=== PATIENT | female | born 1990 | race Two or more races ===

== ENCOUNTER 2019-08-26 11:07 | Inpatient (IN) | payer BC ==
[~2019-08-26] VITALS: Ht 162.6 cm; Wt 72.6 kg
[2019-08-26] VITALS (10 sets, daily range): BP systolic 107–153; BP diastolic 52–75
[2019-08-26] MEDS ORDERED: Lidocaine 1% 10mg/ml/Epi 0.005mg/ml 30ml vial INJ ONE (11:50)
[2019-08-26] MEDS ORDERED: EPINEPHrine 1mg/1ml Amp ONE (11:50)
[2019-08-26] MEDS ORDERED: Bacitracin 50000 Units Vial ONE ×2 (11:51→11:56)
[2019-08-26] MEDS ORDERED: NeoSporin Gu Irrig 1ml Amp IRRIG ONE ×2 (11:51→11:56)
[2019-08-26] MEDS ORDERED: fentaNYL 100 mcg/2 mL IV ONE (11:53)
[2019-08-26] MEDS ORDERED: Midazolam 2mg/2ml Inj ONE (11:54)
[2019-08-26] MEDS ORDERED: Ketorolac 30mg Inj ONE (11:54)
[2019-08-26] MEDS ORDERED: Lidocaine 1% MPF 10mg/ml 5ml ONE (11:54)
[2019-08-26] MEDS ORDERED: Propofol 200mg/20ml IV ONE (11:54)
[2019-08-26] MEDS ORDERED: NS Irrig 1000ml IRRIG ONE ×2 (11:58→13:06)
[2019-08-26] MEDS ORDERED: TransDerm Scop 1.5mg/72HR Patch TDERMAL ONE ×2 (12:06→13:30)
--- NOTE | 2019-08-26 12:12 | Anethesia Preoperative Eval ---
Anesthesia Pre-op PMH/ROS General Date of Evaluation: Aug 26, 2019 Time of Evaluation: 12:08 Anesthesiologist: Delroy ASA Score: ASA 2 Mallampati Score Class I : Soft palate, uvula, fauces, pillars visible Class II: Soft palate, uvula, fauces visible Class III: Soft palate, base of uvula visible Class IV: Only hard plate visible Mallampati Classification: Class II Surgeon: Roberto Diagnosis: Bilateral axillary HS Surgical Procedure: Excision of axillary hydradenitis Anesthesia History: none Family History: no anesthesia problems Allergies: Coded Allergies: No Known Allergies (Unverified , 08/25/19) Medications: see eMAR Patient NPO?: Yes Past Medical History Cardiovascular: Denies: HTN, CAD, [place], valve dz, arrhythmia, other Pulmonary: Denies: asthma, COPD, JESS, other Gastrointestinal/Genitourinary: Reports: GERD - mild; Denies: CRI, ESRD, other Neurologic/Psychiatric: Reports: depression/anxiety; Denies: dementia, CVA, TIA, other Endocrine: Denies: DM, hypothyroidism, steroids, other HEENT: Denies: cataract (L), cataract (R), glaucoma, [place] (L), [place] (R), other Hematology/Immune: Denies: anemia, DVT, bleeding disorder, other Musculoskeletal/Integumentary: Denies: OA, RA, DJD, DDD, edema, other PMH Narrative: as above PSxH Narrative: Anesthesia Pre-op Phys. Exam Physician Exam Last Vital Signs Date Time Temp Pulse Resp B/P (MAP) Pulse Ox O2 Delivery O2 Flow Rate FiO2 08/26/19 11:52 Room Air 08/26/19 11:44 98.5 64 18 107/63 100 Constitutional: NAD Neurologic: CN 2-12 intact Cardiovascular: RRR, no M/R/G Respiratory: CTA Gastrointestinal: S/NT/ND Airway Exam Mallampati Score: Class II MO: full Neck: flexible ROM: full Teeth: intact Dentures: no upper, no lower Anesthesia Pre-op A/P Labs see chart Urine Test Test 08/26/19 11:15 Urine HCG, Qualitative Negative (NEGATIVE) Studies Pre-op Studies: EKG - NSR Risk Assessment & Plan Assessment: ASA 2 Plan: GA with LMA PONV prevention Status Change Before Surgery: No Pre-Antibiotics Drug: Ancef 1gr Given Within 1 Hr of Incision: Yes Time Given: 13:10 Ernie Potts MD Aug 26, 2019 12:12
--- NOTE | 2019-08-26 12:26 | Pre-Procedure Note/Attestation ---
Pre-Procedure Note/Attestation Complete Prior to Procedure Planned Procedure: bilateral Procedure Narrative: Excision of bilateral axillary hidradenitis with flap elevation Indications for Procedure Pre-Operative Diagnosis: Hidradenitis Suppurativa Attestation I attest that I discussed the nature of the procedure; its benefits; risks and complications; and alternatives (and the risks and benefits of such alternatives ), prior to the procedure, with the patient (or the patient's legal insurance claim representative). I attest that, if there was a reasonable possibility of needing a blood transfusion, the patient (or the patient's legal insurance claim representative) was given the [facility] standardized written summary, pursuant to the Bill Shahab Blood Safety Act ([place] Health and Safety Code # 1645, as amended). I attest that I re-evaluated the patient just prior to the surgery and that there has been no change in the patient's H&P, except as documented below: Quynh Mejia MD Aug 26, 2019 12:26
[2019-08-26] MEDS ORDERED: PCA Education Pamphlet MISC ONE (12:30)
[2019-08-26] MEDS ORDERED: Zolpidem 5mg tab ORAL PRN (12:30)
[2019-08-26] MEDS ORDERED: Rate Change PCA 1 Each MISC PRN (12:30)
[2019-08-26] MEDS ORDERED: Metoclopramide 10mg/2ml Inj IVP PRN ×2 (12:30→13:30)
[2019-08-26] MEDS ORDERED: LR 1000ml ONE (13:00)
[2019-08-26] MEDS ORDERED: Sterile Water Irrig 1000ml IRRIG ONE (13:00)
[2019-08-26] MEDS ORDERED: Hydromorphone 0.5mg/0.5ml inj IVP PRN (13:30)
[2019-08-26] MEDS ORDERED: Meperidine 25mg/0.5ml Inj (FOR RIGORS ONLY) IV PRN (13:30)
[2019-08-26] MEDS ORDERED: Ketorolac 30mg Inj IV PRN (13:30)
[2019-08-26] MEDS ORDERED: LR 1000ml 1,000 ML IVLG SCH (13:30)
[2019-08-26] MEDS ORDERED: DiphenhydrAMINE 50mg/ml Inj IVP PRN (13:30)
[2019-08-26] MEDS ORDERED: Midazolam 2mg/2ml Inj IVP PRN (13:30)
[2019-08-26] MEDS ORDERED: Acetaminophen (Non formulary) 100 ML IV ONE (13:30)
[2019-08-26] MEDS ORDERED: Morphine Sulfate 10mg/ml Inj ONE (13:46)
[2019-08-26] MEDS ORDERED: Sodium Chloride 10ml vial INJ ONE (13:47)
[2019-08-26] MEDS ORDERED: Neosporin Oint Ud Pkt TOPIC ONE (14:58)
--- NOTE | 2019-08-26 15:15 | Operative Note - PDOC ---
Operative Note Operative Note Pre-op Diagnosis: Hidradenitis Suppurativa Procedure: Excision of bilateral axillary HS with flap elevation Surgeon: Roberto Concrete Plant Laborer: Natalie Anesthesia: general Specimen: yes Complications: none Condition: stable Estimated Blood Loss: minimal Drains: none Implant(s) used?: No Quynh Mejia MD Aug 26, 2019 15:15
--- NOTE | 2019-08-26 15:26 | Immediate Post-Op Evaluation ---
Immediate Post-Op Evalulation Immediate Post-Op Evalulation Procedure: Excision of bilateral axillary hydradenitis Date of Evaluation: Aug 26, 2019 Time of Evaluation: 15:25 IV Fluids: 1500 Blood Products: none Estimated Blood Loss: 100 Urinary Output: none Blood Pressure Systolic: 110 Blood Pressure Diastolic: 52 Pulse Rate: 64 Respiratory Rate: 20 O2 Sat by Pulse Oximetry: 99 Temperature (Fahrenheit): 97.6 Pain Score (1-10): 1 Nausea: No Vomiting: No Complications none Patient Status: reacts, patent, none Hydration Status: adequate Ernie Potts MD Aug 26, 2019 15:26
[2019-08-26] MEDS: PCA HYDROmorphone 1mg/ml 30 ML IV PRN (15:32)
--- NOTE | 2019-08-26 16:00 | NUR ---
NURSE NOTES: Received report by Phyllis GARCIA, pt a/a/o x4 laying in bed with no signs of distress or other issues at this time. IV on the right AC gauge X22 heplock, and right foot gauge running D5 1/2NS@75ml/hr. and RETAIL ASSOCIATE Dilaudid. call light within reach, bed in lowest position. side rales up x4. RN will review orders and will carryon. I will f/u as needed.
[2019-08-26] MEDS: Docusate 100mg cap ORAL SCH (17:55)
[2019-08-26] MEDS: D5 1/2NS 1,000 ML IV SCH (17:55)
[2019-08-26] MEDS: PCA shift volume MISC SCH (19:25)
--- NOTE | 2019-08-26 19:25 | NUR ---
NURSE NOTES: Received report from JOSE Morrison. Pt is sleeping, lying semi-slade's; comfortably resting. No signs of acute distress noted. Checked IV site on foot, line, and rate; patent and running. No erythema, bleeding, or infiltration noted. Bed at lowest position. Brakes on. Siderails up x2. Call light within reach. Will continue to monitor.
--- NOTE | 2019-08-26 19:47 | NUR ---
HAND-OFF: Report given to Melina GARCIA, pt in stable condition.
[2019-08-26] MEDS: ceFAZolin 1gm/50ml Premix 50 ML IV SCH (21:25)
[2019-08-27] VITALS (7 sets, daily range): BP systolic 93–112; BP diastolic 40–68
[2019-08-27] MEDS: ceFAZolin 1gm/50ml Premix 50 ML IV SCH ×3 (04:13→20:29)
[2019-08-27] MEDS: D5 1/2NS 1,000 ML IV SCH ×2 (04:20→18:10)
[2019-08-27] MEDS: PCA shift volume MISC SCH ×2 (07:00→19:00)
--- NOTE | 2019-08-27 07:29 | NUR ---
NURSE NOTES: Report received from Melina GARCIA, rounds made. Patient resting in semi-fowlers position in bed. Mom at bedside. No distress on RA. O2 2LNC at bedside. IV infusing to right foot, D5 1/2 at 75 ml with EDITOR INDEX Dilaudid. LAC heplock intact. Bilateral axillary dressings saturated, leaking on bed, will notify Dr. Mejia. Left SCD on. Denies pain/NV at this time. Call light in reach, bed in lowest position, will continue to monitor.
--- NOTE | 2019-08-27 07:45 | NUR ---
HAND-OFF: Report given to JOSE Huerta. Pt is awake and in stable condition. Plan of care endorsed.
--- NOTE | 2019-08-27 08:16 | NUR ---
NURSE NOTES: Dr. Mejia notified of bilateral axillary dressing status, saturated/leaking on bed. Orders received to change dressing with 4x4 and medipore tape (leave packing in place).
[2019-08-27] MEDS: Docusate 100mg cap ORAL SCH ×2 (08:55→18:10)
--- NOTE | 2019-08-27 09:24 | NUR ---
CASE MANAGEMENT: INITIAL REVIEW 29YR OLD FEMALE FROM HOME HERE FOR ELECTIVE SURGERY CC: BILATERAL AXILLARY HYDRADENITIS SI: HIDRADENITIS SUPPURATIVA 98.5 64 18 107/63 100% ON RA HCG- NEGATIVE IS:IN SURGERY NOW EXCISION OF BILATERAL AXILLARY HS WITH FLAP EVALUATION \: 3E MED SURG UNIT CASE MANAGEMENT: REVIEW 08/27/19 SI: POD#1 EXCISION OF BILATERAL AXILLARY HIDRADENITIS WITH FLAP EVALUATION HIDRADENITIS SUPPURATIVA 98.1 74 18 105/62 95% ON RA IS:LATIN TEACHER DILAUDID BID IVF D5@75ML/HR IV CEFAZOLIN Q8HR \: 3E MED SURG UNIT PLAN: DC PLANNING WOUND CARE POSSIBLE CLOSURE OF WOUND
--- NOTE | 2019-08-27 09:51 | 48 Hour Post Anesthesia Eval ---
Post Anesthesia Evaluation Procedure: Excision of bilateral axillary hydradenitis Date of Evaluation: Aug 27, 2019 Time of Evaluation: 09:50 Blood Pressure Systolic: 108 0: 62 Pulse Rate: 74 Respiratory Rate: 18 Temperature (Fahrenheit): 97.6 O2 Sat by Pulse Oximetry: 98 Airway: patent Nausea: No Vomiting: No Pain Intensity: 3 Hydration Status: adequate Cardiopulmonary Status: stable Mental Status/LOC: patient returned to baseline Follow-up Care/Observations: n/a Post-Anesthesia Complications: none Follow-up care needed: N/A Ernie Potts MD Aug 27, 2019 09:51
--- NOTE | 2019-08-27 10:20 | General Progress Note ---
Progress Note Progress Note Pt seen and examined. POD# 1 and doing well. Pain is minimal. Dressings were replaced due to soakage. Plan for OR tomorrow for definitive flap inset into the axillary wounds. Quynh Higgins MD, MD Aug 27, 2019 10:20
--- NOTE | 2019-08-27 10:32 | Anethesia Preoperative Eval ---
Anesthesia Pre-op PMH/ROS General Date of Evaluation: Aug 27, 2019 Anesthesiologist: Betty ASA Score: ASA 2 Mallampati Score Class I : Soft palate, uvula, fauces, pillars visible Class II: Soft palate, uvula, fauces visible Class III: Soft palate, base of uvula visible Class IV: Only hard plate visible Mallampati Classification: Class II Surgeon: Roberto Diagnosis: Bilateral Axillary Hidradenitis Suppurativa Surgical Procedure: Axillary Wound Closure Anesthesia History: none Family History: no anesthesia problems Allergies: Coded Allergies: No Known Allergies (Unverified , 08/25/19) Medications: see eMAR Patient NPO?: Yes Past Medical History Gastrointestinal/Genitourinary: Reports: GERD Neurologic/Psychiatric: Reports: depression/anxiety PSxH Narrative: C/S Anesthesia Pre-op Phys. Exam Physician Exam Last Vital Signs Date Time Temp Pulse Resp B/P (MAP) Pulse Ox O2 Delivery O2 Flow Rate FiO2 08/27/19 09:51 74 18 98 08/27/19 08:00 98.1 105/62 (76) 08/26/19 21:00 Nasal Cannula 2.0 Constitutional: NAD Neurologic: CN 2-12 intact Cardiovascular: RRR Respiratory: CTA Gastrointestinal: S/NT/ND Airway Exam Mallampati Score: Class II MO: full ROM: full Teeth: intact Anesthesia Pre-op A/P Labs Labs Test 08/26/19 11:15 08/27/19 11:35 Urine HCG, Qualitative Negative (NEGATIVE) White Blood Count 12.3 K/UL (4.8-10.8) Red Blood Count 3.98 M/UL (4.20-5.40) Hemoglobin 12.4 G/DL (12.0-16.0) Hematocrit 35.5 % (37.0-47.0) Mean Corpuscular Volume 89 FL (80-99) Mean Corpuscular Hemoglobin 31.2 PG (27.0-31.0) Mean Corpuscular Hemoglobin Concent 34.9 G/DL (32.0-36.0) Red Cell Distribution Width 10.9 % (11.6-14.8) Platelet Count 318 K/UL (150-450) Mean Platelet Volume 5.8 FL (6.5-10.1) Neutrophils (%) (Auto) 78.7 % (45.0-75.0) Lymphocytes (%) (Auto) 15.5 % (20.0-45.0) Monocytes (%) (Auto) 4.5 % (1.0-10.0) Eosinophils (%) (Auto) 0.7 % (0.0-3.0) Basophils (%) (Auto) 0.6 % (0.0-2.0) Sodium Level 140 MMOL/L (136-145) Potassium Level 4.0 MMOL/L (3.5-5.1) Chloride Level 104 MMOL/L (98-107) Carbon Dioxide Level 30 MMOL/L (21-32) Anion Gap 6 mmol/L (5-15) Blood Urea Nitrogen 6 mg/dL (7-18) Creatinine 0.6 MG/DL (0.55-1.30) Estimat Glomerular Filtration Rate > 60 mL/min (>60) Glucose Level 151 MG/DL (74-106) Calcium Level 8.7 MG/DL (8.5-10.1) Total Bilirubin 0.5 MG/DL (0.2-1.0) Aspartate Amino Transf (AST/SGOT) 77 U/L (15-37) Alanine Aminotransferase (ALT/SGPT) 91 U/L (12-78) Alkaline Phosphatase 61 U/L (46-116) Total Protein 7.5 G/DL (6.4-8.2) Albumin 3.2 G/DL (3.4-5.0) Globulin 4.3 g/dL Albumin/Globulin Ratio 0.7 (1.0-2.7) Urine Test Test 08/26/19 11:15 Urine HCG, Qualitative Negative (NEGATIVE) Risk Assessment & Plan Assessment: ASA 1 Plan: GA Status Change Before Surgery: No Pre-Antibiotics Drug: Fabrice Egan MD Aug 27, 2019 10:32
--- NOTE | 2019-08-27 10:59 | History and Physical ---
History of Present Illness General Date patient seen: Aug 27, 2019 Reason for Hospitalization: bilateral axillary HS cellulitis Present Illness HPI 29 year old female with history of hidradenitis suppurativa win bilateral axilla and groin presented with infected stage 3 HS. She recently changed her diet to vegan which helped her groin lesions. Has also lost weight, she thinks about 10 pounds. She had wbc count of 11.1 when checked outpatient. Denies taking any medications other than over the counter vitamins. she currently denies fever, chills. 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 Denies smoking cigarettes, etoh or illicit drug use Family history: cousin with hidradenitis Suppurative Allergies: Coded Allergies: No Known Allergies (Unverified , 08/25/19) Medication History No Active Prescriptions or Reported Meds Patient History Healthcare decision maker Resuscitation status Full Code Advanced Directive on File Review of Systems Eye: Denies: no symptoms, see HPI, eye pain, blurred vision, tearing, double vision, nose pain, nose congestion, acuity changes, discharge, other ENT: Denies: no symptoms, see HPI, ear pain, ear discharge, nose pain, nose congestion, throat pain, throat swelling, mouth pain, hearing loss, nasal discharge, other Respiratory: Denies: no symptoms, see HPI, cough, orthopnea, shortness of breath, stridor, wheezing, WAHL, sputum, other Cardiovascular: Denies: no symptoms, see HPI, chest pain, edema, palpitations, syncope, PND, other Gastrointestinal: Denies: no symptoms, see HPI, abdominal pain, constipation, diarrhea, nausea, vomiting, melena, hematemesis, other Genitourinary: Denies: no symptoms, see HPI, discharge, dysuria, frequency, hematuria, pain, retention, incontinence, urgency, vag bleed/dc, other Musculoskeletal: Denies: no symptoms, see HPI, back pain, gout, joint pain, joint swelling, muscle pain, muscle stiffness, other Skin: Reports: see HPI, lesions; Denies: no symptoms, rash, change in color, change in hair/nails, dryness, other Psychiatric: Denies: no symptoms, see HPI, prior hx, anxiety, depressed feelings, emotional problems, SI, HI, hallucinations, other Neurological: Denies: no symptoms, see HPI, headache, numbness, paresthesia, seizure, tingling, tremors, focal weakness, syncope, dizziness, other Endocrine: Denies: no symptoms, see HPI, excessive sweating, flushing, intolerance to temperature, increased thirst, increased urine, unexplained weight loss, other Hematologic/Lymphatic: Denies: no symptoms, see HPI, anemia, blood clots, easy bleeding, easy bruising, swollen glands, diathesis, other Physical Exam General Appearance: WD/WN, no apparent distress, overweight Lines, tubes and drains: peripheral HEENT: normocephalic, atraumatic, anicteric Neck: non-tender, normal alignment, supple Respiratory/Chest: chest wall non-tender, lungs clear, normal breath sounds, no respiratory distress, no accessory muscle use Cardiovascular/Chest: normal peripheral pulses, normal rate, regular rhythm, no gallop/murmur, no JVD Abdomen: normal bowel sounds, non tender, soft, no organomegaly, no mass Extremities: normal range of motion, non-tender, no calf tenderness, no edema Skin Exam: normal pigmentation, warm/dry, other - bilateral axilla dressing c/d /i Neurologic: bryologist II-XII grossly normal, no motor/sensory deficits, alert, oriented x 3, responsive Musculoskeletal: normal muscle bulk Last 24 Hour Vital Signs Date Time Temp Pulse Resp B/P (MAP) Pulse Ox O2 Delivery O2 Flow Rate FiO2 08/27/19 09:51 74 18 98 08/27/19 08:00 98.1 74 18 105/62 (76) 95 08/27/19 08:00 74 18 95 08/27/19 04:00 64 20 100 08/27/19 04:00 98.0 64 20 103/63 (76) 100 08/27/19 00:08 72 16 99 08/27/19 00:00 98.0 72 20 112/68 (83) 99 08/26/19 21:00 89 17 98 08/26/19 21:00 Nasal Cannula 2.0 08/26/19 20:00 98.1 70 20 122/74 (90) 100 08/26/19 19:01 Nasal Cannula 3.0 08/26/19 16:15 17 2/5/20 16:05 97.8 68 13 153/75 100 Nasal Cannula 3 08/26/19 16:02 97.8 08/26/19 16:00 17 08/26/19 15:50 58 23 145/69 100 Nasal Cannula 3 08/26/19 15:45 20 08/26/19 15:36 52 14 142/72 100 Simple Mask 6 08/26/19 15:32 18 08/26/19 15:26 49 19 118/58 100 Simple Mask 6 08/26/19 15:26 64 20 99 08/26/19 15:16 59 15 110/52 100 Simple Mask 6 08/26/19 15:11 69 22 115/55 100 Simple Mask 6 08/26/19 15:06 97.1 58 20 121/69 99 Simple Mask 6 08/26/19 11:52 Room Air 08/26/19 11:44 98.5 64 18 107/63 100 Room Air Intake and Output 08/26/19 08/27/19 19:00 07:00 Intake Total 1675 ml 950 ml Output Total 100 ml Balance 1575 ml 950 ml Intake Oral 0 ml IV Total 1675 ml 950 ml Output Estimated Blood Loss 100 ml # Voids 1 Laboratory Tests Test 08/26/19 11:15 Urine HCG, Qualitative Negative (NEGATIVE) Height (Feet): 5 Height (Inches): 4.00 Weight (Pounds): 160 Medications Current Medications Medications (Trade) Dose Ordered Sig/Rl Route PRN Reason Start Time Stop Time Status Last Admin Dose Admin Acetaminophen (Tylenol) 650 mg Q4H PRN ORAL FEVER 08/26/19 12:30 09/25/19 12:29 Cefazolin Sodium 50 ml @ 100 mls/hr Q8H IV 08/26/19 21:00 09/02/19 20:59 08/27/19 04:13 Dextrose/Sodium Chloride 1,000 ml @ 75 mls/hr [id number] IV 08/26/19 15:00 09/25/19 14:59 08/27/19 04:20 Docusate Sodium (Colace) 100 mg TWICE A DAY ORAL 08/26/19 18:00 09/25/19 17:59 08/27/19 08:55 Heparin Sodium (Porcine) (Heparin 5000 units/ml) 5,000 units EVERY 12 HOURS SUBQ 08/26/19 21:00 09/25/19 20:59 UNV Hydromorphone HCl 30 ml @ 0 mls/hr Q24H PRN IV For Pain 08/26/19 12:30 08/28/19 12:29 08/26/19 15:32 Metoclopramide HCl (Reglan) 10 mg Q6H PRN IVP Nausea & Vomiting 08/26/19 12:30 09/25/19 12:29 Miscellaneous Medication (MANAGER COMMUNITY OUTREACH Rate Change) 1 ea DAILY PRN MISC rate change 08/26/19 12:30 08/28/19 12:29 Miscellaneous Medication (MANAGER COMMUNITY OUTREACH shift volume) 1 ea Q12HR@0700,1900 MISC 08/26/19 19:00 08/28/19 18:59 08/27/19 07:00 Ondansetron HCl (Zofran) 4 mg Q6H PRN IVP Nausea & Vomiting 08/26/19 12:30 09/25/19 12:29 08/27/19 08:55 Temazepam (RestoriL) 7.5 mg DAILYPRN PRN ORAL Insomnia 08/26/19 12:30 09/02/19 12:29 Assessment/Plan Problem List: (1) Hidradenitis axillaris ICD Codes: L73.2 - Hidradenitis suppurativa SNOMED: [id number] Status: stable Assessment/Plan: 29 year old female with infected stage 3 Hidradenitis suppurativa now pod 1 s/p excision of bilateral axillary HS with flap elevation. #HS POD#1 s/p excision of bilateral axillary HS with flap elevation #Opioid induced pruritus IV antibiotics, currently cefazolin, ID consult with Dr. Marques monitor vitals follow up OR wound cultures check cbc, bmp MANAGER COMMUNITY OUTREACH pump IV Benadryl 25 mg Q6hr prn for pruritus NPO past midnight for 2nd phase of surgery on 08/28 bowel regimen plan of care d/w Dr. Mejia VTE ppx: Heparin subq, SCD boots GI ppx: not indicated Code status full code I spent 70 minutes on this encounter. Greater than 50% spent on counselling and care coordination. Yimi Rowland M.D. Aug 27, 2019 10:59
[2019-08-27 11:47] LABS: BASOPHILS % (AUTO) 0.6 % (0.0-2.0); EOSINOPHILS % (AUTO) 0.7 % (0.0-3.0); HEMATOCRIT 35.5 % (37.0-47.0); HEMOGLOBIN 12.4 G/DL (12.0-16.0); LYMPHOCYTES % (AUTO) 15.5 % (20.0-45.0); MEAN CORPUSCULAR VOLUME 89 FL (80-99); MONOCYTES % (AUTO) 4.5 % (1.0-10.0); NEUTROPHILS % (AUTO) 78.7 % (45.0-75.0); PLATELET COUNT 318 K/UL (150-450); RED BLOOD COUNT 3.98 M/UL (4.20-5.40); RED CELL DISTRIBUTION WIDTH 10.9 % (11.6-14.8); WHITE BLOOD COUNT 12.3 K/UL (4.8-10.8)
[2019-08-27 12:08] LABS: ALANINE AMINOTRANSFERASE 91 U/L (12-78); ALBUMIN 3.2 G/DL (3.4-5.0); ALBUMIN/GLOBULIN RATIO 0.7 (1.0-2.7); ALKALINE PHOSPHATASE 61 U/L (46-116); ANION GAP 6 mmol/L (5-15); ASPARTATE AMINO TRANSFERASE 77 U/L (15-37); BILIRUBIN,TOTAL 0.5 MG/DL (0.2-1.0); BLOOD UREA NITROGEN 6 mg/dL (7-18); CALCIUM 8.7 MG/DL (8.5-10.1); CARBON DIOXIDE 30 MMOL/L (21-32); CHLORIDE 104 MMOL/L (98-107); CREATININE 0.6 MG/DL (0.55-1.30); SODIUM 140 MMOL/L (136-145)
[2019-08-27] MEDS: DiphenhydrAMINE 50mg/ml Inj IVP PRN ×2 (13:12→20:29)
--- NOTE | 2019-08-27 15:30 | NUR ---
NURSE NOTES: Bilateral axillary dressings changed x2 this shift (0915 and 1530), applied 4x4 gauze with medipore tape. [place] noted, CDI. Packing to bilateral axillary remains in place. Will continue to monitor.
--- NOTE | 2019-08-27 15:47 | NUR ---
NURSE NOTES: Consent reviewed with patient, informed that NPO at midnight tonight, verbalized understanding. Consent signed.
[2019-08-27] MEDS ORDERED: DiphenhydrAMINE & Zinc 28g Cream TOPIC PRN ×2 (16:35→16:45)
--- NOTE | 2019-08-27 17:00 | NUR ---
NURSE NOTES: Notified Dr. Rowland, patient medicated with Benadryl, but is still experiencing itching to face, neck, chest, upper arms. Order for topical Benadryl, updated patient and offered to medicate with topical, patient states she is okay at this time. Will continue to monitor.
[2019-08-27] MEDS: PCA HYDROmorphone 1mg/ml 30 ML IV PRN (18:14)
--- NOTE | 2019-08-27 19:25 | NUR ---
HAND-OFF: Report given to Wei GARCIA, rounds made. Bilateral axillary dressings CDI. Endorsed POC (OR tomorrow, NPO at midnight tonight).
--- NOTE | 2019-08-27 19:30 | NUR ---
NURSE NOTES: Pt. received from JOSE Huerta. Pt. AAOx4 on room air, pain managed with MOBILE DEVICE ENGINEER, no indications of respiratory distress at this time. Bilateral axillary dressings clean, dry and intact. IV site left arm 22g asymptomatic, intact, and patent; saline locked. IV right foot 22g asymptomatic, intact, and patent; running D5 1/2 NS at 75cc/hr. Discussed NPO at midnight, pt. verbalized understanding. Mom at bedside. Bed is low and locked, side rails x2 up, and call light is in reach. Will continue to monitor.
--- NOTE | 2019-08-27 20:18 | Infectious Diseases Prog Note ---
Assessment/Plan Assessment/Plan Full consult dictated: A) 1. bilateral axilla wound infection, hidradenitis suppurativa 2. pmh noted 3. allergies - nkda P) 1. cefazolin 2. follow clinically, monitor labs 3. surgery f/u 4. continue tx per Dr. Rowland 5. thank you Subjective Allergies: Coded Allergies: No Known Allergies (Unverified , 08/25/19) Objective Vital Signs Last 24 Hour Vital Signs Date Time Temp Pulse Resp B/P (MAP) Pulse Ox O2 Delivery O2 Flow Rate FiO2 08/27/19 16:00 62 20 98 08/27/19 16:00 97.9 62 20 99/57 (71) 98 08/27/19 13:29 99 Nasal Cannula 21 08/27/19 12:00 56 18 100 08/27/19 12:00 98.2 56 18 93/40 (57) 95 08/27/19 09:51 74 18 98 08/27/19 09:00 Nasal Cannula 2.0 08/27/19 08:00 98.1 74 18 105/62 (76) 95 08/27/19 08:00 74 18 95 08/27/19 04:00 64 20 100 08/27/19 04:00 98.0 64 20 103/63 (76) 100 08/27/19 00:08 72 16 99 08/27/19 00:00 98.0 72 20 112/68 (83) 99 08/26/19 21:00 89 17 98 08/26/19 21:00 Nasal Cannula 2.0 Height (Feet): 5 Height (Inches): 4.00 Weight (Pounds): 160 Laboratory Tests Test 08/27/19 11:35 White Blood Count 12.3 K/UL (4.8-10.8) H Red Blood Count 3.98 M/UL (4.20-5.40) L Hemoglobin 12.4 G/DL (12.0-16.0) Hematocrit 35.5 % (37.0-47.0) L Mean Corpuscular Volume 89 FL (80-99) Mean Corpuscular Hemoglobin 31.2 PG (27.0-31.0) H Mean Corpuscular Hemoglobin Concent 34.9 G/DL (32.0-36.0) Red Cell Distribution Width 10.9 % (11.6-14.8) L Platelet Count 318 K/UL (150-450) Mean Platelet Volume 5.8 FL (6.5-10.1) L Neutrophils (%) (Auto) 78.7 % (45.0-75.0) H Lymphocytes (%) (Auto) 15.5 % (20.0-45.0) L Monocytes (%) (Auto) 4.5 % (1.0-10.0) Eosinophils (%) (Auto) 0.7 % (0.0-3.0) Basophils (%) (Auto) 0.6 % (0.0-2.0) Sodium Level 140 MMOL/L (136-145) Potassium Level 4.0 MMOL/L (3.5-5.1) Chloride Level 104 MMOL/L (98-107) Carbon Dioxide Level 30 MMOL/L (21-32) Anion Gap 6 mmol/L (5-15) Blood Urea Nitrogen 6 mg/dL (7-18) L Creatinine 0.6 MG/DL (0.55-1.30) Estimat Glomerular Filtration Rate > 60 mL/min (>60) Glucose Level 151 MG/DL (74-106) H Calcium Level 8.7 MG/DL (8.5-10.1) Total Bilirubin 0.5 MG/DL (0.2-1.0) Aspartate Amino Transf (AST/SGOT) 77 U/L (15-37) H Alanine Aminotransferase (ALT/SGPT) 91 U/L (12-78) H Alkaline Phosphatase 61 U/L (46-116) Total Protein 7.5 G/DL (6.4-8.2) Albumin 3.2 G/DL (3.4-5.0) L Globulin 4.3 g/dL Albumin/Globulin Ratio 0.7 (1.0-2.7) L Current Medications Medications (Trade) Dose Ordered Sig/Rl Route PRN Reason Start Time Stop Time Status Last Admin Dose Admin Acetaminophen (Tylenol) 650 mg Q4H PRN ORAL FEVER 08/26/19 12:30 09/25/19 12:29 Cefazolin Sodium 50 ml @ 100 mls/hr Q8H IV 08/26/19 21:00 09/02/19 20:59 08/27/19 13:10 Dextrose/Sodium Chloride 1,000 ml @ 75 mls/hr [id number] IV 08/26/19 15:00 09/25/19 14:59 08/27/19 18:10 Diphenhydramine HCl (Benadryl Cream) 1 applic TIDPRN PRN TOPIC Itching 08/27/19 16:45 09/26/19 16:34 Diphenhydramine HCl (Benadryl) 25 mg Q6H PRN IVP Itching 08/27/19 12:45 09/26/19 12:44 08/27/19 13:12 Docusate Sodium (Colace) 100 mg TWICE A DAY ORAL 08/26/19 18:00 09/25/19 17:59 08/27/19 18:10 Heparin Sodium (Porcine) (Heparin 5000 units/ml) 5,000 units EVERY 12 HOURS SUBQ 08/27/19 21:00 09/26/19 20:59 Hydromorphone HCl 30 ml @ 0 mls/hr Q24H PRN IV For Pain 08/26/19 12:30 08/28/19 12:29 08/27/19 18:14 Metoclopramide HCl (Reglan) 10 mg Q6H PRN IVP Nausea & Vomiting 08/26/19 12:30 09/25/19 12:29 08/27/19 13:11 Miscellaneous Medication (PRESS AND BLOW MACHINE TENDER Rate Change) 1 ea DAILY PRN MISC rate change 08/26/19 12:30 08/28/19 12:29 Miscellaneous Medication (PRESS AND BLOW MACHINE TENDER shift volume) 1 ea Q12HR@0700,1900 MISC 08/26/19 19:00 08/28/19 18:59 08/27/19 19:00 Ondansetron HCl (Zofran) 4 mg Q6H PRN IVP Nausea & Vomiting 08/26/19 12:30 09/25/19 12:29 08/27/19 08:55 Temazepam (RestoriL) 7.5 mg DAILYPRN PRN ORAL Insomnia 08/26/19 12:30 09/02/19 12:29 Brandy Tobias MD Aug 27, 2019 20:18
[2019-08-27] MEDS ORDERED: Heparin 5000 units/ml inj SUBQ SCH (21:00)
--- NOTE | 2019-08-27 21:30 | NUR ---
NURSE NOTES: Pt.'s right axillary dressing changed due to scant bleeding at staple site. Pt. tolerated well, dressing now clean dry and intact. Will continue to monitor.
--- NOTE | 2019-08-27 22:15 | Consultation ---
DATE OF CONSULTATION: 08/27/2019 INFECTIOUS DISEASE CONSULTATION CONSULTING PHYSICIAN: Brandy Tobias M.D. ATTENDING PHYSICIAN: Gustavo Darden M.D. REFERRING PHYSICIAN: Yimi Rowland M.D. REASON FOR CONSULTATION: Bilateral axilla infected wound secondary to infected hidradenitis suppurativa looks like stage III. CHIEF COMPLAINT: The patient's chief complaint coming in to the hospital is bilateral axilla infected wounds secondary to hidradenitis suppurativa, again stage III. HISTORY OF PRESENT ILLNESS: This is a very pleasant 29-year-old female who has history of hidradenitis suppurativa. It actually involved the bilateral axilla and groin areas. The patient presented with infected hidradenitis suppurativa bilateral axilla, looks like stage III per the records. The patient is status post debridement and surgery including excision of the bilateral axilla hidradenitis suppurativa with flap elevation. Infectious Disease consultation is requested because of the infected bilateral axilla wounds and mild leukocytosis. The patient currently is on cefazolin 1 g IV q.8 hours. MAR was noted. Orders were noted. Notes and records were reviewed. REVIEW OF SYSTEMS: CONSTITUTIONAL: The patient has no fever, chills, or night sweats. No weight loss. HEAD AND NECK: No head pain, neck pain, headache, or neck stiffness. CARDIAC: No chest pain. GASTROINTESTINAL: No nausea, vomiting, or diarrhea. GENITOURINARY: No history of dysuria or frequency. PULMONARY: No congestion or shortness of breath. SKIN: No rash or itching. EXTREMITIES: No pain. She has bilateral axilla pain postsurgery, but controlled. NEUROLOGIC: No seizure. PAST MEDICAL HISTORY: The patient has a past medical history of hidradenitis suppurativa, bilateral axilla and also the groin area infected stage III. The patient has history of . She has no history of diabetes or hypertension. ALLERGIES: No known drug allergies. No antibiotic allergies. SOCIAL HISTORY: Negative for smoking, alcohol, drug abuse. FAMILY HISTORY: Noncontributory. MEDICATIONS: Upon reviewing the MAR, she is on following medications. She is on heparin, diphenhydramine. She is on cefazolin 1 g IV q.8 hours. She is on docusate, Zofran, metoclopramide, temazepam, acetaminophen, hydromorphone. Outside medications noted and reconciliated. PHYSICAL EXAMINATION: VITAL SIGNS: Temperature 97.9, pulse rate 62, respiratory rate 20, blood pressure 99/57, saturation 98%. GENERAL: Alert, responsive. No acute distress. HEAD AND NECK: Oral exam, no thrush. Eye exam, no icterus. Normocephalic. Neck is supple. No JVD. HEART: Regular rate and rhythm. No gallop or murmur. ABDOMEN: Soft. Positive bowel sounds. Nontender. LUNGS: Clear bilaterally. No rhonchi or rales. SKIN: No rash. Her bilateral axilla wounds are surgically covered at this time. MUSCULOSKELETAL: No effusions. Legs are without cellulitis. PERIPHERAL VASCULAR: No cyanosis or gangrene. GENITOURINARY: No Damon. LINE SITES: Without phlebitis. NEUROLOGIC: She is alert and oriented x3. Intact. LABORATORY DATA: White count 12.3, hematocrit 12.4. Creatinine 0.6. ASSESSMENT AND PLAN: 1. The patient has bilateral axilla infected wound secondary to infected hydradenitis suppurativa. The patient is status post excision of the bilateral axilla hidradenitis suppurativa and debridement. The patient is currently on cefazolin 1 g IV q.8 hours. Most likely, pathogen will be gram-positive pathogen. I agree with cefazolin 1 g IV q.8 hours for now and we will monitor the patient clinically. Also in addition to the excision of hidradenitis suppurativa, the patient also had flap elevation and I believe the patient to undergo flap closure in the future. Continue Cefazolin for now and monitor leukocytosis. 2. Hidradenitis suppurativa of the bilateral axilla and also history of groin hydradenitis suppurativa. 3. History of . 4. No history of diabetes or hypertension. 5. Continue treatment per primary consultants. 6. No known allergies. 7. Social history is negative. 8. Family history is noncontributory. 9. MAR was noted. 10. Case was discussed with RN. 11. Case was discussed with the patient. 12. Orders were noted and entered. 13. Surgery follow up. 14. Continue treatment per Dr. Rowland and consultants. 15. Wound care per protocol and Surgery. Brandy Tobias M.D. DR: VIGNESH JOB#: [id number] CC:
[2019-08-28] VITALS (16 sets, daily range): BP systolic 109–137; BP diastolic 40–70
[2019-08-28] MEDS: DiphenhydrAMINE 50mg/ml Inj IVP PRN (03:51)
--- NOTE | 2019-08-28 05:00 | NUR ---
NURSE NOTES: Right axillary dressing changed, scant leaking noted. Partial left dressing changed.
[2019-08-28] MEDS: ceFAZolin 1gm/50ml Premix 50 ML IV SCH (05:21)
[2019-08-28] MEDS ORDERED: EPINEPHrine 1mg/1ml Amp ONE (06:24)
[2019-08-28] MEDS ORDERED: Lidocaine 1% 10mg/ml/Epi 0.005mg/ml 30ml vial INJ ONE (06:24)
[2019-08-28] MEDS ORDERED: NeoSporin Gu Irrig 1ml Amp IRRIG ONE ×2 (06:25→08:35)
[2019-08-28] MEDS ORDERED: Bacitracin 50000 Units Vial ONE ×2 (06:25→08:35)
[2019-08-28] MEDS ORDERED: NS Irrig 1000ml IRRIG ONE ×2 (06:28→07:42)
[2019-08-28] MEDS ORDERED: Midazolam 2mg/2ml Inj ONE (06:35)
[2019-08-28] MEDS ORDERED: fentaNYL 100 mcg/2 mL IV ONE (06:35)
[2019-08-28] MEDS ORDERED: Propofol 200mg/20ml IV ONE (06:35)
[2019-08-28] MEDS ORDERED: Lidocaine 1% MPF 10mg/ml 5ml ONE (06:35)
[2019-08-28 06:43] LABS: HEMOGLOBIN 11.9 G/DL (12.0-16.0); WHITE BLOOD COUNT 9.4 K/UL (4.8-10.8)
[2019-08-28 06:44] LABS: BASOPHILS % (AUTO) 0.9 % (0.0-2.0); EOSINOPHILS % (AUTO) 1.9 % (0.0-3.0); MEAN CORPUSCULAR VOLUME 89 FL (80-99); MONOCYTES % (AUTO) 7.6 % (1.0-10.0); NEUTROPHILS % (AUTO) 52.5 % (45.0-75.0); PLATELET COUNT 288 K/UL (150-450); RED CELL DISTRIBUTION WIDTH 11.2 % (11.6-14.8)
[2019-08-28] MEDS ORDERED: TransDerm Scop 1.5mg/72HR Patch TDERMAL ONE (06:54)
[2019-08-28 06:56] LABS: ALANINE AMINOTRANSFERASE 69 U/L (12-78); ALBUMIN/GLOBULIN RATIO 0.7 (1.0-2.7); ALKALINE PHOSPHATASE 55 U/L (46-116); ANION GAP 5 mmol/L (5-15); ASPARTATE AMINO TRANSFERASE 51 U/L (15-37); BILIRUBIN,TOTAL 0.4 MG/DL (0.2-1.0); BLOOD UREA NITROGEN 4 mg/dL (7-18); CALCIUM 8.7 MG/DL (8.5-10.1); CARBON DIOXIDE 31 MMOL/L (21-32); CHLORIDE 106 MMOL/L (98-107); CREATININE 0.7 MG/DL (0.55-1.30); POTASSIUM 3.6 MMOL/L (3.5-5.1); SODIUM 142 MMOL/L (136-145)
[2019-08-28] MEDS ORDERED: NS Irrig 1000ml ONE (07:00)
[2019-08-28] MEDS ORDERED: Sterile Water Irrig 1000ml IRRIG ONE (07:00)
[2019-08-28] MEDS ORDERED: LR 1000ml ONE (07:00)
[2019-08-28] MEDS: D5 1/2NS 1,000 ML IV SCH ×2 (07:00→13:03)
--- NOTE | 2019-08-28 07:06 | Pre-Procedure Note/Attestation ---
Pre-Procedure Note/Attestation Complete Prior to Procedure Planned Procedure: bilateral Procedure Narrative: Bilateral axillary flap wound closure Indications for Procedure Pre-Operative Diagnosis: Hidradenitis Suppurativa Attestation I attest that I discussed the nature of the procedure; its benefits; risks and complications; and alternatives (and the risks and benefits of such alternatives ), prior to the procedure, with the patient (or the patient's legal front office representative). I attest that, if there was a reasonable possibility of needing a blood transfusion, the patient (or the patient's legal front office representative) was given the [facility] standardized written summary, pursuant to the Bill Langston Blood Safety Act ([place] Health and Safety Code # 1645, as amended). I attest that I re-evaluated the patient just prior to the surgery and that there has been no change in the patient's H&P, except as documented below: Quynh Mejia MD Aug 28, 2019 07:06
--- NOTE | 2019-08-28 07:08 | NUR ---
NURSE NOTES: Report received from Wei GARCIA. Patient has already left for OR. Mom in room.
[2019-08-28] MEDS: PCA shift volume MISC SCH ×2 (07:14→19:00)
[2019-08-28] MEDS ORDERED: Metoclopramide 10mg/2ml Inj IVP PRN ×2 (07:15→09:00)
[2019-08-28] MEDS ORDERED: Zolpidem 5mg tab ORAL PRN (07:15)
[2019-08-28] MEDS ORDERED: PCA Education Pamphlet MISC ONE (07:15)
[2019-08-28] MEDS ORDERED: Rate Change PCA 1 Each MISC PRN (07:15)
--- NOTE | 2019-08-28 07:16 | NUR ---
HAND-OFF: Report given to JOSE Huerta. Pt. out for procedure. Endorsed plan of care.
--- NOTE | 2019-08-28 07:30 | Operative Note - Dictated ---
DATE OF OPERATION: 08/26/2019 PREOPERATIVE DIAGNOSIS: Bilateral advanced grade 3 hidradenitis of the axilla. POSTOPERATIVE DIAGNOSIS: Bilateral advanced grade 3 hidradenitis of the axilla. PROCEDURES: 1. Radical excision of left axillary infected hidradenitis leaving a defect that measured 20 x 18 cm. 2. Radical excision of right infected axillary hidradenitis leaving a defect of 15 x 20 cm. 3. Elevation of a left lateral chest wall thoracodorsal artery flap with flap measurements of 20 x 10 cm. 4. Elevation of a right lateral chest wall thoracodorsal artery flap, measurements are 20 x 10 cm. SURGEON: Quynh Mejia M.D. TELESALES ADVISOR: Alexandrea Estrada M.D. ANESTHESIA: General. COMPLICATIONS: None. DRAINS: None. SPECIMEN: Included bilateral axillary tissue. ESTIMATED BLOOD LOSS: About 50 mL. DISPOSITION: Stable to the recovery room. INDICATIONS FOR SURGERY: This is a 29-year-old female with a well-known advanced history of grade 3 hidradenitis suppurativa affecting her bilateral axilla as well as her groin and breast regions. I examined her in the office where she was noted to have exquisite pain and tenderness in these areas and had failed medical management in the past. The patient was at a point where she could not continue daily activities of living and was desperate for help. Given that she had failed medical management and given her advanced stage of the disease and infection, I felt that she was an appropriate candidate for radical excision with flap reconstruction of her wounds. We obtained authorization from the insurance company for the patient to undergo this procedure. The patient understands the risks and benefits of surgery and agrees to proceed. She understood the risks and the risks include infection, bleeding, the need for further surgery, possible wound infection, nerve damage, and risks of anesthesia. These were all understood and the patient agreed to proceed. DETAILS OF THE OPERATION: The patient was brought to the operating room and laid supine on the operating room table. Her chest and bilateral axillae were prepped and draped in a sterile and usual fashion. We first began on the right side where we used the marking pen to delineate the extent of her disease in the axilla. We also designed a corresponding lateral chest wall flap that was U-shaped and measured 20 x 10 cm given the anticipated defect that would result in the axilla following the excision of the disease. Once these dennis were made, a total of 10 mL of lidocaine with epinephrine was injected into the base of the axillary region and a #10 blade was then used to make the skin incision around the axillary infection bearing hidradenitis. Electrocautery was then used to dissect the tissue all the way down to the level of the axillary fascia with care to preserve and not injure any of the neurovascular structures. The specimen was then removed on block and there was noted to be no evidence of disease or infection left behind. The defect that resulted measured 20 x 10 cm and was clearly not amenable to primary closure. We then proceeded to make the U-shaped incision to elevate the thoracodorsal artery flap. A #10 blade was used to make the skin incision. Electrocautery was then used to dissect all the way down to the level of the latissimus muscle fascia. The flap was then elevated based off of perforators of the thoracodorsal artery. The flap was then transposed into the defect and although it provided adequate soft tissue coverage, it did seem that there was some deficiencies on either side of the flap as such both the medial and lateral aspects of the axillary defect required undermining using the electrocautery and skin hooks to elevate approximately 3 to 4 centimeters on either side to allow for complete soft tissue coverage with the flap in the middle. Once this was done, the wound was then copiously irrigated with pulse lavage and hemostasis was achieved. However, given the level of infection present and the fact that the patient also had a leukocytosis upon preoperative examination, her white count being 11, it was felt that it would not be prudent to provide definitive soft tissue coverage at this time. The plan was to allow the wound to stabilize with some dressing changes and to bring the patient back for staged reconstruction within 48 hours. The flap was then placed into its donor site and secured in place with wilson and dressings were applied to each axillary wounds, and a compressive dressing was then applied. We then turned our attention to the contralateral axillary defect on the left side. Marking pen was used to delineate the extent of the disease and infection on this side and a corresponding U-shaped thoracodorsal artery flap was then designed. The flap measurements were also 20 x 10 cm given the anticipated axillary defect that would result following excision of the disease and infection. A #10 blade was used to make the axillary incision around the area of disease. This was a circumferential type of incision and electrocautery was then used to dissect all the way down to the level of the axilla. However, on this side there was some extension into the patient's brachial or mid arm section and so the incision did require some extension into the upper arm region given the fact that she has active abscess in that area. Once this was done, the corresponding thoracodorsal artery flap was then elevated using a #10 blade to make the U-shaped incision and as was done on the other side, dissection was carried down with the electrocautery down to the latissimus muscle fascia and the flap was then elevated and the perforators of the thoracodorsal artery were perfusing this flap of tissue that was being inset was temporarily being inset into the defect. As was done on the other side, it was noted that the flap provided significant soft tissue coverage but not adequate to provide a complete coverage. As such, some undermining was performed on both the lateral and medial aspects of the axillary defect using the electrocautery with skin ducts to elevate the skin about 3 to 4 centimeters on either side allowed for complete soft tissue coverage. The only area that was not completely covered was the area that resulted from the removal of the brachial or mid arm disease. This is an area that was approximately 3 x 5 cm in size, and the plan was to potentially perform a brachial arm advancement flap. However, given the fact that the patient will be brought back to the operating room within 48 hours for definitive reconstruction, we will delay on any further flap elevation until we definitively inset the lateral chest wall flap at that time to see what defect remains and whether or not there is a need for another flap elevation. As such, the flap was then placed back into its donor site after hemostasis and irrigation. Bulky dressings were applied with a compressive dressing and the patient will be brought back to the operating room within 48 hours for definitive flap inset with the possibility of raising an additional brachial arm or brachial fascial flap for coverage of the left axillary defect which extended into the arm. All needle and sponge counts were correct at the end of the case. The patient tolerated the procedure well. There were no complications. Quynh Mejia M.D. DR: CECELIA JOB#: [id number] CC:
[2019-08-28] MEDS ORDERED: Acetaminophen (Non formulary) 100 ML IV ONE (07:45)
[2019-08-28] MEDS ORDERED: TransDerm Scop 1.5mg/72HR Patch TDERMAL SCH (07:45)
--- NOTE | 2019-08-28 08:37 | NUR ---
CASE MANAGEMENT: REVIEW 08/28/19 SI: POD#2 EXCISION OF BILATERAL AXILLARY HIDRADENITIS WITH FLAP EVALUATION HIDRADENITIS SUPPURATIVA 98.5 62 18 128/50 98% ON RA H/H 11.9/34.0 HA1C 6.4 BUN 4 AST 51 IS:IN SURGERY NOW FOR WOUND CLOSURE IVF D5@75ML/HR IV CEFAZOLIN Q8HR \: 3E MED SURG UNIT PLAN: DC PLANNING WOUND CARE POSSIBLE CLOSURE OF WOUND
[2019-08-28] MEDS ORDERED: Morphine Sulfate 10mg/ml Inj ONE (08:42)
[2019-08-28] MEDS ORDERED: Ketorolac 30mg Inj ONE (08:43)
[2019-08-28] MEDS ORDERED: Sodium Chloride 10ml vial INJ ONE (08:43)
[2019-08-28] MEDS ORDERED: LR 1000ml 1,000 ML IVLG SCH (08:48)
[2019-08-28] MEDS ORDERED: Meperidine 25mg/0.5ml Inj (FOR RIGORS ONLY) IV PRN (09:00)
[2019-08-28] MEDS: Docusate 100mg cap ORAL SCH ×2 (09:00→18:55)
[2019-08-28] MEDS ORDERED: Midazolam 2mg/2ml Inj IVP PRN (09:00)
[2019-08-28] MEDS ORDERED: Hydromorphone 0.5mg/0.5ml inj IVP PRN (09:00)
[2019-08-28] MEDS: Heparin 5000 units/ml inj SUBQ SCH ×2 (09:00→20:35)
[2019-08-28] MEDS ORDERED: Ketorolac 30mg Inj IV PRN (09:00)
[2019-08-28] MEDS ORDERED: DiphenhydrAMINE 50mg/ml Inj IVP PRN (09:00)
[2019-08-28] MEDS ORDERED: Tubing IV Secondary IV ONE (10:53)
[2019-08-28] MEDS ORDERED: D5 1/2NS 1000ml IV ONE ×2 (10:53→18:46)
--- NOTE | 2019-08-28 11:08 | Operative Note - PDOC ---
Operative Note Operative Note Pre-op Diagnosis: Hidradenitis Suppurativa Procedure: Flap closure of bilateral axillary wounds Surgeon: Roberto Duplicating Machine Operator: Natalie Anesthesia: general Specimen: yes Complications: none Condition: stable Estimated Blood Loss: minimal Drains: wound vac Implant(s) used?: No Quynh Mejia MD Aug 28, 2019 11:08
--- NOTE | 2019-08-28 11:22 | Immediate Post-Op Evaluation ---
Immediate Post-Op Evalulation Immediate Post-Op Evalulation Procedure: Revision and closure of bilateral axillary wounds Date of Evaluation: Aug 28, 2019 Time of Evaluation: 11:20 IV Fluids: 1200 Blood Products: none Estimated Blood Loss: 50 Urinary Output: none Blood Pressure Systolic: 125 Blood Pressure Diastolic: 62 Pulse Rate: 68 Respiratory Rate: 20 O2 Sat by Pulse Oximetry: 99 Temperature (Fahrenheit): 98.1 Pain Score (1-10): 1 Nausea: No Vomiting: No Complications none Patient Status: reacts, patent, none Hydration Status: adequate Ernie Potts MD Aug 28, 2019 11:22
--- NOTE | 2019-08-28 12:13 | NUR ---
NURSE NOTES: Patient returned from OR at 1213 via bed, on O2 2LNC, in stable condition. IV LR will change to previous IV as ordered, connected FUR MIXER OPERATOR Dilaudid, to left foot, dressing CDI, site asymptomatic. Pain 0/10. VSS. Bilateral axillaries dressing CDI. Bilateral JPs intact (dark red/brown), Left Wound Vac intact. (serosanguineous). Right SCD on. Bilateral UE, skin warm, moves hands, equal hand grasps 4/5. Updated patient and mom on new orders/POC, verbalized understanding. Encouraged PO fluid intake. Call light in reach, bed in lowest position, will continue to monitor.
--- NOTE | 2019-08-28 13:46 | NUR ---
*-* INSURANCE *-* ALL CLINICALS AND REVIEWS HAVE BEEN FAXED TO: MIKE [facility] USE THIS FAX# [phone] CERT REF# [id number] Addendum: 08/28/19 at 1352 by KANCHAN PECK CM CLINICALS FAXED PER TAMIKA VERBAL REQUEST
--- NOTE | 2019-08-28 13:50 | NUR ---
NURSE NOTES: Provided IS with indication on use, verbalized understanding. Instructed/demonstrated IS, patient returned demonstration, inspiration 500 ml, needs further reinforcement/encouragement. IS at bedside.
--- NOTE | 2019-08-28 16:30 | Operative Note - Dictated ---
DATE OF OPERATION: 08/28/2019 PREOPERATIVE DIAGNOSIS: Bilateral open axillary wounds, status post excision of grade 3 advanced infected hidradenitis in both locations with previous flap elevation. POSTOPERATIVE DIAGNOSIS: Bilateral open axillary wounds, status post excision of grade 3 advanced infected hidradenitis in both locations with previous flap elevation. PROCEDURE: 1. Adjacent tissue transfer closure of left axillary wound measuring 20 x 18 cm by reelevation of previous lateral chest wall flaps. 2. Adjacent tissue transfer closure of right axillary wound measuring 20 x 15 cm by reelevation of previously raised thoracodorsal artery chest wall flaps. SURGEON: Quynh Mejia M.D. PEOPLESOFT ANALYST: Alexandrea Estrada M.D. ANESTHESIA: General. COMPLICATIONS: None. DRAINS: Included a right-sided JANUSZ as well as a left-sided JANUSZ in addition to placement of a wound VAC on the left side. EBL: Minimal. SPECIMEN: None. OPERATIVE TIME: Four hours. DISPOSITION: Stable to recovery room. INDICATIONS FOR SURGERY: This is a 29-year-old female with an advanced history of a grade 3 hidradenitis suppurativa of the axilla who 48 hours ago underwent radical excision of hidradenitis of the affected areas with elevation of bilateral thoracodorsal artery chest wall flaps. The reason for not closing the patient at that time was due to the fact that she had a leukocytosis in addition to the fact that there was active pus emanating from the axillary lesions of the hidradenitis. So, it was decided not to immediately close her at that time to reduce the risk of postoperative wound dehiscence and wound infection. Over the past 48 hours, the patient has been getting IV antibiotics with dressing changes and the flaps on both sites that had been previously elevated were noted to be viable with no evidence of ischemia and today she was consented to undergo bilateral axillary flap closure of axillary wounds. She understood the risks and benefits of surgery and agreed to proceed. DETAILS OF THE OPERATION: The patient was brought to the operating room and laid supine on the operating table. Her bilateral axilla, chest, and lateral lower backs were prepped and draped in a sterile and usual fashion. We first began on the left side where the patient had a left axillary defect that measured 20 x 18 cm. The flap had been previously placed back at its donor site. [place] had been used to hold it in place. All the wilson were removed and we noted that there was some difficulty in bringing the posterior and anterior chest wall tissue together to close the donor site. As such, we had to undermine both posteriorly and anteriorly with respect to the latissimus muscle to allow for a tension-free repair of the donor site. Once this was done, the wounds were copiously irrigated with pulse lavage and as previously noted, the flap that had been elevated off the chest wall was viable with no evidence of ischemia and this flap measured 20 x 10 cm. A JANUSZ drain size 15 was placed through the donor site incision and was secured in place using a 3-0 silk suture and we began by using 0 and 2-0 Vicryl sutures to close the lateral chest wall donor site. The incision measured 20 cm, which was consistent with the length of the flap and the skin of the donor site was closed after layered closure using wilson. At this juncture, we proceeded for the adjacent tissue transfer by reelevating the lateral chest wall flap that had been previously elevated. We had to perform some release of the pedicle at the junction of the pedicle base and the latissimus muscle to allow for easy mobility and rotation of the flap. Once this was done, the flap was then inset using 0 and 2-0 Vicryl sutures circumferentially and this allowed for near-complete coverage of the wound. However as previously stated in the patient's first operative report, there was an area lateral to the flap that was a defect resulting from excision of hidradenitis involving the patient's upper arm. This area could not be reapproximated to the flap without tension. As such, this area was left partially open measuring only about 3 x 4 cm. However, the tension was so significant that we felt that proceeding with closure would result in a poor outcome. As such, this area was left open and a decision was made to place a wound VAC into the defect to allow for healing by secondary intention over the course of several weeks. With a flap inset completely, the skin was then closed with a combination of running 3-0 Prolene sutures as well as multiple interrupted 2-0 Prolene sutures. Dermabond was then applied to the skin of the flap inset site and then wound VAC dressings were applied to the wound VAC sponge and a bulky dressing was then applied completely to this area. We then turned our attention to the contralateral right axillary defect. This wound measured 20 x 15 cm. As was done on the other side, we had to perform some undermining of the skin both anterior and posterior to the latissimus muscle to allow for a tension-free closure of the flap donor site. Once this was done, the wound was copiously irrigated with pulse lavage as was done on the contralateral side and the flap was then positioned and placed into the axillary defect to allow for proper closure of the donor site. The donor site was closed in layers using 0 and 2-0 Vicryl sutures along with wilson for the skin. On this side, the axillary defect was a bit smaller. So, there was complete coverage provided by the 20 x 10 cm lateral chest wall flap that had been elevated. The flap was similarly in need of some release of the pedicle at the base of the flap to allow for better rotation of the flap and this was done to allow for a more natural arc to the flap as it was being inset into the defect. The layered closure was pursued using 0 and 2-0 Vicryl sutures. Of note, a JANUSZ drain was also placed a size 15 on this side prior to closure of the donor site as well as the flap inset. Once the flap was completely inset, a running 3-0 Prolene baseball stitch was used to close the skin and this was further reinforced with multiple interrupted 2-0 Prolene sutures. Dermabond was then placed in the skin and a compressive dressing as was done on the other side was also applied to this side. All in all, the patient tolerated the procedure well. All needle and sponge counts were correct. The wound VAC was noted to be functioning at the end of the case and there were no complications. Quynh Mejia M.D. DR: VENU JOB#: [id number] CC:
[2019-08-28] MEDS: DiphenhydrAMINE 25mg Tab ORAL PRN (16:55)
[2019-08-28] MEDS: ceFAZolin sod 1 GM in NS 55 ML IVP SCH (18:58)
--- NOTE | 2019-08-28 19:40 | NUR ---
HAND-OFF: Report given to Aubrie GARCIA, rounds made. Outputs: JANUSZ #1 (RIGHT): 60 ml JANUSZ #2 (LEFT): 20 ml Wound Vac (LEFT): 25 ml
--- NOTE | 2019-08-28 19:40 | NUR ---
NURSE NOTES: Received patient in bed. Awake , A/O x4. NC in place running 2 lpm. Family at bedside. JANUSZ drains to Bilateral axilla. Wound vac in place on the Left axilla. Patient denies pain at this time. IV in the Right foort running D5 1/2 NS at 75 mL/hr.
--- NOTE | 2019-08-28 20:55 | General Progress Note ---
Assessment/Plan Problem List: (1) Hidradenitis axillaris ICD Codes: L73.2 - Hidradenitis suppurativa SNOMED: 390466258 (2) Pre-diabetes ICD Codes: R73.03 - Prediabetes SNOMED: 982777892 (3) Transaminitis ICD Codes: R74.0 - Nonspecific elevation of levels of transaminase and lactic acid dehydrogenase [LDH] SNOMED: 296903679, 994614415 Status: stable Assessment/Plan: 29 year old female with infected stage 3 Hidradenitis suppurativa now pod 2 s/p excision of bilateral axillary HS with flap elevation, pod 0 s/p flap closure #HS POD#2 s/p excision of bilateral axillary HS with flap elevation, pod 0 s/p flap closure #Opioid induced pruritus IV antibiotics, currently cefazolin, ID consult with Dr. Marques monitor vitals follow up OR wound cultures check cbc, bmp ORACLE BRM DEVELOPER pump IV Benadryl 25 mg Q6hr prn for pruritus bowel regimen plan of care d/w Dr. Mejia wound care manager materials management consult to set up home health services. #Transaminitis Trending down, will continue to monitor. If persistent will obtain an abdominal ultrasound #Prediabetes. Hemoglobin A1c 6.4. Counseled patient on weight loss and lifestyle modification. VTE ppx: Heparin subq, SCD boots GI ppx: not indicated Code status full code I spent 40 minutes on this encounter. Greater than 50% spent on counselling and care coordination. Plan of care discussed with Dr. Mejia, RN, patient and her mom. Subjective Date patient seen: Aug 28, 2019 ROS Limited/Unobtainable: Yes Allergies: Coded Allergies: No Known Allergies (Unverified , 08/25/19) Subjective Patient seen and examined status post operation. She was taken to the OR early this morning for flap closure of bilateral axilla after having undergone flap elevation. She still sedated. Hemodynamically stable. Objective Last 24 Hour Vital Signs Date Time Temp Pulse Resp B/P (MAP) Pulse Ox O2 Delivery O2 Flow Rate FiO2 08/28/19 20:03 100 Nasal Cannula 2.0 28 08/28/19 16:30 98.8 81 16 113/69 (84) 100 08/28/19 16:00 81 16 100 08/28/19 15:09 98.6 67 16 128/60 (82) 100 08/28/19 13:45 98.7 61 16 128/60 (82) 100 08/28/19 12:50 97.8 64 16 127/61 (83) 99 08/28/19 12:31 96 Nasal Cannula 2.0 28 08/28/19 12:15 Nasal Cannula 2.0 08/28/19 12:01 97.9 63 16 127/50 100 Nasal Cannula 3 08/28/19 12:00 64 16 99 08/28/19 11:55 63 16 136/53 100 Nasal Cannula 3 08/28/19 11:40 65 16 136/55 100 Simple Mask 6 08/28/19 11:30 63 15 129/55 100 Simple Mask 6 08/28/19 11:25 66 19 127/54 100 Simple Mask 6 08/28/19 11:22 68 20 99 08/28/19 11:20 67 15 125/53 100 Simple Mask 6 08/28/19 11:15 98.0 69 12 137/51 100 Simple Mask 6 08/28/19 04:00 62 18 98 08/28/19 04:00 98.5 62 18 128/50 (76) 98 08/28/19 00:00 98.7 53 20 113/40 (64) 95 08/28/19 00:00 51 20 88 08/27/19 21:00 Nasal Cannula 2.0 Intake and Output 08/27/19 08/28/19 19:00 07:00 Intake Total 1050 ml 850 ml Output Total 200 ml Balance 850 ml 850 ml Intake Oral 300 ml IV Total 750 ml 850 ml Emesis 200 ml # Voids 2 Laboratory Tests 08/28/19 06:00: White Blood Count 9.4, Red Blood Count 3.80L, Hemoglobin 11.9L, Hematocrit 34.0L , Mean Corpuscular Volume 89, Mean Corpuscular Hemoglobin 31.2H, Mean Corpuscular Hemoglobin Concent 34.9, Red Cell Distribution Width 11.2L, Platelet Count 288, Mean Platelet Volume 5.9L, Neutrophils (%) (Auto) 52.5, Lymphocytes (%) (Auto) 37.0, Monocytes (%) (Auto) 7.6, Eosinophils (%) (Auto) 1.9, Basophils (%) (Auto) 0.9, Sodium Level 142, Potassium Level 3.6, Chloride Level 106, Carbon Dioxide Level 31, Anion Gap 5, Blood Urea Nitrogen 4L, Creatinine 0.7, Estimat Glomerular Filtration Rate > 60, Glucose Level 96, Hemoglobin A1c 6.4H, Calcium Level 8.7, Total Bilirubin 0.4, Aspartate Amino Transf (AST/SGOT) 51H, Alanine Aminotransferase (ALT/SGPT) 69, Alkaline Phosphatase 55, Total Protein 7.2, Albumin 3.0L, Globulin 4.2, Albumin/Globulin Ratio 0.7L Height (Feet): 5 Height (Inches): 4.00 Weight (Pounds): 160 Objective General Appearance: overweight, sedated Lines, tubes and drains: peripheral, JANUSZ, +wound vac HEENT: normocephalic, atraumatic, anicteric Neck: non-tender, normal alignment, supple Respiratory/Chest: chest wall non-tender, lungs clear, normal breath sounds, no respiratory distress, no accessory muscle use Cardiovascular/Chest: normal peripheral pulses, normal rate, regular rhythm, no gallop/murmur, no JVD Abdomen: normal bowel sounds, non tender, soft, no organomegaly, no mass Extremities: non-tender, no calf tenderness, no edema Skin Exam: normal pigmentation, warm/dry, other - bilateral axilla dressing c/d /i Neurologic: sedated, responsive Musculoskeletal: normal muscle bulk Yimi Rowland M.D. Aug 28, 2019 20:55
[2019-08-29] VITALS (8 sets, daily range): BP systolic 113–157; BP diastolic 56–82
[2019-08-29] MEDS: ceFAZolin sod 1 GM in NS 55 ML IVP SCH ×3 (03:26→18:45)
[2019-08-29] MEDS: D5 1/2NS 1,000 ML IV SCH ×2 (03:31→23:00)
[2019-08-29 05:36] LABS: BASOPHILS % (AUTO) 0.9 % (0.0-2.0); EOSINOPHILS % (AUTO) 1.5 % (0.0-3.0); HEMATOCRIT 30.9 % (37.0-47.0); HEMOGLOBIN 10.9 G/DL (12.0-16.0); LYMPHOCYTES % (AUTO) 24.9 % (20.0-45.0); MEAN CORPUSCULAR VOLUME 89 FL (80-99); NEUTROPHILS % (AUTO) 65.8 % (45.0-75.0); PLATELET COUNT 283 K/UL (150-450); RED BLOOD COUNT 3.45 M/UL (4.20-5.40); WHITE BLOOD COUNT 11.2 K/UL (4.8-10.8)
[2019-08-29] MEDS: PCA HYDROmorphone 1mg/ml 30 ML IV PRN (05:47)
[2019-08-29 06:30] LABS: ALANINE AMINOTRANSFERASE 66 U/L (12-78); ALBUMIN 2.7 G/DL (3.4-5.0); ALBUMIN/GLOBULIN RATIO 0.7 (1.0-2.7); ALKALINE PHOSPHATASE 53 U/L (46-116); ANION GAP 5 mmol/L (5-15); ASPARTATE AMINO TRANSFERASE 51 U/L (15-37); BILIRUBIN,TOTAL 0.4 MG/DL (0.2-1.0); BLOOD UREA NITROGEN 4 mg/dL (7-18); CALCIUM 8.7 MG/DL (8.5-10.1); CARBON DIOXIDE 29 MMOL/L (21-32); CHLORIDE 107 MMOL/L (98-107); CREATININE 0.7 MG/DL (0.55-1.30); POTASSIUM 3.6 MMOL/L (3.5-5.1); SODIUM 141 MMOL/L (136-145)
--- NOTE | 2019-08-29 07:20 | NUR ---
NURSE NOTES: Received patient in bed. A/A/O x4. asleep. no acute cardio-resp distress noted. ON INSPECTOR MULTIFOCAL LENS and educated. JANUSZ drains to Bilateral axilla and intact. Wound vac inplaced on the Left axilla and running well. Patient denies pain at this time. IV on Right foot patent and intact. IVF running D5 1/2 NS at 75 mL/hr. Keep bed in the lowest position. siderails are upx3. bed alarm engaged and lock @ all times. call light within easy reach. will cont the plan of care.
--- NOTE | 2019-08-29 07:27 | NUR ---
HAND-OFF: Report given to Radha MARRERO.
[2019-08-29] MEDS: PCA shift volume MISC SCH ×2 (07:28→19:15)
[2019-08-29] MEDS: Docusate 100mg cap ORAL SCH ×2 (08:41→17:20)
[2019-08-29] MEDS: Heparin 5000 units/ml inj SUBQ SCH ×2 (08:44→20:48)
--- NOTE | 2019-08-29 09:02 | NUR ---
NURSE NOTES: Instructed to utilize IS 10xw/a. able to return demonstrate. will cont to monitor.
--- NOTE | 2019-08-29 09:09 | General Progress Note ---
Progress Note Progress Note Pt seen and examined. POD#1 from bilateral flap closure of axillary wounds. Doing well and pain well controlled. Wound vac to the left axilla billing wel. Plan for dressing removal on Saturday with wound vac change on Saturday/Saturday with subsequent discharge. Quynh Higgins MDl, MD Aug 29, 2019 09:09
[2019-08-29] MEDS: DiphenhydrAMINE 50mg/ml Inj IVP PRN ×2 (09:51→21:13)
--- NOTE | 2019-08-29 11:52 | General Progress Note ---
Assessment/Plan Problem List: (1) Hidradenitis axillaris ICD Codes: L73.2 - Hidradenitis suppurativa SNOMED: 179175183 (2) Pre-diabetes ICD Codes: R73.03 - Prediabetes SNOMED: 216620859 (3) Transaminitis ICD Codes: R74.0 - Nonspecific elevation of levels of transaminase and lactic acid dehydrogenase [LDH] SNOMED: 995091011, 457088489 Status: stable Assessment/Plan: 29 year old female with infected stage 3 Hidradenitis suppurativa now pod 2 s/p excision of bilateral axillary HS with flap elevation, pod 0 s/p flap closure #HS, stage 3 infected: POD#1 s/p bilateral axillary flap closure #Opioid induced pruritus #Low grade fever: Tmax 100.1 IV antibiotics, currently cefazolin, ID consult with Dr. Marques monitor vitals follow up OR wound cultures SIGNAL REPAIRER pump IV Benadryl 25 mg Q6hr prn for pruritus bowel regimen plan of care d/w Dr. Mejia wound care retail bakery manager consult to set up home health services. Incentive spirometry #Transaminitis Trending down, will continue to monitor. If persistent will obtain an abdominal ultrasound. ALT normal now, AST trending down now 51 #Prediabetes. Hemoglobin A1c 6.4. Counseled patient on weight loss and lifestyle modification. due to open wounds, needs tight glycemic control for better healing Start insulin sliding scale, sensitive Endocrine consult with Dr. Abel Farley VTE ppx: Heparin subq, SCD boots GI ppx: not indicated Code status full code I spent 40 minutes on this encounter. Greater than 50% spent on counselling and care coordination. Plan of care discussed with Dr. Mejia, RN, patient and her mom. Subjective Date patient seen: Aug 29, 2019 ROS Limited/Unobtainable: No Constitutional: Reports: other - pain, under control, currently no pain HEENT: Denies: no symptoms, eye pain, blurred vision, tearing, double vision, ear pain, ear discharge, nose pain, nose congestion, throat pain, throat swelling, mouth pain, mouth swelling, other Cardiovascular: Denies: no symptoms, chest pain, edema, irregular heart rate, lightheadedness, palpitations, syncope, other Respiratory: Denies: no symptoms, cough, orthopnea, shortness of breath, SOB with excertion, SOB at rest, sputum, stridor, wheezing, other Gastrointestinal/Abdominal: Denies: no symptoms, abdomen distended, abdominal pain, black stools, tarry stools, blood in stool, constipated, diarrhea, difficulty swallowing, nausea, poor appetite, poor fluid intake, rectal bleeding , vomiting, other Genitourinary: Denies: no symptoms, burning, discharge, frequency, flank pain, hematuria, incontinence, pain, urgency, other Neurologic/Psychiatric: Denies: no symptoms, anxiety, depressed, emotional problems, headache, numbness, paresthesia, pre-existing deficit, seizure, tingling, tremors, weakness, other Endocrine: Denies: no symptoms, excessive sweating, flushing, intolerance to cold, intolerance to heat, increased hunger, increased thirst, increased urine, unexplained weight gain, unexplained weight loss, other Hematologic/Lymphatic: Denies: no symptoms, anemia, easy bleeding, easy bruising, other Allergies: Coded Allergies: No Known Allergies (Unverified , 08/25/19) Subjective Patient seen and examined, Tmax 100.1. pod 1 s/p flap closure of bilateral axilla after having undergone flap elevation. Hemodynamically stable. Objective Last 24 Hour Vital Signs Date Time Temp Pulse Resp B/P (MAP) Pulse Ox O2 Delivery O2 Flow Rate FiO2 08/29/19 09:00 Nasal Cannula 2.0 08/29/19 08:46 100 Nasal Cannula 1.0 24 08/29/19 08:00 98.7 85 20 139/71 (93) 97 08/29/19 08:00 85 18 97 08/29/19 04:00 83 17 94 08/29/19 03:52 98.5 83 17 119/56 (77) 94 08/29/19 01:11 98.5 08/29/19 00:00 100.1 82 18 142/62 (88) 100 08/29/19 00:00 82 18 100 08/28/19 21:00 Nasal Cannula 2.0 08/28/19 20:03 100 Nasal Cannula 2.0 28 08/28/19 20:00 98.2 69 18 137/70 (92) 96 08/28/19 20:00 69 18 96 08/28/19 16:30 98.8 81 16 113/69 (84) 100 08/28/19 16:00 81 16 100 08/28/19 15:09 98.6 67 16 128/60 (82) 100 08/28/19 13:45 98.7 61 16 128/60 (82) 100 08/28/19 12:50 97.8 64 16 127/61 (83) 99 08/28/19 12:31 96 Nasal Cannula 2.0 28 08/28/19 12:15 Nasal Cannula 2.0 08/28/19 12:01 97.9 63 16 127/50 100 Nasal Cannula 3 08/28/19 12:00 64 16 99 08/28/19 11:55 63 16 136/53 100 Nasal Cannula 3 Intake and Output 08/28/19 08/29/19 19:00 07:00 Intake Total 1675 ml 1125 ml Output Total 355 ml 45 ml Balance 1320 ml 1080 ml Intake Oral 600 ml IV Total 1675 ml 525 ml Output Urine Total 200 ml Drainage Total 105 ml 45 ml Estimated Blood Loss 50 ml # Voids 1 3 Laboratory Tests 08/29/19 04:40: White Blood Count 11.2H, Red Blood Count 3.45L, Hemoglobin 10.9L, Hematocrit 30.9L, Mean Corpuscular Volume 89, Mean Corpuscular Hemoglobin 31.7H, Mean Corpuscular Hemoglobin Concent 35.4, Red Cell Distribution Width 11.0L, Platelet Count 283, Mean Platelet Volume 5.6L, Neutrophils (%) (Auto) 65.8, Lymphocytes (%) (Auto) 24.9, Monocytes (%) (Auto) 7.0, Eosinophils (%) (Auto) 1.5, Basophils (%) (Auto) 0.9, Sodium Level 141, Potassium Level 3.6, Chloride Level 107, Carbon Dioxide Level 29, Anion Gap 5, Blood Urea Nitrogen 4L, Creatinine 0.7, Estimat Glomerular Filtration Rate > 60, Glucose Level 166H, Calcium Level 8.7, Total Bilirubin 0.4, Aspartate Amino Transf (AST/SGOT) 51H, Alanine Aminotransferase (ALT/SGPT) 66, Alkaline Phosphatase 53, Total Protein 6.7, Albumin 2.7L, Globulin 4.0, Albumin/Globulin Ratio 0.7L Height (Feet): 5 Height (Inches): 4.00 Weight (Pounds): 160 Objective General Appearance: overweight, sedated Lines, tubes and drains: peripheral, JANUSZ, +wound vac HEENT: normocephalic, atraumatic, anicteric Neck: non-tender, normal alignment, supple Respiratory/Chest: chest wall non-tender, lungs clear, normal breath sounds, no respiratory distress, no accessory muscle use Cardiovascular/Chest: normal peripheral pulses, normal rate, regular rhythm, no gallop/murmur, no JVD Abdomen: normal bowel sounds, non tender, soft, no organomegaly, no mass Extremities: non-tender, no calf tenderness, no edema Skin Exam: normal pigmentation, warm/dry, other - bilateral axilla dressing c/d /i Neurologic: sedated, responsive Musculoskeletal: normal muscle bulk Yimi Rowland M.D. Aug 29, 2019 11:52
[2019-08-29] MEDS: metFORMIN 500mg tab ORAL SCH (15:44)
[2019-08-29] MEDS: Bisacodyl EC 5mg tab ORAL PRN (15:44)
--- NOTE | 2019-08-29 15:47 | NUR ---
NURSE NOTES: PATIENT APPEARED TO HAVE TEMP 100. COOLING MEASURE APPLIED AND ACETAMINOPHEN ADMINISTERED PER ORDER. DR JONAS MADE AWARE. PATIENT IS ABLE TO VERBALIZE NEEDS. WILL CONT TO MONITOR. Addendum: 08/29/19 at 1549 by SAMUEL CHEUNG LVN DULCOLAX GIVEN FOR CONSTIPATION.
--- NOTE | 2019-08-29 16:18 | Infectious Diseases Prog Note ---
Assessment/Plan Assessment/Plan ASSESSMENT AND PLAN: 1. bilateral axilla wound infection, hidradenitis suppurativa - s/p resection and closure - cefazolin - mild fevers and leukocytosis post-op - continue to monitor - continue treatment per Dr. Rowland and Dr. Mejia - monitor labs 2. Hidradenitis suppurativa of the bilateral axilla and also history of groin hydradenitis suppurativa. 3. History of . 4. No history of diabetes or hypertension. 5. Continue treatment per primary consultants. 6. No known allergies. 7. Social history is negative. 8. Family history is noncontributory. 9. MAR was noted. 10. Case was discussed with RN. 11. Case was discussed with the patient. 12. Orders were noted and entered. 13. Surgery follow up. 14. Continue treatment per Dr. Rowland and consultants. 15. Wound care per protocol and Surgery. Subjective Constitutional: Denies: fever Respiratory: Denies: shortness of breath Cardiovascular: Denies: chest pain Gastrointestinal/Abdominal: Denies: nausea, vomiting, diarrhea Psychiatric: Denies: depression Skin: Denies: rash Hematologic: Denies: bleeding Musculoskeletal: Denies: pain Allergies: Coded Allergies: No Known Allergies (Unverified , 08/25/19) Objective Vital Signs Last 24 Hour Vital Signs Date Time Temp Pulse Resp B/P (MAP) Pulse Ox O2 Delivery O2 Flow Rate FiO2 08/29/19 12:00 84 16 97 08/29/19 11:59 97.1 86 21 139/74 (95) 95 08/29/19 09:00 Nasal Cannula 2.0 08/29/19 08:46 100 Nasal Cannula 1.0 24 08/29/19 08:00 98.7 85 20 139/71 (93) 97 08/29/19 08:00 85 18 97 08/29/19 04:00 83 17 94 08/29/19 03:52 98.5 83 17 119/56 (77) 94 08/29/19 01:11 98.5 08/29/19 00:00 100.1 82 18 142/62 (88) 100 08/29/19 00:00 82 18 100 08/28/19 21:00 Nasal Cannula 2.0 08/28/19 20:03 100 Nasal Cannula 2.0 28 08/28/19 20:00 98.2 69 18 137/70 (92) 96 08/28/19 20:00 69 18 96 08/28/19 16:30 98.8 81 16 113/69 (84) 100 Height (Feet): 5 Height (Inches): 4.00 Weight (Pounds): 160 General Appearance: no acute distress HEENT: normocephalic, atraumatic, anicteric, mucous membranes moist Respiratory/Chest: lungs clear, normal breath sounds, no respiratory distress, no accessory muscle use Cardiovascular: normal rate, regular rhythm, no gallop/murmur, no JVD Abdomen: normal bowel sounds, soft, non tender, no organomegaly, non distended Genitourinary: other - no bain Extremities: no cyanosis Skin: no rash Neurologic/Psychiatric: photogeologist II-XII grossly normal, alert, oriented x 3, responsive Lymphatic: no neck adenopathy Musculoskeletal: no effusion Objective none none Laboratory Tests Test 08/29/19 04:40 White Blood Count 11.2 K/UL (4.8-10.8) H Red Blood Count 3.45 M/UL (4.20-5.40) L Hemoglobin 10.9 G/DL (12.0-16.0) L Hematocrit 30.9 % (37.0-47.0) L Mean Corpuscular Volume 89 FL (80-99) Mean Corpuscular Hemoglobin 31.7 PG (27.0-31.0) H Mean Corpuscular Hemoglobin Concent 35.4 G/DL (32.0-36.0) Red Cell Distribution Width 11.0 % (11.6-14.8) L Platelet Count 283 K/UL (150-450) Mean Platelet Volume 5.6 FL (6.5-10.1) L Neutrophils (%) (Auto) 65.8 % (45.0-75.0) Lymphocytes (%) (Auto) 24.9 % (20.0-45.0) Monocytes (%) (Auto) 7.0 % (1.0-10.0) Eosinophils (%) (Auto) 1.5 % (0.0-3.0) Basophils (%) (Auto) 0.9 % (0.0-2.0) Sodium Level 141 MMOL/L (136-145) Potassium Level 3.6 MMOL/L (3.5-5.1) Chloride Level 107 MMOL/L (98-107) Carbon Dioxide Level 29 MMOL/L (21-32) Anion Gap 5 mmol/L (5-15) Blood Urea Nitrogen 4 mg/dL (7-18) L Creatinine 0.7 MG/DL (0.55-1.30) Estimat Glomerular Filtration Rate > 60 mL/min (>60) Glucose Level 166 MG/DL (74-106) H Calcium Level 8.7 MG/DL (8.5-10.1) Total Bilirubin 0.4 MG/DL (0.2-1.0) Aspartate Amino Transf (AST/SGOT) 51 U/L (15-37) H Alanine Aminotransferase (ALT/SGPT) 66 U/L (12-78) Alkaline Phosphatase 53 U/L (46-116) Total Protein 6.7 G/DL (6.4-8.2) Albumin 2.7 G/DL (3.4-5.0) L Globulin 4.0 g/dL Albumin/Globulin Ratio 0.7 (1.0-2.7) L Current Medications Medications (Trade) Dose Ordered Sig/Rl Route PRN Reason Start Time Stop Time Status Last Admin Dose Admin Acetaminophen (Tylenol) 650 mg Q4H PRN ORAL FEVER 08/28/19 07:15 09/27/19 07:14 08/29/19 15:45 Al Hydroxide/Mg Hydroxide (Mylanta) 15 ml Q6H PRN ORAL DYSPEPSIA 08/28/19 07:15 09/27/19 07:14 Bisacodyl (Dulcolax) 5 mg DAILYPRN PRN ORAL Constipation 08/29/19 09:15 09/28/19 09:14 08/29/19 15:44 Cefazolin Sodium 1 gm/Sodium Chloride 55 ml @ 110 mls/hr Q8H IVP 08/28/19 19:00 09/04/19 18:59 08/29/19 11:38 Dextrose (Dextrose 50%) 25 ml Q30M PRN IV Hypoglycemia 08/29/19 11:45 09/28/19 11:44 Dextrose (Dextrose 50%) 50 ml Q30M PRN IV Hypoglycemia 08/29/19 11:45 09/28/19 11:44 Dextrose/Sodium Chloride 1,000 ml @ 75 mls/hr [id number] IV 08/26/19 15:00 09/25/19 14:59 08/29/19 03:31 Diphenhydramine HCl (Benadryl Cream) 1 applic TIDPRN PRN TOPIC Itching 08/27/19 16:45 09/26/19 16:34 Diphenhydramine HCl (Benadryl) 12.5 mg Q6H PRN IVP Itching/Pruritis 08/28/19 07:15 09/27/19 07:14 08/29/19 09:51 Diphenhydramine HCl (Benadryl) 25 mg Q8H PRN ORAL Itching/Pruritis 08/28/19 07:15 09/27/19 07:14 08/28/19 16:55 Docusate Sodium (Colace) 100 mg TWICE A DAY ORAL 08/28/19 09:00 09/27/19 08:59 08/29/19 08:41 Heparin Sodium (Porcine) (Heparin 5000 units/ml) 5,000 units EVERY 12 HOURS SUBQ 08/28/19 09:00 09/27/19 08:59 08/29/19 08:44 Hydromorphone HCl 30 ml @ 0 mls/hr Q24H PRN IV For Pain 08/28/19 09:00 08/30/19 08:59 08/29/19 05:47 Insulin Aspart (NovoLOG) BEFORE MEALS AND HS SUBQ 08/29/19 16:30 09/28/19 16:29 Metformin HCl (Glucophage) 500 mg TIAC ORAL 08/29/19 16:30 09/28/19 16:29 08/29/19 15:44 Metoclopramide HCl (Reglan) 10 mg Q6H PRN IVP Nausea & Vomiting 08/28/19 07:15 09/27/19 07:14 Miscellaneous Medication (COMMUNITY REINVESTMENT ACT OFFICER Rate Change) 1 ea DAILY PRN MISC rate change 08/28/19 07:15 08/30/19 07:14 Miscellaneous Medication (COMMUNITY REINVESTMENT ACT OFFICER shift volume) 1 ea Q12HR@0700,1900 MISC 08/28/19 19:00 08/30/19 18:59 08/29/19 07:28 Naloxone HCl (Narcan) 0.1 mg Q1M PRN IV RR<10/min OR SBP<90 mmHg 08/29/19 12:00 08/31/19 11:59 Ondansetron HCl (Zofran) 4 mg Q6H PRN IVP Nausea & Vomiting 08/28/19 07:15 09/27/19 07:14 Temazepam (RestoriL) 7.5 mg DAILYPRN PRN ORAL Insomnia 08/28/19 07:15 09/04/19 07:14 Brandy Tobias MD Aug 29, 2019 16:18
[2019-08-29] MEDS: NovoLOG Insulin Flexpen SUBQ SCH ×2 (16:30→20:46)
--- NOTE | 2019-08-29 19:21 | NUR ---
HAND-OFF: Report given to Derek.
--- NOTE | 2019-08-29 19:23 | NUR ---
NURSE NOTES: Received report from ELIDA Garcia. Rounding is done. Patient is in bed, awake, and a/o x4. Checked COST REDUCTION ENGINEER setting and educated. JANUSZ drains to penelope. axilla and intact. Wound vac in placed on lt axilla and running well. No c/o pain or any distress noted at this time. Breathing is even and unlabored. IV line is intact and patent on Rt foot . IVF running. Bed is on alarm, locked, and lowest position. Given bedpan as needed and provided perineal care. Call light within reach. Will continue to monitor.
--- NOTE | 2019-08-29 22:45 | Consultation ---
DATE OF CONSULTATION: 08/29/2019 ENDOCRINOLOGY CONSULTATION CONSULTING PHYSICIAN: Abel Farley M.D. REFERRING PHYSICIAN: Dr. Quynh Mejia. REASON FOR CONSULTATION: Management of hyperglycemia. HISTORY OF PRESENT ILLNESS: The patient is a 29-year-old female who underwent elective surgery to correct hidradenitis suppurativa. She underwent bilateral axillary resection. The patient has a history of borderline diabetes and A1c of 6.1. Glucose has been running on the higher side, therefore Endocrinology was consulted in order to assist with management of hyperglycemia. PAST MEDICAL HISTORY: 1. Hidradenitis suppurativa. 2. Elevated glucose. PAST SURGICAL HISTORY: . SOCIAL HISTORY: The patient has a 5-year-old son, works as a behavior counselor. No smoking, alcohol, or drug use. ALLERGY TO MEDICATIONS: None. MEDICATIONS: Medications as an outpatient reviewed and reconciled. REVIEW OF SYSTEMS: As per HPI. LABORATORY DATA: WBC 11, hemoglobin 10, hematocrit 30, and platelet of 282,000. Sodium 141, potassium 3.6, chloride 107, bicarb 29, BUN 4, creatinine 0.7, hemoglobin A1c of 6.4, and glucose of 166. PHYSICAL EXAMINATION: GENERAL: Awake and alert. VITAL SIGNS: Blood pressure 139/74, pulse 86, and respiratory rate of 21. HEENT: Pupils are equal and reactive to light. Sclerae anicteric. NECK: No JVD. No thyromegaly. LUNGS: Clear. HEART: Regular rate and rhythm. ABDOMEN: Positive bowel sounds. Soft. EXTREMITIES: No clubbing, cyanosis, or edema. DIAGNOSES: 1. Borderline diabetes with hyperglycemia . 2. Status post surgery for hidradenitis suppurativa. DISCUSSION: 1. Tight glycemic control is indicated. 2. Change diet to diabetic. 3. Humalog scale before meals and at bedtime. 4. Start metformin 500 milligram twice a day. 5. Follow the patient closely during hospital stay. Thank you Dr. Mejia for the courtesy of this consultation. Abel Farley M.D. DR: GENET JOB#: [id number] CC: AMINAH
[2019-08-30] VITALS (8 sets, daily range): BP systolic 109–164; BP diastolic 55–105
[2019-08-30] MEDS: ceFAZolin sod 1 GM in NS 55 ML IVP SCH ×3 (03:43→18:40)
[2019-08-30] MEDS: metFORMIN 500mg tab ORAL SCH ×4 (05:56→17:24)
[2019-08-30] MEDS: PCA HYDROmorphone 1mg/ml 30 ML IV PRN (05:58)
[2019-08-30] MEDS: NovoLOG Insulin Flexpen SUBQ SCH ×4 (06:30→20:34)
--- NOTE | 2019-08-30 07:04 | NUR ---
HAND-OFF: Report given to Radha CLINICAL PRACTITIONER. Patient in stable condition.
[2019-08-30] MEDS: PCA shift volume MISC SCH ×2 (07:07→19:05)
--- NOTE | 2019-08-30 07:30 | NUR ---
NURSE NOTES: received report by JOSE Reed. Patient is in bed, A/A/O x4. JANUSZ drains to penelope. axillary. drsg dry and intact. Wound vac in placed on left axillary and running well. Breathing is even and unlabored. IV access is intact and patent on Rt foot . IVF running well. Bed is on alarm, locked, and lowest position. IS utilize as instructed. SCD on RLE. per patient she had flatus couple of times. voids in bedpan. Call light within reach. Will continue to monitor.
[2019-08-30 08:32] LABS: BASOPHILS % (AUTO) 0.8 % (0.0-2.0); EOSINOPHILS % (AUTO) 3.1 % (0.0-3.0); HEMATOCRIT 32.5 % (37.0-47.0); HEMOGLOBIN 11.3 G/DL (12.0-16.0); LYMPHOCYTES % (AUTO) 26.7 % (20.0-45.0); MEAN CORPUSCULAR VOLUME 90 FL (80-99); MONOCYTES % (AUTO) 7.4 % (1.0-10.0); NEUTROPHILS % (AUTO) 61.9 % (45.0-75.0); PLATELET COUNT 273 K/UL (150-450); RED BLOOD COUNT 3.62 M/UL (4.20-5.40); RED CELL DISTRIBUTION WIDTH 11.1 % (11.6-14.8); WHITE BLOOD COUNT 10.3 K/UL (4.8-10.8)
[2019-08-30] MEDS: Docusate 100mg cap ORAL SCH ×2 (08:33→17:24)
[2019-08-30] MEDS: Heparin 5000 units/ml inj SUBQ SCH ×2 (08:36→20:36)
[2019-08-30 08:56] LABS: ALANINE AMINOTRANSFERASE 40 U/L (12-78); ALBUMIN 2.5 G/DL (3.4-5.0); ALBUMIN/GLOBULIN RATIO 0.6 (1.0-2.7); ALKALINE PHOSPHATASE 54 U/L (46-116); ANION GAP 7 mmol/L (5-15); ASPARTATE AMINO TRANSFERASE 33 U/L (15-37); BILIRUBIN,TOTAL 0.3 MG/DL (0.2-1.0); BLOOD UREA NITROGEN 3 mg/dL (7-18); CARBON DIOXIDE 29 MMOL/L (21-32); CHLORIDE 109 MMOL/L (98-107); CREATININE 0.6 MG/DL (0.55-1.30); POTASSIUM 3.4 MMOL/L (3.5-5.1); SODIUM 145 MMOL/L (136-145)
--- NOTE | 2019-08-30 09:39 | General Progress Note ---
Assessment/Plan Problem List: (1) Hidradenitis axillaris ICD Codes: L73.2 - Hidradenitis suppurativa SNOMED: 579060403 (2) Pre-diabetes ICD Codes: R73.03 - Prediabetes SNOMED: 114319642 (3) Anemia due to acute blood loss ICD Codes: D62 - Acute posthemorrhagic anemia SNOMED: 031042629 Status: stable Assessment/Plan: continue Metformin as is - do not hold continue Novolog sliding scale as needed after DC: continue Metformin 500 mg bid for at least one more month; no need for insulin Subjective Allergies: Coded Allergies: No Known Allergies (Unverified , 08/25/19) All Systems: reviewed and negative except above Subjective events noted glucose values improved Item Value Date Time Bedside Blood Glucose 123 mg/dl H 08/30/19 0630 Bedside Blood Glucose 140 mg/dl H 08/29/19 2100 Bedside Blood Glucose 132 mg/dl H 08/29/19 1637 Objective Last 24 Hour Vital Signs Date Time Temp Pulse Resp B/P (MAP) Pulse Ox O2 Delivery O2 Flow Rate FiO2 08/30/19 08:09 98.4 74 18 124/57 (79) 97 08/30/19 07:41 97 Room Air 21 08/30/19 04:00 98.7 73 18 127/63 (84) 96 08/30/19 04:00 73 18 96 08/30/19 01:30 76 17 111/55 (73) 95 08/30/19 00:00 85 18 95 08/30/19 00:00 97.3 85 18 164/105 (124) 95 08/29/19 21:00 Nasal Cannula 2.0 08/29/19 20:00 97.2 90 18 157/82 (107) 93 08/29/19 20:00 90 18 93 08/29/19 19:58 95 Room Air 24 08/29/19 16:15 99.4 08/29/19 16:00 99.4 92 21 113/68 (83) 91 08/29/19 16:00 84 16 97 08/29/19 12:00 84 16 97 08/29/19 11:59 97.1 86 21 139/74 (95) 95 Intake and Output 08/29/19 08/30/19 19:00 07:00 Intake Total 1190 ml 705 ml Output Total 85 ml 143 ml Balance 1105 ml 562 ml Intake Oral 480 ml 200 ml IV Total 710 ml 505 ml Drainage Total 85 ml 143 ml # Voids 2 2 Laboratory Tests 08/30/19 06:08: White Blood Count 10.3, Red Blood Count 3.62L, Hemoglobin 11.3L, Hematocrit 32.5L, Mean Corpuscular Volume 90, Mean Corpuscular Hemoglobin 31.3H, Mean Corpuscular Hemoglobin Concent 34.8, Red Cell Distribution Width 11.1L, Platelet Count 273, Mean Platelet Volume 5.4L, Neutrophils (%) (Auto) 61.9, Lymphocytes (%) (Auto) 26.7, Monocytes (%) (Auto) 7.4, Eosinophils (%) (Auto) 3.1H, Basophils (%) (Auto) 0.8, Sodium Level 145, Potassium Level 3.4L, Chloride Level 109H, Carbon Dioxide Level 29, Anion Gap 7, Blood Urea Nitrogen 3L, Creatinine 0.6, Estimat Glomerular Filtration Rate > 60, Glucose Level 122H , Insulin Level [Pending], Calcium Level 9.0, Total Bilirubin 0.3, Aspartate Amino Transf (AST/SGOT) 33, Alanine Aminotransferase (ALT/SGPT) 40, Alkaline Phosphatase 54, Total Protein 6.5, Albumin 2.5L, Globulin 4.0, Albumin/Globulin Ratio 0.6L Height (Feet): 5 Height (Inches): 4.00 Weight (Pounds): 160 General Appearance: no apparent distress Neck: normal alignment Cardiovascular: normal rate Respiratory/Chest: lungs clear Abdomen: normal bowel sounds Objective Current Medications Medications (Trade) Dose Ordered Sig/Rl Route PRN Reason Start Time Stop Time Status Last Admin Dose Admin Acetaminophen (Tylenol) 650 mg Q4H PRN ORAL FEVER 08/28/19 07:15 09/27/19 07:14 08/29/19 15:45 Al Hydroxide/Mg Hydroxide (Mylanta) 15 ml Q6H PRN ORAL DYSPEPSIA 08/28/19 07:15 09/27/19 07:14 Bisacodyl (Dulcolax) 5 mg DAILYPRN PRN ORAL Constipation 08/29/19 09:15 09/28/19 09:14 08/29/19 15:44 Cefazolin Sodium 1 gm/Sodium Chloride 55 ml @ 110 mls/hr Q8H IVP 08/28/19 19:00 09/04/19 18:59 08/30/19 03:43 Dextrose (Dextrose 50%) 25 ml Q30M PRN IV Hypoglycemia 08/29/19 11:45 09/28/19 11:44 Dextrose (Dextrose 50%) 50 ml Q30M PRN IV Hypoglycemia 08/29/19 11:45 09/28/19 11:44 Dextrose/Sodium Chloride 1,000 ml @ 75 mls/hr [id number] IV 08/26/19 15:00 09/25/19 14:59 08/29/19 03:31 Diphenhydramine HCl (Benadryl Cream) 1 applic TIDPRN PRN TOPIC Itching 08/27/19 16:45 09/26/19 16:34 Diphenhydramine HCl (Benadryl) 12.5 mg Q6H PRN IVP Itching/Pruritis 08/28/19 07:15 09/27/19 07:14 08/29/19 21:13 Diphenhydramine HCl (Benadryl) 25 mg Q8H PRN ORAL Itching/Pruritis 08/28/19 07:15 09/27/19 07:14 08/28/19 16:55 Docusate Sodium (Colace) 100 mg TWICE A DAY ORAL 08/28/19 09:00 09/27/19 08:59 08/30/19 08:33 Heparin Sodium (Porcine) (Heparin 5000 units/ml) 5,000 units EVERY 12 HOURS SUBQ 08/28/19 09:00 09/27/19 08:59 08/30/19 08:36 Insulin Aspart (NovoLOG) BEFORE MEALS AND HS SUBQ 08/29/19 16:30 09/28/19 16:29 08/29/19 20:46 Metformin HCl (Glucophage) 500 mg TIAC ORAL 08/29/19 16:30 09/28/19 16:29 08/30/19 09:33 Metoclopramide HCl (Reglan) 10 mg Q6H PRN IVP Nausea & Vomiting 08/28/19 07:15 09/27/19 07:14 Miscellaneous Medication (VIDEO PRODUCTION INTERN shift volume) 1 ea Q12HR@0700,1900 MISC 08/28/19 19:00 08/30/19 18:59 08/30/19 07:07 Naloxone HCl (Narcan) 0.1 mg Q1M PRN IV RR<10/min OR SBP<90 mmHg 08/29/19 12:00 08/31/19 11:59 Ondansetron HCl (Zofran) 4 mg Q6H PRN IVP Nausea & Vomiting 08/28/19 07:15 09/27/19 07:14 Temazepam (RestoriL) 7.5 mg DAILYPRN PRN ORAL Insomnia 08/28/19 07:15 09/04/19 07:14 Abel Farley MD Aug 30, 2019 09:39
[2019-08-30] MEDS: D5 1/2NS 1,000 ML IV SCH (11:39)
--- NOTE | 2019-08-30 12:03 | General Progress Note ---
Assessment/Plan Problem List: (1) Hidradenitis axillaris ICD Codes: L73.2 - Hidradenitis suppurativa SNOMED: 179021248 (2) Pre-diabetes ICD Codes: R73.03 - Prediabetes SNOMED: 623354493 (3) Transaminitis ICD Codes: R74.0 - Nonspecific elevation of levels of transaminase and lactic acid dehydrogenase [LDH] SNOMED: 707025218, 382854372 (4) Anemia due to acute blood loss ICD Codes: D62 - Acute posthemorrhagic anemia SNOMED: 139369385 Status: stable, progressing Assessment/Plan: 29 year old female with infected stage 3 Hidradenitis suppurativa now pod 2 s/p excision of bilateral axillary HS with flap elevation, pod 0 s/p flap closure #HS, stage 3 infected: POD#2 s/p bilateral axillary flap closure #Opioid induced pruritus #Low grade fever, resolved IV antibiotics, currently cefazolin, ID consult with Dr. Marques monitor vitals follow up OR wound cultures SHOP TEACHER pump IV Benadryl 25 mg Q6hr prn for pruritus bowel regimen plan of care d/w Dr. Mejia wound care manager part consult to set up home health services. Incentive spirometry #Transaminitis, resolved continue to monitor #Prediabetes. Hemoglobin A1c 6.4. Counseled patient on weight loss and lifestyle modification. due to open wounds, needs tight glycemic control for better healing insulin sliding scale, sensitive metformin 500 mg BID Diabetic diet Endocrine consult with Dr. Abel Farley appreciated VTE ppx: Heparin subq, SCD boots GI ppx: not indicated Code status full code I spent 40 minutes on this encounter. Greater than 50% spent on counselling and care coordination. Plan of care discussed with Dr. Mejia, RN, patient and her mom. Subjective Date patient seen: Aug 30, 2019 ROS Limited/Unobtainable: No Constitutional: Denies: no symptoms, chills, diaphoresis, fever, malaise, weakness, other HEENT: Denies: no symptoms, eye pain, blurred vision, tearing, double vision, ear pain, ear discharge, nose pain, nose congestion, throat pain, throat swelling, mouth pain, mouth swelling, other Cardiovascular: Denies: no symptoms, chest pain, edema, irregular heart rate, lightheadedness, palpitations, syncope, other Respiratory: Denies: no symptoms, cough, orthopnea, shortness of breath, SOB with excertion, SOB at rest, sputum, stridor, wheezing, other Gastrointestinal/Abdominal: Denies: no symptoms, abdomen distended, abdominal pain, black stools, tarry stools, blood in stool, constipated, diarrhea, difficulty swallowing, nausea, poor appetite, poor fluid intake, rectal bleeding , vomiting, other Neurologic/Psychiatric: Denies: no symptoms, anxiety, depressed, emotional problems, headache, numbness, paresthesia, pre-existing deficit, seizure, tingling, tremors, weakness, other Endocrine: Denies: no symptoms, excessive sweating, flushing, intolerance to cold, intolerance to heat, increased hunger, increased thirst, increased urine, unexplained weight gain, unexplained weight loss, other Hematologic/Lymphatic: Denies: no symptoms, anemia, easy bleeding, easy bruising, other Allergies: Coded Allergies: No Known Allergies (Unverified , 08/25/19) Subjective Patient seen and examined, afebrile pod 2 s/p flap closure of bilateral axilla after having undergone flap elevation. Hemodynamically stable. Objective Last 24 Hour Vital Signs Date Time Temp Pulse Resp B/P (MAP) Pulse Ox O2 Delivery O2 Flow Rate FiO2 08/30/19 09:00 Room Air 08/30/19 08:09 98.4 74 18 124/57 (79) 97 08/30/19 08:00 74 18 97 08/30/19 07:41 97 Room Air 21 08/30/19 04:00 98.7 73 18 127/63 (84) 96 08/30/19 04:00 73 18 96 08/30/19 01:30 76 17 111/55 (73) 95 08/30/19 00:00 85 18 95 08/30/19 00:00 97.3 85 18 164/105 (124) 95 08/29/19 21:00 Nasal Cannula 2.0 08/29/19 20:00 97.2 90 18 157/82 (107) 93 08/29/19 20:00 90 18 93 08/29/19 19:58 95 Room Air 24 08/29/19 16:15 99.4 08/29/19 16:00 99.4 92 21 113/68 (83) 91 08/29/19 16:00 84 16 97 Intake and Output 08/29/19 08/30/19 18:59 06:59 Intake Total 1190 ml 705 ml Output Total 85 ml 143 ml Balance 1105 ml 562 ml Intake Oral 480 ml 200 ml IV Total 710 ml 505 ml Drainage Total 85 ml 143 ml # Voids 2 2 Laboratory Tests 08/30/19 06:08: White Blood Count 10.3, Red Blood Count 3.62L, Hemoglobin 11.3L, Hematocrit 32.5L, Mean Corpuscular Volume 90, Mean Corpuscular Hemoglobin 31.3H, Mean Corpuscular Hemoglobin Concent 34.8, Red Cell Distribution Width 11.1L, Platelet Count 273, Mean Platelet Volume 5.4L, Neutrophils (%) (Auto) 61.9, Lymphocytes (%) (Auto) 26.7, Monocytes (%) (Auto) 7.4, Eosinophils (%) (Auto) 3.1H, Basophils (%) (Auto) 0.8, Sodium Level 145, Potassium Level 3.4L, Chloride Level 109H, Carbon Dioxide Level 29, Anion Gap 7, Blood Urea Nitrogen 3L, Creatinine 0.6, Estimat Glomerular Filtration Rate > 60, Glucose Level 122H , Insulin Level [Pending], Calcium Level 9.0, Total Bilirubin 0.3, Aspartate Amino Transf (AST/SGOT) 33, Alanine Aminotransferase (ALT/SGPT) 40, Alkaline Phosphatase 54, Total Protein 6.5, Albumin 2.5L, Globulin 4.0, Albumin/Globulin Ratio 0.6L Height (Feet): 5 Height (Inches): 4.00 Weight (Pounds): 160 Objective General Appearance: overweight, sedated Lines, tubes and drains: peripheral, JANUSZ, +wound vac HEENT: normocephalic, atraumatic, anicteric Neck: non-tender, normal alignment, supple Respiratory/Chest: chest wall non-tender, lungs clear, normal breath sounds, no respiratory distress, no accessory muscle use Cardiovascular/Chest: normal peripheral pulses, normal rate, regular rhythm, no gallop/murmur, no JVD Abdomen: normal bowel sounds, non tender, soft, no organomegaly, no mass Extremities: non-tender, no calf tenderness, no edema Skin Exam: normal pigmentation, warm/dry, other - bilateral axilla dressing c/d /i Neurologic: sedated, responsive Musculoskeletal: normal muscle bulk Yimi Rowland M.D. Aug 30, 2019 12:03
[2019-08-30] MEDS ORDERED: PCA Education Pamphlet MISC ONE (15:00)
[2019-08-30] MEDS ORDERED: Rate Change PCA 1 Each MISC PRN (15:00)
[2019-08-30] MEDS ORDERED: PCA HYDROmorphone 1mg/ml 30 ML IV PRN (15:00)
[2019-08-30] MEDS ORDERED: Naloxone 0.4mg/ml Inj IVP PRN (15:00)
--- NOTE | 2019-08-30 15:14 | NUR ---
HAND-OFF: Report given to
[2019-08-30] MEDS: Bisacodyl EC 5mg tab ORAL PRN (17:26)
--- NOTE | 2019-08-30 18:54 | NUR ---
NURSE NOTES: HAD EMESIS OF UNDIGESTED FOOD. GIVEN ZOFRAN 4MG IV. MOUTH CARE DONE.
--- NOTE | 2019-08-30 19:10 | NUR ---
HAND-OFF: Report given to S BRITTANIE RN.
--- NOTE | 2019-08-30 19:11 | NUR ---
NURSE NOTES: Received report from JOSE Cosby. Rounding is done. Patient is in bed, awake, and a/o x4. Checked SLACKMAN setting and educated. JANUSZ drains to penelope. axilla and intact. Wound vac in placed on lt axilla and running well. No c/o pain or any distress noted at this time. Breathing is even and unlabored. IV line is intact and patent on Rt foot . IVF TKO. Bed is on alarm, locked, and lowest position. Call light within reach. Will continue to monitor.
[2019-08-31] VITALS: BP 108/44
[2019-08-31] MEDS: ceFAZolin sod 1 GM in NS 55 ML IVP SCH ×3 (02:47→19:12)
[2019-08-31 04:00] VITALS: BP 137/46
[2019-08-31] MEDS: NovoLOG Insulin Flexpen SUBQ SCH ×4 (05:46→20:10)
--- NOTE | 2019-08-31 06:14 | General Progress Note ---
Assessment/Plan Problem List: (1) Hidradenitis axillaris ICD Codes: L73.2 - Hidradenitis suppurativa SNOMED: 961675656 (2) Pre-diabetes ICD Codes: R73.03 - Prediabetes SNOMED: 321332948 (3) Anemia due to acute blood loss ICD Codes: D62 - Acute posthemorrhagic anemia SNOMED: 751559955 Status: stable, progressing Assessment/Plan: continue Metformin 500 mg bid continue Novolog sliding scale as needed after DC: continue Metformin 500 mg bid for at least one more month; no need for insulin Subjective Allergies: Coded Allergies: No Known Allergies (Unverified , 08/25/19) All Systems: reviewed and negative except above Subjective events noted glucose values are in controlled range Item Value Date Time Bedside Blood Glucose 88 mg/dl 08/31/19 0546 Bedside Blood Glucose 119 mg/dl 08/30/19 2100 Bedside Blood Glucose 112 mg/dl 08/30/19 1656 Bedside Blood Glucose 134 mg/dl H 08/30/19 1130 Bedside Blood Glucose 123 mg/dl H 08/30/19 0630 Objective Last 24 Hour Vital Signs Date Time Temp Pulse Resp B/P (MAP) Pulse Ox O2 Delivery O2 Flow Rate FiO2 08/31/19 04:00 65 19 96 08/31/19 04:00 97.4 65 19 137/46 (76) 96 08/31/19 00:00 97.6 68 18 108/44 (65) 95 08/31/19 00:00 68 17 95 08/30/19 21:00 95 Room Air 21 08/30/19 21:00 Room Air 08/30/19 20:00 81 18 95 08/30/19 20:00 97.8 81 18 131/61 (84) 95 08/30/19 16:00 74 18 93 08/30/19 16:00 98.3 74 18 109/57 (74) 93 08/30/19 12:00 88 20 95 08/30/19 12:00 98.6 88 20 113/67 (82) 95 08/30/19 09:00 Room Air 08/30/19 08:09 98.4 74 18 124/57 (79) 97 08/30/19 08:00 74 18 97 08/30/19 07:41 97 Room Air 21 Intake and Output 08/30/19 08/31/19 19:00 07:00 Intake Total 480 ml 110 ml Output Total 245 ml Balance 235 ml 110 ml Intake Oral 480 ml IV Total 110 ml Emesis 100 ml Drainage Total 145 ml # Voids 1 Height (Feet): 5 Height (Inches): 4.00 Weight (Pounds): 160 General Appearance: no apparent distress Neck: normal alignment Cardiovascular: normal rate Respiratory/Chest: lungs clear Abdomen: normal bowel sounds Pelvis: normal external exam Objective Current Medications Medications (Trade) Dose Ordered Sig/Rl Route PRN Reason Start Time Stop Time Status Last Admin Dose Admin Acetaminophen (Tylenol) 650 mg Q4H PRN ORAL FEVER 08/28/19 07:15 09/27/19 07:14 08/29/19 15:45 Al Hydroxide/Mg Hydroxide (Mylanta) 15 ml Q6H PRN ORAL DYSPEPSIA 08/28/19 07:15 09/27/19 07:14 Bisacodyl (Dulcolax) 5 mg DAILYPRN PRN ORAL Constipation 08/29/19 09:15 09/28/19 09:14 08/30/19 17:26 Cefazolin Sodium 1 gm/Sodium Chloride 55 ml @ 110 mls/hr Q8H IVP 08/28/19 19:00 09/04/19 18:59 08/31/19 02:47 Dextrose (Dextrose 50%) 25 ml Q30M PRN IV Hypoglycemia 08/29/19 11:45 09/28/19 11:44 Dextrose (Dextrose 50%) 50 ml Q30M PRN IV Hypoglycemia 08/29/19 11:45 09/28/19 11:44 Diphenhydramine HCl (Benadryl Cream) 1 applic TIDPRN PRN TOPIC Itching 08/27/19 16:45 09/26/19 16:34 Diphenhydramine HCl (Benadryl) 12.5 mg Q6H PRN IVP Itching/Pruritis 08/28/19 07:15 09/27/19 07:14 08/29/19 21:13 Diphenhydramine HCl (Benadryl) 25 mg Q8H PRN ORAL Itching/Pruritis 08/28/19 07:15 09/27/19 07:14 08/28/19 16:55 Docusate Sodium (Colace) 100 mg TWICE A DAY ORAL 08/28/19 09:00 09/27/19 08:59 08/30/19 17:24 Heparin Sodium (Porcine) (Heparin 5000 units/ml) 5,000 units EVERY 12 HOURS SUBQ 08/28/19 09:00 09/27/19 08:59 08/30/19 20:36 Hydromorphone HCl 30 ml @ 0 mls/hr Q24H PRN IV For Pain 08/30/19 15:00 09/01/19 14:59 08/31/19 05:48 Insulin Aspart (NovoLOG) BEFORE MEALS AND HS SUBQ 08/29/19 16:30 09/28/19 16:29 08/29/19 20:46 Metformin HCl (Glucophage) 500 mg TIAC ORAL 08/29/19 16:30 09/28/19 16:29 08/30/19 17:24 Metoclopramide HCl (Reglan) 10 mg Q6H PRN IVP Nausea & Vomiting 08/28/19 07:15 09/27/19 07:14 Miscellaneous Medication (CINDER CRANE OPERATOR Rate Change) 1 ea DAILY PRN MISC rate change 08/30/19 15:00 09/01/19 14:59 Miscellaneous Medication (CINDER CRANE OPERATOR shift volume) 1 ea Q12HR@0700,1900 MISC 08/30/19 19:00 09/01/19 18:59 08/30/19 19:05 Naloxone HCl (Narcan) 0.1 mg Q1M PRN IVP RR<10/min OR SBP<90 mmHg 08/30/19 15:00 09/01/19 14:59 Ondansetron HCl (Zofran) 4 mg Q6H PRN IVP Nausea & Vomiting 08/28/19 07:15 09/27/19 07:14 08/30/19 18:54 Temazepam (RestoriL) 7.5 mg DAILYPRN PRN ORAL Insomnia 08/28/19 07:15 09/04/19 07:14 Abel Farley MD Aug 31, 2019 06:14
[2019-08-31] MEDS: PCA shift volume MISC SCH (07:00)
--- NOTE | 2019-08-31 07:48 | NUR ---
HAND-OFF: Report given to Cyn GARCIA. Patient in stable condition.
[2019-08-31 08:00] VITALS: BP 122/80
--- NOTE | 2019-08-31 08:00 | NUR ---
NURSE NOTES: Received report from Derek GARCIA. Patient is awake and oriented, no acute distress noted, reporting pain rated 1/10 in surgical sites, bilateral JANUSZ's compressed, wound vac running per order. IV intact, patent. Patient updated on plan of care for the day. Side rails upx2, bed low and locked, call light within reach.
[2019-08-31] MEDS: Heparin 5000 units/ml inj SUBQ SCH ×2 (08:48→20:10)
[2019-08-31] MEDS: Docusate 100mg cap ORAL SCH ×2 (08:48→18:08)
--- NOTE | 2019-08-31 09:40 | General Progress Note ---
Progress Note Progress Note Pt seen and examined. POD# 3 from flap closure of wounds. Doing well. Dressings removed and both flaps viable. Will change wound vac on SAT and plan for discharge home same day. baseball club manager to work on dc planning with home health wound care and wound vac change to the left arm wound on [facility] schedule. Quynh Mejia MD. Quynh Mejia MD Aug 31, 2019 09:40
--- NOTE | 2019-08-31 09:45 | General Progress Note ---
Assessment/Plan Problem List: (1) Hidradenitis axillaris ICD Codes: L73.2 - Hidradenitis suppurativa SNOMED: 570341722 (2) Pre-diabetes ICD Codes: R73.03 - Prediabetes SNOMED: 142507972 (3) Transaminitis ICD Codes: R74.0 - Nonspecific elevation of levels of transaminase and lactic acid dehydrogenase [LDH] SNOMED: 984795050, 595896498 (4) Anemia due to acute blood loss ICD Codes: D62 - Acute posthemorrhagic anemia SNOMED: 912417736 Status: stable, progressing Assessment/Plan: 29 year old female with infected stage 3 Hidradenitis suppurativa now pod 3 s/p excision of bilateral axillary HS with flap elevation and closure #HS, stage 3 infected: POD#3 s/p bilateral axillary flap closure #Opioid induced pruritus #Low grade fever, resolved #Nausea/vomiting #constipation IV antibiotics, currently cefazolin, ID consult with Dr. Marques monitor vitals follow up OR wound cultures FACE MAN pump, transition to IV Dilaudid and Percocet IV Benadryl 25 mg Q6hr prn for pruritus bowel regimen plan of care d/w Dr. Mejia wound care senior software project manager consult to set up home health services. Incentive spirometry Zofran and Compazine bowel regimen, Dulcolax, add magnesium citrate #Transaminitis, resolved continue to monitor #Prediabetes. Hemoglobin A1c 6.4. Counseled patient on weight loss and lifestyle modification. due to open wounds, needs tight glycemic control for better healing insulin sliding scale, sensitive metformin 500 mg BID Diabetic diet Endocrine consult with Dr. Abel Farley appreciated VTE ppx: Heparin subq, SCD boots GI ppx: not indicated Code status full code I spent 40 minutes on this encounter. Greater than 50% spent on counselling and care coordination. Plan of care discussed with Dr. Mejia, RN, patient and her mom. Subjective Date patient seen: Aug 31, 2019 ROS Limited/Unobtainable: No Constitutional: Denies: no symptoms, chills, diaphoresis, fever, malaise, weakness, other HEENT: Denies: no symptoms, eye pain, blurred vision, tearing, double vision, ear pain, ear discharge, nose pain, nose congestion, throat pain, throat swelling, mouth pain, mouth swelling, other Cardiovascular: Denies: no symptoms, chest pain, edema, irregular heart rate, lightheadedness, palpitations, syncope, other Respiratory: Denies: no symptoms, cough, orthopnea, shortness of breath, SOB with excertion, SOB at rest, sputum, stridor, wheezing, other Gastrointestinal/Abdominal: Reports: constipated, nausea Genitourinary: Denies: no symptoms, burning, discharge, frequency, flank pain, hematuria, incontinence, pain, urgency, other Neurologic/Psychiatric: Denies: no symptoms, anxiety, depressed, emotional problems, headache, numbness, paresthesia, pre-existing deficit, seizure, tingling, tremors, weakness, other Endocrine: Denies: no symptoms, excessive sweating, flushing, intolerance to cold, intolerance to heat, increased hunger, increased thirst, increased urine, unexplained weight gain, unexplained weight loss, other Hematologic/Lymphatic: Denies: no symptoms, anemia, easy bleeding, easy bruising, other Allergies: Coded Allergies: No Known Allergies (Unverified , 08/25/19) Subjective Patient seen and examined, afebrile pod 3 s/p flap closure of bilateral axilla after having undergone flap elevation. Hemodynamically stable. she hasn't had a BM, and feels very nauseated. vomited once Objective Last 24 Hour Vital Signs Date Time Temp Pulse Resp B/P (MAP) Pulse Ox O2 Delivery O2 Flow Rate FiO2 08/31/19 04:00 65 19 96 08/31/19 04:00 97.4 65 19 137/46 (76) 96 08/31/19 00:00 97.6 68 18 108/44 (65) 95 08/31/19 00:00 68 17 95 08/30/19 21:00 95 Room Air 21 08/30/19 21:00 Room Air 08/30/19 20:00 81 18 95 08/30/19 20:00 97.8 81 18 131/61 (84) 95 08/30/19 16:00 74 18 93 08/30/19 16:00 98.3 74 18 109/57 (74) 93 08/30/19 12:00 88 20 95 08/30/19 12:00 98.6 88 20 113/67 (82) 95 Intake and Output 08/30/19 08/31/19 19:00 07:00 Intake Total 480 ml 110 ml Output Total 245 ml 95 ml Balance 235 ml 15 ml Intake Oral 480 ml IV Total 110 ml Emesis 100 ml Drainage Total 145 ml 95 ml # Voids 1 2 Height (Feet): 5 Height (Inches): 4.00 Weight (Pounds): 160 Objective General Appearance: overweight, sedated Lines, tubes and drains: peripheral, JANUSZ, +wound vac HEENT: normocephalic, atraumatic, anicteric Neck: non-tender, normal alignment, supple Respiratory/Chest: chest wall non-tender, lungs clear, normal breath sounds, no respiratory distress, no accessory muscle use Cardiovascular/Chest: normal peripheral pulses, normal rate, regular rhythm, no gallop/murmur, no JVD Abdomen: normal bowel sounds, non tender, soft, no organomegaly, no mass Extremities: non-tender, no calf tenderness, no edema Skin Exam: normal pigmentation, warm/dry, other - bilateral axilla dressing c/d /i Neurologic: sedated, responsive Musculoskeletal: normal muscle bulk Yimi Rowland M.D. Aug 31, 2019 09:45
--- NOTE | 2019-08-31 10:00 | NUR ---
NURSE NOTES: Patient seen by Dr. Mejia, surgical site dressings removed, MD ordered to place 4x4 and paper tape over surgical sites, per MD wound vac dressing to be changed on Saturday09/02/19.
[2019-08-31 12:00] VITALS: BP 131/68
[2019-08-31] MEDS: metFORMIN 500mg tab ORAL SCH ×2 (12:08→18:08)
[2019-08-31] MEDS ORDERED: Magnesium Citrate Liq Btl ORAL SCH (13:00)
--- NOTE | 2019-08-31 15:19 | NUR ---
CASE MANAGEMENT: REVIEW 08/29/19 SI: POD#3 EXCISION OF BILATERAL AXILLARY HIDRADENITIS WITH FLAP EVALUATION HIDRADENITIS SUPPURATIVA 99.4 92 84 21 113/68 91% ON 2L NC WBC 11.2 H/H 10.9/30.9 BUN 4 BG 166 AST 51 IS:IVF D5@75ML/HR IV CEFAZOLIN Q8HR METFORMIN PO TIAC HEPARIN SQ BID \: 3E MED SURG UNIT PLAN: PARTIAL CLOSURE PATIENT NEEDS WOUND VAC CASE MANAGEMENT: REVIEW 08/30/19 SI: POD#4 EXCISION OF BILATERAL AXILLARY HIDRADENITIS WITH FLAP EVALUATION HIDRADENITIS SUPPURATIVA 98.3 74 18 109/57 93% ON RA K+ 3.4 CL 109 BG 122 H/H 11.3/32.5 BUN 3 IS:IVF D5@75ML/HR IV CEFAZOLIN Q8HR METFORMIN PO TIAC HEPARIN SQ BID \: 3E MED SURG UNIT PLAN: DC PLANNING WOUND CARE POSSIBLE CLOSURE OF WOUND CASE MANAGEMENT: REVIEW 08/31/19 SI: POD#5 EXCISION OF BILATERAL AXILLARY HIDRADENITIS WITH FLAP EVALUATION HIDRADENITIS SUPPURATIVA 97.4 65 19 137/46 96% ON RA IS:IVF D5@75ML/HR IV CEFAZOLIN Q8HR METFORMIN PO TIAC HEPARIN SQ BID \: 3E MED SURG UNIT PLAN: PARTIAL CLOSURE PATIENT NEEDS WOUND VAC
[2019-08-31 16:00] VITALS: BP 134/68
--- NOTE | 2019-08-31 19:08 | Infectious Diseases Prog Note ---
Assessment/Plan Assessment/Plan ASSESSMENT AND PLAN: 1. bilateral axilla wound infection, hidradenitis suppurativa - s/p excision and closure - cefazolin - day # 4 post flap closure - mild fevers and leukocytosis post-op now resolved - continue treatment per Dr. Rowland and Dr. Mejia - monitor labs 2. Hidradenitis suppurativa of the bilateral axilla and also history of groin hydradenitis suppurativa. 3. History of . 4. No history of diabetes or hypertension. 5. Continue treatment per primary consultants. 6. No known allergies. 7. Social history is negative. 8. Family history is noncontributory. 9. MAR was noted. 10. Case was discussed with RN. 11. Case was discussed with the patient. 12. Orders were noted and entered. 13. Surgery follow up. 14. Continue treatment per Dr. Rowland and consultants. 15. Wound care per protocol and Surgery. Subjective Constitutional: Reports: fatigue; Denies: fever HEENT: Denies: congestion Respiratory: Denies: shortness of breath Cardiovascular: Denies: chest pain Gastrointestinal/Abdominal: Denies: nausea, vomiting, diarrhea Genitourinary: Reports: other - no bain Neurologic: Denies: headache Psychiatric: Denies: depression Skin: Denies: rash Hematologic: Denies: bleeding Musculoskeletal: Reports: pain - controlled Allergies: Coded Allergies: No Known Allergies (Unverified , 08/25/19) Objective Vital Signs Last 24 Hour Vital Signs Date Time Temp Pulse Resp B/P (MAP) Pulse Ox O2 Delivery O2 Flow Rate FiO2 08/31/19 12:00 97.8 68 19 131/68 (89) 97 08/31/19 08:27 16 08/31/19 08:00 97.7 73 19 122/80 (94) 94 08/31/19 07:00 96 Room Air 21 08/31/19 04:00 65 19 96 08/31/19 04:00 97.4 65 19 137/46 (76) 96 08/31/19 00:00 97.6 68 18 108/44 (65) 95 08/31/19 00:00 68 17 95 08/30/19 21:00 95 Room Air 21 08/30/19 21:00 Room Air 08/30/19 20:00 81 18 95 08/30/19 20:00 97.8 81 18 131/61 (84) 95 Height (Feet): 5 Height (Inches): 4.00 Weight (Pounds): 160 General Appearance: no acute distress HEENT: normocephalic, atraumatic, anicteric Respiratory/Chest: lungs clear, normal breath sounds, no respiratory distress, no accessory muscle use Cardiovascular: normal rate, regular rhythm, no gallop/murmur, no JVD Abdomen: normal bowel sounds, soft, non tender, no organomegaly, non distended Genitourinary: other - no bain Extremities: no cyanosis Skin: no rash, other - wounds covered Neurologic/Psychiatric: hollow tile partition erector II-XII grossly normal, alert, oriented x 3, responsive Lymphatic: no neck adenopathy Musculoskeletal: no effusion Objective none none Labs Test 08/29/19 04:40 08/30/19 06:08 White Blood Count 11.2 K/UL (4.8-10.8) 10.3 K/UL (4.8-10.8) Red Blood Count 3.45 M/UL (4.20-5.40) 3.62 M/UL (4.20-5.40) Hemoglobin 10.9 G/DL (12.0-16.0) 11.3 G/DL (12.0-16.0) Hematocrit 30.9 % (37.0-47.0) 32.5 % (37.0-47.0) Mean Corpuscular Volume 89 FL (80-99) 90 FL (80-99) Mean Corpuscular Hemoglobin 31.7 PG (27.0-31.0) 31.3 PG (27.0-31.0) Mean Corpuscular Hemoglobin Concent 35.4 G/DL (32.0-36.0) 34.8 G/DL (32.0-36.0) Red Cell Distribution Width 11.0 % (11.6-14.8) 11.1 % (11.6-14.8) Platelet Count 283 K/UL (150-450) 273 K/UL (150-450) Mean Platelet Volume 5.6 FL (6.5-10.1) 5.4 FL (6.5-10.1) Neutrophils (%) (Auto) 65.8 % (45.0-75.0) 61.9 % (45.0-75.0) Lymphocytes (%) (Auto) 24.9 % (20.0-45.0) 26.7 % (20.0-45.0) Monocytes (%) (Auto) 7.0 % (1.0-10.0) 7.4 % (1.0-10.0) Eosinophils (%) (Auto) 1.5 % (0.0-3.0) 3.1 % (0.0-3.0) Basophils (%) (Auto) 0.9 % (0.0-2.0) 0.8 % (0.0-2.0) Sodium Level 141 MMOL/L (136-145) 145 MMOL/L (136-145) Potassium Level 3.6 MMOL/L (3.5-5.1) 3.4 MMOL/L (3.5-5.1) Chloride Level 107 MMOL/L (98-107) 109 MMOL/L (98-107) Carbon Dioxide Level 29 MMOL/L (21-32) 29 MMOL/L (21-32) Anion Gap 5 mmol/L (5-15) 7 mmol/L (5-15) Blood Urea Nitrogen 4 mg/dL (7-18) 3 mg/dL (7-18) Creatinine 0.7 MG/DL (0.55-1.30) 0.6 MG/DL (0.55-1.30) Estimat Glomerular Filtration Rate > 60 mL/min (>60) > 60 mL/min (>60) Glucose Level 166 MG/DL (74-106) 122 MG/DL (74-106) Calcium Level 8.7 MG/DL (8.5-10.1) 9.0 MG/DL (8.5-10.1) Total Bilirubin 0.4 MG/DL (0.2-1.0) 0.3 MG/DL (0.2-1.0) Aspartate Amino Transf (AST/SGOT) 51 U/L (15-37) 33 U/L (15-37) Alanine Aminotransferase (ALT/SGPT) 66 U/L (12-78) 40 U/L (12-78) Alkaline Phosphatase 53 U/L (46-116) 54 U/L (46-116) Total Protein 6.7 G/DL (6.4-8.2) 6.5 G/DL (6.4-8.2) Albumin 2.7 G/DL (3.4-5.0) 2.5 G/DL (3.4-5.0) Globulin 4.0 g/dL 4.0 g/dL Albumin/Globulin Ratio 0.7 (1.0-2.7) 0.6 (1.0-2.7) Current Medications Medications (Trade) Dose Ordered Sig/Rl Route PRN Reason Start Time Stop Time Status Last Admin Dose Admin Acetaminophen (Tylenol) 650 mg Q4H PRN ORAL FEVER 08/28/19 07:15 09/27/19 07:14 08/29/19 15:45 Al Hydroxide/Mg Hydroxide (Mylanta) 15 ml Q6H PRN ORAL DYSPEPSIA 08/28/19 07:15 09/27/19 07:14 Bisacodyl (Dulcolax) 5 mg DAILYPRN PRN ORAL Constipation 08/29/19 09:15 09/28/19 09:14 08/30/19 17:26 Cefazolin Sodium 1 gm/Sodium Chloride 55 ml @ 110 mls/hr Q8H IVP 08/28/19 19:00 09/04/19 18:59 08/31/19 11:35 Dextrose (Dextrose 50%) 25 ml Q30M PRN IV Hypoglycemia 08/29/19 11:45 09/28/19 11:44 Dextrose (Dextrose 50%) 50 ml Q30M PRN IV Hypoglycemia 08/29/19 11:45 09/28/19 11:44 Diphenhydramine HCl (Benadryl Cream) 1 applic TIDPRN PRN TOPIC Itching 08/27/19 16:45 09/26/19 16:34 Diphenhydramine HCl (Benadryl) 12.5 mg Q6H PRN IVP Itching/Pruritis 08/28/19 07:15 09/27/19 07:14 08/29/19 21:13 Diphenhydramine HCl (Benadryl) 25 mg Q8H PRN ORAL Itching/Pruritis 08/28/19 07:15 09/27/19 07:14 08/28/19 16:55 Docusate Sodium (Colace) 100 mg TWICE A DAY ORAL 08/28/19 09:00 09/27/19 08:59 08/31/19 18:08 Heparin Sodium (Porcine) (Heparin 5000 units/ml) 5,000 units EVERY 12 HOURS SUBQ 08/28/19 09:00 09/27/19 08:59 08/31/19 08:48 Hydromorphone HCl (Dilaudid) 1 mg Q4H PRN IVP Moderate Pain (Pain Scale 4-6) 08/31/19 10:45 09/07/19 10:44 Hydromorphone HCl (Dilaudid) 2 mg Q4H PRN IVP Severe Pain (Pain Scale 7-10) 08/31/19 10:45 09/07/19 10:44 Insulin Aspart (NovoLOG) BEFORE MEALS AND HS SUBQ 08/29/19 16:30 09/28/19 16:29 08/31/19 12:09 Magnesium Citrate (Citrate Of Magnesia) 300 ml ONCE ORAL 08/31/19 13:00 09/30/19 12:59 08/31/19 15:48 Metformin HCl (Glucophage) 500 mg TIAC ORAL 08/29/19 16:30 09/28/19 16:29 08/31/19 18:08 Metoclopramide HCl (Reglan) 10 mg Q6H PRN IVP Nausea & Vomiting 08/28/19 07:15 09/27/19 07:14 Naloxone HCl (Narcan) 0.1 mg Q1M PRN IVP RR<10/min OR SBP<90 mmHg 08/30/19 15:00 09/01/19 14:59 Ondansetron HCl (Zofran) 4 mg Q6H PRN IVP Nausea & Vomiting 08/28/19 07:15 09/27/19 07:14 08/31/19 11:19 Oxycodone/ Acetaminophen (Percocet 5-325) 1 tab Q3H PRN ORAL Mild Pain (Pain Scale 1-3) 08/31/19 10:45 09/07/19 10:44 Prochlorperazine (Compazine) 10 mg Q6H PRN IVP Nausea & Vomiting 08/31/19 15:00 09/30/19 14:59 08/31/19 15:48 Temazepam (RestoriL) 7.5 mg DAILYPRN PRN ORAL Insomnia 08/28/19 07:15 09/04/19 07:14 Brandy Tobias MD Aug 31, 2019 19:08
--- NOTE | 2019-08-31 19:17 | NUR ---
HAND-OFF: Report given to Derek GARCIA.
--- NOTE | 2019-08-31 19:19 | NUR ---
NURSE NOTES: Received report from JOSE Addison. Rounding is done. Patient is in bed, awake, and a/o x4. JANUSZ drains to penelope. axilla and intact. Wound vac in placed on lt axilla and running well. No c/o pain or any distress noted at this time. Breathing is even and unlabored. IV line is intact and patent on Rt foot . IVF TKO. Bed is on alarm, locked, and lowest position. Call light within reach. Will continue to monitor.
[2019-08-31 20:00] VITALS: BP 115/66
[2019-09-01] VITALS: BP 119/65
[2019-09-01] MEDS: ceFAZolin sod 1 GM in NS 55 ML IVP SCH ×3 (02:06→17:52)
[2019-09-01 04:00] VITALS: BP 111/59
[2019-09-01] MEDS: metFORMIN 500mg tab ORAL SCH ×3 (06:02→16:46)
[2019-09-01] MEDS: NovoLOG Insulin Flexpen SUBQ SCH ×4 (06:30→21:00)
--- NOTE | 2019-09-01 06:50 | General Progress Note ---
Assessment/Plan Problem List: (1) Hidradenitis axillaris ICD Codes: L73.2 - Hidradenitis suppurativa SNOMED: 840019738 (2) Pre-diabetes ICD Codes: R73.03 - Prediabetes SNOMED: 058735264 (3) Anemia due to acute blood loss ICD Codes: D62 - Acute posthemorrhagic anemia SNOMED: 867447927 Status: stable, progressing Assessment/Plan: continue Metformin 500 mg bid continue Novolog sliding scale as needed after DC: continue Metformin 500 mg bid for at least one more month; no need for insulin after discharge Subjective Allergies: Coded Allergies: No Known Allergies (Unverified , 08/25/19) All Systems: reviewed and negative except above Subjective events noted glucose values in excellent control without hypoglycemia Item Value Date Time Bedside Blood Glucose 95 mg/dl 09/01/19 0630 Bedside Blood Glucose 91 mg/dl 08/31/19 2100 Bedside Blood Glucose 98 mg/dl 08/31/19 1630 Bedside Blood Glucose 141 mg/dl H 08/31/19 1209 Bedside Blood Glucose 88 mg/dl 08/31/19 0630 Objective Last 24 Hour Vital Signs Date Time Temp Pulse Resp B/P (MAP) Pulse Ox O2 Delivery O2 Flow Rate FiO2 09/01/19 04:00 98.3 60 21 111/59 (76) 94 09/01/19 00:00 98.3 58 20 119/65 (83) 95 08/31/19 21:00 Room Air 08/31/19 20:00 98.3 71 20 115/66 (82) 96 08/31/19 19:00 96 Room Air 21 08/31/19 16:00 98.0 73 16 134/68 (90) 98 08/31/19 12:00 97.8 68 19 131/68 (89) 97 08/31/19 09:00 Room Air 08/31/19 08:27 16 08/31/19 08:00 97.7 73 19 122/80 (94) 94 08/31/19 07:00 96 Room Air 21 Intake and Output 08/31/19 09/01/19 19:00 07:00 Intake Total 1675 ml 55 ml Output Total 115 ml 2 ml Balance 1560 ml 53 ml Intake Oral 1620 ml IV Total 55 ml 55 ml Output Urine Total 2 ml Drainage Total 115 ml # Voids 2 Laboratory Tests 09/01/19 05:35: White Blood Count [Pending], Red Blood Count [Pending], Hemoglobin [Pending], Hematocrit [Pending], Mean Corpuscular Volume [Pending], Mean Corpuscular Hemoglobin [Pending], Mean Corpuscular Hemoglobin Concent [Pending], Red Cell Distribution Width [Pending], Platelet Count [Pending], Mean Platelet Volume [ Pending], Neutrophils (%) (Auto) [Pending], Lymphocytes (%) (Auto) [Pending], Monocytes (%) (Auto) [Pending], Eosinophils (%) (Auto) [Pending], Basophils (%) (Auto) [Pending], Sodium Level [Pending], Potassium Level [Pending], Chloride Level [Pending], Carbon Dioxide Level [Pending], Blood Urea Nitrogen [Pending], Creatinine [Pending], Estimat Glomerular Filtration Rate [Pending], Glucose Level [Pending], Calcium Level [Pending] Height (Feet): 5 Height (Inches): 4.00 Weight (Pounds): 160 General Appearance: no apparent distress Neck: normal alignment Cardiovascular: normal rate Respiratory/Chest: lungs clear Abdomen: normal bowel sounds Pelvis: normal external exam Objective Current Medications Medications (Trade) Dose Ordered Sig/Rl Route PRN Reason Start Time Stop Time Status Last Admin Dose Admin Acetaminophen (Tylenol) 650 mg Q4H PRN ORAL FEVER 08/28/19 07:15 09/27/19 07:14 08/29/19 15:45 Al Hydroxide/Mg Hydroxide (Mylanta) 15 ml Q6H PRN ORAL DYSPEPSIA 08/28/19 07:15 09/27/19 07:14 Bisacodyl (Dulcolax) 5 mg DAILYPRN PRN ORAL Constipation 08/29/19 09:15 09/28/19 09:14 08/30/19 17:26 Cefazolin Sodium 1 gm/Sodium Chloride 55 ml @ 110 mls/hr Q8H IVP 08/28/19 19:00 09/04/19 18:59 09/01/19 02:06 Dextrose (Dextrose 50%) 25 ml Q30M PRN IV Hypoglycemia 08/29/19 11:45 09/28/19 11:44 Dextrose (Dextrose 50%) 50 ml Q30M PRN IV Hypoglycemia 08/29/19 11:45 09/28/19 11:44 Diphenhydramine HCl (Benadryl Cream) 1 applic TIDPRN PRN TOPIC Itching 08/27/19 16:45 09/26/19 16:34 Diphenhydramine HCl (Benadryl) 12.5 mg Q6H PRN IVP Itching/Pruritis 08/28/19 07:15 09/27/19 07:14 08/29/19 21:13 Diphenhydramine HCl (Benadryl) 25 mg Q8H PRN ORAL Itching/Pruritis 08/28/19 07:15 09/27/19 07:14 08/28/19 16:55 Docusate Sodium (Colace) 100 mg TWICE A DAY ORAL 08/28/19 09:00 09/27/19 08:59 08/31/19 18:08 Heparin Sodium (Porcine) (Heparin 5000 units/ml) 5,000 units EVERY 12 HOURS SUBQ 08/28/19 09:00 09/27/19 08:59 08/31/19 20:10 Hydromorphone HCl (Dilaudid) 1 mg Q4H PRN IVP Moderate Pain (Pain Scale 4-6) 08/31/19 10:45 09/07/19 10:44 Hydromorphone HCl (Dilaudid) 2 mg Q4H PRN IVP Severe Pain (Pain Scale 7-10) 08/31/19 10:45 09/07/19 10:44 Insulin Aspart (NovoLOG) BEFORE MEALS AND HS SUBQ 08/29/19 16:30 09/28/19 16:29 08/31/19 12:09 Magnesium Citrate (Citrate Of Magnesia) 300 ml ONCE ORAL 08/31/19 13:00 09/30/19 12:59 08/31/19 15:48 Metformin HCl (Glucophage) 500 mg TIAC ORAL 08/29/19 16:30 09/28/19 16:29 09/01/19 06:02 Metoclopramide HCl (Reglan) 10 mg Q6H PRN IVP Nausea & Vomiting 08/28/19 07:15 09/27/19 07:14 Naloxone HCl (Narcan) 0.1 mg Q1M PRN IVP RR<10/min OR SBP<90 mmHg 08/30/19 15:00 09/01/19 14:59 Ondansetron HCl (Zofran) 4 mg Q6H PRN IVP Nausea & Vomiting 08/28/19 07:15 09/27/19 07:14 08/31/19 11:19 Oxycodone/ Acetaminophen (Percocet 5-325) 1 tab Q3H PRN ORAL Mild Pain (Pain Scale 1-3) 08/31/19 10:45 09/07/19 10:44 Prochlorperazine (Compazine) 10 mg Q6H PRN IVP Nausea & Vomiting 08/31/19 15:00 09/30/19 14:59 08/31/19 15:48 Temazepam (RestoriL) 7.5 mg DAILYPRN PRN ORAL Insomnia 08/28/19 07:15 09/04/19 07:14 Abel Farley MD Sep 01, 2019 06:50
[2019-09-01 07:11] LABS: ANION GAP 7 mmol/L (5-15); BLOOD UREA NITROGEN 6 mg/dL (7-18); CALCIUM 9.3 MG/DL (8.5-10.1); CARBON DIOXIDE 28 MMOL/L (21-32); CHLORIDE 108 MMOL/L (98-107); CREATININE 0.8 MG/DL (0.55-1.30); POTASSIUM 3.9 MMOL/L (3.5-5.1); SODIUM 143 MMOL/L (136-145)
[2019-09-01 07:31] LABS: BASOPHILS % (AUTO) 1.1 % (0.0-2.0); EOSINOPHILS % (AUTO) 4.6 % (0.0-3.0); HEMOGLOBIN 12.3 G/DL (12.0-16.0); LYMPHOCYTES % (AUTO) 31.4 % (20.0-45.0); MEAN CORPUSCULAR VOLUME 90 FL (80-99); MONOCYTES % (AUTO) 5.6 % (1.0-10.0); NEUTROPHILS % (AUTO) 57.3 % (45.0-75.0); PLATELET COUNT 350 K/UL (150-450); RED BLOOD COUNT 3.91 M/UL (4.20-5.40); WHITE BLOOD COUNT 9.7 K/UL (4.8-10.8)
--- NOTE | 2019-09-01 07:42 | NUR ---
HAND-OFF: Report given to Juana GARCIA. Patient in stable condition.
[2019-09-01 08:00] VITALS: BP 114/64
--- NOTE | 2019-09-01 08:19 | NUR ---
NURSE NOTES: Pt asleep. Has not had a bm upon this writing Encouraged to finish drinking laxative. Educated on side effects of pain medications, along with anesthesia increasing risk of constipation
[2019-09-01] MEDS: Docusate 100mg cap ORAL SCH ×2 (09:27→17:52)
[2019-09-01] MEDS: Heparin 5000 units/ml inj SUBQ SCH ×2 (09:29→21:36)
--- NOTE | 2019-09-01 10:43 | NUR ---
CASE MANAGEMENT: REVIEW 08/31/19 SI: POD#6 EXCISION OF BILATERAL AXILLARY HIDRADENITIS WITH FLAP EVALUATION HIDRADENITIS SUPPURATIVA . PRE-DIABETES . ANEMIA 98.3 60 21 111/59 94% ON RA CL- 108 BUN 6 IS:IV CEFAZOLIN Q8HR METFORMIN PO TIAC HEPARIN SQ BID \: 3E MED SURG UNIT PLAN: PARTIAL CLOSURE PATIENT NEEDS WOUND VAC [facility] FORM SIGNED AND FAXED TODAY Addendum: 09/02/19 at 1436 by ELLEN GERARDO LVN 09/01/19
[2019-09-01 12:00] VITALS: BP 108/68
[2019-09-01] MEDS: HYDROmorphone 1mg/ml Carpuject IVP PRN (12:41)
--- NOTE | 2019-09-01 14:11 | General Progress Note ---
Progress Note Progress Note Pt seen and examined. POD #4 and doing well. Wounds are clean and flaps are viable. Will change wound vac in AM and dc likely tomorrow with home healthcare. Will dc JANUSZ drains in AM. Quynh Higgins MD, MD Sep 01, 2019 14:11
--- NOTE | 2019-09-01 15:15 | General Progress Note ---
Assessment/Plan Problem List: (1) Hidradenitis axillaris ICD Codes: L73.2 - Hidradenitis suppurativa SNOMED: 219237512 (2) Pre-diabetes ICD Codes: R73.03 - Prediabetes SNOMED: 647061739 (3) Transaminitis ICD Codes: R74.0 - Nonspecific elevation of levels of transaminase and lactic acid dehydrogenase [LDH] SNOMED: 913500661, 070130990 (4) Anemia due to acute blood loss ICD Codes: D62 - Acute posthemorrhagic anemia SNOMED: 971252371 Status: stable, progressing Assessment/Plan: 29 year old female with infected stage 3 Hidradenitis suppurativa now pod 4 s/p excision of bilateral axillary HS with flap elevation and closure #HS, stage 3 infected: POD#4 s/p bilateral axillary flap closure #Opioid induced pruritus #Low grade fever, resolved #Nausea/vomiting #constipation IV antibiotics, currently cefazolin, ID consult with Dr. Marques monitor vitals follow up OR wound cultures NUCLEAR CARDIOLOGY TECHNOLOGIST pump, transition to IV Dilaudid and Percocet IV Benadryl 25 mg Q6hr prn for pruritus bowel regimen plan of care d/w Dr. Mejia wound care clerk manager consult to set up home health services. Incentive spirometry Zofran and Compazine bowel regimen, Dulcolax, add magnesium citrate as needed #Transaminitis, resolved continue to monitor #Prediabetes. Hemoglobin A1c 6.4. Counseled patient on weight loss and lifestyle modification. due to open wounds, needs tight glycemic control for better healing insulin sliding scale, sensitive metformin 500 mg BID Diabetic diet Endocrine consult with Dr. Abel Farley appreciated VTE ppx: Heparin subq, SCD boots GI ppx: not indicated Code status full code I spent 40 minutes on this encounter. Greater than 50% spent on counselling and care coordination. Plan of care discussed with Dr. Mejia, RN, patient and her mom. Subjective Date patient seen: Sep 01, 2019 ROS Limited/Unobtainable: No Constitutional: Denies: no symptoms, chills, diaphoresis, fever, malaise, weakness, other HEENT: Denies: no symptoms, eye pain, blurred vision, tearing, double vision, ear pain, ear discharge, nose pain, nose congestion, throat pain, throat swelling, mouth pain, mouth swelling, other Cardiovascular: Denies: no symptoms, chest pain, edema, irregular heart rate, lightheadedness, palpitations, syncope, other Respiratory: Denies: no symptoms, cough, orthopnea, shortness of breath, SOB with excertion, SOB at rest, sputum, stridor, wheezing, other Gastrointestinal/Abdominal: Denies: no symptoms, abdomen distended, abdominal pain, black stools, tarry stools, blood in stool, constipated, diarrhea, difficulty swallowing, nausea, poor appetite, poor fluid intake, rectal bleeding , vomiting, other Genitourinary: Denies: no symptoms, burning, discharge, frequency, flank pain, hematuria, incontinence, pain, urgency, other Neurologic/Psychiatric: Denies: no symptoms, anxiety, depressed, emotional problems, headache, numbness, paresthesia, pre-existing deficit, seizure, tingling, tremors, weakness, other Endocrine: Denies: no symptoms, excessive sweating, flushing, intolerance to cold, intolerance to heat, increased hunger, increased thirst, increased urine, unexplained weight gain, unexplained weight loss, other Hematologic/Lymphatic: Denies: no symptoms, anemia, easy bleeding, easy bruising, other Allergies: Coded Allergies: No Known Allergies (Unverified , 08/25/19) Subjective Patient seen and examined, afebrile pod 4 s/p flap closure of bilateral axilla after having undergone flap elevation. Hemodynamically stable. Was transitioned off of NUCLEAR CARDIOLOGY TECHNOLOGIST yesterday, received magnesium citrate and had a large bowel movement. Feeling well Objective Last 24 Hour Vital Signs Date Time Temp Pulse Resp B/P (MAP) Pulse Ox O2 Delivery O2 Flow Rate FiO2 09/01/19 13:11 98.3 09/01/19 12:00 98.9 64 108/68 (81) 09/01/19 09:00 Room Air 09/01/19 08:00 97.7 114/64 (81) 09/01/19 07:50 97 Room Air 21 09/01/19 04:00 98.3 60 21 111/59 (76) 94 09/01/19 00:00 98.3 58 20 119/65 (83) 95 08/31/19 21:00 Room Air 08/31/19 20:00 98.3 71 20 115/66 (82) 96 08/31/19 19:00 96 Room Air 21 08/31/19 16:00 98.0 73 16 134/68 (90) 98 Intake and Output 08/31/19 09/01/19 19:00 07:00 Intake Total 1675 ml 55 ml Output Total 115 ml 2 ml Balance 1560 ml 53 ml Intake Oral 1620 ml IV Total 55 ml 55 ml Output Urine Total 2 ml Drainage Total 115 ml # Voids 2 Laboratory Tests 09/01/19 05:35: White Blood Count 9.7, Red Blood Count 3.91L, Hemoglobin 12.3, Hematocrit 35.0L , Mean Corpuscular Volume 90, Mean Corpuscular Hemoglobin 31.4H, Mean Corpuscular Hemoglobin Concent 35.1, Red Cell Distribution Width 11.0L, Platelet Count 350, Mean Platelet Volume 5.1L, Neutrophils (%) (Auto) 57.3, Lymphocytes (%) (Auto) 31.4, Monocytes (%) (Auto) 5.6, Eosinophils (%) (Auto) 4.6H, Basophils (%) (Auto) 1.1, Sodium Level 143, Potassium Level 3.9, Chloride Level 108H, Carbon Dioxide Level 28, Anion Gap 7, Blood Urea Nitrogen 6L, Creatinine 0.8, Estimat Glomerular Filtration Rate > 60, Glucose Level 98, Calcium Level 9.3 Height (Feet): 5 Height (Inches): 4.00 Weight (Pounds): 160 Objective General Appearance: overweight, sedated Lines, tubes and drains: peripheral, JANUSZ, +wound vac HEENT: normocephalic, atraumatic, anicteric Neck: non-tender, normal alignment, supple Respiratory/Chest: chest wall non-tender, lungs clear, normal breath sounds, no respiratory distress, no accessory muscle use Cardiovascular/Chest: normal peripheral pulses, normal rate, regular rhythm, no gallop/murmur, no JVD Abdomen: normal bowel sounds, non tender, soft, no organomegaly, no mass Extremities: non-tender, no calf tenderness, no edema Skin Exam: normal pigmentation, warm/dry, other - bilateral axilla dressing c/d /i Neurologic: sedated, responsive Musculoskeletal: normal muscle bulk Yimi Rowland M.D. Sep 01, 2019 15:15
--- NOTE | 2019-09-01 15:26 | NUR ---
NURSE NOTES: Pt up and walking gait is steady. Dr Moreira here earlier in shift, gave instruction for possible discharge for tomorrow., If all supplies was at hand . Pain medication given x one. verbalized effectiveness
[2019-09-01 16:00] VITALS: BP 129/82
--- NOTE | 2019-09-01 19:29 | NUR ---
NURSE NOTES: Received report from JOSE Arias. Pt is awake, lying semi-slade's; comfortably resting. No signs of acute distress noted. Pt denies any pain at this time. AOx4; able to make needs known. Checked IV site, line, and rate; patent and running. No erythema, bleeding, or infiltration noted. Checked wound vac setting. Bed at lowest position. Walker at bedside. Brakes on. Siderails up x2. Call light within reach. Will continue to monitor.
[2019-09-01 20:00] VITALS: BP 104/65
--- NOTE | 2019-09-01 20:13 | NUR ---
NURSE NOTES: Endorsed to oncoming nurse that canister needed to be changed in wound vac along with wound care to axillary area
--- NOTE | 2019-09-01 20:14 | NUR ---
HAND-OFF: Report given to Melina GARCIA.
[2019-09-02] VITALS (7 sets, daily range): BP systolic 98–128; BP diastolic 51–73
[2019-09-02] MEDS: ceFAZolin sod 1 GM in NS 55 ML IVP SCH ×2 (02:02→11:35)
[2019-09-02] MEDS: HYDROmorphone 1mg/ml Carpuject IVP PRN ×2 (02:02→11:59)
[2019-09-02] MEDS: NovoLOG Insulin Flexpen SUBQ SCH ×4 (05:49→20:28)
[2019-09-02] MEDS: metFORMIN 500mg tab ORAL SCH ×3 (05:50→16:55)
--- NOTE | 2019-09-02 07:40 | NUR ---
HAND-OFF: Report given to JOSE Gaines. Pt is awake and in stable condition. Plan of care endorsed.
--- NOTE | 2019-09-02 07:45 | NUR ---
NURSE NOTES: Patient is in bed awake and able to verbalize needs. stable. Denies pain or SOB. Will monitor JANUSZ output throughout shift. Wound vac intact and draining at ordered settings. Patient instructed to use call light for assistance, verbalized understanding. Patient is in bed in locked and lowest position with call light within reach. All needs met. Will continue to monitor.
[2019-09-02] MEDS: Docusate 100mg cap ORAL SCH ×2 (08:51→17:51)
[2019-09-02] MEDS: Heparin 5000 units/ml inj SUBQ SCH ×2 (08:52→20:29)
--- NOTE | 2019-09-02 09:00 | NUR ---
*-* INSURANCE *-* ALL CLINICALS AND REVIEWS HAVE BEEN FAXED TO: [facility] USE THIS FAX# [phone] CERT REF# [id number]
--- NOTE | 2019-09-02 09:40 | NUR ---
NURSE NOTES: Patient assisted in shower. Dressings removed as ordered by Dr. Mejia. Patient assisted back to bed without incident. Will continue to monitor.
--- NOTE | 2019-09-02 12:45 | General Progress Note ---
Assessment/Plan Problem List: (1) Hidradenitis axillaris ICD Codes: L73.2 - Hidradenitis suppurativa SNOMED: 021520280 (2) Pre-diabetes ICD Codes: R73.03 - Prediabetes SNOMED: 950148155 (3) Transaminitis ICD Codes: R74.0 - Nonspecific elevation of levels of transaminase and lactic acid dehydrogenase [LDH] SNOMED: 099979224, 560073032 (4) Anemia due to acute blood loss ICD Codes: D62 - Acute posthemorrhagic anemia SNOMED: 642677220 Status: stable, progressing Assessment/Plan: 29 year old female with infected stage 3 Hidradenitis suppurativa now pod 5 s/p excision of bilateral axillary HS with flap elevation and closure #HS, stage 3 infected: POD#5 s/p bilateral axillary flap closure #Opioid induced pruritus #Low grade fever, resolved #Nausea/vomiting #constipation IV antibiotics, currently cefazolin, ID consult with Dr. Marques. Will check with him regaridng choice of PO antibiotics monitor vitals follow up OR wound cultures ROAD TESTER pump, transition to IV Dilaudid and Percocet IV Benadryl 25 mg Q6hr prn for pruritus bowel regimen plan of care d/w Dr. Mejia wound care seed corn production manager consult to set up home health services. Incentive spirometry Zofran and Compazine bowel regimen, Dulcolax, add magnesium citrate as needed #Transaminitis, resolved continue to monitor #Prediabetes. Hemoglobin A1c 6.4. Counseled patient on weight loss and lifestyle modification. due to open wounds, needs tight glycemic control for better healing insulin sliding scale, sensitive metformin 500 mg BID Diabetic diet Endocrine consult with Dr. Abel Farley appreciated VTE ppx: Heparin subq, SCD boots GI ppx: not indicated Code status full code I spent 40 minutes on this encounter. Greater than 50% spent on counselling and care coordination. Plan of care discussed with Dr. Mejia, RN, patient and her mom. Subjective Date patient seen: Sep 02, 2019 ROS Limited/Unobtainable: No Constitutional: Denies: no symptoms, chills, diaphoresis, fever, malaise, weakness, other HEENT: Denies: no symptoms, eye pain, blurred vision, tearing, double vision, ear pain, ear discharge, nose pain, nose congestion, throat pain, throat swelling, mouth pain, mouth swelling, other Cardiovascular: Denies: no symptoms, chest pain, edema, irregular heart rate, lightheadedness, palpitations, syncope, other Respiratory: Denies: no symptoms, cough, orthopnea, shortness of breath, SOB with excertion, SOB at rest, sputum, stridor, wheezing, other Gastrointestinal/Abdominal: Denies: no symptoms, abdomen distended, abdominal pain, black stools, tarry stools, blood in stool, constipated, diarrhea, difficulty swallowing, nausea, poor appetite, poor fluid intake, rectal bleeding , vomiting, other Genitourinary: Denies: no symptoms, burning, discharge, frequency, flank pain, hematuria, incontinence, pain, urgency, other Neurologic/Psychiatric: Denies: no symptoms, anxiety, depressed, emotional problems, headache, numbness, paresthesia, pre-existing deficit, seizure, tingling, tremors, weakness, other Endocrine: Denies: no symptoms, excessive sweating, flushing, intolerance to cold, intolerance to heat, increased hunger, increased thirst, increased urine, unexplained weight gain, unexplained weight loss, other Hematologic/Lymphatic: Denies: no symptoms, anemia, easy bleeding, easy bruising, other Allergies: Coded Allergies: No Known Allergies (Unverified , 08/25/19) Subjective Patient seen and examined, afebrile pod 5 s/p flap closure of bilateral axilla after having undergone flap elevation. Hemodynamically stable. wound vac dressing changed by Dr. Mejia today. We're waiting for portable wound vac, when arrives, can DC home today Objective Last 24 Hour Vital Signs Date Time Temp Pulse Resp B/P (MAP) Pulse Ox O2 Delivery O2 Flow Rate FiO2 09/02/19 12:00 97.6 62 16 110/65 (80) 98 09/02/19 09:00 Room Air 09/02/19 08:00 98.1 64 18 105/67 (80) 98 09/02/19 04:00 98.1 62 20 98/59 (72) 98 09/02/19 00:00 98.5 64 18 105/51 (69) 96 09/01/19 21:00 Room Air 09/01/19 20:00 98.8 69 18 104/65 (78) 96 09/01/19 19:40 96 Room Air 21 09/01/19 16:00 98.3 71 129/82 (98) 09/01/19 13:11 98.3 Intake and Output 09/01/19 09/02/19 19:00 07:00 Intake Total 800 ml 505 ml Output Total 215 ml Balance 800 ml 290 ml Intake Oral 800 ml 450 ml IV Total 55 ml Drainage Total 215 ml # Voids 1 # Bowel Movements 1 Height (Feet): 5 Height (Inches): 4.00 Weight (Pounds): 160 Objective General Appearance: overweight, sedated Lines, tubes and drains: peripheral, JANUSZ, +wound vac HEENT: normocephalic, atraumatic, anicteric Neck: non-tender, normal alignment, supple Respiratory/Chest: chest wall non-tender, lungs clear, normal breath sounds, no respiratory distress, no accessory muscle use Cardiovascular/Chest: normal peripheral pulses, normal rate, regular rhythm, no gallop/murmur, no JVD Abdomen: normal bowel sounds, non tender, soft, no organomegaly, no mass Extremities: non-tender, no calf tenderness, no edema Skin Exam: normal pigmentation, warm/dry, other - bilateral axilla dressing c/d /i Neurologic: sedated, responsive Musculoskeletal: normal muscle bulk Yimi Rowland M.D. Sep 02, 2019 12:45
--- NOTE | 2019-09-02 14:30 | NUR ---
NURSE NOTES: spa manager spoke to patient regarding discharge home with wound vac. Will continue to update discharge plan as necessary.
--- NOTE | 2019-09-02 14:36 | NUR ---
CASE MANAGEMENT: REVIEW 09/02/19 SI: POD#7 EXCISION OF BILATERAL AXILLARY HIDRADENITIS WITH FLAP EVALUATION HIDRADENITIS SUPPURATIVA . PRE-DIABETES . ANEMIA 98.1 64 18 105/67 98% ON RA IS:IV CEFAZOLIN Q8HR METFORMIN PO TIAC HEPARIN SQ BID \: 3E MED SURG UNIT PLAN: PARTIAL CLOSURE PATIENT NEEDS WOUND VAC
--- NOTE | 2019-09-02 16:39 | Infectious Diseases Prog Note ---
Assessment/Plan Assessment/Plan ASSESSMENT AND PLAN: 1. bilateral axilla wound infection, hidradenitis suppurativa - s/p excision and closure - cefazolin - day # 6 post flap closure - can discharge on keflex for one week - no fevers, leukocytosis resolved - continue treatment per Dr. Rowland and Dr. Mejia - monitor labs - communicated with Dr. Rowland 2. Hidradenitis suppurativa of the bilateral axilla and also history of groin hydradenitis suppurativa. 3. History of . 4. No history of diabetes or hypertension. 5. Continue treatment per primary consultants. 6. No known allergies. 7. Social history is negative. 8. Family history is noncontributory. 9. MAR was noted. 10. Case was discussed with RN. 11. Case was discussed with the patient. 12. Orders were noted and entered. 13. Surgery follow up. 14. Continue treatment per Dr. Rowland and consultants. 15. Wound care per protocol and Surgery. Subjective Constitutional: Denies: fever HEENT: Denies: congestion Respiratory: Denies: shortness of breath Cardiovascular: Denies: chest pain Gastrointestinal/Abdominal: Denies: nausea, vomiting, diarrhea Genitourinary: Reports: other - no bain Neurologic: Denies: headache Psychiatric: Denies: depression Skin: Denies: rash Hematologic: Denies: bleeding Musculoskeletal: Denies: pain Allergies: Coded Allergies: No Known Allergies (Unverified , 08/25/19) Objective Vital Signs Last 24 Hour Vital Signs Date Time Temp Pulse Resp B/P (MAP) Pulse Ox O2 Delivery O2 Flow Rate FiO2 09/02/19 12:00 97.6 62 16 110/65 (80) 98 09/02/19 09:00 Room Air 09/02/19 08:00 98.1 64 18 105/67 (80) 98 09/02/19 04:00 98.1 62 20 98/59 (72) 98 09/02/19 00:00 98.5 64 18 105/51 (69) 96 09/01/19 21:00 Room Air 09/01/19 20:00 98.8 69 18 104/65 (78) 96 09/01/19 19:40 96 Room Air 21 Height (Feet): 5 Height (Inches): 4.00 Weight (Pounds): 160 General Appearance: no acute distress HEENT: normocephalic, atraumatic, anicteric, mucous membranes moist Respiratory/Chest: lungs clear, normal breath sounds, no respiratory distress, no accessory muscle use Cardiovascular: normal rate, regular rhythm, no gallop/murmur Abdomen: normal bowel sounds, soft, non tender, no organomegaly, non distended Genitourinary: other - no bain Extremities: no cyanosis Skin: no rash Neurologic/Psychiatric: coin machine supervisor II-XII grossly normal, alert, responsive Lymphatic: no neck adenopathy Musculoskeletal: no effusion Objective none none Labs Test 09/01/19 05:35 White Blood Count 9.7 K/UL (4.8-10.8) Red Blood Count 3.91 M/UL (4.20-5.40) Hemoglobin 12.3 G/DL (12.0-16.0) Hematocrit 35.0 % (37.0-47.0) Mean Corpuscular Volume 90 FL (80-99) Mean Corpuscular Hemoglobin 31.4 PG (27.0-31.0) Mean Corpuscular Hemoglobin Concent 35.1 G/DL (32.0-36.0) Red Cell Distribution Width 11.0 % (11.6-14.8) Platelet Count 350 K/UL (150-450) Mean Platelet Volume 5.1 FL (6.5-10.1) Neutrophils (%) (Auto) 57.3 % (45.0-75.0) Lymphocytes (%) (Auto) 31.4 % (20.0-45.0) Monocytes (%) (Auto) 5.6 % (1.0-10.0) Eosinophils (%) (Auto) 4.6 % (0.0-3.0) Basophils (%) (Auto) 1.1 % (0.0-2.0) Sodium Level 143 MMOL/L (136-145) Potassium Level 3.9 MMOL/L (3.5-5.1) Chloride Level 108 MMOL/L (98-107) Carbon Dioxide Level 28 MMOL/L (21-32) Anion Gap 7 mmol/L (5-15) Blood Urea Nitrogen 6 mg/dL (7-18) Creatinine 0.8 MG/DL (0.55-1.30) Estimat Glomerular Filtration Rate > 60 mL/min (>60) Glucose Level 98 MG/DL (74-106) Calcium Level 9.3 MG/DL (8.5-10.1) Current Medications Medications (Trade) Dose Ordered Sig/Rl Route PRN Reason Start Time Stop Time Status Last Admin Dose Admin Acetaminophen (Tylenol) 650 mg Q4H PRN ORAL FEVER 08/28/19 07:15 09/27/19 07:14 08/29/19 15:45 Al Hydroxide/Mg Hydroxide (Mylanta) 15 ml Q6H PRN ORAL DYSPEPSIA 08/28/19 07:15 09/27/19 07:14 Bisacodyl (Dulcolax) 5 mg DAILYPRN PRN ORAL Constipation 08/29/19 09:15 09/28/19 09:14 08/30/19 17:26 Cefazolin Sodium 1 gm/Sodium Chloride 55 ml @ 110 mls/hr Q8H IVP 08/28/19 19:00 09/04/19 18:59 09/02/19 11:35 Dextrose (Dextrose 50%) 25 ml Q30M PRN IV Hypoglycemia 08/29/19 11:45 09/28/19 11:44 Dextrose (Dextrose 50%) 50 ml Q30M PRN IV Hypoglycemia 08/29/19 11:45 09/28/19 11:44 Diphenhydramine HCl (Benadryl Cream) 1 applic TIDPRN PRN TOPIC Itching 08/27/19 16:45 09/26/19 16:34 Diphenhydramine HCl (Benadryl) 12.5 mg Q6H PRN IVP Itching/Pruritis 08/28/19 07:15 09/27/19 07:14 08/29/19 21:13 Diphenhydramine HCl (Benadryl) 25 mg Q8H PRN ORAL Itching/Pruritis 08/28/19 07:15 09/27/19 07:14 08/28/19 16:55 Docusate Sodium (Colace) 100 mg TWICE A DAY ORAL 08/28/19 09:00 09/27/19 08:59 09/02/19 08:51 Heparin Sodium (Porcine) (Heparin 5000 units/ml) 5,000 units EVERY 12 HOURS SUBQ 08/28/19 09:00 09/27/19 08:59 09/02/19 08:52 Hydromorphone HCl (Dilaudid) 1 mg Q4H PRN IVP Moderate Pain (Pain Scale 4-6) 08/31/19 10:45 09/07/19 10:44 09/02/19 11:59 Hydromorphone HCl (Dilaudid) 2 mg Q4H PRN IVP Severe Pain (Pain Scale 7-10) 08/31/19 10:45 09/07/19 10:44 Insulin Aspart (NovoLOG) BEFORE MEALS AND HS SUBQ 08/29/19 16:30 09/28/19 16:29 08/31/19 12:09 Metformin HCl (Glucophage) 500 mg TIAC ORAL 08/29/19 16:30 09/28/19 16:29 09/02/19 11:38 Metoclopramide HCl (Reglan) 10 mg Q6H PRN IVP Nausea & Vomiting 08/28/19 07:15 09/27/19 07:14 Ondansetron HCl (Zofran) 4 mg Q6H PRN IVP Nausea & Vomiting 08/28/19 07:15 09/27/19 07:14 09/02/19 14:29 Oxycodone/ Acetaminophen (Percocet 5-325) 1 tab Q3H PRN ORAL Mild Pain (Pain Scale 1-3) 08/31/19 10:45 09/07/19 10:44 Prochlorperazine (Compazine) 10 mg Q6H PRN IVP Nausea & Vomiting 08/31/19 15:00 09/30/19 14:59 08/31/19 15:48 Temazepam (RestoriL) 7.5 mg DAILYPRN PRN ORAL Insomnia 08/28/19 07:15 09/04/19 07:14 Brandy Tobias MD Sep 02, 2019 16:39
--- NOTE | 2019-09-02 18:24 | General Progress Note ---
Assessment/Plan Problem List: (1) Hidradenitis axillaris ICD Codes: L73.2 - Hidradenitis suppurativa SNOMED: 762587779 (2) Pre-diabetes ICD Codes: R73.03 - Prediabetes SNOMED: 555441439 (3) Anemia due to acute blood loss ICD Codes: D62 - Acute posthemorrhagic anemia SNOMED: 551265650 Status: stable, progressing Assessment/Plan: continue Metformin 500 mg bid continue Novolog sliding scale as needed Subjective Allergies: Coded Allergies: No Known Allergies (Unverified , 08/25/19) All Systems: reviewed and negative except above Subjective events noted glucose values in excellent control without hypoglycemia Item Value Date Time Bedside Blood Glucose 114 mg/dl 09/02/19 1630 Bedside Blood Glucose 106 mg/dl 09/02/19 1130 Bedside Blood Glucose 101 mg/dl 09/02/19 0624 Bedside Blood Glucose 138 mg/dl H 09/01/19 2100 Objective Last 24 Hour Vital Signs Date Time Temp Pulse Resp B/P (MAP) Pulse Ox O2 Delivery O2 Flow Rate FiO2 09/02/19 16:00 98.1 64 18 103/54 (70) 97 09/02/19 12:00 97.6 62 16 110/65 (80) 98 09/02/19 09:00 Room Air 09/02/19 08:00 98.1 64 18 105/67 (80) 98 09/02/19 04:00 98.1 62 20 98/59 (72) 98 09/02/19 00:00 98.5 64 18 105/51 (69) 96 09/01/19 21:00 Room Air 09/01/19 20:00 98.8 69 18 104/65 (78) 96 09/01/19 19:40 96 Room Air 21 Intake and Output 09/01/19 09/02/19 19:00 07:00 Intake Total 800 ml 505 ml Output Total 215 ml Balance 800 ml 290 ml Intake Oral 800 ml 450 ml IV Total 55 ml Drainage Total 215 ml # Voids 1 # Bowel Movements 1 Height (Feet): 5 Height (Inches): 4.00 Weight (Pounds): 160 General Appearance: no apparent distress Neck: normal alignment Cardiovascular: normal peripheral pulses Respiratory/Chest: lungs clear Edema: no edema noted Arm (L), no edema noted Arm (R), no edema noted Leg (L), no edema noted Leg (R), no edema noted Pedal (L), no edema noted Pedal (R), no edema noted Generalized Objective Current Medications Medications (Trade) Dose Ordered Sig/Rl Route PRN Reason Start Time Stop Time Status Last Admin Dose Admin Acetaminophen (Tylenol) 650 mg Q4H PRN ORAL FEVER 08/28/19 07:15 09/27/19 07:14 08/29/19 15:45 Al Hydroxide/Mg Hydroxide (Mylanta) 15 ml Q6H PRN ORAL DYSPEPSIA 08/28/19 07:15 09/27/19 07:14 Bisacodyl (Dulcolax) 5 mg DAILYPRN PRN ORAL Constipation 08/29/19 09:15 09/28/19 09:14 08/30/19 17:26 Cefazolin Sodium 1 gm/Sodium Chloride 55 ml @ 110 mls/hr Q8H IVP 09/02/19 19:00 09/09/19 18:59 09/02/19 17:57 Dextrose (Dextrose 50%) 25 ml Q30M PRN IV Hypoglycemia 08/29/19 11:45 09/28/19 11:44 Dextrose (Dextrose 50%) 50 ml Q30M PRN IV Hypoglycemia 08/29/19 11:45 09/28/19 11:44 Diphenhydramine HCl (Benadryl Cream) 1 applic TIDPRN PRN TOPIC Itching 08/27/19 16:45 09/26/19 16:34 Diphenhydramine HCl (Benadryl) 12.5 mg Q6H PRN IVP Itching/Pruritis 08/28/19 07:15 09/27/19 07:14 08/29/19 21:13 Diphenhydramine HCl (Benadryl) 25 mg Q8H PRN ORAL Itching/Pruritis 08/28/19 07:15 09/27/19 07:14 08/28/19 16:55 Docusate Sodium (Colace) 100 mg TWICE A DAY ORAL 08/28/19 09:00 09/27/19 08:59 09/02/19 08:51 Heparin Sodium (Porcine) (Heparin 5000 units/ml) 5,000 units EVERY 12 HOURS SUBQ 08/28/19 09:00 09/27/19 08:59 09/02/19 08:52 Hydromorphone HCl (Dilaudid) 1 mg Q4H PRN IVP Moderate Pain (Pain Scale 4-6) 08/31/19 10:45 09/07/19 10:44 09/02/19 11:59 Hydromorphone HCl (Dilaudid) 2 mg Q4H PRN IVP Severe Pain (Pain Scale 7-10) 08/31/19 10:45 09/07/19 10:44 Insulin Aspart (NovoLOG) BEFORE MEALS AND HS SUBQ 08/29/19 16:30 09/28/19 16:29 08/31/19 12:09 Metformin HCl (Glucophage) 500 mg TIAC ORAL 08/29/19 16:30 09/28/19 16:29 09/02/19 16:55 Metoclopramide HCl (Reglan) 10 mg Q6H PRN IVP Nausea & Vomiting 08/28/19 07:15 09/27/19 07:14 Ondansetron HCl (Zofran) 4 mg Q6H PRN IVP Nausea & Vomiting 08/28/19 07:15 09/27/19 07:14 09/02/19 14:29 Oxycodone/ Acetaminophen (Percocet 5-325) 1 tab Q3H PRN ORAL Mild Pain (Pain Scale 1-3) 08/31/19 10:45 09/07/19 10:44 Prochlorperazine (Compazine) 10 mg Q6H PRN IVP Nausea & Vomiting 08/31/19 15:00 09/30/19 14:59 08/31/19 15:48 Temazepam (RestoriL) 7.5 mg DAILYPRN PRN ORAL Insomnia 08/28/19 07:15 09/04/19 07:14 Abel Farley MD Sep 02, 2019 18:24
--- NOTE | 2019-09-02 18:30 | NUR ---
NURSE NOTES: Patient connected to Ancef IV as ordered. Patient complains of pain at IV site. IV site pink and slightly swollen. IV removed and patient states that she feels relieved. Dr. Mejia made aware and gave new orders to D/C IV. Patient has no IV access at this time. WIll continue to monitor.
[2019-09-02] MEDS ORDERED: ceFAZolin sod 1 GM in NS 55 ML IVP SCH (19:00)
[2019-09-02] MEDS ORDERED: Cephalexin 500mg cap ORAL SCH (19:11)
--- NOTE | 2019-09-02 19:30 | NUR ---
NURSE NOTES: Received patient in bed. Awake, A/O x4. On room air. Patient denies pain at this time. at the bedside. Bilateral axillary surgical wound noted with dry dressing intact. JANUSZ drain to the Bilateral axillary wound. Wound vac draining in the Left axillary surgical site. Wound vac on continuous high 175 mmHg. 1/2 side rails up, bed at the lowest position, bed locked.
--- NOTE | 2019-09-02 19:38 | NUR ---
HAND-OFF: Report given to Sheldon GARCIA. Patient is stable.
[2019-09-02] MEDS: Cephalexin 500mg cap ORAL SCH (20:20)
--- NOTE | 2019-09-02 20:29 | NUR ---
NURSE NOTES: Patient refused heparin injection. Patient stated I am walking a lot more and I will go for a walk before sleep.
[2019-09-02] MEDS: oxyCODONE HCL/Acetaminophen 5/325mg ORAL PRN (23:34)
[2019-09-03 04:00] VITALS: BP 115/64
[2019-09-03] MEDS: Cephalexin 500mg cap ORAL SCH ×3 (06:03→17:58)
[2019-09-03] MEDS: metFORMIN 500mg tab ORAL SCH ×3 (06:03→17:58)
[2019-09-03] MEDS: NovoLOG Insulin Flexpen SUBQ SCH ×4 (06:18→21:00)
--- NOTE | 2019-09-03 06:46 | General Progress Note ---
Assessment/Plan Problem List: (1) Hidradenitis axillaris ICD Codes: L73.2 - Hidradenitis suppurativa SNOMED: 792664410 (2) Pre-diabetes ICD Codes: R73.03 - Prediabetes SNOMED: 672098742 (3) Anemia due to acute blood loss ICD Codes: D62 - Acute posthemorrhagic anemia SNOMED: 933664748 Status: stable, progressing Assessment/Plan: continue Metformin 500 mg bid until surgical would is healed - approx a month no need for insulin after discharge Subjective Allergies: Coded Allergies: No Known Allergies (Unverified , 08/25/19) All Systems: reviewed and negative except above Subjective events noted glucose values in excellent control without hypoglycemia Item Value Date Time Bedside Blood Glucose 73 mg/dl 09/03/19 0618 Coma Scale Total 15 Points 09/02/19 2100 Bedside Blood Glucose 112 mg/dl 09/02/19 2100 Bedside Blood Glucose 114 mg/dl 09/02/19 1630 Bedside Blood Glucose 106 mg/dl 09/02/19 1130 Bedside Blood Glucose 101 mg/dl 09/02/19 0624 Objective Last 24 Hour Vital Signs Date Time Temp Pulse Resp B/P (MAP) Pulse Ox O2 Delivery O2 Flow Rate FiO2 09/03/19 04:00 98.2 53 17 115/64 (81) 98 09/02/19 23:34 98.1 59 17 128/73 (91) 95 09/02/19 21:00 Room Air 09/02/19 20:00 97.9 65 17 108/59 (75) 98 09/02/19 16:00 98.1 64 18 103/54 (70) 97 09/02/19 12:00 97.6 62 16 110/65 (80) 98 09/02/19 09:00 Room Air 09/02/19 08:00 98.1 64 18 105/67 (80) 98 Intake and Output 09/02/19 09/03/19 19:00 07:00 Intake Total 1200 ml 400 ml Output Total 65 ml Balance 1200 ml 335 ml Intake Oral 1200 ml 400 ml Drainage Total 65 ml # Voids 1 Height (Feet): 5 Height (Inches): 4.00 Weight (Pounds): 160 General Appearance: no apparent distress Neck: normal alignment Cardiovascular: normal rate Respiratory/Chest: lungs clear Abdomen: normal bowel sounds Pelvis: normal external exam Objective Current Medications Medications (Trade) Dose Ordered Sig/Rl Route PRN Reason Start Time Stop Time Status Last Admin Dose Admin Acetaminophen (Tylenol) 650 mg Q4H PRN ORAL FEVER 08/28/19 07:15 09/27/19 07:14 08/29/19 15:45 Al Hydroxide/Mg Hydroxide (Mylanta) 15 ml Q6H PRN ORAL DYSPEPSIA 08/28/19 07:15 09/27/19 07:14 Bisacodyl (Dulcolax) 5 mg DAILYPRN PRN ORAL Constipation 08/29/19 09:15 09/28/19 09:14 08/30/19 17:26 Cephalexin (Keflex) 500 mg Q6HR ORAL 09/02/19 20:00 09/09/19 19:59 09/03/19 06:03 Dextrose (Dextrose 50%) 25 ml Q30M PRN IV Hypoglycemia 08/29/19 11:45 09/28/19 11:44 Dextrose (Dextrose 50%) 50 ml Q30M PRN IV Hypoglycemia 08/29/19 11:45 09/28/19 11:44 Diphenhydramine HCl (Benadryl Cream) 1 applic TIDPRN PRN TOPIC Itching 08/27/19 16:45 09/26/19 16:34 Diphenhydramine HCl (Benadryl) 12.5 mg Q6H PRN IVP Itching/Pruritis 08/28/19 07:15 09/27/19 07:14 08/29/19 21:13 Diphenhydramine HCl (Benadryl) 25 mg Q8H PRN ORAL Itching/Pruritis 08/28/19 07:15 09/27/19 07:14 08/28/19 16:55 Docusate Sodium (Colace) 100 mg TWICE A DAY ORAL 08/28/19 09:00 09/27/19 08:59 09/02/19 08:51 Heparin Sodium (Porcine) (Heparin 5000 units/ml) 5,000 units EVERY 12 HOURS SUBQ 08/28/19 09:00 09/27/19 08:59 09/02/19 08:52 Hydromorphone HCl (Dilaudid) 1 mg Q4H PRN IVP Moderate Pain (Pain Scale 4-6) 08/31/19 10:45 09/07/19 10:44 09/02/19 11:59 Hydromorphone HCl (Dilaudid) 2 mg Q4H PRN IVP Severe Pain (Pain Scale 7-10) 08/31/19 10:45 09/07/19 10:44 Insulin Aspart (NovoLOG) BEFORE MEALS AND HS SUBQ 08/29/19 16:30 09/28/19 16:29 08/31/19 12:09 Metformin HCl (Glucophage) 500 mg TIAC ORAL 08/29/19 16:30 09/28/19 16:29 09/03/19 06:03 Metoclopramide HCl (Reglan) 10 mg Q6H PRN IVP Nausea & Vomiting 08/28/19 07:15 09/27/19 07:14 Ondansetron HCl (Zofran) 4 mg Q6H PRN IVP Nausea & Vomiting 08/28/19 07:15 09/27/19 07:14 09/02/19 14:29 Oxycodone/ Acetaminophen (Percocet 5-325) 1 tab Q3H PRN ORAL Mild Pain (Pain Scale 1-3) 08/31/19 10:45 09/07/19 10:44 09/02/19 23:34 Prochlorperazine (Compazine) 10 mg Q6H PRN IVP Nausea & Vomiting 08/31/19 15:00 09/30/19 14:59 08/31/19 15:48 Temazepam (RestoriL) 7.5 mg DAILYPRN PRN ORAL Insomnia 08/28/19 07:15 09/04/19 07:14 09/02/19 20:20 Abel Farley MD Sep 03, 2019 06:46
--- NOTE | 2019-09-03 07:35 | NUR ---
NURSE NOTES: Report received from Sheldon GARCIA, rounds made. Patient resting in supine position in bed, no distress on RA. Denies pain/NV. No IV access. Bilateral axillary JPs in place, left empty, right with serosanguineous output. Left wound vac in place, with serosanguineous output noted, at 175 mmHg continuous. Bilateral axillary dressings CDI. Bilateral SCDs off. Call light in reach, bed in lowest position, will continue to monitor.
--- NOTE | 2019-09-03 07:39 | NUR ---
HAND-OFF: Report given to Deanna GARCIA.
[2019-09-03 08:00] VITALS: BP 140/68
--- NOTE | 2019-09-03 08:47 | NUR ---
HOME ASSESSMENT NURSE NOTE: LATE ENTRY PATIENT HAS BEEN REFERRED TO [facility] T: [phone] SPOKE TO [employer]: MIKE ELLISON HAS STILL NOT AUTHORIZED SPOKE TO INSURANCE MIKE ELLISON: JOSE DANIEL (T: [phone]) TO DISCUSS AUTHORIZATION FOR DME ITEM AND HOME HEALTH. DME ITEM AUTHORIZED WITH 50% SHARE COST; PATIENT AGREES TO SHARE COST. [facility] NEEDED TO CONTACT PATIENT DIRECTLY FOR AGREEMENT 09/02/19; WOUND VAC TO BE DELIVER TODAY; [facility] WILL CALL WITH TIME TODAY 09/03/19
[2019-09-03] MEDS: Docusate 100mg cap ORAL SCH ×2 (09:00→17:57)
[2019-09-03] MEDS: Heparin 5000 units/ml inj SUBQ SCH ×2 (09:44→21:42)
[2019-09-03] MEDS ORDERED: GLUCOPHAGE500 MG ORAL (10:31)
[2019-09-03] MEDS ORDERED: COLACE100 MG ORAL (10:31)
[2019-09-03] MEDS ORDERED: KEFLEX500 M1 ORAL (10:31)
[2019-09-03] MEDS ORDERED: PERCOCET1 TAB ORAL (10:31)
--- NOTE | 2019-09-03 10:32 | Discharge Instructions ---
Discharge Instructions For Surgical Patients Dressing Care: other - home health wound care and wound vac change to the left arm wound on MWF schedule. For Congestive Heart Failure Reminder Report to your physician any weight gain of 5 pounds or more in one week. Yimi Rowland M.D. Sep 03, 2019 10:32
--- NOTE | 2019-09-03 10:38 | Discharge Summary ---
Discharge Summary Hospital Course Date of Admission Aug 26, 2019 at 14:50 Date of Discharge 09/03/2019 Admitting Diagnosis infected stage 3 hidradenitis HPI Deysi Wright is a 29 year old female who was admitted on Aug 26, 2019 at 14: 50 for Axillary Consultations Plastic surgery: Dr. Mejia, ID: Dr. Marques, Endocrine: Dr. Farley Procedures infected stage 3 Hidradenitis suppurativa s/p excision of bilateral axillary HS with flap elevation and closure Hospital Course 29 year old female with infected stage 3 Hidradenitis suppurativa now pod 6 s/p excision of bilateral axillary HS with flap elevation and closure #HS, stage 3 infected: POD#6 s/p bilateral axillary flap closure #Opioid induced pruritus #Low grade fever, resolved #Nausea/vomiting #constipation IV antibiotics, currently cefazolin, ID consult with Dr. Marques. Switch to Keflex for 7 days monitor vitals follow up OR wound cultures MEDICAL TECHNOLOGIST CHEMISTRY pump, transition to IV Dilaudid and Percocet IV Benadryl 25 mg Q6hr prn for pruritus bowel regimen plan of care d/w Dr. Mejia wound care manager [employer] consult to set up home health services. Incentive spirometry Zofran and Compazine bowel regimen, Dulcolax, add magnesium citrate as needed #Transaminitis, resolved continue to monitor #Prediabetes. Hemoglobin A1c 6.4. Counseled patient on weight loss and lifestyle modification. due to open wounds, needs tight glycemic control for better healing insulin sliding scale, sensitive metformin 500 mg BID Diabetic diet Endocrine consult with Dr. Abel Farley appreciated Today she is doing well. No distress, pain controlled. Waiting for wound vac arrival before discharge. Medications sent to [facility] and will be delivered to her room befor edischarge. VTE ppx: Heparin subq, SCD boots GI ppx: not indicated Code status full code I spent 40 minutes on this encounter. Greater than 50% spent on counselling and care coordination. Plan of care discussed with Dr. Mejia, RN, patient and her mom. Discharge Medications New Medications: Cephalexin (Cephalexin) 500 Mg Tablet 500 MG ORAL Q6HR for 7 Days, #28 TAB Docusate Sodium* (Colace*) 100 Mg Capsule 100 MG ORAL TWICE A DAY for 10 Days, #20 CAP Metformin Hcl* (Glucophage*) 500 Mg Tablet 500 MG ORAL TIAC for 30 Days, #60 TAB Oxycodone/Acetaminophen (Oxycodone-Acetaminophen 5-325) 1 Each Tablet 1 TAB ORAL Q4HR PRN for 7 Days, #20 TAB Discharge Condition Upon Discharge: stable Discharge Vital Signs Last Vital Signs Date Time Temp Pulse Resp B/P (MAP) Pulse Ox O2 Delivery O2 Flow Rate FiO2 09/03/19 08:00 97.1 68 18 140/68 (92) 97 09/02/19 21:00 Room Air 09/01/19 19:40 21 08/29/19 21:00 2.0 Discharge Disposition Patient was discharged to home with Discharge Diagnoses: (1) Hidradenitis axillaris (2) Transaminitis (3) Pre-diabetes (4) Anemia due to acute blood loss Discharge Instructions For Surgical Patients Dressing Care: other - home health wound care and wound vac change to the left arm wound on [facility] schedule. Yimi Rowlnad M.D. Sep 03, 2019 10:38
--- NOTE | 2019-09-03 11:50 | NUR ---
CASE MANAGEMENT: REVIEW 09/08/19 SI: POD #6 PARTIAL CLOSURE POD# EXCISION OF BILATERAL AXILLARY HIDRADENITIS WITH FLAP EVALUATION HIDRADENITIS SUPPURATIVA . PRE-DIABETES . ANEMIA 98.1 64 18 105/67 98% ON RA IS:IV CEFAZOLIN Q8HR METFORMIN PO TIAC HEPARIN SQ BID \: 3E MED SURG UNIT PLAN: INSURANCE HAS NOT PROVIDED AUTHORIZATION TO [facility] PARTIAL CLOSURE PATIENT NEEDS WOUND VAC
[2019-09-03 12:00] VITALS: BP 154/96
[2019-09-03] MEDS: oxyCODONE HCL/Acetaminophen 5/325mg ORAL PRN (14:00)
--- NOTE | 2019-09-03 14:09 | NUR ---
DISCHARGE PLANNING CALLED [facility] @ T: [phone] AND SPOKE WITH JON WEBB THE WOUND VAC IS OUT FOR DELIVERY TO [facility] JON SAID HE WOULD CONTACT THE UPHOLSTERY DEPARTMENT SUPERVISOR, OBTAIN AN ETA AND CALL THIS OPTICAL COATING TECHNICIAN BACK WITH TIME Addendum: 09/03/19 at 1417 by YASIR MICHAELS LVN LVN REF #[id number]
[2019-09-03 14:45] VITALS: BP 138/70
--- NOTE | 2019-09-03 15:21 | NUR ---
*-* DISCHARGE PLANNING *-* PATIENT HAS BEEN REFERRED TO THE FOLLOWING HOME HEALTH: [email or web address] [phone] Work [phone] Work Work Fax Addendum: 09/03/19 at 1522 by KANCHAN PECK [facility] P: [phone] F: [phone]
[2019-09-03 16:00] VITALS: BP 136/72
--- NOTE | 2019-09-03 16:17 | NUR ---
[facility] IS CONTRACTED HOME HEALTH BUT ARE UNABLE TO ACCEPT DUE TO NO NURSE AVAILABLE WILL TRY AND LOCATE ANOTHER HOME HEALTH
--- NOTE | 2019-09-03 16:23 | NUR ---
CASE MANAGEMENT:NOTE [facility] IS CONTRACTED HOME HEALTH BUT ARE UNABLE TO ACCEPT DUE TO NO NURSE AVAILABLE WILL TRY AND LOCATE ANOTHER HOME HEALTH
--- NOTE | 2019-09-03 17:05 | NUR ---
NURSE NOTES: PLACED CALL TO DR. LONGO CONCERNING HOME HEALTH SITUATION. AWAITING RETURN CALL. PATIENT KEPT INFORMED.
--- NOTE | 2019-09-03 17:07 | NUR ---
*-* INSURANCE *-* ALL CLINICALS AND REVIEWS HAVE BEEN FAXED TO: MIKE ELLISON USE THIS FAX# [phone] CERT REF# [id number]
--- NOTE | 2019-09-03 17:13 | NUR ---
DISCHARGE PLANNING PATIENT HAS BEEN REFERRED TO [facility] T:[phone]
[2019-09-03] MEDS ORDERED: MAGNESIUM CITR296 M1 PO (18:12)
[2019-09-03] MEDS ORDERED: CEPHALEXIN250 MG ORAL (18:14)
[2019-09-03] MEDS ORDERED: SENNA8.6 M2 PO (18:19)
--- NOTE | 2019-09-03 18:25 | NUR ---
NURSE NOTES: RETURN CALL RECEIVED FROM DR. LONGO. DOES NOT WANT PATIENT DISCHARGED IF HOME HEALTH HAS NOT BEEN ARRANGED. DISCHARGE CANCELED. PATIENT AND MOTHER INFORMED. ENDORSED TO NIGHT CHARGE NURSE.
--- NOTE | 2019-09-03 18:30 | NUR ---
NURSE NOTES: Educated patient and mother on JANUSZ care, how to empty/compress bulb/seal shut, make lines are not knotted or kinked, importance of handwashing before and after, glove use, verbalized understanding. Provided gloves, small medicine cups and UA specimen cups for measuring JANUSZ outputs.
--- NOTE | 2019-09-03 19:20 | NUR ---
NURSE NOTES: Receive a report from JOSE Huerta. Round is done. Pt is awake and alert. No acute distress noted. Pt is aware that discharge delayed. Both axilla dressing kept dry and clean. On portable wound VAC in left axilla as ordered. JPs are inserted both sides. No drainage noted on left JANUSZ. Demonstrated done to empty out JPs by AM nurse. Call light within reach. Will continue to monitor.
--- NOTE | 2019-09-03 19:20 | NUR ---
HAND-OFF: Report given to Shanono RN, rounds made. Endorsed discharge canceled for today. Outputs: JANUSZ #1 (Right): 60 ml JANUSZ #2 (Left): 0 ml Wound Vac (Left): 25 ml
[2019-09-03 20:00] VITALS: BP 133/69
--- NOTE | 2019-09-03 21:00 | NUR ---
NURSE NOTES: Pt started to have late dinner. BS checked as 79mg/dL. Education done for importance of balanced diet to heal wound and to control sugar level. Pt verbalizes understanding. Will continue to monitor.
[2019-09-04] VITALS: BP 107/61
[2019-09-04] MEDS: Cephalexin 500mg cap ORAL SCH ×4 (00:07→18:38)
[2019-09-04] MEDS: oxyCODONE HCL/Acetaminophen 5/325mg ORAL PRN ×3 (00:35→20:11)
[2019-09-04 04:00] VITALS: BP 121/57
--- NOTE | 2019-09-04 06:00 | NUR ---
NURSE NOTES: After oral pain medication, pt slept without discomfort. JANUSZ output on right is 20ml. No acute distress noted.
[2019-09-04] MEDS: NovoLOG Insulin Flexpen SUBQ SCH ×4 (06:21→21:00)
[2019-09-04] MEDS: metFORMIN 500mg tab ORAL SCH ×3 (06:22→18:39)
--- NOTE | 2019-09-04 07:30 | NUR ---
HAND-OFF: Report given to JOSE Huerta. Round is done.
--- NOTE | 2019-09-04 07:30 | NUR ---
NURSE NOTES: Report received from o RN, rounds made. Patient sleeping in supine position in bed. No distress on RA. Checked left portable wound vac remains in place (150 mmHg continuous high). Call light in reach, bed in lowest position, will continue to monitor.
[2019-09-04 08:00] VITALS: BP 129/54
--- NOTE | 2019-09-04 08:22 | NUR ---
DISCHARGE PLANNING PATIENT HAS BEEN REFERRED TO [facility] T:[phone] WILL MAKE F/U CALL @9AM Addendum: 09/04/19 at 1521 by YASIR MICHAELS LVN LVN REFERRED TO [facility] T: [phone] THEY DO NOT HAVE A NURSE FOR THAT AREA Addendum: 09/04/19 at 1538 by ELLEN GERARDO LVN PATIENT WAS NOT ACCEPTED TO [facility] D/T NO NURSES AVAILABLE Addendum: 09/04/19 at 1542 by YASIR MICHAELS LVN LVN REFERRED TO [facility] T: [phone] SPOKE WITH JAQUAN
[2019-09-04] MEDS: Docusate 100mg cap ORAL SCH ×2 (09:42→18:38)
[2019-09-04] MEDS: Heparin 5000 units/ml inj SUBQ SCH ×2 (09:44→20:45)
--- NOTE | 2019-09-04 10:43 | General Progress Note ---
Assessment/Plan Problem List: (1) Hidradenitis axillaris ICD Codes: L73.2 - Hidradenitis suppurativa SNOMED: 149709757 (2) Pre-diabetes ICD Codes: R73.03 - Prediabetes SNOMED: 008913208 (3) Transaminitis ICD Codes: R74.0 - Nonspecific elevation of levels of transaminase and lactic acid dehydrogenase [LDH] SNOMED: 599131938, 765807987 (4) Anemia due to acute blood loss ICD Codes: D62 - Acute posthemorrhagic anemia SNOMED: 531999931 Status: stable, progressing Assessment/Plan: 29 year old female with infected stage 3 Hidradenitis suppurativa now pod 6 s/p excision of bilateral axillary HS with flap elevation and closure #HS, stage 3 infected: POD#6 s/p bilateral axillary flap closure #Opioid induced pruritus #Low grade fever, resolved #Nausea/vomiting #constipation IV antibiotics, currently cefazolin, ID consult with Dr. Marques. Switch to Keflex for 7 days monitor vitals follow up OR wound cultures GRADE SCHOOL TEACHER pump, transition to IV Dilaudid and Percocet IV Benadryl 25 mg Q6hr prn for pruritus bowel regimen plan of care d/w Dr. Mejia wound care medical claims manager consult to set up home health services. Incentive spirometry Zofran and Compazine bowel regimen, Dulcolax, add magnesium citrate as needed #Transaminitis, resolved continue to monitor #Prediabetes. Hemoglobin A1c 6.4. Counseled patient on weight loss and lifestyle modification. due to open wounds, needs tight glycemic control for better healing insulin sliding scale, sensitive metformin 500 mg BID Diabetic diet Endocrine consult with Dr. Abel Farley appreciated apply sling VTE ppx: Heparin subq, SCD boots GI ppx: not indicated Code status full code I spent 40 minutes on this encounter. Greater than 50% spent on counselling and care coordination. Plan of care discussed with Dr. Mejia, RN, patient and her mom. Subjective Date patient seen: Sep 03, 2019 ROS Limited/Unobtainable: No Constitutional: Denies: no symptoms, chills, diaphoresis, fever, malaise, weakness, other HEENT: Denies: no symptoms, eye pain, blurred vision, tearing, double vision, ear pain, ear discharge, nose pain, nose congestion, throat pain, throat swelling, mouth pain, mouth swelling, other Cardiovascular: Denies: no symptoms, chest pain, edema, irregular heart rate, lightheadedness, palpitations, syncope, other Respiratory: Denies: no symptoms, cough, orthopnea, shortness of breath, SOB with excertion, SOB at rest, sputum, stridor, wheezing, other Gastrointestinal/Abdominal: Denies: no symptoms, abdomen distended, abdominal pain, black stools, tarry stools, blood in stool, constipated, diarrhea, difficulty swallowing, nausea, poor appetite, poor fluid intake, rectal bleeding , vomiting, other Genitourinary: Denies: no symptoms, burning, discharge, frequency, flank pain, hematuria, incontinence, pain, urgency, other Neurologic/Psychiatric: Denies: no symptoms, anxiety, depressed, emotional problems, headache, numbness, paresthesia, pre-existing deficit, seizure, tingling, tremors, weakness, other Endocrine: Denies: no symptoms, excessive sweating, flushing, intolerance to cold, intolerance to heat, increased hunger, increased thirst, increased urine, unexplained weight gain, unexplained weight loss, other Hematologic/Lymphatic: Denies: no symptoms, anemia, easy bleeding, easy bruising, other Allergies: Coded Allergies: No Known Allergies (Unverified , 08/25/19) Subjective Patient seen and examined, afebrile pod 5 s/p flap closure of bilateral axilla after having undergone flap elevation. Hemodynamically stable. wound vac dressing changed by Dr. Mejia today. We're waiting for portable wound vac and home health services, when arrives, can DC home Objective Last 24 Hour Vital Signs Date Time Temp Pulse Resp B/P (MAP) Pulse Ox O2 Delivery O2 Flow Rate FiO2 09/04/19 08:00 97.7 68 18 129/54 (79) 97 09/04/19 04:00 98.9 67 16 121/57 (78) 95 09/04/19 00:00 98.7 70 16 107/61 (76) 95 09/03/19 21:00 Room Air 09/03/19 20:16 96 Room Air 21 09/03/19 20:00 98.5 63 18 133/69 (90) 98 09/03/19 16:00 97.9 63 18 136/72 (93) 97 09/03/19 14:45 68 138/70 (92) 09/03/19 12:00 97.7 66 16 154/96 (115) 98 Intake and Output 09/03/19 09/04/19 19:00 07:00 Intake Total 711 ml 200 ml Output Total 85 ml 20 ml Balance 626 ml 180 ml Intake Oral 711 ml 200 ml Drainage Total 85 ml 20 ml # Voids 4 2 Height (Feet): 5 Height (Inches): 4.00 Weight (Pounds): 160 Objective General Appearance: overweight, sedated Lines, tubes and drains: peripheral, JANUSZ, +wound vac HEENT: normocephalic, atraumatic, anicteric Neck: non-tender, normal alignment, supple Respiratory/Chest: chest wall non-tender, lungs clear, normal breath sounds, no respiratory distress, no accessory muscle use Cardiovascular/Chest: normal peripheral pulses, normal rate, regular rhythm, no gallop/murmur, no JVD Abdomen: normal bowel sounds, non tender, soft, no organomegaly, no mass Extremities: non-tender, no calf tenderness, no edema Skin Exam: normal pigmentation, warm/dry, other - bilateral axilla dressing c/d /i Neurologic: sedated, responsive Musculoskeletal: normal muscle bulk Yimi Rowland M.D. Sep 04, 2019 10:43
--- NOTE | 2019-09-04 10:50 | NUR ---
NURSE NOTES: Applied new dressing to right axillary per Dr. Mejia, 4x4 with medipore tape. Left axillary remains intact. Bilateral JPs/Left wound vac remain in place.
[2019-09-04 12:00] VITALS: BP 133/70
--- NOTE | 2019-09-04 14:00 | NUR ---
NURSE NOTES: Notified Dr. Mejia that portable wound vac collection canister noted with white powder, informed that is normal.
--- NOTE | 2019-09-04 14:11 | NUR ---
RD ASSESSMENT & RECOMMENDATIONS SEE CARE ACTIVITY FOR COMPLETE ASSESSMENT DAILY ESTIMATED NEEDS: Needs based on Wound healing/ 59kg abw 25-30 kcals/kg 9398-0736 total kcals 1.25-1.5 g protein/kg 73-88 g total protein 25-30 mL/kg 4292-9441 total fluid mLs NUTRITION DIAGNOSIS: * Increased prot intake needs R/T wound healing as evidenced by admitted w/ infected stage 3 Hidradenitis suppurativa,s/p bilateral flap closure of axillary wounds. * Altered nutrition related lab values R/T pre-diabetes as evidenced by A1C 6.4. CURRENT DIET:CCHO MED PO DIET RECOMMENDATIONS: Maintain CCHO MED + high prot snacks BID in b/w meals ADDITIONAL RECOMMENDATIONS: * Standing wt for accurate CBW as able * Wound healing: Add MVI x 1, Vit C 500mg QD, ZnSO4 220mg QD x 10 days : Wil 1pkt BID
--- NOTE | 2019-09-04 15:15 | NUR ---
NURSE NOTES: Bilateral arm slings applied to bilateral UE, patient verbalized understanding. Bilateral arms/hands warm, neuros intact, pulses palpable, wiggles fingers, able to grasp equally 3/5. Will continue to monitor.
--- NOTE | 2019-09-04 15:38 | NUR ---
DISCHARGE PLANNING PATIENT REFERRED TO [facility] [phone] [facility] T [phone] [facility] [phone] Addendum: 09/04/19 at 1541 by ELLEN GERARDO LVN NO NURSE AVAILABLE TO ACCEPT PATIENT FOR ALL LISTED HOME HEALTH COMPANY ALL HH PROVIDED BY INSURANCE REF# [id number]
[2019-09-04 16:00] VITALS: BP 143/78
--- NOTE | 2019-09-04 17:29 | NUR ---
DISCHARGE PLANNING: PATIENT WAS ACCEPTED TO [facility] T: [phone] PATIENT HAS A CO-PAY OF $56 BUT PATIENT IS NOT AGREEABLE TO THIS PAGED MD DR. PERSAUD TO INFORM
--- NOTE | 2019-09-04 17:35 | Infectious Diseases Prog Note ---
Assessment/Plan Assessment/Plan ASSESSMENT AND PLAN: 1. bilateral axilla wound infection, hidradenitis suppurativa - s/p excision and closure - s/p cefazolin - keflex x 5 days - continue treatment per Dr. Rowland and Dr. Mejia - monitor labs - stable ID standpoint 2. Hidradenitis suppurativa of the bilateral axilla and also history of groin hydradenitis suppurativa. 3. History of . 4. No history of diabetes or hypertension. 5. Continue treatment per primary consultants. 6. No known allergies. 7. Social history is negative. 8. Family history is noncontributory. 9. MAR was noted. 10. Case was discussed with RN. 11. Case was discussed with the patient. 12. Orders were noted and entered. 13. Surgery follow up. 14. Continue treatment per Dr. Rowland and consultants. 15. Wound care per protocol and Surgery. Subjective Constitutional: Denies: fever HEENT: Denies: congestion Respiratory: Denies: shortness of breath Cardiovascular: Denies: chest pain Gastrointestinal/Abdominal: Denies: nausea, vomiting, diarrhea Genitourinary: Reports: other - no bain Neurologic: Denies: headache Psychiatric: Denies: depression Skin: Denies: rash Hematologic: Denies: bleeding Musculoskeletal: Denies: pain Allergies: Coded Allergies: No Known Allergies (Unverified , 08/25/19) Objective Vital Signs Last 24 Hour Vital Signs Date Time Temp Pulse Resp B/P (MAP) Pulse Ox O2 Delivery O2 Flow Rate FiO2 09/04/19 12:00 98.2 68 18 133/70 (91) 97 09/04/19 09:45 96 Room Air 21 09/04/19 09:00 Room Air 09/04/19 08:00 97.7 68 18 129/54 (79) 97 09/04/19 04:00 98.9 67 16 121/57 (78) 95 09/04/19 00:00 98.7 70 16 107/61 (76) 95 09/03/19 21:00 Room Air 09/03/19 20:16 96 Room Air 21 09/03/19 20:00 98.5 63 18 133/69 (90) 98 Height (Feet): 5 Height (Inches): 4.00 Weight (Pounds): 160 General Appearance: no acute distress HEENT: normocephalic, atraumatic, anicteric, mucous membranes moist Respiratory/Chest: lungs clear, normal breath sounds, no respiratory distress, no accessory muscle use Cardiovascular: normal rate, regular rhythm, no gallop/murmur Abdomen: normal bowel sounds, soft, non tender, no organomegaly, non distended Genitourinary: other - no bain Extremities: no cyanosis Skin: no rash Neurologic/Psychiatric: subscription agent II-XII grossly normal, alert, oriented x 3, responsive Lymphatic: no neck adenopathy Musculoskeletal: no effusion Objective none none wbc - 9.7 hgb - 12.3 cr - 0.8 Current Medications Medications (Trade) Dose Ordered Sig/Rl Route PRN Reason Start Time Stop Time Status Last Admin Dose Admin Acetaminophen (Tylenol) 650 mg Q4H PRN ORAL FEVER 08/28/19 07:15 09/27/19 07:14 08/29/19 15:45 Al Hydroxide/Mg Hydroxide (Mylanta) 15 ml Q6H PRN ORAL DYSPEPSIA 08/28/19 07:15 09/27/19 07:14 Bisacodyl (Dulcolax) 5 mg DAILYPRN PRN ORAL Constipation 08/29/19 09:15 09/28/19 09:14 08/30/19 17:26 Cephalexin (Keflex) 500 mg Q6HR ORAL 09/02/19 20:00 09/09/19 19:59 09/04/19 12:58 Dextrose (Dextrose 50%) 25 ml Q30M PRN IV Hypoglycemia 08/29/19 11:45 09/28/19 11:44 Dextrose (Dextrose 50%) 50 ml Q30M PRN IV Hypoglycemia 08/29/19 11:45 09/28/19 11:44 Diphenhydramine HCl (Benadryl Cream) 1 applic TIDPRN PRN TOPIC Itching 08/27/19 16:45 09/26/19 16:34 Diphenhydramine HCl (Benadryl) 12.5 mg Q6H PRN IVP Itching/Pruritis 08/28/19 07:15 09/27/19 07:14 08/29/19 21:13 Diphenhydramine HCl (Benadryl) 25 mg Q8H PRN ORAL Itching/Pruritis 08/28/19 07:15 09/27/19 07:14 08/28/19 16:55 Docusate Sodium (Colace) 100 mg TWICE A DAY ORAL 08/28/19 09:00 09/27/19 08:59 09/04/19 09:42 Heparin Sodium (Porcine) (Heparin 5000 units/ml) 5,000 units EVERY 12 HOURS SUBQ 08/28/19 09:00 09/27/19 08:59 09/04/19 09:44 Hydromorphone HCl (Dilaudid) 1 mg Q4H PRN IVP Moderate Pain (Pain Scale 4-6) 08/31/19 10:45 09/07/19 10:44 09/02/19 11:59 Hydromorphone HCl (Dilaudid) 2 mg Q4H PRN IVP Severe Pain (Pain Scale 7-10) 08/31/19 10:45 09/07/19 10:44 Insulin Aspart (NovoLOG) BEFORE MEALS AND HS SUBQ 08/29/19 16:30 09/28/19 16:29 08/31/19 12:09 Metformin HCl (Glucophage) 500 mg TIAC ORAL 08/29/19 16:30 09/28/19 16:29 09/04/19 12:58 Metoclopramide HCl (Reglan) 10 mg Q6H PRN IVP Nausea & Vomiting 08/28/19 07:15 09/27/19 07:14 Ondansetron HCl (Zofran) 4 mg Q6H PRN IVP Nausea & Vomiting 08/28/19 07:15 09/27/19 07:14 09/02/19 14:29 Oxycodone/ Acetaminophen (Percocet 5-325) 1 tab Q3H PRN ORAL Mild Pain (Pain Scale 1-3) 08/31/19 10:45 09/07/19 10:44 09/04/19 11:15 Prochlorperazine (Compazine) 10 mg Q6H PRN IVP Nausea & Vomiting 08/31/19 15:00 09/30/19 14:59 08/31/19 15:48 Brandy Tobias MD Sep 04, 2019 17:35
--- NOTE | 2019-09-04 19:37 | NUR ---
HAND-OFF: Report given to Ni GARCIA, rounds made. Endorsed updated POC for patient to stay over weekend and wound vac possibly discontinued by Dr. Mejia due to issues with Home Health arrangements. Outputs: JANUSZ#1 (right): 40 ml JANUSZ#2 (left): 0 ml Wound Vac (left): 0 ml
[2019-09-04 20:43] VITALS: BP 150/84
--- NOTE | 2019-09-04 22:46 | NUR ---
NURSE NOTES: Report received from Deanna GARCIA. Pt is alert, oriented and verbally responsive. Breathing on room air and no acute distress noted. Left portable wound vac remains in place (150 mmHg continuous high). Call light in reach, bed in low and locked position. will continue to monitor the pt.
[2019-09-05] VITALS (7 sets, daily range): BP systolic 122–150; BP diastolic 65–88
[2019-09-05] MEDS: Cephalexin 500mg cap ORAL SCH ×4 (00:41→17:47)
[2019-09-05] MEDS: metFORMIN 500mg tab ORAL SCH ×3 (05:45→16:58)
[2019-09-05] MEDS: NovoLOG Insulin Flexpen SUBQ SCH ×4 (05:54→21:00)
--- NOTE | 2019-09-05 07:15 | NUR ---
NURSE NOTES: Report received from Ni GARCIA, rounds made. Patient sleeping, calm in supine position in bed. No distress on RA. Bilateral JANUSZ and left wound vac in place. Call light in reach, bed in lowest position, will continue to monitor.
--- NOTE | 2019-09-05 07:20 | NUR ---
HAND-OFF: Report given to JOSE Huerta.
[2019-09-05] MEDS: Docusate 100mg cap ORAL SCH ×3 (08:23→17:47)
[2019-09-05] MEDS: oxyCODONE HCL/Acetaminophen 5/325mg ORAL PRN ×2 (08:23→20:47)
[2019-09-05] MEDS: Heparin 5000 units/ml inj SUBQ SCH ×2 (08:24→20:48)
--- NOTE | 2019-09-05 17:34 | General Progress Note ---
Assessment/Plan Status: stable, progressing Assessment/Plan: Assessment #Natalie Stage III Hidradenitis Suppurativa , severe disease, s/p Bilateral Axillary Flap Closure, currently with Left Axillary Wound Vac in place, POD #7 #Pruritus #Constipation #Pre-Diabetes Plan Consults include ID and Plastics S/P IV AB, now on Oral Keflex Was scheduled to discharge 09/04, however held 08/23 to issues HH arrangements and payment issue Patient has been requiring narcotics for pain control, s/p TOP COATER pump Aggressive Bowel Regimen , and Anti-Nausea Wound Vac Care Bendaryl prn for Itching Metformin BID , Insulin correction scale as needed, goal blood sugar less than 180 while inpatient Ambulate for DVT ppx Diet as Tolerated *Patient does not require daily labs as she is stable Subjective Date patient seen: Sep 05, 2019 Time patient seen: 10:00 Allergies: Coded Allergies: No Known Allergies (Unverified , 08/25/19) Subjective Patient is doing well. She states pain is controlled and has no complaints at this time. Updated Plastics that patient will be here through the weekend Objective Last 24 Hour Vital Signs Date Time Temp Pulse Resp B/P (MAP) Pulse Ox O2 Delivery O2 Flow Rate FiO2 09/05/19 16:00 97.1 74 21 137/83 (101) 99 09/05/19 12:00 98.6 74 16 138/75 (96) 98 09/05/19 09:00 Room Air 09/05/19 08:37 98.1 82 16 122/67 (85) 98 09/05/19 04:00 98.2 68 18 128/76 (93) 97 09/05/19 00:00 98.4 67 18 142/88 (106) 98 09/04/19 21:00 Room Air 09/04/19 20:43 98.1 69 18 150/84 (106) 98 Intake and Output 09/04/19 09/05/19 19:00 07:00 Intake Total 600 ml 360 ml Output Total 40 ml Balance 560 ml 360 ml Intake Oral 600 ml 360 ml Drainage Total 40 ml # Voids 3 2 Height (Feet): 5 Height (Inches): 4.00 Weight (Pounds): 160 General Appearance: no apparent distress EENT: PERRL/EOMI Cardiovascular: normal rate, regular rhythm Respiratory/Chest: lungs clear, normal breath sounds Abdomen: soft Extremities: normal range of motion 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 Sep 05, 2019 17:34
--- NOTE | 2019-09-05 19:20 | NUR ---
HAND-OFF: Report given to Ni GARCIA. Outputs: JANUSZ#1 (right): 40 ml JANUSZ#2 (left): 0 ml Wound Vac (left): 0 ml
--- NOTE | 2019-09-05 20:10 | NUR ---
NURSE NOTES: Report received from Deanna GARCIA. Pt is alert, oriented and verbally responsive. Breathing on room air and no acute distress noted. Left portable wound vac remains in place (150 mmHg continuous high). Bilateral rebecca drains in place and intact. Call light in reach, bed in low and locked position. will continue to monitor the pt.
[2019-09-06] MEDS: Cephalexin 500mg cap ORAL SCH ×5 (00:06→23:57)
[2019-09-06 04:00] VITALS: BP 133/65
[2019-09-06] MEDS: metFORMIN 500mg tab ORAL SCH ×3 (06:13→16:55)
[2019-09-06] MEDS: NovoLOG Insulin Flexpen SUBQ SCH ×4 (06:30→20:53)
--- NOTE | 2019-09-06 07:23 | NUR ---
NURSE NOTES: Report received from Ni GARCIA, rounds made. Patient sleeping in semi-fowlers position in bed. No distress on RA. Bilateral JPs (right with serosanguineous output, left empty) and left wound vac in place (small amount yellow output with white powder noted in canister) Call light in reach, bed in lowest position, will continue to monitor.
--- NOTE | 2019-09-06 07:53 | NUR ---
HAND-OFF: Report given to JOSE Huerta.
[2019-09-06 08:00] VITALS: BP 162/95
[2019-09-06] MEDS: Heparin 5000 units/ml inj SUBQ SCH ×2 (10:27→20:50)
[2019-09-06] MEDS: Docusate 100mg cap ORAL SCH ×2 (10:28→18:00)
[2019-09-06] MEDS: oxyCODONE HCL/Acetaminophen 5/325mg ORAL PRN ×2 (10:30→21:59)
[2019-09-06 10:41] VITALS: BP 126/77
[2019-09-06 12:00] VITALS: BP 140/78
--- NOTE | 2019-09-06 12:55 | General Progress Note ---
Assessment/Plan Status: stable, progressing Assessment/Plan: Assessment #Natalie Stage III Hidradenitis Suppurativa , severe disease, s/p Bilateral Axillary Flap Closure, currently with Left Axillary Wound Vac in place and BL JANUSZ Pelvic, POD #7 #Pruritus #Constipation #Pre-Diabetes Plan Consults include ID and Plastics S/P IV AB, now on Oral Keflex Was scheduled to discharge 09/04, however held 08/23 to issues HH arrangements and payment issue Patient has been requiring narcotics for pain control, s/p PHOTOGRAPHIC TECHNICIAN pump Aggressive Bowel Regimen , and Anti-Nausea Wound Vac Care Bendaryl prn for Itching Metformin BID , Insulin correction scale as needed, goal blood sugar less than 180 while inpatient Ambulate for DVT ppx Diet as Tolerated *Patient does not require daily labs as she is stable Subjective Date patient seen: Sep 06, 2019 Time patient seen: 12:52 Gastrointestinal/Abdominal: Reports: other - BL JANUSZ drains w/ discomfort and diffuse pruritis Allergies: Coded Allergies: No Known Allergies (Unverified , 08/25/19) Subjective Patient is doing well; does endorse diffuse pruritis. Multiple drains noted, draining well. F/U tomorrow w/ CM regarding discharge planning. Plastics aware patient still in house Objective Last 24 Hour Vital Signs Date Time Temp Pulse Resp B/P (MAP) Pulse Ox O2 Delivery O2 Flow Rate FiO2 09/06/19 12:00 98.1 83 21 140/78 (98) 97 09/06/19 11:30 Room Air 09/06/19 10:41 79 126/77 (93) 09/06/19 09:00 Room Air 09/06/19 08:00 98.3 73 18 162/95 (117) 98 09/06/19 04:00 98.2 63 17 133/65 (87) 99 09/05/19 23:58 98.1 75 17 129/65 (86) 99 09/05/19 21:00 Room Air 09/05/19 20:00 98.6 77 17 145/87 (106) 98 09/05/19 16:00 97.1 74 21 137/83 (101) 99 Intake and Output 09/05/19 09/06/19 19:00 07:00 Intake Total 574 ml 360 ml Output Total 40 ml 25 ml Balance 534 ml 335 ml Intake Oral 574 ml 360 ml Drainage Total 40 ml 25 ml # Voids 3 2 # Bowel Movements 1 1 Height (Feet): 5 Height (Inches): 4.00 Weight (Pounds): 160 General Appearance: WD/WN EENT: PERRL/EOMI Cardiovascular: normal rate, regular rhythm Respiratory/Chest: lungs clear, normal breath sounds, no respiratory distress Abdomen: non tender, soft Skin: other - Patient has advaned hidradenitis suppurativa, with BL JANUSZ drains, and left axillary drain, wounds are healing s/p surgical intervention Melina Jackman D.O. Sep 06, 2019 12:55
--- NOTE | 2019-09-06 15:00 | NUR ---
NURSE NOTES: Orders received for patio privileges, patient went down to patio for about 20 minutes, tolerated well.
[2019-09-06] MEDS ORDERED: Tubing IV Secondary IV ONE (15:42)
--- NOTE | 2019-09-06 17:08 | Infectious Diseases Prog Note ---
Assessment/Plan Assessment/Plan ASSESSMENT AND PLAN: 1. bilateral axilla wound infection, hidradenitis suppurativa - s/p excision and closure - s/p cefazolin - keflex x 3 days - continue treatment per Dr. Rowland and Dr. Mejia - monitor labs - stable ID standpoint 2. Hidradenitis suppurativa of the bilateral axilla and also history of groin hydradenitis suppurativa. 3. History of . 4. No history of diabetes or hypertension. 5. Continue treatment per primary consultants. 6. No known allergies. 7. Social history is negative. 8. Family history is noncontributory. 9. MAR was noted. 10. Case was discussed with RN. 11. Case was discussed with the patient. 12. Orders were noted and entered. 13. Surgery follow up. 14. Continue treatment per Dr. Rowland and consultants. 15. Wound care per protocol and Surgery. Subjective Constitutional: Reports: fatigue; Denies: fever HEENT: Denies: congestion Respiratory: Denies: shortness of breath Cardiovascular: Denies: chest pain Gastrointestinal/Abdominal: Denies: nausea, vomiting, diarrhea Genitourinary: Reports: other - no bain Neurologic: Denies: headache Psychiatric: Denies: depression Skin: Denies: rash Hematologic: Denies: bleeding Musculoskeletal: Denies: pain Allergies: Coded Allergies: No Known Allergies (Unverified , 08/25/19) Objective Vital Signs Last 24 Hour Vital Signs Date Time Temp Pulse Resp B/P (MAP) Pulse Ox O2 Delivery O2 Flow Rate FiO2 09/06/19 12:00 98.1 83 21 140/78 (98) 97 09/06/19 11:30 Room Air 09/06/19 10:41 79 126/77 (93) 09/06/19 09:00 Room Air 09/06/19 08:00 98.3 73 18 162/95 (117) 98 09/06/19 04:00 98.2 63 17 133/65 (87) 99 09/05/19 23:58 98.1 75 17 129/65 (86) 99 09/05/19 21:00 Room Air 09/05/19 20:00 98.6 77 17 145/87 (106) 98 Height (Feet): 5 Height (Inches): 4.00 Weight (Pounds): 160 General Appearance: no acute distress HEENT: normocephalic, atraumatic, anicteric, mucous membranes moist Respiratory/Chest: lungs clear, normal breath sounds, no respiratory distress, no accessory muscle use Cardiovascular: normal rate, regular rhythm, no gallop/murmur, no JVD Abdomen: normal bowel sounds, soft, non tender, no organomegaly, non distended Genitourinary: other - no bain Extremities: no cyanosis Skin: no rash Neurologic/Psychiatric: philosophy professor II-XII grossly normal, alert, oriented x 3, responsive Lymphatic: no neck adenopathy Musculoskeletal: no effusion Objective none none wbc - 9.7 hgb - 12.3 cr - 0.8 Current Medications Medications (Trade) Dose Ordered Sig/Rl Route PRN Reason Start Time Stop Time Status Last Admin Dose Admin Acetaminophen (Tylenol) 650 mg Q4H PRN ORAL FEVER 08/28/19 07:15 09/27/19 07:14 08/29/19 15:45 Al Hydroxide/Mg Hydroxide (Mylanta) 15 ml Q6H PRN ORAL DYSPEPSIA 08/28/19 07:15 09/27/19 07:14 Bisacodyl (Dulcolax) 5 mg DAILYPRN PRN ORAL Constipation 08/29/19 09:15 09/28/19 09:14 08/30/19 17:26 Cephalexin (Keflex) 500 mg Q6HR ORAL 09/02/19 20:00 09/09/19 19:59 09/06/19 11:53 Dextrose (Dextrose 50%) 25 ml Q30M PRN IV Hypoglycemia 08/29/19 11:45 09/28/19 11:44 Dextrose (Dextrose 50%) 50 ml Q30M PRN IV Hypoglycemia 08/29/19 11:45 09/28/19 11:44 Diphenhydramine HCl (Benadryl Cream) 1 applic TIDPRN PRN TOPIC Itching 08/27/19 16:45 09/26/19 16:34 Diphenhydramine HCl (Benadryl) 12.5 mg Q6H PRN IVP Itching/Pruritis 08/28/19 07:15 09/27/19 07:14 08/29/19 21:13 Diphenhydramine HCl (Benadryl) 25 mg Q8H PRN ORAL Itching/Pruritis 08/28/19 07:15 09/27/19 07:14 08/28/19 16:55 Docusate Sodium (Colace) 100 mg TWICE A DAY ORAL 08/28/19 09:00 09/27/19 08:59 09/06/19 10:28 Heparin Sodium (Porcine) (Heparin 5000 units/ml) 5,000 units EVERY 12 HOURS SUBQ 08/28/19 09:00 09/27/19 08:59 09/06/19 10:27 Hydromorphone HCl (Dilaudid) 1 mg Q4H PRN IVP Moderate Pain (Pain Scale 4-6) 08/31/19 10:45 09/07/19 10:44 09/02/19 11:59 Hydromorphone HCl (Dilaudid) 2 mg Q4H PRN IVP Severe Pain (Pain Scale 7-10) 08/31/19 10:45 09/07/19 10:44 Insulin Aspart (NovoLOG) BEFORE MEALS AND HS SUBQ 08/29/19 16:30 09/28/19 16:29 08/31/19 12:09 Metformin HCl (Glucophage) 500 mg TIAC ORAL 08/29/19 16:30 09/28/19 16:29 09/06/19 16:55 Metoclopramide HCl (Reglan) 10 mg Q6H PRN IVP Nausea & Vomiting 08/28/19 07:15 09/27/19 07:14 Ondansetron HCl (Zofran) 4 mg Q6H PRN IVP Nausea & Vomiting 08/28/19 07:15 09/27/19 07:14 09/02/19 14:29 Oxycodone/ Acetaminophen (Percocet 5-325) 1 tab Q3H PRN ORAL Mild Pain (Pain Scale 1-3) 08/31/19 10:45 09/07/19 10:44 09/06/19 10:30 Prochlorperazine (Compazine) 10 mg Q6H PRN IVP Nausea & Vomiting 08/31/19 15:00 09/30/19 14:59 08/31/19 15:48 Brandy Tobias MD Sep 06, 2019 17:08
--- NOTE | 2019-09-06 19:35 | NUR ---
NURSE NOTES: Received report & pt from JOSE Huerta. Pt lying in bed, a&ox4, in room air. No s/s of acute distress & no c/o pain at this time. JANUSZ drains x 2 intact & to bulb suction. Portable wound vac connected, 150mmHg high continuous setting. Surgical dressing C/D/I. No IV access noted. Plan of care discussed.
--- NOTE | 2019-09-06 19:38 | NUR ---
HAND-OFF: Report given to Aubrie GARCIA. Outputs: JANUSZ#1 (right) 10 ml JANUSZ#2 (left) 0 ml Wound Vac (left) 0 ml
[2019-09-06 20:00] VITALS: BP 124/79
[2019-09-06] MEDS: DiphenhydrAMINE 25mg Tab ORAL PRN (23:56)
[2019-09-07] VITALS: BP 124/55
[2019-09-07] MEDS: metFORMIN 500mg tab ORAL SCH ×3 (06:24→17:23)
[2019-09-07] MEDS: Cephalexin 500mg cap ORAL SCH ×4 (06:24→23:09)
[2019-09-07] MEDS: NovoLOG Insulin Flexpen SUBQ SCH ×4 (06:25→20:20)
--- NOTE | 2019-09-07 07:34 | NUR ---
HAND-OFF: Report given to JOSE Way. Rounds done.
--- NOTE | 2019-09-07 07:35 | NUR ---
NURSE NOTES: Patient lying in bed awake. No complain of pain or distress at this time. Skin intact and dry. Surgical dressing intact and dry. Wound vac and JANUSZ patent. Wound vac on going as ordered. Bed lowest position. Call light within reach. Will continue to monitor.
[2019-09-07 08:00] VITALS: BP 142/77
[2019-09-07] MEDS: Docusate 100mg cap ORAL SCH ×2 (08:27→17:23)
[2019-09-07] MEDS: Heparin 5000 units/ml inj SUBQ SCH ×2 (08:36→20:23)
--- NOTE | 2019-09-07 09:50 | NUR ---
NURSE NOTES: Wound vac removed by . Per : Patient still need home health for packing dressing. Changed dressing. No signs and symptoms of infection. Patient tolerated procedure well. Will continue to monitor.
[2019-09-07] MEDS: oxyCODONE HCL/Acetaminophen 5/325mg ORAL PRN ×2 (10:22→22:25)
[2019-09-07] MEDS ORDERED: HYDROmorphone 1mg/ml Carpuject IVP PRN (10:45)
--- NOTE | 2019-09-07 10:52 | NUR ---
NURSE NOTES: Spoke to regarding dressing change. Per : Pack left upper arm open wound with wet to dry dressing BID and cover with dry dressing and medipore tape. Order noted and carried out.
[2019-09-07 12:00] VITALS: BP 107/72
--- NOTE | 2019-09-07 12:19 | NUR ---
NURSE NOTES: Spoke to regarding home health and discharge. wants to discharge patient after home health set up. Notified geriatric case manager and patient.
[2019-09-07 16:00] VITALS: BP 122/81
--- NOTE | 2019-09-07 17:11 | General Progress Note ---
Assessment/Plan Status: stable, progressing Subjective Allergies: Coded Allergies: No Known Allergies (Unverified , 08/25/19) Objective Last 24 Hour Vital Signs Date Time Temp Pulse Resp B/P (MAP) Pulse Ox O2 Delivery O2 Flow Rate FiO2 09/07/19 16:00 98.3 91 18 122/81 (95) 98 09/07/19 12:00 98.0 76 20 107/72 (84) 96 09/07/19 09:00 Room Air 09/07/19 08:00 97.9 75 18 142/77 (98) 98 09/07/19 00:00 98.0 65 16 124/55 (78) 96 09/06/19 21:00 Room Air 09/06/19 20:00 97.0 85 18 124/79 (94) 99 Intake and Output 09/06/19 09/07/19 19:00 07:00 Intake Total 1200 ml 480 ml Output Total 20 ml Balance 1200 ml 460 ml Intake Oral 1200 ml 480 ml Drainage Total 20 ml # Voids 2 # Bowel Movements 1 Height (Feet): 5 Height (Inches): 4.00 Weight (Pounds): 160 Dereck Duran D.O. Sep 07, 2019 17:11
--- NOTE | 2019-09-07 19:30 | NUR ---
HAND-OFF: Report given to Brittani GARCIA. Patient in stable condition.
--- NOTE | 2019-09-07 19:33 | NUR ---
NURSE NOTES: Received report from Nadiya GARCIA. Rounding is done with outgoing nurse. Patient is in bed, a/o x4. No c/o pain or any distress at this time. Breathing is even and unlabored on room air. Wound vac is removed at morning. 2 JANUSZ is intact and patent. Surgical dressing is intact and dry. Bed is on alarm, locked, and lowest position. Call light within reach. Will continue to monitor.
[2019-09-07 20:00] VITALS: BP 105/62
--- NOTE | 2019-09-07 20:53 | General Progress Note ---
Assessment/Plan Status: stable, progressing Assessment/Plan: 29 year old female with infected stage 3 Hidradenitis suppurativa now pod 6 s/p excision of bilateral axillary HS with flap elevation and closure #HS, stage 3 infected s/p bilateral axillary flap closure #Opioid induced pruritus #Low grade fever, resolved #Nausea/vomiting #constipation IV antibiotics, currently cefazolin, ID consult with Dr. Marques. Switch to Keflex for 7 days. End date 09/09/19 monitor vitals follow up OR wound cultures Pain control IV Benadryl 25 mg Q6hr prn for pruritus bowel regimen plan of care d/w Dr. Mejia wound care engineering project manager consult to set up home health services. Home health closed today so earliest to set up is tomorrow Incentive spirometry Zofran and Compazine bowel regimen, Dulcolax, add magnesium citrate as needed Extensive discussion today with patient regarding home health and plan of care including follow-up with Dr. Mejia #Transaminitis, resolved continue to monitor #Prediabetes. Hemoglobin A1c 6.4. Counseled patient on weight loss and lifestyle modification. due to open wounds, needs tight glycemic control for better healing insulin sliding scale, sensitive metformin 500 mg BID Diabetic diet Endocrine consult with Dr. Abel Farley appreciated apply sling VTE ppx: Heparin subq, SCD boots GI ppx: not indicated Code status full code I spent 32 minutes on this encounter. Greater than 50% spent on counselling and care coordination. Plan of care discussed with Dr. Mejia, RN, patient. I spent an additional 32 minutes of further face to face time on counseling and care coordination in addition to usual care as detailed above. Subjective Allergies: Coded Allergies: No Known Allergies (Unverified , 08/25/19) Subjective No acute events overnight per nursing. Patient agreed to pay co-pay for home health. Wound VAC removed by plastic surgery today. Patient is sleepy but pain is well controlled she has no other complaints. Plan for discharge tomorrow with home health review of systems: Constitutional: Denies: chills, diaphoresis, fever, malaise, weakness, other HEENT: Denies: eye pain, blurred vision, tearing, double vision, ear pain, ear discharge, nose pain, nose congestion, throat pain, throat swelling, mouth pain , mouth swelling, Cardiovascular: Denies: chest pain, edema, lightheadedness, palpitations, syncope, Respiratory: Denies: cough, orthopnea, shortness of breath, SOB with excertion , SOB at rest, sputum, stridor, wheezing, other Gastrointestinal/Abdominal: Denies: abdomen distended, abdominal pain, black stools, tarry stools, blood in stool, constipated, diarrhea, difficulty swallowing, nausea, poor appetite, poor fluid intake, rectal bleeding, vomiting , other Genitourinary: Denies: burning, discharge, frequency, flank pain, hematuria, incontinence, pain, urgency, other Neurologic/Psychiatric: Denies: anxiety, depressed, emotional problems, headache, numbness, paresthesia, pre-existing deficit, seizure, tingling, tremors, weakness, other Endocrine: Denies: excessive sweating, flushing, intolerance to cold, intolerance to heat, increased hunger, increased thirst, increased urine, unexplained weight gain, unexplained weight loss, other Hematologic/Lymphatic: Denies: anemia, easy bleeding, easy bruising, other Objective Last 24 Hour Vital Signs Date Time Temp Pulse Resp B/P (MAP) Pulse Ox O2 Delivery O2 Flow Rate FiO2 09/07/19 20:00 98.5 76 16 105/62 (76) 97 09/07/19 16:00 98.3 91 18 122/81 (95) 98 09/07/19 12:00 98.0 76 20 107/72 (84) 96 09/07/19 09:00 Room Air 09/07/19 08:00 97.9 75 18 142/77 (98) 98 09/07/19 00:00 98.0 65 16 124/55 (78) 96 09/06/19 21:00 Room Air Intake and Output 09/06/19 09/07/19 19:00 07:00 Intake Total 1200 ml 480 ml Output Total 20 ml Balance 1200 ml 460 ml Intake Oral 1200 ml 480 ml Drainage Total 20 ml # Voids 2 # Bowel Movements 1 Height (Feet): 5 Height (Inches): 4.00 Weight (Pounds): 160 Objective General: WDWN female in NAD, A&O x 4 HEENT: Normocephalic cephalic atraumatic, pupils equal round reactive to light and accommodation, nares patent and no symmetrical, no tonsillar exudates, mucous membranes moist CV: Regular rate regular rhythm, no murmurs, rubs, or gallops Pulm: Lungs clear to auscultation bilaterally. No wheezes, rhonchi, or rales GI: Soft, nontender, nondistended, bowel sounds present Neuro: CN 2-12 intact bilaterally, no focal signs. Ext: No lower extremity edema bilaterally Skin: no rashes lesions or ulcers. Bilateral axilla with gauze in place no signs of bleeding or drainage Msk: Joints symmetrical in upper extremity and lower extremity bilaterally, no joint swelling. Lymph: No lymphadenopathy in upper extremity and lower extremity Dereck Duran D.O. Sep 07, 2019 20:53
--- NOTE | 2019-09-07 22:50 | NUR ---
NURSE NOTES: came and changed dressing on Left axillary and said to patient that no home health with discharge, patient will change dressing 2 times a day and nurse will teach patient for dressing change before discharge.
[2019-09-08] VITALS: BP 113/59
[2019-09-08 04:00] VITALS: BP 110/59
[2019-09-08] MEDS: metFORMIN 500mg tab ORAL SCH ×3 (05:32→16:30)
[2019-09-08] MEDS: Cephalexin 500mg cap ORAL SCH ×2 (05:32→11:37)
[2019-09-08] MEDS: NovoLOG Insulin Flexpen SUBQ SCH ×3 (05:32→16:30)
--- NOTE | 2019-09-08 07:04 | General Progress Note ---
Assessment/Plan Problem List: (1) Hidradenitis axillaris ICD Codes: L73.2 - Hidradenitis suppurativa SNOMED: 734368636 (2) Pre-diabetes ICD Codes: R73.03 - Prediabetes SNOMED: 190034994 (3) Anemia due to acute blood loss ICD Codes: D62 - Acute posthemorrhagic anemia SNOMED: 940731265 Status: stable, progressing Assessment/Plan: continue Metformin 500 mg bid low dose novolog coverage as needed ac / hs no need for insulin after discharge Subjective Allergies: Coded Allergies: No Known Allergies (Unverified , 08/25/19) All Systems: reviewed and negative except above Subjective events noted glucose values are controlled at target Item Value Date Time Bedside Blood Glucose 99 mg/dl 09/08/19 0630 Bedside Blood Glucose 111 mg/dl 09/07/19 2100 Bedside Blood Glucose 131 mg/dl H 09/07/19 1630 Bedside Blood Glucose 91 mg/dl 09/07/19 1130 Bedside Blood Glucose 80 mg/dl 09/07/19 0625 Objective Last 24 Hour Vital Signs Date Time Temp Pulse Resp B/P (MAP) Pulse Ox O2 Delivery O2 Flow Rate FiO2 09/08/19 04:00 98.4 68 16 110/59 (76) 97 09/08/19 00:00 98.0 73 18 113/59 (77) 98 09/07/19 21:00 Room Air 09/07/19 20:00 98.5 76 16 105/62 (76) 97 09/07/19 16:00 98.3 91 18 122/81 (95) 98 09/07/19 12:00 98.0 76 20 107/72 (84) 96 09/07/19 09:00 Room Air 09/07/19 08:00 97.9 75 18 142/77 (98) 98 Intake and Output 09/07/19 09/08/19 19:00 07:00 Intake Total 300 ml 240 ml Balance 300 ml 240 ml Intake Oral 300 ml 240 ml # Voids 3 2 # Bowel Movements 2 Height (Feet): 5 Height (Inches): 4.00 Weight (Pounds): 160 General Appearance: no apparent distress Neck: normal alignment Cardiovascular: normal rate Respiratory/Chest: lungs clear Abdomen: normal bowel sounds Pelvis: normal external exam Edema: no edema noted Arm (L), no edema noted Arm (R), no edema noted Leg (L), no edema noted Leg (R), no edema noted Pedal (L), no edema noted Pedal (R), no edema noted Generalized Objective Current Medications Medications (Trade) Dose Ordered Sig/Rl Route PRN Reason Start Time Stop Time Status Last Admin Dose Admin Acetaminophen (Tylenol) 650 mg Q4H PRN ORAL FEVER 08/28/19 07:15 09/27/19 07:14 08/29/19 15:45 Al Hydroxide/Mg Hydroxide (Mylanta) 15 ml Q6H PRN ORAL DYSPEPSIA 08/28/19 07:15 09/27/19 07:14 Bisacodyl (Dulcolax) 5 mg DAILYPRN PRN ORAL Constipation 08/29/19 09:15 09/28/19 09:14 08/30/19 17:26 Cephalexin (Keflex) 500 mg Q6HR ORAL 09/02/19 20:00 09/09/19 19:59 09/08/19 05:32 Dextrose (Dextrose 50%) 25 ml Q30M PRN IV Hypoglycemia 08/29/19 11:45 09/28/19 11:44 Dextrose (Dextrose 50%) 50 ml Q30M PRN IV Hypoglycemia 08/29/19 11:45 09/28/19 11:44 Diphenhydramine HCl (Benadryl Cream) 1 applic TIDPRN PRN TOPIC Itching 08/27/19 16:45 09/26/19 16:34 Diphenhydramine HCl (Benadryl) 12.5 mg Q6H PRN IVP Itching/Pruritis 08/28/19 07:15 09/27/19 07:14 08/29/19 21:13 Diphenhydramine HCl (Benadryl) 25 mg Q8H PRN ORAL Itching/Pruritis 08/28/19 07:15 09/27/19 07:14 09/06/19 23:56 Docusate Sodium (Colace) 100 mg TWICE A DAY ORAL 08/28/19 09:00 09/27/19 08:59 09/07/19 17:23 Heparin Sodium (Porcine) (Heparin 5000 units/ml) 5,000 units EVERY 12 HOURS SUBQ 08/28/19 09:00 09/27/19 08:59 09/07/19 20:23 Hydromorphone HCl (Dilaudid) 1 mg Q4H PRN IVP Moderate Pain (Pain Scale 4-6) 09/07/19 10:45 09/14/19 10:44 Hydromorphone HCl (Dilaudid) 2 mg Q4H PRN IVP Severe Pain (Pain Scale 7-10) 09/07/19 10:45 09/14/19 10:44 Insulin Aspart (NovoLOG) BEFORE MEALS AND HS SUBQ 08/29/19 16:30 09/28/19 16:29 08/31/19 12:09 Metformin HCl (Glucophage) 500 mg TIAC ORAL 08/29/19 16:30 09/28/19 16:29 09/08/19 05:32 Metoclopramide HCl (Reglan) 10 mg Q6H PRN IVP Nausea & Vomiting 08/28/19 07:15 09/27/19 07:14 Ondansetron HCl (Zofran) 4 mg Q6H PRN IVP Nausea & Vomiting 08/28/19 07:15 09/27/19 07:14 09/02/19 14:29 Oxycodone/ Acetaminophen (Percocet 5-325) 1 tab Q3H PRN ORAL Mild Pain (Pain Scale 1-3) 09/07/19 10:45 09/14/19 10:44 09/07/19 22:25 Prochlorperazine (Compazine) 10 mg Q6H PRN IVP Nausea & Vomiting 08/31/19 15:00 09/30/19 14:59 08/31/19 15:48 Abel Farley MD Sep 08, 2019 07:04
--- NOTE | 2019-09-08 07:30 | NUR ---
HAND-OFF: Report given to Cyn GARCIA. Patient in stable condition.
--- NOTE | 2019-09-08 07:57 | NUR ---
NURSE NOTES: patient is in the bed sleep and arousable; opens eyes to say hi to the nurse. Respiration is even and unlabored on room air. Denies any pain and discomfort. surgical sites on bilateral axiliary area is intact; no bleeding noted at this time. placed call light within reach, will continue to follow plan of care.
[2019-09-08 08:00] VITALS: BP 126/76
--- NOTE | 2019-09-08 08:25 | NUR ---
CASE MANAGEMENT: REVIEW 09/04/19 SI: S/P PARTIAL CLOSURE S/P EXCISION OF BILATERAL AXILLARY HIDRADENITIS WITH FLAP EVALUATION HIDRADENITIS SUPPURATIVA . PRE-DIABETES . ANEMIA 97.7 68 18 129/54 97% ON RA IS:IV CEFAZOLIN Q8HR METFORMIN PO TIAC HEPARIN SQ BID \: 3E MED SURG UNIT PLAN: CONT BILATERAL JANUSZ DRAIN CARE CONT WOUND VAC CARE INSURANCE HAS NOT PROVIDED AUTHORIZATION TO [place] [facility] PARTIAL CLOSURE PATIENT NEEDS WOUND VAC CASE MANAGEMENT: REVIEW 09/05/19 SI: S/P PARTIAL CLOSURE S/P EXCISION OF BILATERAL AXILLARY HIDRADENITIS WITH FLAP EVALUATION HIDRADENITIS SUPPURATIVA . PRE-DIABETES . ANEMIA 98.1 82 16 122/67 98% ON RA IS:IV CEFAZOLIN Q8HR METFORMIN PO TIAC HEPARIN SQ BID \: 3E MED SURG UNIT PLAN: CONT BILATERAL JANUSZ DRAIN CARE CONT WOUND VAC CARE INSURANCE PROVIDED HOME HEALTH HOME HEALTH INSURANCE PROVIDED DID NOT HAVE AVAILABLE NURSE TO SEE AT TIME OF DISCHARGE OCEANSIDE ABLE TO ACCEPT PATIENT PATIENT DID NOT AGREE TO [facility] PARTIAL CLOSURE PATIENT NEEDS WOUND VAC TO DC WITH HOME HEALTH CASE MANAGEMENT: REVIEW 09/06/19 SI: S/P PARTIAL CLOSURE S/P EXCISION OF BILATERAL AXILLARY HIDRADENITIS WITH FLAP EVALUATION HIDRADENITIS SUPPURATIVA . PRE-DIABETES . ANEMIA 98.3 73 18 162/95 98% ON RA IS:IV CEFAZOLIN Q8HR METFORMIN PO TIAC HEPARIN SQ BID \: 3E MED SURG UNIT PLAN: CONT BILATERAL JANUSZ DRAIN CARE CONT WOUND VAC CARE INSURANCE PROVIDED HOME HEALTH HOME HEALTH INSURANCE PROVIDED DID NOT HAVE AVAILABLE NURSE TO SEE AT TIME OF DISCHARGE OCEANSIDE ABLE TO ACCEPT PATIENT PATIENT DID NOT AGREE TO [facility] PARTIAL CLOSURE PATIENT NEEDS WOUND VAC TO DC WITH HOME HEALTH CASE MANAGEMENT: REVIEW 09/07/19 SI: S/P PARTIAL CLOSURE S/P EXCISION OF BILATERAL AXILLARY HIDRADENITIS WITH FLAP EVALUATION HIDRADENITIS SUPPURATIVA . PRE-DIABETES . ANEMIA 98.0 76 20 107/72 96% ON RA IS:IV CEFAZOLIN Q8HR METFORMIN PO TIAC HEPARIN SQ BID \: 3E MED SURG UNIT PLAN: [place]OL[place]AY: INSURANCE NOT AVAILABLE TO PROCESS HOME HEALTH SERVICES CONT BILATERAL JANUSZ DRAIN CARE CONT WOUND VAC CARE UNSAFE DC OVER WEEKEND D/T NO HOME HEALTH CASE MANAGEMENT: REVIEW 09/08/19 SI: S/P PARTIAL CLOSURE S/P EXCISION OF BILATERAL AXILLARY HIDRADENITIS WITH FLAP EVALUATION HIDRADENITIS SUPPURATIVA . PRE-DIABETES . ANEMIA 97.6 68 19 126/76 98% ON RA IS:IV CEFAZOLIN Q8HR METFORMIN PO TIAC HEPARIN SQ BID \: 3E MED SURG UNIT PLAN: CONT BILATERAL JANUSZ DRAIN CARE CONT WOUND VAC CARE
[2019-09-08] MEDS: Heparin 5000 units/ml inj SUBQ SCH (08:39)
[2019-09-08] MEDS: Docusate 100mg cap ORAL SCH (08:40)
[2019-09-08] MEDS: oxyCODONE HCL/Acetaminophen 5/325mg ORAL PRN (09:49)
--- NOTE | 2019-09-08 11:02 | Discharge Instructions ---
Discharge Instructions Discharge Instructions Follow Up Orders Follow up with Dr. Mejia on 09/10/19 For Congestive Heart Failure Reminder Report to your physician any weight gain of 5 pounds or more in one week. Dereck Duran D.O. Sep 08, 2019 11:02
--- NOTE | 2019-09-08 11:36 | NUR ---
NURSE NOTES: Spoke to regarding home health service and new home health information received.
[2019-09-08 12:00] VITALS: BP 128/73
[2019-09-08] MEDS ORDERED: CEPHALEXIN500 MG ORAL (13:32)
--- NOTE | 2019-09-08 14:47 | NUR ---
NURSE NOTES: Per Dr. Sellers and Dr. Mejia, ok to discharge patient without home health a long as patient has assistance with daily dressing change at home. Changed left axilla dressing and packed per MD order, instructed patient's significant other José how to perform wet to dry dressing change, José verbalized understanding of how to perform dressing change and watched RN perform dressing change, patient tolerated dressing change well. Will provide with discharge supplies and discharge per order.
[2019-09-08 16:00] VITALS: BP 141/83
--- NOTE | 2019-09-08 16:47 | NUR ---
NURSE NOTES: Patient discharged without distress. Patient provided with after care instructions and verbalized understanding of after care instructions. Patient provided with wound care supplies, patient educated on JANUSZ drain care. Patient has all belongings. Patient educated not to drive until cleared by Dr. Mejia, patient verbalized understanding. Patient escorted off unit to private vehicle via wheelchair.
--- NOTE | 2019-09-09 22:18 | Discharge Summary ---
Discharge Summary Hospital Course Date of Admission Aug 26, 2019 at 14:50 Date of Discharge Sep 08, 2019 at 16:42 Admitting Diagnosis HPI Deysi Wright is a 29 year old female who was admitted on Aug 26, 2019 at 14: 50 for Axillary Consultations Plastic surgery, infectious disease, endocrinology Hospital Course This is a 29 year old female with history of hidradenitis suppurativa win bilateral axilla and groin presented with infected stage 3 HS. She recently changed her diet to vegan which helped her groin lesions. Has also lost weight, she thinks about 10 pounds. She had wbc count of 11.1 when checked outpatient. Denies taking any medications other than over the counter vitamins. she currently denies fever, chills. She udnerwent excision of bilateral axillary HS with flap elevation and closure. Postoperatively patient had difficulty with controlling pain. Also had difficulty setting up home health. The patient was seen by infectious disease who recommended Keflex for 2more days. She was cleared for discharge by plastic surgery and infectious disease. She has follow-up on of that week. Her boyfriend was taught how to perform bilateral axillary dressing changes twice daily as instructed by plastic surgery. This was approved by plastic surgery. The boyfriend is to perform wet-to-dry dressings on left axilla until seen by plastic surgery. This was taught by the nurse prior to discharge. Patient was medically stable on discharge. She was discharged home. Review of systems: Constitutional: Denies: chills, diaphoresis, fever, malaise, weakness, other HEENT: Denies: eye pain, blurred vision, tearing, double vision, ear pain, ear discharge, nose pain, nose congestion, throat pain, throat swelling, mouth pain , mouth swelling, Cardiovascular: Denies: chest pain, edema, lightheadedness, palpitations, syncope, Respiratory: Denies: cough, orthopnea, shortness of breath, SOB with excertion , SOB at rest, sputum, stridor, wheezing, other Gastrointestinal/Abdominal: Denies: abdomen distended, abdominal pain, black stools, tarry stools, blood in stool, constipated, diarrhea, difficulty swallowing, nausea, poor appetite, poor fluid intake, rectal bleeding, vomiting , other Genitourinary: Denies: burning, discharge, frequency, flank pain, hematuria, incontinence, pain, urgency, other Neurologic/Psychiatric: Denies: anxiety, depressed, emotional problems, headache, numbness, paresthesia, pre-existing deficit, seizure, tingling, tremors, weakness, other Endocrine: Denies: excessive sweating, flushing, intolerance to cold, intolerance to heat, increased hunger, increased thirst, increased urine, unexplained weight gain, unexplained weight loss, other MSK: denies joint pains, swelling, stiffness Hematologic/Lymphatic: Denies: anemia, easy bleeding, easy bruising, other general: WDWN female in NAD, A&O x 4 HEENT: Normocephalic cephalic atraumatic, pupils equal round reactive to light and accommodation, nares patent and no symmetrical, no tonsillar exudates, mucous membranes moist CV: Regular rate regular rhythm, no murmurs, rubs, or gallops Pulm: Lungs clear to auscultation bilaterally. No wheezes, rhonchi, or rales GI: Soft, nontender, nondistended, bowel sounds present Neuro: CN 2-12 intact bilaterally, no focal signs. Ext: No lower extremity edema bilaterally Skin: no rashes lesions or ulcers. Bilateral axilla with bandages in place clean dry and intact no drainage or bleeding noted Msk: Joints symmetrical in upper extremity and lower extremity bilaterally, no joint swelling. Lymph: No lymphadenopathy in upper extremity and lower extremity I spent 37 minutes on this discharge. Greater than 50% spent on counselling and care coordination. Plan of care discussed with Dr. Mejia, RN, patient. Discharge Condition Upon Discharge: stable Discharge Vital Signs Last Vital Signs Date Time Temp Pulse Resp B/P (MAP) Pulse Ox O2 Delivery O2 Flow Rate FiO2 09/08/19 16:00 97.1 69 21 141/83 (102) 96 09/08/19 09:00 Room Air 09/04/19 09:45 21 Discharge Disposition Patient was discharged to home with home health Discharge Diagnoses: (1) Anemia due to acute blood loss (2) Pre-diabetes (3) Transaminitis (4) Hidradenitis axillaris (5) Hyperglycemia Discharge Instructions For Surgical Patients Dressing Care: other - home health wound care and wound vac change to the left arm wound on [facility] schedule. Dereck Duran D.O. Sep 09, 2019 22:18
--- NOTE | 2019-09-09 22:20 | General Progress Note ---
Assessment/Plan Status: stable, progressing Assessment/Plan: 29 year old female with infected stage 3 Hidradenitis suppurativa now pod 6 s/p excision of bilateral axillary HS with flap elevation and closure #HS, stage 3 infected s/p bilateral axillary flap closure #Opioid induced pruritus #Low grade fever, resolved #Nausea/vomiting #constipation IV antibiotics, currently cefazolin, ID consult with Dr. Marques. Switch to Keflex for 7 days. End date 09/09/19 monitor vitals follow up OR wound cultures Pain control IV Benadryl 25 mg Q6hr prn for pruritus bowel regimen plan of care d/w Dr. Mejia wound care schedule manager consult to set up home health services. Incentive spirometry Zofran and Compazine bowel regimen, Dulcolax, add magnesium citrate as needed Extensive discussion today with patient regarding home health and plan of care including follow-up with Dr. Mejia D/c home today. Cleared for discharge by surgery. boyfriend to be trained how to change dressings. Home health to be set up post discharge. #Transaminitis, resolved continue to monitor #Prediabetes. Hemoglobin A1c 6.4. Counseled patient on weight loss and lifestyle modification. due to open wounds, needs tight glycemic control for better healing insulin sliding scale, sensitive metformin 500 mg BID Diabetic diet Endocrine consult with Dr. Abel Farley appreciated apply sling VTE ppx: Heparin subq, SCD boots GI ppx: not indicated Code status full code I spent 38 minutes on this encounter. Greater than 50% spent on counselling and care coordination. Plan of care discussed with Dr. Mejia, RN, patient. I spent an additional 32 minutes of further face to face time on counseling and care coordination in addition to usual care as detailed above. Subjective Date patient seen: Sep 08, 2019 Allergies: Coded Allergies: No Known Allergies (Unverified , 08/25/19) Subjective No acute events overnight per nursing. Patient agreed to pay co-pay for home health. Wound VAC removed by plastic surgery. Patient stable for discharge. Boyfriend to be trained how to change dressings. Drains removed by plastic surgery today. Pain well controlled. No other complaints. ROS: Constitutional: Denies: chills, diaphoresis, fever, malaise, weakness, other HEENT: Denies: eye pain, blurred vision, tearing, double vision, ear pain, ear discharge, nose pain, nose congestion, throat pain, throat swelling, mouth pain , mouth swelling, Cardiovascular: Denies: chest pain, edema, lightheadedness, palpitations, syncope, Respiratory: Denies: cough, orthopnea, shortness of breath, SOB with excertion , SOB at rest, sputum, stridor, wheezing, other Gastrointestinal/Abdominal: Denies: abdomen distended, abdominal pain, black stools, tarry stools, blood in stool, constipated, diarrhea, difficulty swallowing, nausea, poor appetite, poor fluid intake, rectal bleeding, vomiting , other Genitourinary: Denies: burning, discharge, frequency, flank pain, hematuria, incontinence, pain, urgency, other Neurologic/Psychiatric: Denies: anxiety, depressed, emotional problems, headache, numbness, paresthesia, pre-existing deficit, seizure, tingling, tremors, weakness, other Endocrine: Denies: excessive sweating, flushing, intolerance to cold, intolerance to heat, increased hunger, increased thirst, increased urine, unexplained weight gain, unexplained weight loss, other Hematologic/Lymphatic: Denies: anemia, easy bleeding, easy bruising, other Objective Intake and Output 09/08/19 09/09/19 19:00 07:00 Intake Total 480 ml Output Total 0 ml Balance 480 ml Intake Oral 480 ml Drainage Total 0 ml # Voids 3 Height (Feet): 5 Height (Inches): 4.00 Weight (Pounds): 160 Objective General: WDWN female in NAD, A&O x 4 HEENT: Normocephalic cephalic atraumatic, pupils equal round reactive to light and accommodation, nares patent and no symmetrical, no tonsillar exudates, mucous membranes moist CV: Regular rate regular rhythm, no murmurs, rubs, or gallops Pulm: Lungs clear to auscultation bilaterally. No wheezes, rhonchi, or rales GI: Soft, nontender, nondistended, bowel sounds present Neuro: CN 2-12 intact bilaterally, no focal signs. Ext: No lower extremity edema bilaterally. Axillary region wrapped with gauze. No signs of bleeding or drainge Skin: no rashes lesions or ulcers. Bilateral axilla with gauze in place no signs of bleeding or drainage Msk: Joints symmetrical in upper extremity and lower extremity bilaterally, no joint swelling. Lymph: No lymphadenopathy in upper extremity and lower extremity Dereck Duran D.O. Sep 09, 2019 22:20
== END 2019-09-08 16:42 | disposition home or self-care (01) | DRG 571 ==
LOC: SUR 11:07 → 3E 14:50 → UNDODISIN 09-08 16:42
PROC: 0JBD0ZZ Excision of Right Upper Arm Subcutaneous Tissue and Fascia, Open Approach (ICD-10-PCS; principal; 2019-08-26 13:00)
PROC: 0H85XZZ Division of Chest Skin, External Approach (ICD-10-PCS; principal; 2019-08-26 13:00)
PROC: 0JBF0ZZ Excision of Left Upper Arm Subcutaneous Tissue and Fascia, Open Approach (ICD-10-PCS; principal; 2019-08-26 13:00)
PROC: 0JXD0ZZ Transfer Right Upper Arm Subcutaneous Tissue and Fascia, Open Approach (ICD-10-PCS; 2019-08-28)
PROC: 0JXF0ZZ Transfer Left Upper Arm Subcutaneous Tissue and Fascia, Open Approach (ICD-10-PCS; 2019-08-28)
DX: L73.2 Hidradenitis suppurativa (principal); D62 Acute posthemorrhagic anemia; L29.9 Pruritus, unspecified; R73.03 Prediabetes; R74.0 Nonspecific elevation of levels of transaminase and lactic acid dehydrogenase [LDH]; T40.2X5A Adverse effect of other opioids, initial encounter
CPT/HCPCS: 36415; 80048; 80053; 81025; 82962; 83036; 83525; 85025; 94003; 94150; J1815; J2250; J2405; J2765; J8499

== ENCOUNTER 2019-09-22 22:20 | Inpatient (IN) | payer BC ==
[~2019-09-22] VITALS: Ht 152.4 cm; Wt 72.6 kg
[~2019-09-22 22:20] MED LIST: CEPHALEXIN250 MG ORAL; CEPHALEXIN500 MG ORAL; COLACE100 MG ORAL; GLUCOPHAGE500 MG ORAL; KEFLEX500 M1 ORAL; MAGNESIUM CITR296 M1 PO; PERCOCET1 TAB ORAL; SENNA8.6 M2 PO
[2019-09-22 22:30] VITALS: BP 110/72
--- NOTE | 2019-09-22 22:39 | NUR ---
ED Nurse Note: Pt ambulated to ED from home for a wound recheck, stating she has had increased drainage in underarms. Pt had a surgery under both arms on 08/26 to remove hidradenitis suppurativa. Pt VSS, denies fever. Bilateral underarms present with dihisence, open red wounds with puss and tissue, foul odor. would culture sent
[2019-09-22] MEDS ORDERED: Vancomycin 1.5 GM in NS 275 ML IVPB ONE (22:45)
[2019-09-22] MEDS ORDERED: Piperacillin/Tazobactam 3.375 GM in NS 110 ML IVPB ONE (22:45)
--- NOTE | 2019-09-22 22:53 | Emergency Room Report ---
History of Present Illness General Chief Complaint: Wound Recheck/Suture Removal Source: Patient Present Illness HPI This is a 29-year-old female who has a history of hidradenitis to bilateral axilla. She had surgery and resection done by Dr. Mejia about 3 weeks ago. She was on antibiotics and was doing well. Now she presents with chief complaint of increasing pain and drainage to the axilla bilaterally. Right greater than left. No fever chills but no nausea no vomiting. Pain is 7 out of 10. Worse with movement. Was told to come in for evaluation. Denies any trauma. Allergies: Coded Allergies: No Known Allergies (Unverified , 08/25/19) Patient History Past Medical History: see triage record, old chart reviewed Past Surgical History: other Pertinent Family History: none Social History: Denies: smoking Last Menstrual Period: 08/05/19 Now: No Immunizations: other Reviewed Nursing Documentation: PMH: Agreed; PSxH: Agreed Nursing Documentation-PMH Past Medical History: No History, Except For Hx Cardiac Problems: No - Hidradenitis Hx Cancer: No Hx Gastrointestinal Problems: No Hx Neurological Problems: No Review of Systems Eye: Denies: eye pain, blurred vision ENT: Denies: ear pain, nose congestion, throat swelling Respiratory: Denies: cough, shortness of breath Cardiovascular: Denies: chest pain, palpitations Gastrointestinal: Denies: abdominal pain, diarrhea, nausea, vomiting Musculoskeletal: Denies: back pain, joint pain Skin: Denies: rash Neurological: Denies: headache, numbness Endocrine: Denies: increased thirst, increased urine Hematologic/Lymphatic: Denies: easy bruising All Other Systems: negative except mentioned in HPI Physical Exam Vital Signs Date Time Temp Pulse Resp B/P (MAP) Pulse Ox O2 Delivery O2 Flow Rate FiO2 09/22/19 22:23 98.1 81 14 110/72 (85) 97 Room Air Vitals normal Sp02 EP Interpretation: reviewed, normal General Appearance: well appearing, no apparent distress, alert Head: normocephalic, atraumatic Eyes: bilateral eye PERRL, bilateral eye EOMI ENT: hearing grossly normal, normal pharynx Neck: full range of motion, supple, no meningismus Respiratory: chest non-tender, lungs clear, normal breath sounds Cardiovascular #1: regular rate, rhythm, no murmur Gastrointestinal: normal bowel sounds, non tender, no mass, no organomegaly, no bruit, non-distended Musculoskeletal: back normal, normal range of motion, gait/station normal, other - Right axilla: There is extensive wound dehiscence and slight purulent drainage. No crepitance. Tender to palpation. No warmth. Left axilla with less wound dehiscent. Psychiatric: mood/affect normal Medical Decision Making Diagnostic Impression: Primary Impression: Postoperative wound infection Additional Impression: Hidradenitis axillaris ER Course Patient with postop wound infection. Antibiotics ordered for IV. Dr. Mejia already called in and pt will be admitted to Dr. Darden service. I contacted Dr. Young for admission. Last Vital Signs Date Time Temp Pulse Resp B/P (MAP) Pulse Ox O2 Delivery O2 Flow Rate FiO2 09/22/19 22:23 98.1 81 14 110/72 (85) 97 Room Air Status: improved Disposition: ADMITTED INPATIENT Condition: Serious Referrals: Quynh Mejia MD (PCP) Simba Villa MD Sep 22, 2019 22:53
--- NOTE | 2019-09-22 23:06 | NUR ---
ED Nurse Note: belongings sheet completed.
[2019-09-22] MEDS ORDERED: Miralax 17gm pkt ORAL PRN (23:15)
[2019-09-22 23:26] LABS: APPEARANCE,URINE CLEAR; BILIRUBIN, URINE NEGATIVE (NEGATIVE); GLUCOSE, URINE (UA) NEGATIVE (NEGATIVE); KETONES,URINE NEGATIVE (NEGATIVE); LEUKOCYTE ESTERASE ,URINE NEGATIVE (NEGATIVE); NITRITE,URINE NEGATIVE (NEGATIVE); PH,URINE 5 (4.5-8.0); PROTEIN,URINE NEGATIVE (NEGATIVE); UROBILINOGEN,URINE NORMAL MG/DL (0.0-1.0)
[2019-09-22 23:28] LABS: BASOPHILS % (AUTO) 1.4 % (0.0-2.0); EOSINOPHILS % (AUTO) 3.4 % (0.0-3.0); HEMATOCRIT 36.2 % (37.0-47.0); HEMOGLOBIN 13.1 G/DL (12.0-16.0); LYMPHOCYTES % (AUTO) 38.7 % (20.0-45.0); MEAN CORPUSCULAR VOLUME 86 FL (80-99); MONOCYTES % (AUTO) 4.9 % (1.0-10.0); NEUTROPHILS % (AUTO) 51.6 % (45.0-75.0); PLATELET COUNT 354 K/UL (150-450); RED CELL DISTRIBUTION WIDTH 10.4 % (11.6-14.8); WHITE BLOOD COUNT 10.9 K/UL (4.8-10.8)
[2019-09-22 23:29] LABS: COLOR,URINE PALE YELLOW
--- NOTE | 2019-09-22 23:30 | NUR ---
NURSE NOTES: Received report from Er nurse Roxy. Will wait for pt to be brought to the unit
[2019-09-22 23:34] LABS: ANION GAP 10 mmol/L (5-15); BLOOD UREA NITROGEN 9 mg/dL (7-18); CALCIUM 9.7 MG/DL (8.5-10.1); CARBON DIOXIDE 28 MMOL/L (21-32); CHLORIDE 101 MMOL/L (98-107); CREATININE 0.6 MG/DL (0.55-1.30); POTASSIUM 3.9 MMOL/L (3.5-5.1); SODIUM 139 MMOL/L (136-145)
[2019-09-22] MEDS ORDERED: oxyCODONE HCL/Acetaminophen 5/325mg ORAL ONE (23:45)
--- NOTE | 2019-09-22 23:45 | NUR ---
TRANSFER TO FLOOR: Patient transferred to as ordered, per Dr Darden. Report given to JOSE Desai. Belongings and medications given to . Family and or S/O informed of transfer.
[2019-09-23] VITALS: BP 144/74
--- NOTE | 2019-09-23 | NUR ---
NURSE NOTES: Pt brought up to the unit escorted by Er staff. Pt stood up and transferred to the hospital bed by herself. Pt has no s/s respiratory distress, pt is A/Ox4, breathes even regular and unlabored ar RA. pt denies any pain, pt has a LT AC 20 with i.v fluids /atb running , patent and asymptomatic. Pt has sutures on bilateral armpits with dehisced wounds, with JANUSZ drains on both sides , pt has dry skin other larson intact with perianal redness Bed in low locked position , call light with in reach . Pt educated on how to use hospital bed , t.v turned on for pt , will continue to monitor
[2019-09-23 04:00] VITALS: BP 137/74
[2019-09-23] MEDS: Piperacillin/Tazobactam 3.375 GM in NS 110 ML IVPB SCH ×3 (05:15→21:32)
[2019-09-23] MEDS ORDERED: NovoLOG Insulin Flexpen SUBQ SCH (06:30)
[2019-09-23 06:38] LABS: BASOPHILS % (AUTO) 1.2 % (0.0-2.0); EOSINOPHILS % (AUTO) 3.5 % (0.0-3.0); HEMATOCRIT 36.7 % (37.0-47.0); HEMOGLOBIN 12.8 G/DL (12.0-16.0); LYMPHOCYTES % (AUTO) 33.3 % (20.0-45.0); MEAN CORPUSCULAR VOLUME 88 FL (80-99); MONOCYTES % (AUTO) 6.9 % (1.0-10.0); NEUTROPHILS % (AUTO) 55.1 % (45.0-75.0); PLATELET COUNT 349 K/UL (150-450); RED BLOOD COUNT 4.18 M/UL (4.20-5.40); RED CELL DISTRIBUTION WIDTH 10.5 % (11.6-14.8); WHITE BLOOD COUNT 11.3 K/UL (4.8-10.8)
[2019-09-23 07:28] LABS: ANION GAP 15 mmol/L (5-15); BLOOD UREA NITROGEN 11 mg/dL (7-18); CALCIUM 9.3 MG/DL (8.5-10.1); CARBON DIOXIDE 22 MMOL/L (21-32); CHLORIDE 105 MMOL/L (98-107); CREATININE 0.7 MG/DL (0.55-1.30); POTASSIUM 4.2 MMOL/L (3.5-5.1); SODIUM 142 MMOL/L (136-145)
--- NOTE | 2019-09-23 07:45 | NUR ---
NURSE NOTES: Pt lying in bed w/bed in lowest position and call light within reach. Pt A&Ox4, VSS, and in no apparent distress. IV site intact/asymptomatic & H/L'd and b/l axilla wound C/D/I. Pt has no complaints or concerns at this time. Will continue to monitor.
--- NOTE | 2019-09-23 07:55 | NUR ---
HAND-OFF: Report given to Alber Rai. Pt stable.
--- NOTE | 2019-09-23 08:46 | General Progress Note ---
Progress Note Progress Note Pt seen and examined. About three and a half weeks out from bilateral axillary reconstruction for HS. Presented to the ER last night with wound infection/dehiscence with elevated WBC. On exam today has larger area of dehiscence on the right as compared to left. Will need IV abx abd plan for EUA and debridement in tomorrow. Patient understands the plan and agrees to proceed. Quynh Higgins MD, MD Sep 23, 2019 08:46
[2019-09-23 09:00] VITALS: BP 110/70
[2019-09-23] MEDS: Docusate 100mg cap ORAL SCH ×2 (09:51→21:32)
[2019-09-23] MEDS: Vancomycin 750mg/NS 275ml IVPB SCH ×4 (09:53→16:49)
[2019-09-23] MEDS: Enoxaparin 40mg Inj SUBQ SCH (09:53)
[2019-09-23] MEDS: oxyCODONE 5mg IR tab ORAL PRN ×2 (10:29→18:35)
--- NOTE | 2019-09-23 10:30 | NUR ---
NURSE NOTES: Packed and changed b/l axilla dressings and covered w/medipore tape per Dr. Mejia's order. Pre-medicated pt w/Roxicodone 5 mg; pt tolerated well.
[2019-09-23] MEDS: Insulin NovoLOG Flexpen S/S (Mod) SUBQ SCH ×3 (11:30→21:34)
[2019-09-23 12:00] VITALS: BP 115/70
[2019-09-23] MEDS ORDERED: METFORMIN HCL500 M1 ORAL (13:17)
--- NOTE | 2019-09-23 14:04 | NUR ---
*-* INSURANCE *-* ALL AVAILABLE CLINICALS HAVE BEEN FAXED TO: [employer] AUTH#[id number] FAX ALL CLINICALS TO [phone]
[2019-09-23 16:00] VITALS: BP 121/70
--- NOTE | 2019-09-23 16:21 | NUR ---
CASE MANAGEMENT: INITIAL REVIEW 29YR OLD FEMALE FROM HOME CC: INFECTED SURGICAL WOUND / WOUND RECHECK/ SI:POST OP WOUND INFECTION 98.0 81 14 110/72 97% ON RA WBC 10.9 BG 178 IS:IV ZOSYN X1 IV VANCOMYCIN X1 \: 3E MED SURG UNIT PLAN: WOUND CARE DEBRIDEMENT PLAN FOR AM CASE MANAGEMENT: REVIEW 09/23/19 SI:POST OP WOUND INFECTION 98.3 79 16 115/70 98% ON RA WBC 11.3 IS:IV ZOSYN TID IV VANCOMYCIN TID LOVENOX SQ QD OXYCODONE Q4HR/PRN COLACE PO BID \: 3E MED SURG UNIT PLAN: WOUND CARE DEBRIDEMENT PLAN FOR AM HOME HEALTH ESTABLISHED WITH [facility] NEED WOUND CARE ORDER UPDATED POST DEBRIDEMENT FOR HOME HEALTH
--- NOTE | 2019-09-23 16:47 | History and Physical ---
History of Present Illness General Date patient seen: Sep 23, 2019 Time patient seen: 15:30 Reason for Hospitalization: Wound Recheck/Suture Removal Present Illness HPI MS. Wright is a 29 year old female with hx of DM, hidradenitis supprativa, presenting here with purulent discharge, pain of her hidradenitis of bilateral armpits. Denies any fever, chills, chest pain, SOB, abd pain. Allergies: Coded Allergies: No Known Allergies (Unverified , 08/25/19) Medication History Scheduled Cephalexin* (Keflex*), 500 MG ORAL EVERY 6 HOURS Docusate Sodium* (Colace*), 100 MG ORAL TWICE A DAY Metformin Hcl* (Metformin Hcl*), 500 MG ORAL Q12HR, (Reported) Scheduled PRN Oxycodone/Acetaminophen (Oxycodone-Acetaminophen 5-325), 1 TAB ORAL Q4HR PRN Sennosides (Senna), 8.6 MG PO for Constipation, (Reported) Miscellaneous Medications Magnesium Citrate (Magnesium Citrate), 296 ML PO, (Reported) Patient History Healthcare decision maker Resuscitation status Full Code Advanced Directive on File No Review of Systems Constitutional: Denies: no symptoms, see HPI, chills, sweats, fever, malaise, weakness, other Eye: Denies: no symptoms, see HPI, eye pain, blurred vision, tearing, double vision, nose pain, nose congestion, acuity changes, discharge, other ENT: Denies: no symptoms, see HPI, ear pain, ear discharge, nose pain, nose congestion, throat pain, throat swelling, mouth pain, hearing loss, nasal discharge, other Respiratory: Denies: no symptoms, see HPI, cough, orthopnea, shortness of breath, stridor, wheezing, WAHL, sputum, other Cardiovascular: Denies: no symptoms, see HPI, chest pain, edema, palpitations, syncope, PND, other Gastrointestinal: Denies: no symptoms, see HPI, abdominal pain, constipation, diarrhea, nausea, vomiting, melena, hematemesis, other Genitourinary: Denies: no symptoms, see HPI, discharge, dysuria, frequency, hematuria, pain, retention, incontinence, urgency, vag bleed/dc, other Musculoskeletal: Reports: no symptoms, see HPI, back pain, gout, joint pain, joint swelling, muscle pain, muscle stiffness, other Skin: Denies: no symptoms, see HPI, rash, change in color, change in hair/nails , dryness, lesions, other Psychiatric: Denies: no symptoms, see HPI, prior hx, anxiety, depressed feelings, emotional problems, SI, HI, hallucinations, other Neurological: Denies: no symptoms, see HPI, headache, numbness, paresthesia, seizure, tingling, tremors, focal weakness, syncope, dizziness, other Endocrine: Denies: no symptoms, see HPI, excessive sweating, flushing, intolerance to temperature, increased thirst, increased urine, unexplained weight loss, other Hematologic/Lymphatic: Denies: no symptoms, see HPI, anemia, blood clots, easy bleeding, easy bruising, swollen glands, diathesis, other Physical Exam General Appearance: no apparent distress, alert HEENT: normocephalic, atraumatic Neck: supple Respiratory/Chest: lungs clear, normal breath sounds, no respiratory distress Cardiovascular/Chest: normal rate, regular rhythm Abdomen: non tender, soft Neurologic: alert, oriented x 3 Last 24 Hour Vital Signs Date Time Temp Pulse Resp B/P (MAP) Pulse Ox O2 Delivery O2 Flow Rate FiO2 09/23/19 16:00 97.1 82 16 121/70 (87) 96 09/23/19 12:00 98.3 79 16 115/70 (85) 98 09/23/19 09:00 Room Air 09/23/19 09:00 98.4 69 16 110/70 (83) 98 09/23/19 04:00 97.8 71 16 137/74 (95) 98 09/23/19 00:54 Room Air 09/23/19 00:49 Room Air 09/23/19 00:00 97.5 76 18 144/74 (97) 99 09/22/19 23:45 98.1 14 110/72 97 Room Air 09/22/19 22:30 98.1 14 110/72 97 Room Air 09/22/19 22:23 98.1 81 14 110/72 (85) 97 Room Air Intake and Output 09/22/19 09/23/19 19:00 07:00 Output Total 25 ml Balance -25 ml Output Drainage Total 25 ml # Voids 1 # Bowel Movements 4 Laboratory Tests Test 09/22/19 22:44 09/22/19 23:00 09/23/19 05:30 Urine Color Pale yellow Urine Appearance Clear Urine pH 5 (4.5-8.0) Urine Specific [place] 1.020 (1.005-1.035) Urine Protein Negative (NEGATIVE) Urine Glucose (UA) Negative (NEGATIVE) Urine Ketones Negative (NEGATIVE) Urine Blood Negative (NEGATIVE) Urine Nitrite Negative (NEGATIVE) Urine Bilirubin Negative (NEGATIVE) Urine Urobilinogen Normal MG/DL (0.0-1.0) Urine Leukocyte Esterase Negative (NEGATIVE) Urine RBC 0-2 /HPF (0 - 2) Urine WBC 0-2 /HPF (0 - 2) Urine Squamous Epithelial Cells Few /LPF (NONE/OCC) Urine Bacteria Few /HPF (NONE) Urine HCG, Qualitative Negative (NEGATIVE) White Blood Count 10.9 K/UL (4.8-10.8) H 11.3 K/UL (4.8-10.8) H Red Blood Count 4.20 M/UL (4.20-5.40) 4.18 M/UL (4.20-5.40) L Hemoglobin 13.1 G/DL (12.0-16.0) 12.8 G/DL (12.0-16.0) Hematocrit 36.2 % (37.0-47.0) L 36.7 % (37.0-47.0) L Mean Corpuscular Volume 86 FL (80-99) 88 FL (80-99) Mean Corpuscular Hemoglobin 31.0 PG (27.0-31.0) 30.6 PG (27.0-31.0) Mean Corpuscular Hemoglobin Concent 36.0 G/DL (32.0-36.0) 34.8 G/DL (32.0-36.0) Red Cell Distribution Width 10.4 % (11.6-14.8) L 10.5 % (11.6-14.8) L Platelet Count 354 K/UL (150-450) 349 K/UL (150-450) Mean Platelet Volume 5.5 FL (6.5-10.1) L 5.0 FL (6.5-10.1) L Neutrophils (%) (Auto) 51.6 % (45.0-75.0) 55.1 % (45.0-75.0) Lymphocytes (%) (Auto) 38.7 % (20.0-45.0) 33.3 % (20.0-45.0) Monocytes (%) (Auto) 4.9 % (1.0-10.0) 6.9 % (1.0-10.0) Eosinophils (%) (Auto) 3.4 % (0.0-3.0) H 3.5 % (0.0-3.0) H Basophils (%) (Auto) 1.4 % (0.0-2.0) 1.2 % (0.0-2.0) Sodium Level 139 MMOL/L (136-145) 142 MMOL/L (136-145) Potassium Level 3.9 MMOL/L (3.5-5.1) 4.2 MMOL/L (3.5-5.1) Chloride Level 101 MMOL/L (98-107) 105 MMOL/L (98-107) Carbon Dioxide Level 28 MMOL/L (21-32) 22 MMOL/L (21-32) Anion Gap 10 mmol/L (5-15) 15 mmol/L (5-15) Blood Urea Nitrogen 9 mg/dL (7-18) 11 mg/dL (7-18) Creatinine 0.6 MG/DL (0.55-1.30) 0.7 MG/DL (0.55-1.30) Estimat Glomerular Filtration Rate > 60 mL/min (>60) > 60 mL/min (>60) Glucose Level 178 MG/DL (74-106) H 97 MG/DL (74-106) Calcium Level 9.7 MG/DL (8.5-10.1) 9.3 MG/DL (8.5-10.1) Microbiology Date/Time Source Procedure Growth Status 09/22/19 22:44 Other Gram Stain - Final Resulted 09/22/19 22:44 Other Wound Culture Pending Resulted Height (Feet): 5 Height (Inches): 0.00 Weight (Pounds): 160 Medications Current Medications Medications (Trade) Dose Ordered Sig/Rl Route PRN Reason Start Time Stop Time Status Last Admin Dose Admin Acetaminophen (Tylenol) 650 mg Q4H PRN ORAL Mild Pain (Pain Scale 1-3) 09/22/19 23:15 10/22/19 23:14 09/23/19 05:39 Acetaminophen (Tylenol) 650 mg Q4H PRN ORAL fever 09/22/19 23:15 10/22/19 23:14 Dextrose (Dextrose 50%) 25 ml Q30M PRN IV Hypoglycemia 09/22/19 23:15 10/22/19 23:14 Dextrose (Dextrose 50%) 50 ml Q30M PRN IV Hypoglycemia 09/22/19 23:15 10/22/19 23:14 Docusate Sodium (Colace) 100 mg EVERY 12 HOURS ORAL 09/23/19 09:00 10/23/19 08:59 09/23/19 09:51 Enoxaparin Sodium (Lovenox) 40 mg Q24H SUBQ 09/23/19 09:00 10/23/19 08:59 09/23/19 09:53 Insulin Aspart (NovoLOG) No Dose BEFORE MEALS AND HS SUBQ 09/23/19 11:30 10/23/19 11:29 Metformin HCl (Glucophage) 500 mg BID ORAL 09/23/19 18:00 10/23/19 17:59 Oxycodone HCl (Roxicodone) 5 mg Q4H PRN ORAL PAIN 4-10 09/23/19 07:08 09/30/19 07:07 09/23/19 10:29 Piperacillin Sod/ Tazobactam Sod 3.375 gm/Sodium Chloride 110 ml @ 27.5 mls/hr Q8H IVPB 09/23/19 05:00 09/30/19 04:59 09/23/19 13:14 Polyethylene Glycol (Miralax) 17 gm HSPRN PRN ORAL Constipation 09/22/19 23:15 10/22/19 23:14 Vancomycin HCl (Vanco rx to dose) 1 ea DAILY MISC 09/23/19 09:00 10/23/19 08:59 09/23/19 09:00 Vancomycin HCl 750 mg/Sodium Chloride 275 ml @ 183.333 mls/hr Q8H IVPB 09/23/19 09:00 09/28/19 08:59 09/23/19 09:53 Assessment/Plan Problem List: (1) Postoperative wound infection ICD Codes: T81.49XA - Infection following a procedure, other surgical site, initial encounter SNOMED: 89133673, 925892950 (2) Hidradenitis axillaris ICD Codes: L73.2 - Hidradenitis suppurativa SNOMED: 375416194 (3) Hyperglycemia ICD Codes: R73.9 - Hyperglycemia, unspecified SNOMED: 47866337 (4) Pre-diabetes ICD Codes: R73.03 - Prediabetes SNOMED: 914767908 Status: stable Diagnosis [facility] I: #Hidradenitis suppurativa #Bilateral arm pain -Admit to inpatient. -abx per plastic surgery -pain control. -wound care, dressing change per nursing. -continue to monitor. #DM2 -Metformin, RISS, POCtT. Extra 36 mins spent on chart review of pertinent information (labs, imaging, meds, etc.) Time of note doesn't reflect time of encounter. Martínez Hatch M.D. Sep 23, 2019 16:47
[2019-09-23] MEDS: metFORMIN 500mg tab ORAL SCH (18:34)
--- NOTE | 2019-09-23 19:36 | NUR ---
HAND-OFF: Report given to JOSE Mendez.
--- NOTE | 2019-09-23 19:37 | NUR ---
NURSE NOTES: Received report from JOSE Rai. Patient resting in bed, no distress noted. Dressing CDI, JANUSZ x2. Bed in low position, locked, side rails up x2, call light within each. Will continue to monitor.
[2019-09-23 20:00] VITALS: BP 131/71
[2019-09-24] VITALS (16 sets, daily range): BP systolic 99–140; BP diastolic 47–78
--- NOTE | 2019-09-24 00:17 | NUR ---
NURSE NOTES: lab aware of Vanco trough, on their way.
--- NOTE | 2019-09-24 01:35 | NUR ---
NURSE NOTES: Received message from pharmacy, OK to give Vanco.
[2019-09-24] MEDS: Vancomycin 750mg/NS 275ml IVPB SCH ×6 (01:40→17:49)
[2019-09-24] MEDS: Piperacillin/Tazobactam 3.375 GM in NS 110 ML IVPB SCH ×3 (04:47→20:23)
[2019-09-24] MEDS: Insulin NovoLOG Flexpen S/S (Mod) SUBQ SCH ×4 (06:30→20:39)
--- NOTE | 2019-09-24 07:15 | NUR ---
HAND-OFF: Report given to JOSE Rai.
--- NOTE | 2019-09-24 07:30 | NUR ---
NURSE NOTES: Pt lying in bed w/bed in lowest position and call light within reach. Pt A&Ox4, VSS, and in no apparent distress. IV site intact/asymptomatic & H/L'd and b/l axilla wound C/D/I. Pt NPO except ice chips/PO meds in preparation for surgery this afternoon; pt verbalizes understanding. Will continue to monitor.
[2019-09-24] MEDS: Enoxaparin 40mg Inj SUBQ SCH (10:13)
[2019-09-24] MEDS: metFORMIN 500mg tab ORAL SCH ×2 (10:14→18:00)
[2019-09-24] MEDS: Docusate 100mg cap ORAL SCH ×2 (10:14→20:22)
[2019-09-24] MEDS: oxyCODONE 5mg IR tab ORAL PRN (10:16)
[2019-09-24] MEDS: D5 1/2NS 1,000 ML IV SCH ×2 (10:17→21:54)
--- NOTE | 2019-09-24 11:00 | NUR ---
NURSE NOTES: Changed pt's b/l axilla dressing d/t drainage; pt tolerated well.
--- NOTE | 2019-09-24 11:11 | General Progress Note ---
Assessment/Plan Problem List: (1) Postoperative wound infection ICD Codes: T81.49XA - Infection following a procedure, other surgical site, initial encounter SNOMED: 35368632, 511367495 (2) Hidradenitis axillaris ICD Codes: L73.2 - Hidradenitis suppurativa SNOMED: 370766811 (3) Hyperglycemia ICD Codes: R73.9 - Hyperglycemia, unspecified SNOMED: 60827852 (4) Pre-diabetes ICD Codes: R73.03 - Prediabetes SNOMED: 264907162 Status: doing well, stable Assessment/Plan: #Hidradenitis suppurativa #Bilateral arm pain -abx per plastic surgery -pain control. -wound care, dressing change per nursing. -continue to monitor. #DM2 #Hyperglycemia Patient does not know if she is truly diabetic vs pre-diabetic. doesn't know a1c -check a1c. -Metformin, RISS, POCtT. Time spent on encounter: 37 mins, >50% on counseling and coordination of care. Time of note doesn't reflect time of encounter. Subjective Date patient seen: Sep 24, 2019 Time patient seen: 10:00 ROS Limited/Unobtainable: Yes Constitutional: Denies: no symptoms, chills, diaphoresis, fever, malaise, weakness, other HEENT: Denies: no symptoms, eye pain, blurred vision, tearing, double vision, ear pain, ear discharge, nose pain, nose congestion, throat pain, throat swelling, mouth pain, mouth swelling, other Cardiovascular: Denies: no symptoms, chest pain, edema, irregular heart rate, lightheadedness, palpitations, syncope, other Respiratory: Denies: no symptoms, cough, orthopnea, shortness of breath, SOB with excertion, SOB at rest, sputum, stridor, wheezing, other Gastrointestinal/Abdominal: Denies: no symptoms, abdomen distended, abdominal pain, black stools, tarry stools, blood in stool, constipated, diarrhea, difficulty swallowing, nausea, poor appetite, poor fluid intake, rectal bleeding , vomiting, other Genitourinary: Denies: no symptoms, burning, discharge, frequency, flank pain, hematuria, incontinence, pain, urgency, other Neurologic/Psychiatric: Denies: no symptoms, anxiety, depressed, emotional problems, headache, numbness, paresthesia, pre-existing deficit, seizure, tingling, tremors, weakness, other Endocrine: Denies: no symptoms, excessive sweating, flushing, intolerance to cold, intolerance to heat, increased hunger, increased thirst, increased urine, unexplained weight gain, unexplained weight loss, other Hematologic/Lymphatic: Denies: no symptoms, anemia, easy bleeding, easy bruising, other Allergies: Coded Allergies: No Known Allergies (Unverified , 08/25/19) Subjective sitting in chair, studying for social work class midterms next week. denies any pain, fever, chills. Objective Last 24 Hour Vital Signs Date Time Temp Pulse Resp B/P (MAP) Pulse Ox O2 Delivery O2 Flow Rate FiO2 09/24/19 08:00 98.1 81 18 122/78 (93) 97 09/24/19 04:00 98.1 82 18 121/74 (90) 100 09/24/19 00:00 98.3 75 18 127/69 (88) 99 09/23/19 21:00 Room Air 09/23/19 20:00 98.6 80 20 131/71 (91) 99 09/23/19 16:00 97.1 82 16 121/70 (87) 96 09/23/19 12:00 98.3 79 16 115/70 (85) 98 Intake and Output 09/23/19 09/24/19 19:00 07:00 Intake Total 720 ml Output Total 11 ml Balance 709 ml Intake Oral 720 ml Output Drainage Total 11 ml # Voids 1 Laboratory Tests 09/24/19 00:18: Vancomycin Level Trough 11.2 Height (Feet): 5 Height (Inches): 0.00 Weight (Pounds): 160 General Appearance: no apparent distress, alert Neck: supple Cardiovascular: normal rate, regular rhythm Respiratory/Chest: lungs clear, normal breath sounds Abdomen: non tender, soft Martínez Hatch M.D. Sep 24, 2019 11:11
--- NOTE | 2019-09-24 11:42 | NUR ---
CASE MANAGEMENT: REVIEW 09/24/19 SI:POST OP WOUND INFECTION 98.1 81 18 122/78 97% ON RA IS:IV D5@75ML/HR IV ZOSYN TID IV VANCOMYCIN TID GLUCOPHAGE PO BID LOVENOX SQ QD OXYCODONE Q4HR/PRN TYLENOL Q4HR/PRN COLACE PO BID \: 3E MED SURG UNIT PLAN: WOUND CX- (+) GRAM NEG DIPHTHEROIDS CONT WOUND CARE DEBRIDEMENT PLAN FOR THIS HOME HEALTH ESTABLISHED WITH [facility] -WITH SHARE OF COST NEED WOUND CARE ORDER UPDATED POST DEBRIDEMENT FOR HOME HEALTH DEBRIDEMENT FOR TODAY
[2019-09-24] MEDS ORDERED: EPINEPHrine 1mg/1ml Amp ONE (13:22)
[2019-09-24] MEDS ORDERED: Bacitracin 50000 Units Vial ONE ×2 (13:23→13:24)
[2019-09-24] MEDS ORDERED: Lidocaine 1% 10mg/ml/Epi 0.005mg/ml 30ml vial INJ ONE (13:23)
[2019-09-24] MEDS ORDERED: NeoSporin Gu Irrig 1ml Amp IRRIG ONE ×2 (13:23→13:24)
--- NOTE | 2019-09-24 14:03 | NUR ---
*-* INSURANCE *-* ALL AVAILABLE CLINICALS HAVE BEEN FAXED TO: MIKE ELLISON AUTH#[id number] FAX ALL CLINICALS TO [phone]
[2019-09-24] MEDS ORDERED: LR 1000ml 1,000 ML IVLG SCH (14:11)
--- NOTE | 2019-09-24 14:14 | Anethesia Preoperative Eval ---
Anesthesia Pre-op PMH/ROS General Date of Evaluation: Sep 24, 2019 Time of Evaluation: 14:32 Anesthesiologist: Betty ASA Score: ASA 3 Mallampati Score Class I : Soft palate, uvula, fauces, pillars visible Class II: Soft palate, uvula, fauces visible Class III: Soft palate, base of uvula visible Class IV: Only hard plate visible Mallampati Classification: Class II Surgeon: Roberto Diagnosis: Bilateral Axillary Hidradinitis Suppurativa Infection Surgical Procedure: EUA, Bilateral Axillary Debridment Anesthesia History: none Family History: no anesthesia problems Allergies: Coded Allergies: No Known Allergies (Unverified , 08/25/19) Medications: see eMAR Patient NPO?: Yes NPO Date: Sep 24, 2019 NPO Time: 0000 Past Medical History Gastrointestinal/Genitourinary: Reports: GERD Neurologic/Psychiatric: Reports: depression/anxiety Endocrine: Reports: DM Other: obesity - BMI 31 PSxH Narrative: Axillary Debridement Anesthesia Pre-op Phys. Exam Physician Exam Last Vital Signs Date Time Temp Pulse Resp B/P (MAP) Pulse Ox O2 Delivery O2 Flow Rate FiO2 09/24/19 12:00 98.2 70 18 120/70 (87) 97 09/23/19 21:00 Room Air Constitutional: NAD Neurologic: CN 2-12 intact Cardiovascular: RRR Respiratory: CTA Gastrointestinal: S/NT/ND Airway Exam Mallampati Score: Class II MO: full ROM: limited Teeth: intact Anesthesia Pre-op A/P Labs Chemistry Test 09/24/19 00:18 Hemoglobin A1c 6.0 % (4.3-6.0) Risk Assessment & Plan Assessment: ASA 3 Plan: GA, SED Status Change Before Surgery: No Pre-Antibiotics Dru Gram Ancef IV Given Within 1 Hr of Incision: Yes Time Given: 14:56 Fabrice Hernández MD Sep 24, 2019 14:14
[2019-09-24] MEDS ORDERED: DiphenhydrAMINE 50mg/ml Inj IVP PRN (14:15)
[2019-09-24] MEDS ORDERED: LORazepam Inj 2mg/ml 1ml IV PRN (14:15)
[2019-09-24] MEDS ORDERED: Labetalol 5mg/ml 20ml vial IV PRN (14:15)
[2019-09-24] MEDS ORDERED: oxyCODONE HCL/Acetaminophen 5/325mg ORAL PRN (14:15)
[2019-09-24] MEDS ORDERED: HYDROcodone/Acetamin 5/325 tab ORAL PRN (14:15)
[2019-09-24] MEDS ORDERED: Metoclopramide 10mg/2ml Inj IVP PRN (14:15)
[2019-09-24] MEDS ORDERED: Midazolam 2mg/2ml Inj IVP PRN (14:15)
[2019-09-24] MEDS ORDERED: Acetaminophen (Non formulary) 100 ML IV ONE (14:15)
[2019-09-24] MEDS ORDERED: HYDROcodone/Acetamin 7.5/325 tab ORAL PRN (14:15)
[2019-09-24] MEDS ORDERED: Meperidine 25mg/0.5ml Inj (FOR RIGORS ONLY) IV PRN (14:15)
[2019-09-24] MEDS ORDERED: Atropine Sulfate 0.4mg/ml inj IVP PRN (14:15)
[2019-09-24] MEDS ORDERED: fentaNYL 100 mcg/2 mL IV PRN (14:15)
[2019-09-24] MEDS ORDERED: Hydromorphone 0.5mg/0.5ml inj IVP PRN ×2 (14:15→15:00)
--- NOTE | 2019-09-24 14:24 | NUR ---
NURSE NOTES: Pt taken down to OR via hospital bed w/Zosyn infusing. Family at bedside.
--- NOTE | 2019-09-24 14:28 | Immediate Post-Op Evaluation ---
Immediate Post-Op Evalulation Immediate Post-Op Evalulation Procedure: EUA, Bilateral Axillary Debridment Date of Evaluation: Sep 24, 2019 Time of Evaluation: 16:08 IV Fluids: 300 LR Blood Products: 0 Estimated Blood Loss: 50 Urinary Output: 0 Blood Pressure Systolic: 99 Blood Pressure Diastolic: 49 Pulse Rate: 64 Respiratory Rate: 16 O2 Sat by Pulse Oximetry: 99 Temperature (Fahrenheit): 99 Pain Score (1-10): 2 Nausea: No Vomiting: No Complications 0 Patient Status: awake, reacts, patent, none Hydration Status: adequate Dru Gram Ancef IV Given Within 1 Hr of Incision: Yes Time Given: 14:56 Fabrice Hernández MD Sep 24, 2019 14:28
[2019-09-24] MEDS ORDERED: Sterile Water Irrig 1000ml IRRIG ONE (14:30)
[2019-09-24] MEDS ORDERED: LR 1000ml ONE (14:30)
[2019-09-24] MEDS ORDERED: NS Irrig 1000ml ONE (14:30)
[2019-09-24] MEDS ORDERED: Lidocaine 1% MPF 10mg/ml 5ml ONE (14:31)
[2019-09-24] MEDS ORDERED: Propofol 200mg/20ml IV ONE (14:31)
[2019-09-24] MEDS ORDERED: Sodium Chloride 10ml vial INJ ONE (14:31)
[2019-09-24] MEDS ORDERED: fentaNYL 100 mcg/2 mL IV ONE (14:32)
[2019-09-24] MEDS ORDERED: NS Irrig 2000ml IRRIG ONE ×2 (14:42→15:01)
--- NOTE | 2019-09-24 14:52 | Pre-Procedure Note/Attestation ---
Pre-Procedure Note/Attestation Complete Prior to Procedure Planned Procedure: bilateral Procedure Narrative: Bilateral axillary wound debridement and removal of sutures. Exam under anesthesia Attestation I attest that I discussed the nature of the procedure; its benefits; risks and complications; and alternatives (and the risks and benefits of such alternatives ), prior to the procedure, with the patient (or the patient's legal wine sales representative). I attest that, if there was a reasonable possibility of needing a blood transfusion, the patient (or the patient's legal wine sales representative) was given the [facility] standardized written summary, pursuant to the Bill Shahab Blood Safety Act ([place] Health and Safety Code # 1645, as amended). I attest that I re-evaluated the patient just prior to the surgery and that there has been no change in the patient's H&P, except as documented below: Quynh Mejia MD Sep 24, 2019 14:52
[2019-09-24] MEDS ORDERED: HYDROmorphone 1mg/ml Carpuject IVP PRN (15:00)
--- NOTE | 2019-09-24 15:44 | Operative Note - PDOC ---
Operative Note Operative Note Pre-op Diagnosis: Bilateral axillary wound dehiscence Procedure: Bilateral axillary wound exam under anesthesia with debridement of right axilla and right axillary wound vac placement Post-op Diagnosis: same as pre-op Surgeon: Roberto Food Technician: Natalie Anesthesia: general Specimen: none Complications: none Condition: stable Estimated Blood Loss: minimal Drains: wound vac Implant(s) used?: No Quynh Mejia MD Sep 24, 2019 15:44
[2019-09-24] MEDS ORDERED: Flumazenil 0.1mg/ml 5ml Inj IV ONE (15:49)
--- NOTE | 2019-09-24 19:30 | Operative Note - Dictated ---
DATE OF OPERATION: 09/24/2019 PREOPERATIVE DIAGNOSIS: Bilateral axillary wound dehiscence status post axillary reconstruction following hidradenitis excision. POSTOPERATIVE DIAGNOSIS: Bilateral axillary wound dehiscence status post axillary reconstruction following hidradenitis excision. PROCEDURE: Bilateral axillary wound examination under anesthesia with debridement of right axilla as well as right axillary wound VAC placement. SURGEON: Quynh Mejia M.D. BESSEMER BOTTOM MAKER: Alexandrea Estrada M.D. ANESTHESIA: General. COMPLICATIONS: None. DRAINS: Include a right-sided axillary wound VAC. DISPOSITION: Stable to the recovery room. INDICATIONS FOR SURGERY: This is a 29-year-old female who is now approximately four weeks status post bilateral axillary excision of hidradenitis suppurativa with reconstruction using lateral chest wall flap who presented to the emergency room late Saturday evening with bilateral wound dehiscence and wound infection. Upon presentation to the emergency room, she was noted to have dehiscence of her right axillary flap in two separate areas as well as small dehiscence of her left axillary flap as well and she was noted to have a mild leukocytosis as well. Upon my examination of the patient the following day, I felt that she would be an appropriate candidate for exam under anesthesia with debridement. She understood the risks and benefits of surgery and agreed to proceed. DETAILS OF THE OPERATION: The patient was brought to the operating room and laid in the supine position on the operating room table. Her left axilla did not have a significant dehiscence. For this area, we just removed the sutures and removed the patient's [place] drain and removed the wilson in the left lateral chest wall flap donor site and upon completion of that the area was then cleansed and dressings were applied to the dehiscence which again in this area was in the inferior aspect of the flap within the axillary region. Wet-to-dry dressings were applied to this area and bulky dressing was then applied to secure the dressing. The right axilla was prepped and draped however in sterile and usual fashion, this was the site that had more significant dehiscence. Once area was fully prepped and draped, there was evidence of fibrinous exudate over the dehiscence in the superior aspect of the wound. This was sharply debrided using #15 blade and then upon removal of the tissue we proceeded to remove all the loose sutures and wilson that were still present and we also removed the patient's JANUSZ drain. Upon evaluation, the wound and following pulse lavage irrigation, I felt that the dehiscence superiorly and inferiorly were significant enough where wet-to-dry dressings would not be sufficient as compared to the wound VAC device to help optimize the healing as such. As such, it was decided to place a wound VAC device superiorly and inferior in the areas of dehiscence which were above the chest wall flap in the axillary region as well as below the chest wall flap in the axillary region. The wound VAC sponge was cut to fit the size of the defect in the areas of the dehiscence and the adhesive dressings were applied and wound VAC was then activated to 175 mmHg on high continuous suction and this resulted in a good vacuum with no evidence of a leak. PLAN: The plan will be to leave this wound VAC on for the next three to four days to help optimize the condition of the open areas of the wound and we will then likely proceed with the wound VAC therapy as an outpatient. The patient tolerated the procedure well. All the sponge counts were correct at the end of the case. Quynh Mejia M.D. DR: Jackie JOB#: [id number] CC:
--- NOTE | 2019-09-24 19:55 | NUR ---
HAND-OFF: Report given to JOSE Alfred.
--- NOTE | 2019-09-24 19:56 | NUR ---
NURSE NOTES: Received report & pt from JOSE Rai. Pt lying in bed, a&ox4, on O2 via NC @ 2LPM. No s/s of acute distress & no c/o pain. Wound vac in place, setting 175 mmHG continuous high. Surgical drsg C/D/I. IV site intact with IVF running as ordered.Plan of care discussed.
[2019-09-24] MEDS: DiphenhydrAMINE 50mg/ml Inj IVP PRN (23:18)
[2019-09-25] VITALS: BP 122/40
[2019-09-25] MEDS: Vancomycin 750mg/NS 275ml IVPB SCH ×6 (01:41→10:43)
[2019-09-25 04:00] VITALS: BP 121/68
[2019-09-25] MEDS: Piperacillin/Tazobactam 3.375 GM in NS 110 ML IVPB SCH (05:42)
[2019-09-25] MEDS: Insulin NovoLOG Flexpen S/S (Mod) SUBQ SCH ×4 (05:57→21:00)
--- NOTE | 2019-09-25 07:30 | NUR ---
HAND-OFF: Report given to JOSE Addison/JOSE Luque. Rounds done.
--- NOTE | 2019-09-25 07:30 | NUR ---
NURSE NOTES: Received report from Aubrie RN. Patient is awake and oriented, no acute distress noted. Wound vac running per order, left axilla dressing dry and intact, IVF running per order. Needs met at this time.
[2019-09-25 08:02] VITALS: BP 135/79
[2019-09-25] MEDS: Docusate 100mg cap ORAL SCH ×2 (09:01→20:47)
[2019-09-25] MEDS: metFORMIN 500mg tab ORAL SCH ×2 (09:01→18:52)
[2019-09-25] MEDS: Heparin 5000 units/ml inj SUBQ SCH ×2 (09:02→20:47)
--- NOTE | 2019-09-25 10:07 | NUR ---
*-* INSURANCE *-* ALL AVAILABLE CLINICALS HAVE BEEN FAXED TO: MIKE ELLISON AUTH#[id number] FAX ALL CLINICALS TO [phone]
--- NOTE | 2019-09-25 10:24 | General Progress Note ---
Progress Note Progress Note Pt seen and examined. POD# 1 and doing well. Wound vac is fxing well. Plan for wound vac change in OR on Saturday. MD Roberto Dillon Amir MD Sep 25, 2019 10:24
--- NOTE | 2019-09-25 10:50 | Anethesia Preoperative Eval ---
Anesthesia Pre-op PMH/ROS General Date of Evaluation: Sep 25, 2019 Anesthesiologist: Betty ASA Score: ASA 2 Mallampati Score Class I : Soft palate, uvula, fauces, pillars visible Class II: Soft palate, uvula, fauces visible Class III: Soft palate, base of uvula visible Class IV: Only hard plate visible Mallampati Classification: Class II Surgeon: Roberto Diagnosis: Bilateral Axillary Hidradenitis Suppurativa Infection Surgical Procedure: Right Axillary Wound Vac Change, Possible Flap Modification Anesthesia History: none Family History: no anesthesia problems Allergies: Coded Allergies: No Known Allergies (Unverified , 08/25/19) Medications: see eMAR Patient NPO?: Yes NPO Date: Sep 24, 2019 NPO Time: 0000 Past Medical History Gastrointestinal/Genitourinary: Reports: GERD Neurologic/Psychiatric: Reports: depression/anxiety Endocrine: Reports: DM Other: obesity - BMI 31 PSxH Narrative: Bilateral Hidradenitis Suppurativa Sx Anesthesia Pre-op Phys. Exam Physician Exam Last Vital Signs Date Time Temp Pulse Resp B/P (MAP) Pulse Ox O2 Delivery O2 Flow Rate FiO2 09/25/19 04:00 97.6 69 21 121/68 (85) 97 09/24/19 21:00 Room Air 09/24/19 16:55 3 Constitutional: NAD Neurologic: CN 2-12 intact Cardiovascular: RRR Respiratory: CTA Gastrointestinal: S/NT/ND Airway Exam Mallampati Score: Class II MO: full ROM: full Teeth: intact Anesthesia Pre-op A/P Labs Labs Test 09/22/19 22:44 09/22/19 23:00 09/23/19 05:30 09/24/19 00:18 Urine Color Pale yellow Urine Appearance Clear Urine pH 5 (4.5-8.0) Urine Specific [place] 1.020 (1.005-1.035) Urine Protein Negative (NEGATIVE) Urine Glucose (UA) Negative (NEGATIVE) Urine Ketones Negative (NEGATIVE) Urine Blood Negative (NEGATIVE) Urine Nitrite Negative (NEGATIVE) Urine Bilirubin Negative (NEGATIVE) Urine Urobilinogen Normal MG/DL (0.0-1.0) Urine Leukocyte Esterase Negative (NEGATIVE) Urine RBC 0-2 /HPF (0 - 2) Urine WBC 0-2 /HPF (0 - 2) Urine Squamous Epithelial Cells Few /LPF (NONE/OCC) Urine Bacteria Few /HPF (NONE) Urine HCG, Qualitative Negative (NEGATIVE) White Blood Count 10.9 K/UL (4.8-10.8) 11.3 K/UL (4.8-10.8) Red Blood Count 4.20 M/UL (4.20-5.40) 4.18 M/UL (4.20-5.40) Hemoglobin 13.1 G/DL (12.0-16.0) 12.8 G/DL (12.0-16.0) Hematocrit 36.2 % (37.0-47.0) 36.7 % (37.0-47.0) Mean Corpuscular Volume 86 FL (80-99) 88 FL (80-99) Mean Corpuscular Hemoglobin 31.0 PG (27.0-31.0) 30.6 PG (27.0-31.0) Mean Corpuscular Hemoglobin Concent 36.0 G/DL (32.0-36.0) 34.8 G/DL (32.0-36.0) Red Cell Distribution Width 10.4 % (11.6-14.8) 10.5 % (11.6-14.8) Platelet Count 354 K/UL (150-450) 349 K/UL (150-450) Mean Platelet Volume 5.5 FL (6.5-10.1) 5.0 FL (6.5-10.1) Neutrophils (%) (Auto) 51.6 % (45.0-75.0) 55.1 % (45.0-75.0) Lymphocytes (%) (Auto) 38.7 % (20.0-45.0) 33.3 % (20.0-45.0) Monocytes (%) (Auto) 4.9 % (1.0-10.0) 6.9 % (1.0-10.0) Eosinophils (%) (Auto) 3.4 % (0.0-3.0) 3.5 % (0.0-3.0) Basophils (%) (Auto) 1.4 % (0.0-2.0) 1.2 % (0.0-2.0) Sodium Level 139 MMOL/L (136-145) 142 MMOL/L (136-145) Potassium Level 3.9 MMOL/L (3.5-5.1) 4.2 MMOL/L (3.5-5.1) Chloride Level 101 MMOL/L (98-107) 105 MMOL/L (98-107) Carbon Dioxide Level 28 MMOL/L (21-32) 22 MMOL/L (21-32) Anion Gap 10 mmol/L (5-15) 15 mmol/L (5-15) Blood Urea Nitrogen 9 mg/dL (7-18) 11 mg/dL (7-18) Creatinine 0.6 MG/DL (0.55-1.30) 0.7 MG/DL (0.55-1.30) Estimat Glomerular Filtration Rate > 60 mL/min (>60) > 60 mL/min (>60) Glucose Level 178 MG/DL (74-106) 97 MG/DL (74-106) Calcium Level 9.7 MG/DL (8.5-10.1) 9.3 MG/DL (8.5-10.1) Hemoglobin A1c 6.0 % (4.3-6.0) Vancomycin Level Trough 11.2 ug/mL (5.0-12.0) Risk Assessment & Plan Assessment: ASA 2 Plan: GA Status Change Before Surgery: No Pre-Antibiotics Drug: Fabrice Egan MD Sep 25, 2019 10:50
[2019-09-25] MEDS: D5 1/2NS 1,000 ML IV SCH (11:10)
--- NOTE | 2019-09-25 11:43 | General Progress Note ---
Assessment/Plan Problem List: (1) Postoperative wound infection ICD Codes: T81.49XA - Infection following a procedure, other surgical site, initial encounter SNOMED: 01979621, 450887286 (2) Hidradenitis axillaris ICD Codes: L73.2 - Hidradenitis suppurativa SNOMED: 006185703 (3) Hyperglycemia ICD Codes: R73.9 - Hyperglycemia, unspecified SNOMED: 86015921 (4) Pre-diabetes ICD Codes: R73.03 - Prediabetes SNOMED: 572715062 Status: doing well, stable Assessment/Plan: #Hidradenitis suppurativa #Bilateral arm pain -abx per plastic surgery. -s/p debridement, wound vac placement on right axilla per plastics (09/23). -continue wound vac care and management per plastics. -pain control. -continue to monitor. #Hyperglycemia Patient does not know if she is truly diabetic vs pre-diabetic. doesn't know a1c -A1c 6.0, not diabetic. -Metformin, RISS, POCtT. Time spent on encounter: 36 mins, >50% on counseling and coordination of care. Time of note doesn't reflect time of encounter. Subjective Date patient seen: Sep 25, 2019 Constitutional: Denies: no symptoms, chills, diaphoresis, fever, malaise, weakness, other HEENT: Denies: no symptoms, eye pain, blurred vision, tearing, double vision, ear pain, ear discharge, nose pain, nose congestion, throat pain, throat swelling, mouth pain, mouth swelling, other Cardiovascular: Denies: no symptoms, chest pain, edema, irregular heart rate, lightheadedness, palpitations, syncope, other Respiratory: Denies: no symptoms, cough, orthopnea, shortness of breath, SOB with excertion, SOB at rest, sputum, stridor, wheezing, other Gastrointestinal/Abdominal: Denies: no symptoms, abdomen distended, abdominal pain, black stools, tarry stools, blood in stool, constipated, diarrhea, difficulty swallowing, nausea, poor appetite, poor fluid intake, rectal bleeding , vomiting, other Genitourinary: Denies: no symptoms, burning, discharge, frequency, flank pain, hematuria, incontinence, pain, urgency, other Neurologic/Psychiatric: Denies: no symptoms, anxiety, depressed, emotional problems, headache, numbness, paresthesia, pre-existing deficit, seizure, tingling, tremors, weakness, other Endocrine: Denies: no symptoms, excessive sweating, flushing, intolerance to cold, intolerance to heat, increased hunger, increased thirst, increased urine, unexplained weight gain, unexplained weight loss, other Hematologic/Lymphatic: Denies: no symptoms, anemia, easy bleeding, easy bruising, other Allergies: Coded Allergies: No Known Allergies (Unverified , 08/25/19) Subjective in great mood, denies any pain, fever, chills. friend at bedside. wants to get some work done for school. Objective Last 24 Hour Vital Signs Date Time Temp Pulse Resp B/P (MAP) Pulse Ox O2 Delivery O2 Flow Rate FiO2 09/25/19 04:00 97.6 69 21 121/68 (85) 97 09/25/19 00:00 98.6 83 20 122/40 (67) 94 09/24/19 21:00 Room Air 09/24/19 20:00 98.0 78 21 111/60 (77) 98 09/24/19 19:00 97.6 66 119/70 (86) 09/24/19 18:00 98.6 70 125/66 (85) 09/24/19 17:30 97.1 76 136/77 (96) 09/24/19 17:00 97.7 75 140/71 (94) 09/24/19 16:55 97.2 79 18 139/70 100 Nasal Cannula 3 09/24/19 16:40 86 12 139/69 100 Nasal Cannula 3 09/24/19 16:25 56 10 121/56 100 Simple Mask 6 09/24/19 16:15 59 14 114/51 100 Simple Mask 6 09/24/19 16:05 59 13 111/49 100 Simple Mask 6 09/24/19 16:00 62 10 106/47 99 Simple Mask 6 09/24/19 15:56 64 16 99 09/24/19 15:54 97.3 65 10 99/49 97 Simple Mask 6 09/24/19 12:00 98.2 70 18 120/70 (87) 97 Intake and Output 09/24/19 09/25/19 19:00 07:00 Intake Total 1040.000 ml 1265 ml Output Total 90 ml 151 ml Balance 950.000 ml 1114 ml Intake Oral 240 ml IV Total 1040.000 ml 1025 ml Output Drainage Total 40 ml 101 ml Estimated Blood Loss 50 ml 50 ml # Voids 1 10 # Bowel Movements 2 Height (Feet): 5 Height (Inches): 0.00 Weight (Pounds): 160 General Appearance: no apparent distress, alert Neck: supple Cardiovascular: normal rate, regular rhythm Respiratory/Chest: lungs clear, normal breath sounds Abdomen: non tender, soft Martínez Hatch M.D. Sep 25, 2019 11:43
--- NOTE | 2019-09-25 12:00 | NUR ---
NURSE NOTES: Per Dr. Mejia, wound vac and wound vac dressing will be changed Saturday during surgery, MD ordered not to change wound vac dressing today.
[2019-09-25 12:02] VITALS: BP 140/78
--- NOTE | 2019-09-25 12:15 | NUR ---
CASE MANAGEMENT: REVIEW 09/25/19 SI:POST OP WOUND INFECTION 97.6 69 21 121/68 97% ON RA IS:IV D5@75ML/HR IV VANCOMYCIN TID HEPARIN SQ BID GLUCOPHAGE PO BID COLACE PO BID \: 3E MED SURG UNIT PLAN: WOUND CX- (+) GRAM NEG DIPHTHEROIDS CONT WOUND CARE DEBRIDEMENT PLAN WITH WOUND VAC HOME HEALTH ESTABLISHED WITH [facility] -WITH SHARE OF COST NEED WOUND CARE ORDER UPDATED POST DEBRIDEMENT FOR HOME HEALTH
--- NOTE | 2019-09-25 13:58 | 48 Hour Post Anesthesia Eval ---
Post Anesthesia Evaluation Procedure: EUA, Bilateral Axillary Debridment Date of Evaluation: Sep 25, 2019 Time of Evaluation: 13:56 Blood Pressure Systolic: 128 0: 72 Pulse Rate: 84 Respiratory Rate: 22 Temperature (Fahrenheit): 97.6 O2 Sat by Pulse Oximetry: 98 Airway: patent Nausea: No Vomiting: No Pain Intensity: 1 Hydration Status: adequate Cardiopulmonary Status: stable Mental Status/LOC: patient returned to baseline Follow-up Care/Observations: n/a Post-Anesthesia Complications: none Follow-up care needed: N/A Ernie Potts MD Sep 25, 2019 13:58
[2019-09-25] MEDS ORDERED: Zoysn 3.37gm in NS 100ML IVPB SCH (14:00)
--- NOTE | 2019-09-25 15:16 | NUR ---
*-* INSURANCE *-* ALL AVAILABLE CLINICALS HAVE BEEN FAXED TO: MIKE ELLISON AUTH#[id number] FAX ALL CLINICALS TO [phone]
[2019-09-25] MEDS ORDERED: NS 275ml ONE (15:56)
[2019-09-25] MEDS ORDERED: Tubing IV Secondary IV ONE (15:56)
[2019-09-25 16:02] VITALS: BP 131/81
[2019-09-25] MEDS: oxyCODONE 5mg IR tab ORAL PRN (18:52)
[2019-09-25] MEDS: ceFAZolin 1gm in D5W 55ml IVPB SCH (18:52)
--- NOTE | 2019-09-25 19:30 | NUR ---
HAND-OFF: Report given to Aubrie GARCIA. Endorsed to change dressing per MD order.
--- NOTE | 2019-09-25 19:31 | NUR ---
NURSE NOTES: Received report & pt from JOSE Addison. Pt in bed, a&ox4. No s/s of distress & no pain. Wound vac noted, setting 175 mmHG continuous high. Surgical dressing clean,dry,intact. IV site intact with IVF running as ordered.Plan of care discussed
[2019-09-25 20:00] VITALS: BP 121/73
--- NOTE | 2019-09-25 21:00 | NUR ---
NURSE NOTES: Changed pt's left axilla dressing. Pt tolerated well.
[2019-09-26] VITALS: BP 129/88
[2019-09-26] MEDS: D5 1/2NS 1,000 ML IV SCH ×2 (00:34→15:17)
[2019-09-26] MEDS: ceFAZolin 1gm in D5W 55ml IVPB SCH ×3 (02:08→18:17)
[2019-09-26 04:00] VITALS: BP 120/72
[2019-09-26] MEDS: Insulin NovoLOG Flexpen S/S (Mod) SUBQ SCH ×4 (06:03→20:56)
--- NOTE | 2019-09-26 07:29 | NUR ---
HAND-OFF: Report given to JOSE Ku. Pt in stable condition. Rounds done.
--- NOTE | 2019-09-26 07:30 | NUR ---
NURSE NOTES: Received report from Aubrie GARCIA. Patient is awake and oriented, no acute distress noted, reporting no pain at this time. Bilateral axilla surgical wound with wound vac running per order, left axilla dressing clean and intact, will change during shift per order. IVF running per order. Needs met at this time. Call light within reach.
[2019-09-26 08:00] VITALS: BP 127/75
[2019-09-26] MEDS: Docusate 100mg cap ORAL SCH ×3 (09:59→21:09)
[2019-09-26] MEDS: metFORMIN 500mg tab ORAL SCH ×2 (09:59→18:17)
[2019-09-26] MEDS: Heparin 5000 units/ml inj SUBQ SCH ×2 (10:00→20:55)
[2019-09-26 11:09] LABS: ANION GAP 13 mmol/L (5-15); BASOPHILS % (AUTO) 0.8 % (0.0-2.0); BLOOD UREA NITROGEN 6 mg/dL (7-18); CALCIUM 9.7 MG/DL (8.5-10.1); CARBON DIOXIDE 24 MMOL/L (21-32); CHLORIDE 103 MMOL/L (98-107); CREATININE 0.6 MG/DL (0.55-1.30); EOSINOPHILS % (AUTO) 3.2 % (0.0-3.0); HEMATOCRIT 36.8 % (37.0-47.0); HEMOGLOBIN 12.8 G/DL (12.0-16.0); LYMPHOCYTES % (AUTO) 31.2 % (20.0-45.0); MEAN CORPUSCULAR VOLUME 87 FL (80-99); MONOCYTES % (AUTO) 5.3 % (1.0-10.0); NEUTROPHILS % (AUTO) 59.5 % (45.0-75.0); PLATELET COUNT 352 K/UL (150-450); POTASSIUM 3.7 MMOL/L (3.5-5.1); RED CELL DISTRIBUTION WIDTH 10.3 % (11.6-14.8); SODIUM 140 MMOL/L (136-145); WHITE BLOOD COUNT 9.2 K/UL (4.8-10.8)
[2019-09-26] MEDS ORDERED: Tubing IV Secondary IV ONE (11:59)
[2019-09-26] MEDS ORDERED: D5 1/2NS 1000ml IV ONE ×2 (11:59→14:01)
[2019-09-26 12:00] VITALS: BP 149/98
--- NOTE | 2019-09-26 12:42 | General Progress Note ---
Assessment/Plan Status: doing well, stable Assessment/Plan: #Hidradenitis suppurativa #Bilateral arm pain -abx per plastic surgery. -s/p debridement, wound vac placement on right axilla per plastics (09/23). -continue wound vac care and management per plastics. -pain control. -continue to monitor. -Plastic Sx following: plan for OR saturday #Hyperglycemia - resolved -A1c 6.0, not diabetic. -Metformin, RISS, POCtT. Time spent on encounter: 36 mins, >50% on counseling and coordination of care. Time of note doesn't reflect time of encounter. Subjective Constitutional: Denies: no symptoms, chills, diaphoresis, fever, malaise, weakness, other HEENT: Denies: no symptoms, eye pain, blurred vision, tearing, double vision, ear pain, ear discharge, nose pain, nose congestion, throat pain, throat swelling, mouth pain, mouth swelling, other Cardiovascular: Denies: no symptoms, chest pain, edema, irregular heart rate, lightheadedness, palpitations, syncope, other Respiratory: Denies: no symptoms, cough, orthopnea, shortness of breath, SOB with excertion, SOB at rest, sputum, stridor, wheezing, other Gastrointestinal/Abdominal: Denies: no symptoms, abdomen distended, abdominal pain, black stools, tarry stools, blood in stool, constipated, diarrhea, difficulty swallowing, nausea, poor appetite, poor fluid intake, rectal bleeding , vomiting, other Genitourinary: Denies: no symptoms, burning, discharge, frequency, flank pain, hematuria, incontinence, pain, urgency, other Neurologic/Psychiatric: Denies: no symptoms, anxiety, depressed, emotional problems, headache, numbness, paresthesia, pre-existing deficit, seizure, tingling, tremors, weakness, other Endocrine: Denies: no symptoms, excessive sweating, flushing, intolerance to cold, intolerance to heat, increased hunger, increased thirst, increased urine, unexplained weight gain, unexplained weight loss, other Hematologic/Lymphatic: Denies: no symptoms, anemia, easy bleeding, easy bruising, other Allergies: Coded Allergies: No Known Allergies (Unverified , 08/25/19) Subjective No acute events overnight. States she is doing well, denies any pain, SOB, abd pain, dysuria/constipation. Objective Last 24 Hour Vital Signs Date Time Temp Pulse Resp B/P (MAP) Pulse Ox O2 Delivery O2 Flow Rate FiO2 09/26/19 08:00 97.4 107 18 127/75 (92) 99 09/26/19 04:00 98.3 63 20 120/72 (88) 98 09/26/19 00:00 98.3 65 20 129/88 (102) 98 09/25/19 21:00 Room Air 09/25/19 20:00 98.2 76 21 121/73 (89) 98 09/25/19 16:02 97.8 83 20 131/81 (98) 99 09/25/19 13:58 84 22 98 Intake and Output 09/25/19 09/26/19 19:00 07:00 Intake Total 1575 ml 900 ml Output Total 45 ml 15 ml Balance 1530 ml 885 ml Intake Oral 400 ml IV Total 1175 ml 900 ml Output Drainage Total 45 ml 15 ml # Voids 12 2 # Bowel Movements 1 Laboratory Tests 09/26/19 10:55: White Blood Count 9.2, Red Blood Count 4.20, Hemoglobin 12.8, Hematocrit 36.8L, Mean Corpuscular Volume 87, Mean Corpuscular Hemoglobin 30.3, Mean Corpuscular Hemoglobin Concent 34.7, Red Cell Distribution Width 10.3L, Platelet Count 352, Mean Platelet Volume 4.9L, Neutrophils (%) (Auto) 59.5, Lymphocytes (%) (Auto) 31.2, Monocytes (%) (Auto) 5.3, Eosinophils (%) (Auto) 3.2H, Basophils (%) (Auto ) 0.8, Sodium Level 140, Potassium Level 3.7, Chloride Level 103, Carbon Dioxide Level 24, Anion Gap 13, Blood Urea Nitrogen 6L, Creatinine 0.6, Estimat Glomerular Filtration Rate > 60, Glucose Level 131H, Calcium Level 9.7 Height (Feet): 5 Height (Inches): 0.00 Weight (Pounds): 160 Objective General Appearance: no apparent distress, alert, awake, sitting up at bedside on her computer Neck: supple Cardiovascular: normal rate, regular rhythm Respiratory/Chest: lungs clear, normal breath sounds Abdomen: non tender, soft Ext: no edema, ANDERSON axilla w/bandage, C/D/I, RU axilla w/wound vac, c/d/i Mynor Tran M.D. Sep 26, 2019 12:42
[2019-09-26] MEDS: oxyCODONE 5mg IR tab ORAL PRN ×2 (13:08→22:33)
[2019-09-26] MEDS ORDERED: D5 1/4NS 1000ml IV ONE (14:01)
[2019-09-26 16:00] VITALS: BP 115/74
--- NOTE | 2019-09-26 17:45 | NUR ---
NURSE NOTES: Performed wet to dry dressing change to left axilla surgical wound per MD order, patient tolerated well.
--- NOTE | 2019-09-26 19:32 | NUR ---
HAND-OFF: Report given to Lloyd GARCIA.
--- NOTE | 2019-09-26 19:54 | NUR ---
NURSE NOTES: Received report from juliane Addison. Pt is A/Ox4, breaths even regular unlabored on RA. Pt has a Lt AC 20G with i.v fluids running , patent and asymptomatic . Pt also has a wound vac to the R axilla, dressing intact and suctioning with correct settings , denies any pain . Bed in low locked position and call light with in reach
[2019-09-26 20:00] VITALS: BP 140/85
[2019-09-27] VITALS: BP 122/76
[2019-09-27] MEDS: DiphenhydrAMINE 50mg/ml Inj IVP PRN (01:20)
[2019-09-27] MEDS: D5 1/2NS 1,000 ML IV SCH ×2 (03:10→18:20)
[2019-09-27] MEDS: ceFAZolin 1gm in D5W 55ml IVPB SCH ×3 (03:12→18:20)
[2019-09-27 04:00] VITALS: BP 106/64
[2019-09-27] MEDS: Insulin NovoLOG Flexpen S/S (Mod) SUBQ SCH ×4 (06:30→21:00)
--- NOTE | 2019-09-27 08:00 | NUR ---
NURSE NOTES: Received report from Lloyd GARCIA. Patient is awake and oriented, no acute distress noted, reporting no pain at this time. IVF running per order, bilateral axilla dressings clean, dry, intact, wound vac suctioning right axilla wound. Patient updated on plan of care for the day. Side rails upx2, bed low and locked, call light within reach.
--- NOTE | 2019-09-27 08:07 | NUR ---
HAND-OFF: Report given to JOSE Addison pt telma.
[2019-09-27 08:45] LABS: ANION GAP 11 mmol/L (5-15); BLOOD UREA NITROGEN 7 mg/dL (7-18); CALCIUM 9.1 MG/DL (8.5-10.1); CARBON DIOXIDE 25 MMOL/L (21-32); CHLORIDE 104 MMOL/L (98-107); CREATININE 0.6 MG/DL (0.55-1.30); POTASSIUM 3.6 MMOL/L (3.5-5.1); SODIUM 140 MMOL/L (136-145)
[2019-09-27] MEDS: metFORMIN 500mg tab ORAL SCH ×2 (08:56→18:20)
[2019-09-27] MEDS: Heparin 5000 units/ml inj SUBQ SCH ×2 (08:59→22:02)
[2019-09-27 09:00] LABS: EOSINOPHILS % (AUTO) 4.2 % (0.0-3.0); HEMOGLOBIN 12.1 G/DL (12.0-16.0); LYMPHOCYTES % (AUTO) 37.9 % (20.0-45.0); MEAN CORPUSCULAR VOLUME 87 FL (80-99); MONOCYTES % (AUTO) 5.4 % (1.0-10.0); NEUTROPHILS % (AUTO) 51.5 % (45.0-75.0); PLATELET COUNT 326 K/UL (150-450); RED CELL DISTRIBUTION WIDTH 10.5 % (11.6-14.8); WHITE BLOOD COUNT 10.6 K/UL (4.8-10.8)
[2019-09-27 12:00] VITALS: BP 125/72
--- NOTE | 2019-09-27 13:22 | General Progress Note ---
Assessment/Plan Status: doing well, stable Assessment/Plan: #Hidradenitis suppurativa #Bilateral arm pain -abx per plastic surgery. -s/p debridement, wound vac placement on right axilla per plastics (09/23). -continue wound vac care and management per plastics. -pain control. -continue to monitor. -Plastic Sx following: plan for OR Saturday -NPO past MN #Hyperglycemia - resolved -A1c 6.0, not diabetic. -Metformin, RISS, POCtT. Time spent on encounter: 36 mins, >50% on counseling and coordination of care. Time of note doesn't reflect time of encounter. Subjective Allergies: Coded Allergies: No Known Allergies (Unverified , 08/25/19) Subjective No acute events overnight. Pt she is doing well, denies any pain, SOB, abd pain , dysuria/constipation. Objective Last 24 Hour Vital Signs Date Time Temp Pulse Resp B/P (MAP) Pulse Ox O2 Delivery O2 Flow Rate FiO2 09/27/19 04:00 98.0 69 16 106/64 (78) 95 09/27/19 00:00 97.9 70 16 122/76 (91) 97 09/26/19 21:00 Room Air 09/26/19 20:00 98.7 82 18 140/85 (103) 98 09/26/19 16:00 97.9 75 18 115/74 (88) 98 Intake and Output 09/26/19 09/27/19 19:00 07:00 Intake Total 860 ml Output Total 10 ml Balance 850 ml IV Total 860 ml Output Drainage Total 10 ml # Voids 10 3 # Bowel Movements 1 Laboratory Tests 09/27/19 07:25: White Blood Count 10.6, Red Blood Count 3.90L, Hemoglobin 12.1, Hematocrit 34.0L , Mean Corpuscular Volume 87, Mean Corpuscular Hemoglobin 31.0, Mean Corpuscular Hemoglobin Concent 35.6, Red Cell Distribution Width 10.5L, Platelet Count 326, Mean Platelet Volume 4.6L, Neutrophils (%) (Auto) 51.5, Lymphocytes (%) (Auto) 37.9, Monocytes (%) (Auto) 5.4, Eosinophils (%) (Auto) 4.2H, Basophils (%) (Auto) 1.0, Sodium Level 140, Potassium Level 3.6, Chloride Level 104, Carbon Dioxide Level 25, Anion Gap 11, Blood Urea Nitrogen 7, Creatinine 0.6, Estimat Glomerular Filtration Rate > 60, Glucose Level 90, Calcium Level 9.1 Height (Feet): 5 Height (Inches): 0.00 Weight (Pounds): 160 Objective General Appearance: no apparent distress, alert, awake, sitting up at bedside on her computer Neck: supple Cardiovascular: normal rate, regular rhythm Respiratory/Chest: lungs clear, normal breath sounds Abdomen: non tender, soft Ext: no edema, ANDERSON axilla w/bandage, C/D/I, RU axilla w/wound vac, c/d/i Mynor Tran M.D. Sep 27, 2019 13:22
--- NOTE | 2019-09-27 13:46 | NUR ---
RD ASSESSMENT & RECOMMENDATIONS SEE CARE ACTIVITY FOR COMPLETE ASSESSMENT DAILY ESTIMATED NEEDS: Needs based on Wound healing/ 52.3kg abw 25-30 kcals/kg 7087-7713 total kcals 1.25-1.5 g protein/kg 65-79 g total protein 25-30 mL/kg 0074-2756 total fluid mLs NUTRITION DIAGNOSIS: * Increased prot intake needs R/T wound healing as evidenced by admitted w/ infected Hidradenitis suppurativa,s/p debridement w/ wound vac. CURRENT DIET:Regular vegan PO DIET RECOMMENDATIONS: CCHO LOW + DOUBLE PROTEIN PORTIONS / VEGAN W/ EGGS OK ADDITIONAL RECOMMENDATIONS: * Standing wt for accurate CBW as able * Wound healing: Add MVI x 1, Vit C 500mg QD, ZnSO4 220mg QD x 10 days * GAUDENCIO BID if tolerated * BG monitoring
[2019-09-27] MEDS: oxyCODONE 5mg IR tab ORAL PRN ×2 (16:21→23:21)
--- NOTE | 2019-09-27 19:30 | NUR ---
NURSE NOTES: Report given to Lloyd GARCIA
[2019-09-27 20:00] VITALS: BP 120/97
--- NOTE | 2019-09-27 20:49 | NUR ---
NURSE NOTES: Received report from juliane Addison. Pt is A/Ox4, breaths even regular unlabored on RA. Pt has a Lt hand 24G with i.v fluids running , patent and asymptomatic . Pt also has a wound vac to the R axilla, dressing intact and suctioning with correct settings , denies any pain.Pt huynh of upcoming procedure and verbalizes understanding of it, consent signed . Bed in low locked position and call light with in reach
[2019-09-27] MEDS: Docusate 100mg cap ORAL SCH (22:01)
[2019-09-28] VITALS (12 sets, daily range): BP systolic 107–148; BP diastolic 52–87
[2019-09-28] MEDS: ceFAZolin 1gm in D5W 55ml IVPB SCH ×3 (02:58→18:16)
[2019-09-28] MEDS: Insulin NovoLOG Flexpen S/S (Mod) SUBQ SCH ×4 (06:30→20:00)
--- NOTE | 2019-09-28 07:45 | NUR ---
NURSE NOTES: Pt lying in bed w/bed in lowest position and call light within reach. Pt A&Ox4, VSS, and in no apparent distress. IV site intact/asymptomatic w/IVF infusing; wound vac to 175 mm Hg high/cont; and surgical dressings C/D/I. Pt NPO in preparation for surgery this morning; pt verbalizes understanding. Will continue to monitor.
--- NOTE | 2019-09-28 07:47 | NUR ---
HAND-OFF: Report given to JOSE Burton.
[2019-09-28] MEDS: metFORMIN 500mg tab ORAL SCH ×2 (09:12→18:16)
[2019-09-28] MEDS: Docusate 100mg cap ORAL SCH ×2 (09:12→18:16)
[2019-09-28] MEDS: Heparin 5000 units/ml inj SUBQ SCH ×2 (09:15→19:59)
[2019-09-28] MEDS ORDERED: EPINEPHrine 1mg/1ml Amp ONE (09:50)
[2019-09-28] MEDS ORDERED: Lidocaine 1% 10mg/ml/Epi 0.005mg/ml 30ml vial INJ ONE (09:51)
[2019-09-28] MEDS ORDERED: Bacitracin 50000 Units Vial ONE (09:51)
--- NOTE | 2019-09-28 09:59 | Pre-Procedure Note/Attestation ---
Pre-Procedure Note/Attestation Complete Prior to Procedure Planned Procedure: right Procedure Narrative: Right axillary wound vac change with possible flap modification Indications for Procedure Pre-Operative Diagnosis: Right axillary wound Attestation I attest that I discussed the nature of the procedure; its benefits; risks and complications; and alternatives (and the risks and benefits of such alternatives ), prior to the procedure, with the patient (or the patient's legal consumer sales representative). I attest that, if there was a reasonable possibility of needing a blood transfusion, the patient (or the patient's legal consumer sales representative) was given the [facility] standardized written summary, pursuant to the Bill Cosmos Blood Safety Act ([place] Health and Safety Code # 1645, as amended). I attest that I re-evaluated the patient just prior to the surgery and that there has been no change in the patient's H&P, except as documented below: Quynh Mejia MD Sep 28, 2019 09:59
[2019-09-28] MEDS ORDERED: HYDROmorphone 1mg/ml Carpuject IVP PRN (10:00)
[2019-09-28] MEDS ORDERED: Metoclopramide 10mg/2ml Inj IVP PRN ×2 (10:00→12:00)
[2019-09-28] MEDS ORDERED: HYDROcodone/Acetamin 10/325 tab ORAL PRN (10:00)
[2019-09-28] MEDS ORDERED: DiphenhydrAMINE 50mg/ml Inj IVP PRN ×2 (10:00→12:00)
[2019-09-28] MEDS ORDERED: Zolpidem 5mg tab ORAL PRN (10:00)
[2019-09-28] MEDS ORDERED: Hydromorphone 0.5mg/0.5ml inj IVP PRN (10:00)
[2019-09-28] MEDS ORDERED: Sterile Water Irrig 1000ml IRRIG ONE (10:30)
[2019-09-28] MEDS ORDERED: NS Irrig 1000ml ONE (10:30)
[2019-09-28] MEDS ORDERED: Propofol 200mg/20ml IV ONE (10:30)
[2019-09-28] MEDS ORDERED: LR 1000ml ONE (10:30)
[2019-09-28] MEDS ORDERED: Ketorolac 30mg Inj ONE (10:30)
[2019-09-28] MEDS ORDERED: fentaNYL 100 mcg/2 mL IV ONE (10:33)
[2019-09-28] MEDS ORDERED: Midazolam 2mg/2ml Inj ONE (10:33)
--- NOTE | 2019-09-28 10:49 | General Progress Note ---
Assessment/Plan Status: doing well, stable Assessment/Plan: #Hidradenitis suppurativa #Bilateral arm pain -continue cefazolon -s/p debridement, wound vac placement on right axilla per plastics (09/23). -Plan for wound vac change in OR today -continue wound vac care and management per plastics. -pain control #Hyperglycemia - resolved -A1c 6.0, not diabetic although at risk for developing overt diabetes -cont Metformin, ISS Time spent on encounter: 38 mins, >50% on counseling and coordination of care. Time of note doesn't reflect time of encounter Subjective Date patient seen: Sep 28, 2019 Time patient seen: 07:15 ROS Limited/Unobtainable: No Constitutional: Denies: chills, fever Cardiovascular: Denies: chest pain, edema Respiratory: Denies: cough, orthopnea Gastrointestinal/Abdominal: Denies: abdomen distended, abdominal pain Genitourinary: Denies: burning Neurologic/Psychiatric: Denies: anxiety, depressed Endocrine: Denies: excessive sweating, flushing Hematologic/Lymphatic: Denies: anemia, easy bruising Allergies: Coded Allergies: No Known Allergies (Unverified , 08/25/19) Subjective Follow up for hidradenitis suppurativa, wound infection and dehiscence Feels well today. Denies any pain, fever, chills. Going to OR for wound vac change today by Dr. Mejia Objective Last 24 Hour Vital Signs Date Time Temp Pulse Resp B/P (MAP) Pulse Ox O2 Delivery O2 Flow Rate FiO2 09/28/19 08:00 97.9 81 20 130/87 (101) 97 09/28/19 04:00 98.2 68 16 110/65 (80) 97 09/28/19 00:00 98.2 75 18 110/65 (80) 96 09/27/19 21:00 Room Air 09/27/19 20:00 97.8 76 16 120/97 (105) 96 09/27/19 12:00 97.9 77 20 125/72 (89) 98 Intake and Output 09/27/19 09/28/19 19:00 07:00 Intake Total 1460 ml 750 ml Output Total 25 ml 10 ml Balance 1435 ml 740 ml Intake Oral 600 ml 150 ml IV Total 860 ml 600 ml Output Drainage Total 25 ml 10 ml # Voids 2 7 Height (Feet): 5 Height (Inches): 0.00 Weight (Pounds): 160 General Appearance: no apparent distress, alert Neck: normal alignment, supple Cardiovascular: normal rate, regular rhythm Respiratory/Chest: lungs clear, normal breath sounds Abdomen: non tender, soft Neurologic: no motor/sensory deficits, alert, oriented x 3 Tarun Denny MD Sep 28, 2019 10:49
[2019-09-28] MEDS ORDERED: Neosporin Oint Ud Pkt TOPIC ONE (11:23)
--- NOTE | 2019-09-28 11:25 | Operative Note - PDOC ---
Operative Note Operative Note Pre-op Diagnosis: Right axillary wound Procedure: Bilateral axillary wound exam under anesthesia with right axillary wound vac change/placement Post-op Diagnosis: same as pre-op Surgeon: Roberto Anesthesia: general Specimen: none Complications: none Condition: stable Estimated Blood Loss: minimal Drains: wound vac Implant(s) used?: No Quynh Mejia MD Sep 28, 2019 11:25
[2019-09-28] MEDS ORDERED: NS Irrig 1000ml IRRIG ONE (11:33)
[2019-09-28] MEDS ORDERED: LR 1000ml 1,000 ML IVLG SCH (11:57)
--- NOTE | 2019-09-28 11:57 | Immediate Post-Op Evaluation ---
Immediate Post-Op Evalulation Immediate Post-Op Evalulation Procedure: Revision of R axillary wound with wound vac change Date of Evaluation: Sep 28, 2019 Time of Evaluation: 11:56 IV Fluids: 300 Blood Products: none Estimated Blood Loss: min Urinary Output: none Blood Pressure Systolic: 128 Blood Pressure Diastolic: 76 Pulse Rate: 68 Respiratory Rate: 20 O2 Sat by Pulse Oximetry: 99 Temperature (Fahrenheit): 97.6 Pain Score (1-10): 2 Nausea: No Vomiting: No Complications none Patient Status: reacts, patent, none Hydration Status: adequate Drug: Ancef 1gr. Given Within 1 Hr of Incision: Yes Time Given: 11:02 Ernie Potts MD Sep 28, 2019 11:57
[2019-09-28] MEDS ORDERED: Meperidine 25mg/0.5ml Inj (FOR RIGORS ONLY) IV PRN (12:00)
[2019-09-28] MEDS ORDERED: Ketorolac 30mg Inj IV PRN (12:00)
--- NOTE | 2019-09-28 13:00 | NUR ---
NURSE NOTES: Pt came back up to unit from PACU via hospital bed in stable condition. Pt A&Ox4, VSS, and has no complaints of pain at this time. Surgical dressings C/D/I and right axilla wound vac setting are at 175 mm Hg high/cont. Will continue to monitor.
--- NOTE | 2019-09-28 13:36 | CDS Physician Query ---
Clarification is required for compliance, coding accuracy, and to reflect severity of illness for this patient Dear Dr. Quynh Mejia Date: 09/28/2019 CDS name: Ruth Selby Clinical Documentation states: HNP: 29 year old female with hx of DM, hidradenitis supprativa, presenting here with purulent discharge, pain of her hidradenitis of bilateral armpits Op note: Bilateral axillary wound examination under anesthesia with debridement of right axilla as well as right axillary wound VAC placement...there was evidence of fibrinous exudate over the dehiscence in the superior aspect of the wound. This was sharply debrided using #15 blade Kindly specify the type and depth of debridement performed: [] Excisional: Please document the depth of tissue [] Skin [] Subcutaneous tissue and Fascia [] Muscle [] Bone [] Nonexcisional: [] Skin [] Subcutaneous tissue and Fascia [] Muscle [] Bone Present on Admission: [] Yes [] No [] Clinically Undetermined Physician signature Date Please also document in your Progress Notes and/or Discharge Summary and indicate if the condition was present on admission. BELKISD
--- NOTE | 2019-09-28 14:43 | 48 Hour Post Anesthesia Eval ---
Post Anesthesia Evaluation Procedure: Revision of R axillary wound with wound vac change Date of Evaluation: Sep 28, 2019 Time of Evaluation: 14:42 Blood Pressure Systolic: 148 0: 58 Pulse Rate: 61 Respiratory Rate: 19 Temperature (Fahrenheit): 97.4 O2 Sat by Pulse Oximetry: 100 Airway: patent Nausea: No Vomiting: No Pain Intensity: 2 Hydration Status: adequate Cardiopulmonary Status: Stable Mental Status/LOC: patient returned to baseline Follow-up Care/Observations: 0 Post-Anesthesia Complications: 0 Follow-up care needed: N/A Fabrice Hernández MD Sep 28, 2019 14:43
[2019-09-28] MEDS ORDERED: Tubing IV Secondary IV ONE (15:17)
--- NOTE | 2019-09-28 15:20 | NUR ---
*-* INSURANCE *-* ALL AVAILABLE CLINICALS HAVE BEEN FAXED TO: MIKE ELLISON AUTH#[id number] FAX ALL CLINICALS TO [phone]
--- NOTE | 2019-09-28 16:15 | NUR ---
DISCHARGE PLANNING: CONTACTED PATIENT INSURANCE [employer] T: [phone] NEED AUTHORIZATION FOR HOME WOUND VAC NEED TO CONFIRM AUTHORIZATION FOR HOME HEALTH WITH [facility] WAITING FOR CALL BACK
--- NOTE | 2019-09-28 16:17 | NUR ---
CASE MANAGEMENT: REVIEW 09/26/19 SI:POST OP WOUND INFECTION 98.2 78 20 149/98 98% ON RA BUN 6 BG 131 Hct 36.8 IS:IV D5@75ML/HR IV ANCEF TID GLUCOPHAGE PO BID \: 3E MED SURG UNIT PLAN: WOUND CX- (+) GRAM NEG DIPHTHEROIDS HOME HEALTH ESTABLISHED WITH [facility] -WITH SHARE OF COST NEED WOUND CARE ORDER UPDATED POST DEBRIDEMENT FOR HOME HEALTH -SWITCH TO IV ABX ANCEF CASE MANAGEMENT: REVIEW 09/27/19 SI:POST OP WOUND INFECTION 97.9 77 20 125/72 98% ON RA RBC 3.9 Hct 34 IS:IV D5@75ML/HR IV ANCEF TID GLUCOPHAGE PO BID \: 3E MED SURG UNIT PLAN: WOUND CX- (+) GRAM NEG DIPHTHEROIDS HOME HEALTH ESTABLISHED WITH [facility] -WITH SHARE OF COST NEED WOUND CARE ORDER UPDATED POST DEBRIDEMENT FOR HOME HEALTH -SWITCH TO IV ABX ANCEF SURGERY PLAN IN AM CASE MANAGEMENT: REVIEW 09/28/19 SI:POST OP WOUND INFECTION 97.9 81 20 130/87 97% ON RA IS:IV D5@75ML/HR IV ANCEF TID GLUCOPHAGE PO BID IV KCL @75ML/HR \: 3E MED SURG UNIT PLAN: WOUND CX- (+) GRAM NEG DIPHTHEROIDS HOME HEALTH ESTABLISHED WITH [facility] -WITH SHARE OF COST NEED WOUND CARE ORDER UPDATED POST DEBRIDEMENT FOR HOME HEALTH -SWITCH TO IV ABX ANCEF -SURGERY DEBRIDEMENT AND WOUND FLAP CLOSER THIS AM -CALL INSURANCE TO OBTAIN AUTHORIZATION FOR WOUND VAC
--- NOTE | 2019-09-28 16:44 | Operative Note - Dictated ---
DATE OF OPERATION: 09/22/2019 PREOPERATIVE DIAGNOSIS: Bilateral axillary reconstruction, status post excision of hidradenitis with a previous right axillary wound VAC placement. POSTOPERATIVE DIAGNOSIS: Bilateral axillary reconstruction, status post excision of hidradenitis with a previous right axillary wound VAC placement. PROCEDURE: Bilateral axillary exam under anesthesia with right axillary wound VAC change. SURGEON: Quynh Mejia M.D. ANESTHESIA: LMA. COMPLICATIONS: None. DRAINS: Included a new wound VAC sponge applied to the right axilla. DISPOSITION: Stable to the recovery room. INDICATIONS FOR SURGERY: This is a 29-year-old female, who is now approximately one month out from bilateral axillary excision of hidradenitis with reconstruction using lateral chest wall flaps, who had a wound dehiscence bilaterally with right worse than left. She went to the operating room last for a wound VAC change and wound VAC was set in place and left in place to allow for continued healing with a plan to bringing to the operating room today with a change of the wound VAC with possible flap, suturing and reinsetting. She understood the risks and benefits of surgery and agreed to proceed. DETAILS OF THE OPERATION: The patient was brought to the operating room and laid in supine position on the operating room table. Her right axilla was prepped and draped in a sterile usual fashion. We first began by examining the left axilla just to make sure that the wound was healing well and this area was in no need for debridement, also a simple wet-to-dry dressing change was applied to the left axilla. We then turned our attention to the right axillary defect with the flap. With a wound VAC sponge removed, there appeared to be good beefy granulation tissue in the short 4 days that has passed since the initial placement of the back. The flap was checked and noted to be well adhered to the wound bed and as such, there was no need for suturing or further insetting of the flap. The wound was copiously irrigated with pulse lavage and then a U-shaped wound VAC sponge was then reapplied to the open areas of dehiscence in the superior and inferior aspect of the reconstruction and adhesive dressings were applied to the wound VAC and the wound VAC was then attached to the suction device and there was noted to be working at 175 mmHg at high continuous suction. The patient tolerated the procedure well. PLAN: The plan will be to perform operation with the wound VAC dressings to the right side and wet-to-dry dressing to the left axilla. Quynh Mejia M.D. DR: DINH JOB#: [id number] CC:
--- NOTE | 2019-09-28 19:20 | NUR ---
NURSE NOTES: Received report from JOSE Rai. Pt is awake, sitting at the edge of the bed; comfortably resting. No signs of acute distress noted. Pt denies any pain at this time. AOx4; able to make needs known. No erythema, bleeding, or infiltration noted. Dressing intact. Wound vac patent and draining. Checked IV site, line, and rate; patent and running. Bed at lowest position. Brakes on. Siderails up x2. Call light within reach. Will continue to monitor.
--- NOTE | 2019-09-28 19:20 | NUR ---
HAND-OFF: Report given to JOSE Summers.
[2019-09-28] MEDS: HYDROcodone/Acetamin 5/325 tab ORAL PRN (20:22)
[2019-09-29] VITALS: BP 117/63
[2019-09-29] MEDS: ceFAZolin 1gm in D5W 55ml IVPB SCH ×3 (02:03→10:00)
[2019-09-29] MEDS: HYDROcodone/Acetamin 5/325 tab ORAL PRN ×2 (03:24→17:22)
[2019-09-29 04:00] VITALS: BP 134/70
[2019-09-29] MEDS: Insulin NovoLOG Flexpen S/S (Mod) SUBQ SCH ×3 (05:20→16:30)
[2019-09-29 06:36] LABS: BASOPHILS % (AUTO) 1.1 % (0.0-2.0); EOSINOPHILS % (AUTO) 3.1 % (0.0-3.0); HEMATOCRIT 34.7 % (37.0-47.0); HEMOGLOBIN 12.3 G/DL (12.0-16.0); LYMPHOCYTES % (AUTO) 24.9 % (20.0-45.0); MEAN CORPUSCULAR VOLUME 87 FL (80-99); MONOCYTES % (AUTO) 6.2 % (1.0-10.0); NEUTROPHILS % (AUTO) 64.6 % (45.0-75.0); PLATELET COUNT 366 K/UL (150-450); RED BLOOD COUNT 3.98 M/UL (4.20-5.40); RED CELL DISTRIBUTION WIDTH 10.5 % (11.6-14.8)
--- NOTE | 2019-09-29 07:37 | NUR ---
HAND-OFF: Report given to JOSE Rai. Pt is awake and in stable condition. Plan of care endorsed.
[2019-09-29 07:46] LABS: ANION GAP 11 mmol/L (5-15); BLOOD UREA NITROGEN 7 mg/dL (7-18); CALCIUM 9.1 MG/DL (8.5-10.1); CARBON DIOXIDE 23 MMOL/L (21-32); CHLORIDE 105 MMOL/L (98-107); CREATININE 0.6 MG/DL (0.55-1.30); POTASSIUM 3.9 MMOL/L (3.5-5.1); SODIUM 139 MMOL/L (136-145)
[2019-09-29 08:00] VITALS: BP 117/66
--- NOTE | 2019-09-29 09:12 | NUR ---
NURSE NOTES: Received report from JOSE Summers. Pt is sleeping in bed comfortably. Breathing regular/ unlabored. No signs of acute distress noted. Dressing intact. Wound vac patent and draining. Checked IV site, line, and rate; patent and running. Bed at lowest position. Brakes on. Call light within reach. Will continue to monitor
[2019-09-29] MEDS: metFORMIN 500mg tab ORAL SCH ×2 (09:40→17:59)
[2019-09-29] MEDS: Docusate 100mg cap ORAL SCH ×2 (09:41→17:59)
[2019-09-29] MEDS: Heparin 5000 units/ml inj SUBQ SCH (09:46)
--- NOTE | 2019-09-29 11:23 | NUR ---
*-* INSURANCE *-* ALL AVAILABLE CLINICALS HAVE BEEN FAXED TO: MIKE ELLISON AUTH#[id number] FAX ALL CLINICALS TO [phone]
[2019-09-29 12:00] VITALS: BP 120/81
--- NOTE | 2019-09-29 12:37 | Discharge Summary ---
Discharge Summary Hospital Course Date of Admission Sep 22, 2019 at 22:52 Date of Discharge 09/29/19 Admitting Diagnosis post op wound infection HPI Deysi Wright is a 29 year old female who was admitted on Sep 22, 2019 at 22: 52 for Post Op Wound Infection Consultations Plastic Surgery Procedures Right axilla debridement and wound vac placement Hospital Course Patient was admitted to the medical service with bilateral arm pain, wound dehiscence and infection. Started on IV cefazolin, underwent debridement, wound vac placement on right axilla per plastics (09/23) which she tolerated well. Wound vac was changed in the OR on 09/27 which was again tolerated well. On the day of discharge she is doing, ambulating, voiding and tolerating oral intake. She was cleared for discharge by Plastics, will be discharged home with home health and wound vac recs per Dr. Mejia, will follow up with him as an outpatient. Will be sent home on Keflex and Dyer #Hidradenitis suppurativa #Bilateral arm pain #Hyperglycemia Time spent on preparing patient discharge was 35 mins Time of note doesn't reflect time of encounter Discharge Medications Continued Medications: Metformin Hcl* (Metformin Hcl*) 500 Mg Tablet 500 MG ORAL Q12HR for HYPERGLYCEMIA, TAB (This prescription has been renewed) Discontinued Medications: Oxycodone/Acetaminophen (Oxycodone-Acetaminophen 5-325) 1 Each Tablet 1 TAB ORAL Q4HR PRN for 7 Days, #20 TAB Discharge Condition Upon Discharge: stable Discharge Vital Signs Last Vital Signs Date Time Temp Pulse Resp B/P (MAP) Pulse Ox O2 Delivery O2 Flow Rate FiO2 09/29/19 12:00 98.1 86 18 120/81 (94) 98 09/28/19 20:55 Room Air 09/28/19 12:25 3 Discharge Disposition Patient was discharged to home Discharge Diagnoses: (1) Postoperative wound infection (2) Hidradenitis axillaris (3) Pre-diabetes Tarun Denny MD Sep 29, 2019 12:37
--- NOTE | 2019-09-29 12:50 | NUR ---
DISCHARGE PLANNING PATIENT WOUND VAC REQUEST SENT TO [facility] F: [phone] WAITING FOR ORDER TO BE APPROVED HOME HEALTH ESTABLISHED WITH [facility] T:[phone]
[2019-09-29 16:00] VITALS: BP 113/67
--- NOTE | 2019-09-29 19:38 | NUR ---
HAND-OFF: Report given to JOSE Marie.
--- NOTE | 2019-09-30 02:26 | NUR ---
NURSES NOTE: Pt successfully discharged home. Pt in stable condition upon discharge. Wound vac with patient.
--- NOTE | 2019-09-30 16:52 | NUR ---
*-* INSURANCE *-* DISCHARGE SUMMARY HAS BEEN FAXED TO [facility] AUTH#[id number] FAX ALL CLINICALS TO [phone]
== END 2019-09-29 22:00 | disposition home health service (06) | DRG 857 ==
LOC: EMR 22:25 → 3E 22:52 → EDBEDREQ 22:58
PROC: 2W0 Placement, Anatomical Regions, Change (ICD-10-PCS; principal; 2019-09-24 15:00)
PROC: 2W1AX6Z Compression of Right Upper Arm using Pressure Dressing (ICD-10-PCS; 2019-09-28)
PROC: 0JBD0ZZ Excision of Right Upper Arm Subcutaneous Tissue and Fascia, Open Approach (ICD-10-PCS; 2019-09-28)
DX: T81.49XA Infection following a procedure, other surgical site, initial encounter (principal); T81.31XA Disruption of external operation (surgical) wound, not elsewhere classified, initial encounter; R73.9 Hyperglycemia, unspecified; L73.2 Hidradenitis suppurativa; R73.03 Prediabetes
CPT/HCPCS: 36415; 80048; 80202; 81001; 81025; 82962; 83036; 85025; 87040; 87070; 87075; 87181; 87205; 94003; 94150; 96365; 96368; 99285; J1815; J2250; J2405; J7030

== ENCOUNTER 2020-05-02 11:29 | Inpatient (IN) | payer BC ==
[2020-05-02] VITALS (10 sets, daily range): BP systolic 103–126; BP diastolic 47–78
[~2020-05-02] VITALS: Ht 154.9 cm; Wt 68.5 kg
[~2020-05-02 11:29] MED LIST changes: +METFORMIN HCL500 M1 ORAL; +NORCO 10-325 T1 EACH ORAL
[2020-05-02] MEDS ORDERED: EPINEPHrine 1mg/1ml Amp ONE (12:45)
[2020-05-02] MEDS ORDERED: Lidocaine 1% 10mg/ml/Epi 0.005mg/ml 30ml vial INJ ONE (12:45)
[2020-05-02] MEDS ORDERED: Bupivacaine 0.25% Inj 30ml INJ ONE (12:45)
[2020-05-02] MEDS ORDERED: NeoSporin Gu Irrig 1ml Amp IRRIG ONE (12:46)
[2020-05-02] MEDS ORDERED: Bacitracin 50000 Units Vial ONE (12:46)
[2020-05-02] MEDS ORDERED: Hydrogen Peroxide 473ml Bottle TOPIC ONE (12:46)
[2020-05-02] MEDS ORDERED: NS Irrig 1000ml IRRIG ONE ×2 (12:51→13:31)
--- NOTE | 2020-05-02 12:52 | Anethesia Preoperative Eval ---
Anesthesia Pre-op PMH/ROS General Date of Evaluation: May 02, 2020 Time of Evaluation: 13:03 Anesthesiologist: Betty ASA Score: ASA 2 Mallampati Score Class I : Soft palate, uvula, fauces, pillars visible Class II: Soft palate, uvula, fauces visible Class III: Soft palate, base of uvula visible Class IV: Only hard plate visible Mallampati Classification: Class II Surgeon: Roberto Diagnosis: Pilonidal Cyst Surgical Procedure: Excise Pilonidal Cyst with Flap Closure Family History: no anesthesia problems Allergies: Coded Allergies: No Known Allergies (Unverified , 05/02/20) Medications: see eMAR Patient NPO?: Yes Past Medical History Gastrointestinal/Genitourinary: Reports: GERD Neurologic/Psychiatric: Reports: depression/anxiety Endocrine: Reports: DM PSxH Narrative: Hiradenitis SX Anesthesia Pre-op Phys. Exam Physician Exam Last Vital Signs Date Time Temp Pulse Resp B/P (MAP) Pulse Ox O2 Delivery O2 Flow Rate FiO2 05/02/20 12:01 Room Air Constitutional: NAD Neurologic: CN 2-12 intact Cardiovascular: RRR Respiratory: CTA Gastrointestinal: S/NT/ND Airway Exam Mallampati Score: Class II MO: full ROM: full Teeth: intact Anesthesia Pre-op A/P Labs Urine Test Test 05/02/20 11:45 Urine HCG, Qualitative Negative (NEGATIVE) Risk Assessment & Plan Assessment: ASA 2 Plan: GA, SED, GlideScope Status Change Before Surgery: No Pre-Antibiotics Dru Gram Ancef IV Given Within 1 Hr of Incision: Yes Time Given: 13:26 Fabrice Hernández MD May 02, 2020 12:52
--- NOTE | 2020-05-02 12:54 | Immediate Post-Op Evaluation ---
Immediate Post-Op Evalulation Immediate Post-Op Evalulation Procedure: Excise Pilonidal Cyst with Flap Closure Date of Evaluation: May 02, 2020 Time of Evaluation: 15:42 IV Fluids: 500 LR Blood Products: 0 Estimated Blood Loss: 25 Urinary Output: 0 Blood Pressure Systolic: 116 Blood Pressure Diastolic: 54 Pulse Rate: 72 Respiratory Rate: 26 O2 Sat by Pulse Oximetry: 100 Temperature (Fahrenheit): 97.2 Pain Score (1-10): 2 Nausea: No Vomiting: No Complications 0 Patient Status: awake, reacts, patent, extubated, none Hydration Status: adequate Dru Gram Ancef IV Given Within 1 Hr of Incision: Yes Time Given: 13:26 Fabrice Hernández MD May 02, 2020 12:54
--- NOTE | 2020-05-02 12:55 | Pre-Procedure Note/Attestation ---
Pre-Procedure Note/Attestation Complete Prior to Procedure Planned Procedure: not applicable Procedure Narrative: Excision of pilonidal cyst and flap closure. Attestation I attest that I discussed the nature of the procedure; its benefits; risks and complications; and alternatives (and the risks and benefits of such alternatives), prior to the procedure, with the patient (or the patient's legal district sales representative). I attest that, if there was a reasonable possibility of needing a blood transfusion, the patient (or the patient's legal district sales representative) was given the [facility] standardized written summary, pursuant to the Bill Shahab Blood Safety Act ([place] Health and Safety Code # 1645, as amended). I attest that I re-evaluated the patient just prior to the surgery and that there has been no change in the patient's H&P, except as documented below: Quynh Mejia MD May 02, 2020 12:55
--- NOTE | 2020-05-02 12:55 | 48 Hour Post Anesthesia Eval ---
Post Anesthesia Evaluation Procedure: Excise Pilonidal Cyst with Flap Closure Date of Evaluation: May 02, 2020 Time of Evaluation: 17:12 Blood Pressure Systolic: 117 0: 72 Pulse Rate: 67 Respiratory Rate: 18 Temperature (Fahrenheit): 98 O2 Sat by Pulse Oximetry: 100 Airway: patent Nausea: No Vomiting: No Pain Intensity: 2 Hydration Status: adequate Cardiopulmonary Status: Stable Mental Status/LOC: patient returned to baseline Follow-up Care/Observations: 0 Post-Anesthesia Complications: 0 Follow-up care needed: N/A Fabrice Hernández MD May 02, 2020 12:55
[2020-05-02] MEDS ORDERED: Lidocaine 1% Plain 30 ml INJ ONE (12:58)
[2020-05-02] MEDS ORDERED: DiphenhydrAMINE 50mg/ml Inj IVP PRN (13:00)
[2020-05-02] MEDS ORDERED: Sodium Chloride 10ml vial INJ ONE (13:00)
[2020-05-02] MEDS ORDERED: Rocuronium Bromide 50mg/5ml Inj IV ONE (13:00)
[2020-05-02] MEDS ORDERED: Meperidine 25mg/1ml Inj (FOR RIGORS ONLY) IV PRN (13:00)
[2020-05-02] MEDS ORDERED: Sterile Water Irrig 1000ml IRRIG ONE (13:00)
[2020-05-02] MEDS ORDERED: LR 1000ml 1,000 ML IVLG SCH (13:00)
[2020-05-02] MEDS ORDERED: LR 1000ml ONE (13:00)
[2020-05-02] MEDS ORDERED: Acetaminophen (Non formulary) 100 ML IV ONE (13:00)
[2020-05-02] MEDS ORDERED: HYDROcodone/Acetamin 5/325 tab ORAL PRN (13:00)
[2020-05-02] MEDS ORDERED: fentaNYL 100 mcg/2 mL IV PRN (13:00)
[2020-05-02] MEDS ORDERED: Lidocaine 1% MPF 10mg/ml 5ml ONE (13:00)
[2020-05-02] MEDS ORDERED: Atropine Sulfate 0.4mg/ml inj IVP PRN (13:00)
[2020-05-02] MEDS ORDERED: oxyCODONE HCL/Acetaminophen 5/325mg ORAL PRN (13:00)
[2020-05-02] MEDS ORDERED: Labetalol 5mg/ml 20ml vial IV PRN (13:00)
[2020-05-02] MEDS ORDERED: Zolpidem 5mg tab ORAL PRN (13:00)
[2020-05-02] MEDS ORDERED: HYDROcodone/Acetamin 7.5/325 tab ORAL PRN (13:00)
[2020-05-02] MEDS ORDERED: LORazepam Inj 2mg/ml 1ml IV PRN (13:00)
[2020-05-02] MEDS ORDERED: Midazolam 2mg/2ml Inj IVP PRN (13:00)
[2020-05-02] MEDS ORDERED: Ketorolac 30mg Inj IV PRN ×2 (13:00)
[2020-05-02] MEDS ORDERED: Hydromorphone 0.5mg/0.5ml inj IVP PRN ×2 (13:00)
[2020-05-02] MEDS ORDERED: ProvayBlue 5mg/ml 10ml amp INJ ONE (13:00)
[2020-05-02] MEDS ORDERED: Metoclopramide 10mg/2ml Inj IVP PRN (13:00)
[2020-05-02] MEDS ORDERED: Neostigmine 1mg/ml 10ml Inj ONE (13:34)
[2020-05-02] MEDS ORDERED: Glycopyrrolate 0.2mg/ml 1ml Vial ONE (13:34)
--- NOTE | 2020-05-02 14:30 | NUR ---
NURSE NOTES: Received report from laine RN, pt a/a/o x4 laying in bed with no signs of distress or other issues at this time. surgical dressing dry and intact, JANUSZ drain in place, draining well. IV on the right arm gauge#20 running LR. RN will verify orders and will carry on as indicated. I will f/u as needed.
--- NOTE | 2020-05-02 14:36 | Operative Note - PDOC ---
Operative Note Operative Note Pre-op Diagnosis: Pilonidal cyst Procedure: Flap closure following pilonidal excision Complications: none Condition: stable Estimated Blood Loss: minimal Drains: JANUSZ Implant(s) used?: No Quynh Mejia MD May 02, 2020 14:36
--- NOTE | 2020-05-02 16:00 | History and Physical ---
History of Present Illness General Date patient seen: May 02, 2020 Present Illness HPI Mrs. Wright is a 30F with PMH of Hydradenitis of the Axilla s/p multiple excisional surgeries is admitted for post-op care for pilonidal cyst and flap closure surgery. Surgery completed by Dr. Mejia earlier today with no post- op complications. Pilonidal cyst located in sacral base and JANUSZ drain in placed. She denies any current complaints aside from post-op pain. She has been feeling well prior to admission. Rest of 10 point ROS otherwise negative. PMH: Hydradenitis Suppurativa PSH: multiple HS surgeries, 1 Fx: both parents with DM Soc: denies smoking, drinking, and drug use Allergies: Coded Allergies: No Known Allergies (Unverified , 05/02/20) COVID-19 Screening Contact w/high risk pt: No Recent Travel to affected area: No Experienced COVID-19 symptoms?: No Medication History No Active Prescriptions or Reported Meds Patient History Healthcare decision maker Resuscitation status Advanced Directive on File Family History Family History: FH: HTN (hypertension) Review of Systems Constitutional: Denies: no symptoms, see HPI, chills, sweats, fever, malaise, weakness, other Eye: Denies: no symptoms, see HPI, eye pain, blurred vision, tearing, double vision, nose pain, nose congestion, acuity changes, discharge, other ENT: Denies: no symptoms, see HPI, ear pain, ear discharge, nose pain, nose congestion, throat pain, throat swelling, mouth pain, hearing loss, nasal discharge, other Respiratory: Denies: no symptoms, see HPI, cough, orthopnea, shortness of breath, stridor, wheezing, WAHL, sputum, other Cardiovascular: Denies: no symptoms, see HPI, chest pain, edema, palpitations, syncope, PND, other Genitourinary: Denies: no symptoms, see HPI, discharge, dysuria, frequency, hematuria, pain, retention, incontinence, urgency, vag bleed/dc, other Musculoskeletal: Denies: no symptoms, see HPI, back pain, gout, joint pain, joint swelling, muscle pain, muscle stiffness, other Skin: Denies: no symptoms, see HPI, rash, change in color, change in hair/nails, dryness, lesions, other Psychiatric: Denies: no symptoms, see HPI, prior hx, anxiety, depressed feelings, emotional problems, SI, HI, hallucinations, other Neurological: Denies: no symptoms, see HPI, headache, numbness, paresthesia, seizure, tingling, tremors, focal weakness, syncope, dizziness, other Endocrine: Denies: no symptoms, see HPI, excessive sweating, flushing, intolerance to temperature, increased thirst, increased urine, unexplained weight loss, other Hematologic/Lymphatic: Denies: no symptoms, see HPI, anemia, blood clots, easy bleeding, easy bruising, swollen glands, diathesis, other Physical Exam General Appearance: no apparent distress, alert oriented x3 HEENT: normocephalic, PERRL Neck: non-tender Respiratory/Chest: lungs clear, normal breath sounds, no respiratory distress Cardiovascular/Chest: normal rate, regular rhythm, no JVD Abdomen: non tender, soft, no mass Extremities: normal range of motion, non-tender Neurologic: internal auditor II-XII grossly normal, oriented x 3 Musculoskeletal: other - sacrum with surgical dressing, JANUSZ drain in placed Last 24 Hour Vital Signs Date Time Temp Pulse Resp B/P (MAP) Pulse Ox O2 Delivery O2 Flow Rate FiO2 05/02/20 15:35 60 17 103/62 100 Nasal Cannula 3 05/02/20 15:35 97.3 05/02/20 15:35 97.3 05/02/20 15:20 64 18 105/47 100 Nasal Cannula 3 05/02/20 15:05 74 19 111/72 100 Nasal Cannula 3 05/02/20 14:55 72 19 118/76 100 Simple Mask 6 05/02/20 14:45 63 14 121/78 100 Simple Mask 6 05/02/20 14:40 68 16 116/54 100 Simple Mask 6 05/02/20 14:39 67 18 100 05/02/20 14:35 97.2 71 22 113/78 100 Simple Mask 6 05/02/20 12:57 98.3 78 16 126/75 98 Room Air 05/02/20 12:01 Room Air Laboratory Tests Test 05/02/20 11:45 05/02/20 13:10 Urine HCG, Qualitative Negative (NEGATIVE) Prothrombin Time 11.2 SEC (9.30-11.50) Prothromb Time International Ratio 1.0 (0.9-1.1) Activated Partial Thromboplast Time 30 SEC (23-33) Microbiology Date/Time Source Procedure Growth Status 05/02/20 11:45 Nasopharynx SARS-CoV-2 RdRp Gene Assay - Final Complete Height (Feet): 5 Height (Inches): 0.00 Weight (Pounds): 149 Medications Current Medications Medications (Trade) Dose Ordered Sig/Rl Route PRN Reason Start Time Stop Time Status Last Admin Dose Admin Acetaminophen (Tylenol) 650 mg Q4H PRN ORAL FEVER 05/02/20 13:00 06/01/20 12:59 Acetaminophen/ Hydrocodone Bitart ([place] 5/325) 1 tab Q1H PRN ORAL Mild Pain (Pain Scale 1-3) 05/02/20 13:00 05/02/20 20:00 Acetaminophen/ Hydrocodone Bitart ([place] 7.5/325) 1 tab Q1H PRN ORAL Moderate Pain (Pain Scale 4-6) 05/02/20 13:00 05/02/20 20:00 Al Hydroxide/Mg Hydroxide (Mylanta) 15 ml Q1H PRN ORAL gi upset 05/02/20 13:00 05/02/20 20:00 Atropine Sulfate (Atropine 0.4mg/ ml) 0.5 mg Q5M PRN IVP HR<40 05/02/20 13:00 05/02/20 20:00 Diphenhydramine HCl (Benadryl) 25 mg Q15M PRN IVP Itching 05/02/20 13:00 05/02/20 20:00 Diphenhydramine HCl (Benadryl) 25 mg Q8H PRN ORAL Itching/Pruritis 05/02/20 13:00 06/01/20 12:59 Fentanyl Citrate (Sublimaze 100 mcg/2 mL) 25 mcg Q10M PRN IV Moderate Pain (Pain Scale 4-6) 05/02/20 13:00 05/02/20 20:00 Heparin Sodium (Porcine) (Heparin 5000 units/ml) 5,000 units EVERY 12 HOURS SUBQ 05/02/20 21:00 06/16/20 20:59 Hydromorphone HCl (Dilaudid) 0.5 mg Q15M PRN IVP Severe Pain (Pain Scale 7-10) 05/02/20 13:00 05/02/20 20:00 05/02/20 15:21 Hydromorphone HCl (Dilaudid) 0.5 mg Q3H PRN IVP Pain Score 1-3 05/02/20 13:00 05/09/20 12:59 Hydromorphone HCl (Dilaudid) 1 mg Q3H PRN IVP pain score 4-6 05/02/20 13:00 05/09/20 12:59 Hydromorphone HCl (Dilaudid) 2 mg Q3H PRN IVP pain score 7-10 05/02/20 13:00 05/09/20 12:59 Ketorolac Tromethamine (Toradol 30mg) 15 mg Q1H PRN IV Moderate Breakthru Pain (5-7) 05/02/20 13:00 05/02/20 20:00 Ketorolac Tromethamine (Toradol 30mg) 30 mg Q1H PRN IV Severe Breakthru Pain (>7) 05/02/20 13:00 05/02/20 20:00 Labetalol HCl (Normodyne) 5 mg Q10M PRN IV SBP>160 / DBP>90 05/02/20 13:00 05/03/20 20:00 Lactated Ringer's 1,000 ml @ 10 mls/hr Q24H IVLG 05/02/20 13:00 05/02/20 20:00 Lorazepam (Ativan 2mg/ml 1ml) 1 mg Q15M PRN IV For Anxiety 05/02/20 13:00 05/02/20 20:00 Meperidine HCl (Demerol) 25 mg Q5M PRN IV SHIVERING.MAY REPEAT X 1 05/02/20 13:00 05/02/20 20:00 05/02/20 15:05 Metoclopramide HCl (Reglan) 10 mg Q1H PRN IVP Nausea & Vomiting 05/02/20 13:00 05/02/20 20:00 Midazolam HCl (Versed 2mg/2ml vial) 1 mg Q15M PRN IVP For Anxiety 05/02/20 13:00 05/02/20 20:00 Ondansetron HCl (Zofran) 4 mg Q1H PRN IVP Nausea & Vomiting 05/02/20 13:00 05/02/20 20:00 Ondansetron HCl (Zofran) 4 mg Q6H PRN IVP Nausea & Vomiting 05/02/20 13:00 06/01/20 12:59 Oxycodone/ Acetaminophen (Percocet 5-325) 1 tab Q1H PRN ORAL Severe Pain (Pain Scale 7-10) 05/02/20 13:00 05/02/20 20:00 Zolpidem Tartrate (Ambien) 5 mg DAILYPRN PRN ORAL Insomnia 05/02/20 13:00 05/09/20 12:59 Assessment/Plan Assessment/Plan: Mrs. Wright is a 30F with PMH of HS being admitted following surgery for p ilonidal cyst removal. A: # s/p Excision of pilonidal disease and R/L sided V-Y flap closure # Post-op Pain # Hx of Hydradenitis Suppurativa # Leukocytosis likely reactive # Pre-Diabetes P: - post op care - ISS - ambulate as tolerated - daily dressing changes - JANUSZ drain in place - pain control - Dr. Mejia Surgeon following, recs appreciated CODE: Full Diet: Regular DVT: Heparin 5000U BID IVF: none GI: none Dispo: likely home in 1-2 days with surgical clearance In addition to the usual care above I spent additional time reviewing records in the EMR and paper charts including physician documentation, nursing do cumentation, lab results, imaging and clinical documentation. Total time included was 25 min. Time spent on this encounter was 45 minutes which included 25 minutes of counseling and care coordination. I discussed with the nurse at bedside. Time of note may not reflect time patient was seen. Jim Mathur D.O May 02, 2020 16:00
[2020-05-02] MEDS ORDERED: Albuterol/Ipratropium 3ml neb HHN PRN (16:15)
--- NOTE | 2020-05-02 16:15 | Operative Note - Dictated ---
DATE OF OPERATION: 05/02/2020 SURGEON: Quynh Mejia M.D. PATTERN SHOP SUPERVISOR: Alexandrea Estrada M.D. ANESTHESIA: General. PREOPERATIVE DIAGNOSIS: Pilonidal cyst that is infected. POSTOPERATIVE DIAGNOSIS: Pilonidal cyst that is infected. PROCEDURES: 1. Excision of pilonidal disease. 2. Elevation of a right-sided V-Y flap for closure of pilonidal wound. 3. Elevation of a left-sided V-Y flap for closure of pilonidal wound. COMPLICATIONS: None. DRAINS: Included a size 7 JANUSZ. EBL: Minimal. DISPOSITION: Stable to the recovery room. INDICATIONS FOR SURGERY: This is a 30-year-old female with a long-standing history of hidradenitis, who has also been suffering with an unremitting pilonidal cyst. This cyst has caused her pain with drainage and has not responded to local management. Upon my evaluation, I felt that she was an appropriate candidate for radical excision of the disease and flap closure. She understood the risks and benefits of surgery and agreed to proceed. DETAILS OF THE OPERATION: The patient was brought to the operating room. After induction of anesthesia, she was placed in the prone position on the operating room table. The buttock and lower back regions were prepped and draped in the sterile and usual fashion. We first began by delineating the area of disease using a marking pen and in a circular design we proceeded to use a 15-blade to excise the disease. Upon cutting the skin, we came across significant scar tissue and disease, which was consistent with a recurrent or long-standing pilonidal cyst. We dissected through the scar tissue and the disease all the way down to healthy fat, where there was no evidence of further infection. Once the disease was excised entirely, there was a large defect that measured approximately 5 x 5 cm and was clearly not amenable to primary closure both for dimensional reasons and the tension on the wound if a primary closure was pursued. As such, bilateral V-Y flaps were designed to allow for a tension-free repair. We first began by making the right-sided flap incision. Dissection of the flap was carried down all the way down to the level of the fascia to allow for elevation of the fasciocutaneous flap. This was a flap that was based off of perforators coming to the gluteus muscle from the superior gluteal artery. In a similar fashion, a contralateral V-Y flap was elevated using a 15-blade to cut through the skin. Dissection was carried down to the level of the fascia. The flap was then elevated and again the perforators to the gluteus muscle from the superior gluteal artery were the source of the perfusion of this flap. Once the flaps were fully mobilized, it was noted to be brought together without any tension in the midline. The wound was then copiously irrigated. The flaps were then inset in the midline in a layered closure fashion of 0 and 2-0 Vicryl sutures. The donor sites were closed in a Y fashion with 0 Vicryl sutures. The remaining portion of the skin was closed with a combination of running as well as interrupted Prolene sutures. A JANUSZ drain was also placed into the base of the wound. The patient tolerated the procedure well and there were no complications. Quynh Mejia M.D. DR: JANNA JOB#: [id number] CC:
[2020-05-02 16:48] LABS: BASOPHILS % (AUTO) 0.8 % (0.0-2.0); EOSINOPHILS % (AUTO) 0.4 % (0.0-3.0); HEMATOCRIT 42.3 % (37.0-47.0); HEMOGLOBIN 14.1 G/DL (12.0-16.0); MEAN CORPUSCULAR VOLUME 88 FL (80-99); MONOCYTES % (AUTO) 1.9 % (1.0-10.0); NEUTROPHILS % (AUTO) 81.9 % (45.0-75.0); PLATELET COUNT 309 K/UL (150-450); RED BLOOD COUNT 4.78 M/UL (4.20-5.40); RED CELL DISTRIBUTION WIDTH 12.4 % (11.6-14.8); WHITE BLOOD COUNT 12.7 K/UL (4.8-10.8)
[2020-05-02 17:00] LABS: ALANINE AMINOTRANSFERASE 17 U/L (12-78); ALBUMIN 4.1 G/DL (3.4-5.0); ALBUMIN/GLOBULIN RATIO 0.9 (1.0-2.7); ALKALINE PHOSPHATASE 71 U/L (46-116); ANION GAP 10 mmol/L (5-15); ASPARTATE AMINO TRANSFERASE 16 U/L (15-37); BILIRUBIN,TOTAL 0.3 MG/DL (0.2-1.0); BLOOD UREA NITROGEN 13 mg/dL (7-18); CALCIUM 9.2 MG/DL (8.5-10.1); CARBON DIOXIDE 27 MMOL/L (21-32); CHLORIDE 102 MMOL/L (98-107); CREATININE 0.8 MG/DL (0.55-1.30); PHOSPHORUS 3.5 MG/DL (2.5-4.9); POTASSIUM 4.4 MMOL/L (3.5-5.1); SODIUM 139 MMOL/L (136-145)
[2020-05-02] MEDS: HYDROmorphone 1mg/ml Carpuject IVP PRN ×2 (17:12→20:56)
--- NOTE | 2020-05-02 19:17 | NUR ---
NURSE HAND-OFF: Important Events on Shift: CT spine, and Hedal test done Patient Status: [stable, full code Diet: clear liquid diet Pending Orders: am labs Pending Results/Labs:am labs Pending MD notification:[] Latest Vital Signs: Temperature 97.3 , Pulse 61 , B/P 113 /67 , Respiratory Rate 14 , O2 SAT 99 , Room Air, O2 Flow Rate 3.0 . Vital Sign Comment: stable, however pain 04/30 Latest Welch Fall Score: 20 Fall Risk: Low Risk Safety Measures: Call light Within Reach, Bed Alarm Zone 1, Side Rails Side Rails x2, Bed position Low and Locked. Fall Precautions: needs supervision with walking Patient Fall Education Report given to Wai GARCIA, pt in stable condition. - pt is able to tolerate clear liquids with no n/v. Today test results: 05/02 CT spine: negative 05/02: Hedal: negative Addendum: 05/02/20 at 1927 by Prince Lo RN please discard this note. belongs to a different patient.
--- NOTE | 2020-05-02 19:24 | NUR ---
NURSE NOTES: Received report from Prince GARCIA. Rounding is done. Patient is a/o x4. Denied any pain at this time. No any distress noted at this time. Breathing is even and unlabored. IV sited is intact and patient. Surgical Dressing is c/d/i. JANUSZ drain is in place and draining well. Bed is on alarm, locked, and lowest position. Call light within reach. Will continue to monitor.
--- NOTE | 2020-05-02 19:29 | NUR ---
NURSE HAND-OFF: Important Events on Shift: 05/02 s/p:Excision of pilondial cyst and flap closure. Patient Status: stable, full code Diet: Regular Pending Orders: Pending Results/Labs:am labs Pending MD notification: CBC, CMP, mag, phos Latest Vital Signs: Temperature 97.3 , Pulse 61 , B/P 113 /67 , Respiratory Rate 14 , O2 SAT 99 , Room Air, O2 Flow Rate 3.0 . Vital Sign Comment: stable, pain 5/10 Latest Welch Fall Score: 20 Fall Risk: Low Risk Safety Measures: Call light Within Reach, Bed Alarm Zone 1, Side Rails Side Rails x2, Bed position Low and Locked. Fall Precautions: needs assistance for ambulation Patient Fall Education Report given to Derek GARCIA, pt in stable condition. - JANUSZ drain: no output during my shift
--- NOTE | 2020-05-02 20:00 | NUR ---
NURSE NOTES: Patient ambulated Hallway with RN assistance and tolerated well.
[2020-05-02] MEDS: Heparin 5000 units/ml inj SUBQ SCH (20:57)
[2020-05-03] VITALS: BP 103/65
[2020-05-03] MEDS: HYDROmorphone 1mg/ml Carpuject IVP PRN (00:12)
[2020-05-03 04:00] VITALS: BP 91/44
[2020-05-03 05:31] LABS: BASOPHILS % (AUTO) 0.7 % (0.0-2.0); HEMATOCRIT 37.5 % (37.0-47.0); LYMPHOCYTES % (AUTO) 15.6 % (20.0-45.0); MEAN CORPUSCULAR VOLUME 83 FL (80-99); MONOCYTES % (AUTO) 4.2 % (1.0-10.0); NEUTROPHILS % (AUTO) 79.5 % (45.0-75.0); PLATELET COUNT 306 K/UL (150-450); RED BLOOD COUNT 4.52 M/UL (4.20-5.40); RED CELL DISTRIBUTION WIDTH 11.2 % (11.6-14.8); WHITE BLOOD COUNT 12.8 K/UL (4.8-10.8)
[2020-05-03 05:51] LABS: ANION GAP 9 mmol/L (5-15); BLOOD UREA NITROGEN 12 mg/dL (7-18); CALCIUM 9.1 MG/DL (8.5-10.1); CARBON DIOXIDE 26 MMOL/L (21-32); CHLORIDE 102 MMOL/L (98-107); CREATININE 0.7 MG/DL (0.55-1.30); PHOSPHORUS 4.4 MG/DL (2.5-4.9); POTASSIUM 4.3 MMOL/L (3.5-5.1); SODIUM 137 MMOL/L (136-145)
--- NOTE | 2020-05-03 07:19 | NUR ---
NURSE HAND-OFF: Important Events on Shift:[PAIN CONTROL] Patient Status: [STABLE] Diet: [REGULAR] Pending Orders: [N] Pending Results/Labs:[N] Pending MD notification:[N] Latest Vital Signs: Temperature 97.9 , Pulse 64 , B/P 91 /44 , Respiratory Rate 17 , O2 SAT 97 , Room Air, O2 Flow Rate 3.0 . Vital Sign Comment: [STABLE] Latest Welch Fall Score: 20 Fall Risk: Low Risk Safety Measures: Call light Within Reach, Bed Alarm Zone 2, Side Rails Side Rails x2, Bed position Low and Locked. Fall Precautions: Yellow Socks Door Sign Report given to [BERNIE GACRIA].
--- NOTE | 2020-05-03 07:36 | NUR ---
NURSE NOTES: Received report from Derek GARCIA, pt a/a/o x4 walking around the room with no signs of distress or other issues at this time. JANUSZ drain in place over night out put: 5ml. IV on the left AC gauge #20 heplock. kelsey light within reach, bed in lowest position. side rales up x2. I will f/u as needed.
[2020-05-03 08:00] VITALS: BP 116/65
[2020-05-03] MEDS ORDERED: HYDROmorphone 1mg/ml Carpuject SUBQ ONE (09:15)
[2020-05-03] MEDS: Heparin 5000 units/ml inj SUBQ SCH (09:18)
[2020-05-03] MEDS ORDERED: HYDROcodone/Acetamin 10/325 tab ORAL PRN (09:45)
--- NOTE | 2020-05-03 11:13 | Discharge Summary ---
Discharge Summary Hospital Course Date of Admission May 02, 2020 at 14:18 Date of Discharge Apr, Admitting Diagnosis Sacral Pilonidal cyst HPI Deysi Wright is a 30 year old female who was admitted on May 02, 2020 at 14:18 for Pilonidal Cyst. She has a PMH of Hydradenitis of the Axilla s/p multiple excisional surgeries is admitted for post-op care for pilonidal cyst and flap closure surgery. Consultations plastic surgery Procedures Excise Pilonidal Cyst with Flap Closure Hospital Course Surgery completed by Dr. Mejia with no post-op complications. Pilonidal cyst located in sacral base and JANUSZ drain in placed. estimated blood loss 25 ml. Extubated to room air and doing well. Pilonidal cyst located in sacral base and JANUSZ drain in placed. She denies any current complaints aside from post-op pain. Patient will be discharged with home health resumption. pain control and antibiotics General Appearance: no apparent distress, alert oriented x3 HEENT: normocephalic, PERRL Neck: non-tender Respiratory/Chest: lungs clear, normal breath sounds, no respiratory distress Cardiovascular/Chest: normal rate, regular rhythm, no JVD Abdomen: non tender, soft, no mass Extremities: normal range of motion, non-tender Neurologic: fabricator special items II-XII grossly normal, oriented x 3 Musculoskeletal: other - sacrum with surgical dressing, JANUSZ drain in placed Discharge Medications New Medications: Cephalexin* (Keflex*) 500 Mg Capsule 500 MG ORAL EVERY 12 HOURS, #14 CAP 0 Refills Hydrocodone Bit/Acetaminophen 10-325* ([place] 10-325*) 1 Each Tablet 1 TAB ORAL Q4H PRN for 10 Days, #20 TAB PRN PAIN Discharge Condition Upon Discharge: stable Discharge Vital Signs Last Vital Signs Date Time Temp Pulse Resp B/P (MAP) Pulse Ox O2 Delivery O2 Flow Rate FiO2 05/03/20 09:47 98.2 05/03/20 09:00 Room Air 05/03/20 08:00 77 18 116/65 (82) 96 05/02/20 16:33 3.0 Discharge Disposition Patient was discharged to home Discharge Diagnoses: (1) Pilonidal cyst with abscess Yimi Rowland M.D. May 03, 2020 11:13
[2020-05-03] MEDS ORDERED: CEPHALEXIN500 MG ORAL (11:19)
[2020-05-03] MEDS ORDERED: NORCO 10-325 T1 EACH ORAL ×2 (11:19→11:37)
[2020-05-03 12:00] VITALS: BP 127/78
--- NOTE | 2020-05-03 14:15 | NUR ---
CASE MANAGEMENT: REVIEW 30 YEAR OLD FEMALE DIRECT ADMIT FROM HOME Hx: HYDRADENITIS OF THE AXILLA S/P MULTIPLE EXCISIONAL SURGERIES SI: PILONIDAL CYST EXCISE PILONIDAL CYST WITH FLAP CLOSURE 05/02 T 97.9 HR 64 RR 17 BP 91/44 SAT 97% ROOM AIR WBC 12.7 IS: ANCEF IV X1 VERSED IV X1 LIDOCAINE INJ X1 LR IV X1 PATIENT ADMITTED TO MED/SURG UNIT DCP: PATIENT IS FROM HOME
--- NOTE | 2020-05-03 15:30 | NUR ---
NURSE NOTES: Received discharge order; discharge instructions and belongings given to the patient. IV removed prior to d/c. per MD no to change surgical dressing, pt is aware and verbalized understanding. JANUSZ drain to be removed by MD this coming Saturday05/10/20. patient is aware and will contact MD office to make the appointment. aunt will provide transportation. I will f/u as needed.
== END 2020-05-03 15:06 | disposition home or self-care (01) | DRG 578 ==
LOC: SUR 11:29 → 3E 14:18
DX: L05.01 Pilonidal cyst with abscess (principal); K21.9 Gastro-esophageal reflux disease without esophagitis; Z87.2 Personal history of diseases of the skin and subcutaneous tissue; G89.18 Other acute postprocedural pain; R73.03 Prediabetes
CPT/HCPCS: 36415; 80048; 80053; 81025; 83735; 84100; 85025; 85610; 85730; 94003; 94150; J2180; J2405; J2710; U0002

== ENCOUNTER 2020-06-27 10:06 | Observation (INO) | payer BC ==
[~2020-06-27] VITALS: Ht 160 cm; Wt 67.1 kg
[2020-06-27] VITALS (14 sets, daily range): BP systolic 102–128; BP diastolic 60–94
[~2020-06-27 10:06] MED LIST changes: +Bacitracin 50000 Units Vial ONE; +EPINEPHrine 1mg/1ml Amp ONE; +Lidocaine 1%/ 10mg/ml/EPI 0.01mg/ml 20ml INJ ONE
--- NOTE | 2020-06-27 10:10 | Anethesia Preoperative Eval ---
Anesthesia Pre-op PMH/ROS General Date of Evaluation: Jun 27, 2020 Time of Evaluation: 11:47 Anesthesiologist: Betty ASA Score: ASA 2 Mallampati Score Class I : Soft palate, uvula, fauces, pillars visible Class II: Soft palate, uvula, fauces visible Class III: Soft palate, base of uvula visible Class IV: Only hard plate visible Mallampati Classification: Class II Surgeon: Roberto Diagnosis: Back Lesion Surgical Procedure: Excision of Back Lesion with Flap Closure Anesthesia History: none Family History: no anesthesia problems Allergies: Coded Allergies: No Known Allergies (Unverified , 05/02/20) Medications: see eMAR Patient NPO?: Yes Past Medical History Gastrointestinal/Genitourinary: Reports: GERD Other: obesity - BMI 31 Anesthesia Pre-op Phys. Exam Physician Exam Vital Signs Date Time Temp Pulse Resp B/P (MAP) Pulse Ox O2 Delivery O2 Flow Rate FiO2 06/27/20 11:06 Room Air 06/27/20 11:28 98.2 80 18 115/75 99 Constitutional: NAD Neurologic: CN 2-12 intact Cardiovascular: RRR Respiratory: CTA Gastrointestinal: S/NT/ND Airway Exam Mallampati Score: Class II MO: full ROM: full Teeth: missing, intact Anesthesia Pre-op A/P Risk Assessment & Plan Assessment: ASA 2 Plan: GA, SED, GlideScope Status Change Before Surgery: No Pre-Antibiotics Dru Gram Ancef IV Given Within 1 Hr of Incision: Yes Time Given: 11:52 Fabrice Hernández MD Jun 27, 2020 10:10
[2020-06-27] MEDS ORDERED: Ketorolac 30mg Inj IV PRN ×2 (10:15)
[2020-06-27] MEDS ORDERED: Atropine Sulfate 0.4mg/ml inj IVP PRN (10:15)
[2020-06-27] MEDS ORDERED: Hydromorphone 0.5mg/0.5ml inj IVP PRN ×2 (10:15→13:15)
[2020-06-27] MEDS ORDERED: DiphenhydrAMINE 50mg/ml Inj IVP PRN ×2 (10:15→13:15)
[2020-06-27] MEDS ORDERED: Labetalol 5mg/ml 20ml vial IV PRN (10:15)
[2020-06-27] MEDS ORDERED: LORazepam Inj 2mg/ml 1ml IV PRN (10:15)
[2020-06-27] MEDS ORDERED: Metoclopramide 10mg/2ml Inj IVP PRN (10:15)
[2020-06-27] MEDS ORDERED: Meperidine 25mg/1ml Inj (FOR RIGORS ONLY) IV PRN (10:15)
[2020-06-27] MEDS ORDERED: Midazolam 2mg/2ml Inj IVP PRN (10:15)
[2020-06-27] MEDS ORDERED: oxyCODONE HCL/Acetaminophen 5/325mg ORAL PRN (10:15)
[2020-06-27] MEDS ORDERED: HYDROcodone/Acetamin 5/325 tab ORAL PRN ×2 (10:15→13:30)
[2020-06-27] MEDS ORDERED: fentaNYL 100 mcg/2 mL IV PRN (10:15)
[2020-06-27] MEDS ORDERED: HYDROcodone/Acetamin 7.5/325 tab ORAL PRN (10:15)
[2020-06-27] MEDS ORDERED: LR 1000ml 1,000 ML IVLG SCH (10:15)
--- NOTE | 2020-06-27 11:23 | Pre-Procedure Note/Attestation ---
Pre-Procedure Note/Attestation Complete Prior to Procedure Planned Procedure: left Procedure Narrative: Excision of left upper back lesion with closure Attestation I attest that I discussed the nature of the procedure; its benefits; risks and complications; and alternatives (and the risks and benefits of such alternatives), prior to the procedure, with the patient (or the patient's legal surgical sales representative). I attest that, if there was a reasonable possibility of needing a blood transfusion, the patient (or the patient's legal surgical sales representative) was given the [facility] standardized written summary, pursuant to the [place] Blood Safety Act ([place] Health and Safety Code # 1645, as amended). I attest that I re-evaluated the patient just prior to the surgery and that t here has been no change in the patient's H&P, except as documented below: Quynh Mejia MD Jun 27, 2020 11:23
[2020-06-27] MEDS ORDERED: Sodium Chloride 10ml vial INJ ONE (11:38)
[2020-06-27] MEDS ORDERED: Lidocaine 1% MPF 10mg/ml 5ml ONE ×2 (11:38→14:27)
[2020-06-27] MEDS ORDERED: fentaNYL 100 mcg/2 mL IV ONE ×2 (11:39→12:39)
--- NOTE | 2020-06-27 11:44 | Immediate Post-Op Evaluation ---
Immediate Post-Op Evalulation Immediate Post-Op Evalulation Procedure: Excision of Back Lesion with Flap Closure Date of Evaluation: Jun 27, 2020 Time of Evaluation: 13:27 IV Fluids: 700 LR Blood Products: 0 Estimated Blood Loss: 10 Urinary Output: 0 Blood Pressure Systolic: 126 Blood Pressure Diastolic: 81 Pulse Rate: 84 Respiratory Rate: 16 O2 Sat by Pulse Oximetry: 100 Temperature (Fahrenheit): 98.2 Pain Score (1-10): 2 Nausea: No Vomiting: No Complications 0 Patient Status: awake, reacts, patent, none Hydration Status: adequate Dru Gram Ancef IV Given Within 1 Hr of Incision: Yes Time Given: 11:52 Fabrice Hernández MD Jun 27, 2020 11:44
[2020-06-27] MEDS ORDERED: Acetaminophen (Non formulary) 100 ML IV ONE (11:45)
[2020-06-27] MEDS ORDERED: LR 1000ml ONE (11:47)
[2020-06-27] MEDS ORDERED: Lidocaine 1%/ 10mg/ml/EPI 0.01mg/ml 20ml INJ ONE (11:54)
[2020-06-27] MEDS ORDERED: Bacitracin 50000 Units Vial ONE (11:54)
--- NOTE | 2020-06-27 12:15 | 48 Hour Post Anesthesia Eval ---
Post Anesthesia Evaluation Procedure: Excision of Back Lesion with Flap Closure Date of Evaluation: Jun 27, 2020 Time of Evaluation: 15:34 Blood Pressure Systolic: 127 0: 76 Pulse Rate: 74 Respiratory Rate: 18 Temperature (Fahrenheit): 98.4 O2 Sat by Pulse Oximetry: 100 Airway: patent Nausea: No Vomiting: No Pain Intensity: 2 Hydration Status: adequate Cardiopulmonary Status: Stable Mental Status/LOC: patient returned to baseline Follow-up Care/Observations: 0 Post-Anesthesia Complications: 0 Follow-up care needed: N/A Fabrice Hernández MD Jun 27, 2020 12:15
--- NOTE | 2020-06-27 13:10 | History and Physical ---
History of Present Illness General Date patient seen: Jun 27, 2020 Reason for Hospitalization: post op care Present Illness HPI 30 year old female, known to me from previous admissions with history of multiple surgeries for advanced hidradenitis in bilateral axillae, bilateral groins, and most recently excision of infected pilonidal cyst. She has had couple of months of painful cystic mobile fluctuant lesion on her left upper back. She underwent excision of this lesion today by Dr. Mejia. She was seen post op. awake, alert and oriented. in 01/28 pain. Denies fever, chills, sob, chest pain, palpitations. I had previously diagnosed her with pre-DM, however sh e lost 20 pounds and tells me her glucose is normal now. Allergies: Coded Allergies: No Known Allergies (Unverified , 05/02/20) COVID-19 Screening Contact w/high risk pt: No Recent Travel to affected area: No Experienced COVID-19 symptoms?: No Medication History No Active Prescriptions or Reported Meds Patient History Healthcare decision maker N Resuscitation status Advanced Directive on File Family History Family History: FH: HTN (hypertension) Review of Systems Constitutional: Denies: no symptoms, see HPI, chills, sweats, fever, malaise, weakness, other Eye: Denies: no symptoms, see HPI, eye pain, blurred vision, tearing, double vision, nose pain, nose congestion, acuity changes, discharge, other ENT: Denies: no symptoms, see HPI, ear pain, ear discharge, nose pain, nose congestion, throat pain, throat swelling, mouth pain, hearing loss, nasal discharge, other Respiratory: Denies: no symptoms, see HPI, cough, orthopnea, shortness of breath, stridor, wheezing, WAHL, sputum, other Cardiovascular: Denies: no symptoms, see HPI, chest pain, edema, palpitations, syncope, PND, other Gastrointestinal: Denies: no symptoms, see HPI, abdominal pain, constipation, diarrhea, nausea, vomiting, melena, hematemesis, other Genitourinary: Denies: no symptoms, see HPI, discharge, dysuria, frequency, hematuria, pain, retention, incontinence, urgency, vag bleed/dc, other Musculoskeletal: Denies: no symptoms, see HPI, back pain, gout, joint pain, joint swelling, muscle pain, muscle stiffness, other Skin: Reports: see HPI Psychiatric: Denies: no symptoms, see HPI, prior hx, anxiety, depressed feelings, emotional problems, SI, HI, hallucinations, other Neurological: Denies: no symptoms, see HPI, headache, numbness, paresthesia, seizure, tingling, tremors, focal weakness, syncope, dizziness, other Endocrine: Denies: no symptoms, see HPI, excessive sweating, flushing, intolerance to temperature, increased thirst, increased urine, unexplained weight loss, other Hematologic/Lymphatic: Denies: no symptoms, see HPI, anemia, blood clots, easy bleeding, easy bruising, swollen glands, diathesis, other Physical Exam General Appearance: WD/WN, no apparent distress Lines, tubes and drains: peripheral HEENT: normocephalic, atraumatic, anicteric, mucous membranes moist, PERRL Neck: non-tender, normal alignment, normal inspection Respiratory/Chest: chest wall non-tender, lungs clear, normal breath sounds, no respiratory distress, no accessory muscle use Cardiovascular/Chest: normal peripheral pulses, normal rate, regular rhythm, no JVD Abdomen: normal bowel sounds, non tender, soft Extremities: normal range of motion, non-tender Skin Exam: other - left upper back dressing c/d/i Neurologic: neurodiagnostic technologist II-XII grossly normal, no motor/sensory deficits, oriented x 3 Last 24 Hour Vital Signs Date Time Temp Pulse Resp B/P (MAP) Pulse Ox O2 Delivery O2 Flow Rate FiO2 06/27/20 11:28 98.2 80 18 115/75 99 Room Air 06/27/20 11:06 Room Air Laboratory Tests Test 06/27/20 10:30 Urine HCG, Qualitative Negative (NEGATIVE) Microbiology Date/Time Source Procedure Growth Status 06/27/20 10:35 Nasopharynx SARS-CoV-2 RdRp Gene Assay - Final Complete Height (Feet): 5 Height (Inches): 0.00 Weight (Pounds): 148 Medications Current Medications Medications (Trade) Dose Ordered Sig/Rl Route PRN Reason Start Time Stop Time Status Last Admin Dose Admin Acetaminophen/ Hydrocodone Bitart ([place] 5/325) 1 tab Q1H PRN ORAL Mild Pain (Pain Scale 1-3) 06/27/20 10:15 06/27/20 16:30 Acetaminophen/ Hydrocodone Bitart ([place] 7.5/325) 1 tab Q1H PRN ORAL Moderate Pain (Pain Scale 4-6) 06/27/20 10:15 06/27/20 16:30 Al Hydroxide/Mg Hydroxide (Mylanta) 15 ml Q1H PRN ORAL gi upset 06/27/20 10:15 06/27/20 16:30 Atropine Sulfate (Atropine 0.4mg/ ml) 0.5 mg Q5M PRN IVP HR<40 06/27/20 10:15 06/27/20 16:30 Diphenhydramine HCl (Benadryl) 25 mg Q15M PRN IVP Itching 06/27/20 10:15 06/27/20 16:30 Fentanyl Citrate (Sublimaze 100 mcg/2 mL) 25 mcg Q10M PRN IV Moderate Pain (Pain Scale 4-6) 06/27/20 10:15 06/27/20 16:30 Hydralazine HCl (Apresoline) 5 mg Q30M PRN IV SBP>160 / DBP>90 06/27/20 10:15 06/27/20 16:30 Hydromorphone HCl (Dilaudid) 0.5 mg Q15M PRN IVP Severe Pain (Pain Scale 7-10) 06/27/20 10:15 06/27/20 16:30 Ketorolac Tromethamine (Toradol 30mg) 15 mg Q1H PRN IV Moderate Breakthru Pain (5-7) 06/27/20 10:15 06/27/20 16:30 Ketorolac Tromethamine (Toradol 30mg) 30 mg Q1H PRN IV Severe Breakthru Pain (>7) 06/27/20 10:15 06/27/20 16:30 Labetalol HCl (Normodyne) 5 mg Q10M PRN IV SBP>160 / DBP>90 06/27/20 10:15 06/27/20 16:30 Lorazepam (Ativan 2mg/ml 1ml) 1 mg Q15M PRN IV For Anxiety 06/27/20 10:15 06/27/20 16:30 Meperidine HCl (Demerol) 25 mg Q5M PRN IV SHIVERING.MAY REPEAT X 1 06/27/20 10:15 06/27/20 16:30 Metoclopramide HCl (Reglan) 10 mg Q1H PRN IVP Nausea & Vomiting 06/27/20 10:15 06/27/20 16:30 Midazolam HCl (Versed 2mg/2ml vial) 1 mg Q15M PRN IVP For Anxiety 06/27/20 10:15 06/27/20 16:30 Ondansetron HCl (Zofran) 4 mg Q1H PRN IVP Nausea & Vomiting 06/27/20 10:15 06/27/20 16:30 Oxycodone/ Acetaminophen (Percocet 5-325) 1 tab Q1H PRN ORAL Severe Pain (Pain Scale 7-10) 06/27/20 10:15 06/27/20 16:30 Assessment/Plan Status: stable Assessment/Plan: 30 year old overweight female with hx of multiple hidradenitis surgeries now pod#0 s/p excision of left upper back cyst vs hidradenitis plan: place on observation Cefazolin 1g q8hr pain control vte ppx: Heparin code: full cdode disposition: Can dc in Am with 7 days of keflex and Percocet I spent 70 minutes on this encounter. >50% spent on counselling and care coordination Yimi Rowland M.D. Jun 27, 2020 13:10
--- NOTE | 2020-06-27 13:12 | Operative Note - PDOC ---
Operative Note Operative Note Pre-op Diagnosis: Upper back cyst vs hidradenitis Procedure: Excision of upper back lesion with flap closure Post-op Diagnosis: same as pre-op Surgeon: Roberto Senior Occupational Therapist: Angela Anesthesia: general Specimen: yes Complications: none Condition: stable Estimated Blood Loss: minimal Drains: none Implant(s) used?: No Quynh Mejia MD Jun 27, 2020 13:12
[2020-06-27] MEDS ORDERED: Zolpidem 5mg tab ORAL PRN (13:30)
[2020-06-27] MEDS ORDERED: HYDROcodone/Acetamin 10/325 tab ORAL PRN (13:30)
[2020-06-27] MEDS ORDERED: ceFAZolin sod 1 GM in D5W 55 ML IV SCH (14:00)
[2020-06-27] MEDS ORDERED: Sterile Water Irrig 2000ml IRRIG ONE (14:27)
[2020-06-27] MEDS ORDERED: NS Irrig 2000ml IRRIG ONE (14:27)
[2020-06-27] MEDS ORDERED: NS 55ml IV ONE (14:27)
[2020-06-27] MEDS: HYDROmorphone 1mg/ml Carpuject IVP PRN ×2 (15:12→20:22)
--- NOTE | 2020-06-27 17:15 | Operative Note - Dictated ---
DATE OF OPERATION: 06/27/2020 PREOPERATIVE DIAGNOSIS: Left upper back infected cyst versus hidradenitis suppurativa. POSTOPERATIVE DIAGNOSIS: Left upper back infected cyst versus hidradenitis suppurativa. PROCEDURE: 1. Excision of left upper back lesion. 2. Elevation of a superior rotation flap for closure of resulting defect. 3. Elevation of an inferior rotation flap for closure of resulting defect. SURGEON: Quynh Mejia M.D. ANALYSIS CONSULTANT: Jorge Miller M.D. ANESTHESIA: General. COMPLICATIONS: None. DRAINS: None. EBL: Minimal. SPECIMEN: Left upper back lesion with infected cyst. DISPOSITION: Stable to the recovery room. INDICATIONS FOR SURGERY: This is a 30-year-old patient of mine, who has had multiple surgeries by me in the past for advanced hidradenitis. She has had previous surgeries in her bilateral axillae, her bilateral groins, as well as most recently an excision of an infected pilonidal cyst. She has had a several-month history of a painful cystic type lesion on her left upper back, which has been persistent and causing her discomfort. On my evaluation, the area measured approximately 3 x 3 cm of a mobile mass that was fluctuant and, given the fact that she has a long-standing history of hidradenitis, I could not definitively rule out the possibility of hidradenitis and felt that this might actually potentially have evidence of disease in it. Therefore, we had a discussion of excising this to rule out hidradenitis versus other possible etiology. She understood the risks and benefits of surgery and agreed to proceed. DETAILS OF THE OPERATION: The patient was brought to the operating room and laid in the supine position on the operating room table. After induction of anesthesia, she was placed on in the left lateral decubitus position with left side up. The area in question again measured 3 x 3 cm. A circular incision was designed around and over the area in question and corresponding superior and inferior rotation flaps were designed. A #15 blade was used to make the skin incision and the dissection was carried down along the bain of the cystic structure down to the level of the latissimus muscle fascia. With the specimen excised en bloc, we noticed there was some purulent fluid present at the base of the wound as well. The specimen was then sent to the back table and sent off for pathology. The defect was not amenable to primary closure. As such, these rotation flaps that had been designed were further reinforced with markings and the superior flap was based off of perforators through the latissimus muscle itself, as were the inferior flaps, which were both over the latissimus muscle fascia. This was a double-opposing Z-plasty type of rotation flap elevation. As such, these opposing incisions were made on the flap, first on the superior side and then on the inferior aspect of the wound. The flaps were then mobilized by releasing the inferior attachments from the fascia, and once hemostasis was achieved, the rotation flaps were then brought together in opposition to allow for a tension-free closure. The flaps were brought together using 0 and 2-0 Vicryl sutures and the remainder of the incisions were closed with 3-0 Vicryl sutures and the skin was closed with a running 3-0 Prolene stitch that was then further reinforced with a 4-0 Prolene stitches. Bulky dressings were then applied and, given the degree of the dissection as well as anticipated pain, the patient will be admitted for observation just for 23 hours and discharged shortly after. All needle and sponge counts were correct at the end of the case and there were no complications. Quynh Mejia M.D. DR: JANNA JOB#: [id number] CC:
[2020-06-27] MEDS: Docusate 100mg cap ORAL SCH (20:20)
[2020-06-27] MEDS: Heparin 5000 units/ml inj SUBQ SCH (20:20)
[2020-06-27] MEDS ORDERED: Heparin 5000 units/ml inj SUBQ SCH (21:00)
[2020-06-27] MEDS: ceFAZolin 2gm/50ml Premix 50 ML IV SCH (21:36)
[2020-06-28] VITALS: BP 107/54
[2020-06-28] MEDS: HYDROmorphone 1mg/ml Carpuject IVP PRN ×2 (05:03→09:11)
[2020-06-28] MEDS: ceFAZolin 2gm/50ml Premix 50 ML IV SCH (05:04)
[2020-06-28] MEDS ORDERED: CEPHALEXIN500 MG ORAL (07:52)
[2020-06-28] MEDS ORDERED: PERCOCET 5-3251 EACH ORAL (07:52)
--- NOTE | 2020-06-28 07:54 | Discharge Summary ---
Discharge Summary Hospital Course Date of Admission Jun 27, 2020 at 14:26 Date of Discharge Jun 28, 2020 Admitting Diagnosis left upper back cyst Reason for Hospitalization: post op care HPI Deysi Wright is a 30 year old female who was admitted on Jun 27, 2020 at 14:26 for Back Lesion Hospital Course 30 year old overweight female with hx of multiple hidradenitis surgeries now pod#1 s/p excision of left upper back cyst vs hidradenitis. She tolerated the procedure well. no acute events overnight. Patient will be discharged on 7 days of keflex and Percocet I spent 30 minutes on this encounter. >50% spent on counselling and care coordination Discharge Medications New Medications: Cephalexin* (Keflex*) 500 Mg Capsule 500 MG ORAL EVERY 12 HOURS for 7 Days, #14 CAP 0 Refills Oxycodone/Acetaminophen 5-325* (Percocet 5-325 Mg Tablet*) 1 Each Tablet 1 TAB ORAL Q6H PRN, #10 TAB 0 Refills Discharge Condition Upon Discharge: stable Discharge Vital Signs Last Vital Signs Date Time Temp Pulse Resp B/P (MAP) Pulse Ox O2 Delivery O2 Flow Rate FiO2 06/28/20 00:00 97.5 69 18 107/54 (71) 100 06/27/20 21:00 Room Air 06/27/20 14:39 3.0 Discharge Disposition Patient was discharged to home Discharge Diagnoses: (1) Cyst (2) Pilonidal cyst with abscess Yimi Rowland M.D. Jun 28, 2020 07:54
[2020-06-28 08:00] VITALS: BP 119/58
[2020-06-28] MEDS: Docusate 100mg cap ORAL SCH (09:00)
[2020-06-28] MEDS: Heparin 5000 units/ml inj SUBQ SCH (09:00)
== END 2020-06-28 11:28 | disposition home or self-care (01) ==
LOC: SUR 10:06 → 3E 14:26
DX: L05.01 Pilonidal cyst with abscess (principal); L72.0 Epidermal cyst; E66.3 Overweight; Z68.26 Body mass index [BMI] 26.0-26.9, adult; K21.9 Gastro-esophageal reflux disease without esophagitis; Z82.49 Family history of ischemic heart disease and other diseases of the circulatory system
CPT/HCPCS: 14000; 81025; 94003; J0131; J0690; J1100; J1170; J1885; J2250; J2405; J2704; J3010; J7120; U0002; 94150; G0378